=== PATIENT | female | born 1955 | race Caucasian/White ===

== ENCOUNTER 2019-12-25 10:21 | Outpatient (REF) | payer MEDICARE, OTHER, MEDICAID, SELFPAY | END 2019-12-25 10:22 | disposition home or self-care (01) | LOC: HO.LAB 10:21 | PROVIDERS: PCP Physician Assistant; Visit Provider Physician Assistant | DX: E78.5 Hyperlipidemia, unspecified (principal); J44.9 Chronic obstructive pulmonary disease, unspecified; C34.90 Malignant neoplasm of unspecified part of unspecified bronchus or lung ==

== ENCOUNTER → 2020-02-12 08:58 | Outpatient (REF) | payer MEDICARE, MEDICAID, SELFPAY ==
--- NOTE | 2020-02-12 09:02 | CA_ITS ---
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 The visually estimated ejection fraction is between 55-60%. - Evidence suggests grade I (mild) diastolic dysfunction. - No obvious valvular pathology seen on this study. - There is no evidence of pericardial effusion. Findings Left Ventricle Normal left ventricular cavity size. There is normal left ventricular wall thickness. The left ventricular systolic function is normal. The visually estimated ejection fraction is between 55-60%. The calculated ejection fraction is 59% by biplane method. There is no evidence of regional wall motion abnormalities. E/E prime ratio is between 8 and 15 consistent with indeterminate filling pressures. Evidence suggests grade I (mild) diastolic dysfunction. Right Ventricle Normal right ventricular cavity size and systolic function. Atria The left atrium is normal in size. The right atrium is normal in size. Aortic Valve There is a normal trileaflet aortic valve. There is no aortic valve stenosis. There is no aortic valve regurgitation. Mitral Valve The mitral valve appears normal. There is trace mitral valve regurgitation. There is no mitral valve stenosis. Pulmonic Valve The pulmonic valve was not well visualized. Tricuspid Valve There is trace tricuspid valve regurgitation. The pulmonary artery systolic pressure is normal. Great Vessels The aorta was not well visualized. The aortic annulus and sinuses of valsalva are normal in size. Small plaque is seen in the sino tubular ridge. Venous The inferior vena cava is normal in size and collapses greater than 50% with inspiration. Pericardium/Pleural There is no evidence of pericardial effusion. Prior Study Comparison No prior study available for comparison. Recommendations, Care & Conclusions No obvious valvular pathology seen on this study. Measurements 2D Linear Measurements RVIDd: 2.89 RVIDd Index: 1.42 IVSd: 0.75 0.6-0.9/0.6-1.0 cm LVIDd: 4.91 3.9-5.3/4.2-5.9 cm LVIDd Index: 2.42 2.4-3.2/2.2-3.1 cm/m2 LVIDs: 3.65 2.0-3.6 cm LVPWd: 1.07 0.7-1.1 cm Ao Root: 3.20 2.1-3.5 cm LA Diam: 3.30 2.7-3.8/3.0-4.0 cm LAIDs Index: 1.63 1.5-2.3 cm/m2 LV Mass: 193.48 67-162/88-224 g LV Mass Index: 95.31 43-95/49-115 g/m2 LVOT Diam: 2.00 3.0+(-)1.3 cm 2D Systolic Function EF 4C: 62.90 >55% EF 2C: 54.40 >55% EF BiP: 58.80 >55% Mitral Valve MV Pk E: 0.76 MV PK A: 0.66 MV Decel Time: 152.00 E/A: 1.10 E'Lateral: 9.14 E'Medial: 5.98 E/E' Med: 12.70 E/E' Lat: 8.30 Aortic Valve AoV Pk Aaron: 1.45 AoV Mn Aaron: 1.01 AoV VTI: 0.27 AoV Pk Grad: 8.00 Aov Mn Grad: 5.00 SILVA Cont.VTI: 2.55 LVOT LVOT Pk Aaron: 1.28 LVOT Mn Aaron: 0.81 LVOT VTI: 0.22 LVOT Pk Grad: 7.00 LVOT Mn Grad: 3.00 LVOT Diam: 2.00 LVOT Area: 3.14 Diastolic Function MV Pk E: 0.76 MV Pk A: 0.66 E/A: 1.10 E'Medial: 5.98 E/E' Med: 12.70 E' Laterial: 9.14 E/E' Lat: 8.30 Tricuspid Valve RA Press: 3.00 Great Vessels Aorta Ao Root-2D: 3.20 2.0-3.7 cm Ao Arch: 2.40 Updated in Other Vendor System with Status of Final Jason Frey MD electronically signed on 02/14/2020 9:39:45 AM with status of Final
== END ==
LOC: HO.CARD 08:58
PROVIDERS: PCP Physician Assistant; Visit Provider Internal Medicine Pulmonary Disease
DX: R06.00 Dyspnea, unspecified (principal)
CPT/HCPCS: 93306; 93356

== ENCOUNTER 2020-02-16 11:52 | Outpatient (REF) | payer MEDICARE, MEDICAID, SELFPAY ==
--- NOTE | 2020-02-16 11:55 | CT_ITS ---
EXAMINATION: CT CHEST WITH CONTRAST CLINICAL INFORMATION: Squamous cell carcinoma lung, restaging COMPARISON: CT chest with contrast 07/31/2019, 01/03/2019; PET CT 11/24/2019. TECHNIQUE: Multidetector volumetric CT imaging of the chest was obtained after the administration of 85 mL of Omnipaque 350 intravenous contrast without immediate adverse reactions. Axial MIP volume rendering provided. Sagittal and coronal reformatted images were obtained. CT abdomen and pelvis also performed and described in separate report. This CT examination was performed using dose optimization techniques as appropriate, variously including the following: *Automated exposure control *Adjustment of mA and/or kV according to patient size (this includes techniques or standardized protocols for targeted exams where dose is matched to indication/reason for exam; i.e. extremities or head) *Use of iterative reconstruction technique DLP: 165 mGy-cm FINDINGS: LUNGS: There is mild increased volume loss on the right. Patchy airspace opacities are present, straight lateral margin in the upper zones, suggesting radiation therapy change. There is more confluent patchy opacities right lower zone. Findings increased since prior exam 07/31/2019. The right infrahilar mass measures 1.2 cm, coronal image 51 compared with 1.[address] coronal image. The left lung has 6-7 mm nodule lateral superior segment lower lobe, series /209, sagittal 22. No significant change from prior CT, remeasured in same orientation. There is a punctate calcification likely granuloma left posterior base under 4 mm. No new pulmonary nodule or airspace consolidation. MEDIASTINUM: 1.2 cm right paratracheal node at sternal notch, similar to prior CT. Soft tissue fullness subcarinal region stable. No interval hilar or mediastinal adenopathy. Thoracic aorta normal in caliber. Central pulmonary arteries patent. Tunneled port. PLEURA: Moderate right effusion without significant change. No interval pleural thickening or pleural mass. No left effusion. AXILLA: No lymphadenopathy. UPPER ABDOMEN: CT abdomen and pelvis described in separate report. OSSEOUS STRUCTURES: T6 compression fracture slightly increased. No accentuated superior endplate concavity T5. No paraspinal soft tissue swelling. CT/CT chest w con IMPRESSION: 1. Mild increased volume loss right hemithorax with probable radiation therapy changes. Moderate effusion stable. Right infrahilar mass borderline decreased in size. No interval new adenopathy. 2. Solitary nodule superior segment left lower lobe under 1 cm without significant change. 3. Slight increased T6 vertebral compression. New superior endplate concavity T5. No paraspinal soft tissue swelling. 4. CT abdomen pelvis described in separate report.
--- NOTE | 2020-02-16 11:55 | CT_ITS ---
EXAMINATION: CT ABDOMEN AND PELVIS WITH CONTRAST CLINICAL INFORMATION: Restaging. Lung cancer. COMPARISON: CT/PET exam 11/24/2019. TECHNIQUE: Multidetector volumetric images were obtained from the superior aspect of the liver through the pubic symphysis following administration 85 mL of Omnipaque 350 intravenous contrast. Sagittal and coronal reformatted images were obtained on the technologist's workstation. Oral contrast: No This CT examination was performed using dose optimization techniques as appropriate, variously including the following: *Automated exposure control *Adjustment of mA and/or kV according to patient size (this includes techniques or standardized protocols for targeted exams where dose is matched to indication/reason for exam; i.e. extremities or head) *Use of iterative reconstruction technique DLP: 805 mGy-cm FINDINGS: LUNG BASES: There is a small to moderate right pleural effusion with right lower lobe and right middle lobe band-like atelectasis or chronic scarring. LIVER, GALLBLADDER, AND BILIARY TREE: There is a 3 cm lesion left hepatic lobe segment 2/3. Previously FDG avid this lesion measured 5.7 x 4.7 cm and has improved significantly in size. No additional liver lesions visualized. There is no intrahepatic ductal dilatation. The liver is homogeneous in density and normal size. The gallbladder is unremarkable with no evidence of radiopaque gallstones, gallbladder wall thickening, or obvious pericholecystic inflammatory changes. PANCREAS: Unremarkable. SPLEEN: Unremarkable. ADRENAL GLANDS: Unremarkable. KIDNEYS AND URETERS: The kidneys are normal in size, shape, and attenuation. No hydronephrosis, hydroureter, or calculi seen. No perinephric stranding. BLADDER: Unremarkable. GASTROINTESTINAL TRACT: There is scattered oral contrast and stool seen throughout the colon without any significant distention. A few scattered diverticula are seen in descending and sigmoid colon without diverticulitis. There is nonspecific mild mural thickening involving a small segment of small bowel in the left upper pelvis on axial images 42 through 55/3, it is nonspecific. Rest of the small bowel loops are normal. No inflammatory process seen in the mesentery. ABDOMINAL WALL: No significant hernia is appreciated. LYMPH NODES: Normal. VASCULAR: Unremarkable. PELVIC VISCERA: There is no free fluid or free air. The uterus is anteverted and appears unremarkable. OSSEOUS STRUCTURES: No lytic or sclerotic process seen. CT/CT abdomen pelvis w con IMPRESSION: Significant improvement in the left lobe liver lesions with measurements shown above. No additional liver lesion seen. Nonspecific mild mural thickening involving a small bowel segment in left abdomen, nonspecific. Small to moderate right pleural effusion with underlying right lower lobe and right middle lobe band-like atelectasis or scarring.
[2020-02-16] MEDS: iohexoL 350 MG/ML 100 ML INFUS..BTL 85 ML IV (15:29)
== END 2020-02-16 11:53 | disposition home or self-care (01) ==
LOC: HO.CT 11:52
PROVIDERS: PCP Physician Assistant; Visit Provider Internal Medicine
DX: C34.90 Malignant neoplasm of unspecified part of unspecified bronchus or lung (principal)
CPT/HCPCS: 71260; 74177; Q9967

== ENCOUNTER → 2020-03-01 10:03 | Outpatient (BNVA) | payer MEDICARE, OTHER, MEDICAID, SELFPAY | PROVIDERS: PCP Physician Assistant; Visit Provider Internal Medicine Pulmonary Disease | DX: J41.0 Simple chronic bronchitis (principal); R06.00 Dyspnea, unspecified | CPT/HCPCS: 99212 ==

== ENCOUNTER 2020-04-04 14:26 | Inpatient (IN) | payer MEDICARE, MEDICAID, SELFPAY ==
[2020-04-04] VITALS (7 sets, daily range): BP systolic 93–132; BP diastolic 40–68; PULSE 108–156; RESP 14–20; TEMP 35.9–37.1; O2SAT 92–99; BMI 37.8
--- NOTE | 2020-04-04 | ECG_ITS ---
Test Reason : REPEAT Blood Pressure : / mmHG Vent. Rate : 109 BPM Atrial Rate : 109 BPM P-R Int : 138 ms QRS Dur : 076 ms QT Int : 362 ms P-R-T Axes : 052 033 022 degrees QTc Int : 487 ms Sinus tachycardia T wave abnormality, consider anterior ischemia Abnormal ECG When compared with ECG of 04-APR-2020 15:19, No significant change was found Referred By: Diamond Farmer Electronically Signed By:ALEC ALVAREZ MD
--- NOTE | 2020-04-04 14:45 | CT_ITS ---
EXAMINATION: CT ANGIOGRAM OF THE CHEST WITH AND WITHOUT CONTRAST (CT PULMONARY ANGIOGRAM FOR PE) CLINICAL INFORMATION: Reason for Exam hypoxia, SOB, +lung cancer COMPARISON: Previous chest CT scans most recent 02/16/2020 TECHNIQUE: Prior to contrast administration, noncontrast localization images were obtained. Subsequently, multidetector volumetric imaging was performed from the thoracic inlet to below the diaphragms following the administration of 65 mL Omnipaque 350 intravenous contrast. No contrast reaction reported Sagittal, coronal, and MIP oblique sagittal reformatted images were obtained on the CT workstation, uploaded to PACS, and reviewed. This CT examination was performed using dose optimization techniques as appropriate, variously including the following: *Automated exposure control *Adjustment of mA and/or kV according to patient size (this includes techniques or standardized protocols for targeted exams where dose is matched to indication/reason for exam; i.e. extremities or head) *Use of iterative reconstruction technique Total exam dose-length product 430 mGy-cm FINDINGS: QUALITY OF STUDY/CONTRAST BOLUS: Satisfactory. PULMONARY ARTERIES: No central or segmental pulmonary emboli. THORACIC AORTA: No aneurysm or dissection. LUNG: There is a groundglass attenuation, some denser consolidation and increased interstitial markings seen in the right upper lobe. This appears increased from previous exam. There is denser subsegmental atelectasis or consolidation seen in the central right middle and right lower lobes. This is increased from previous exam as well. The previously identified 1.2 cm right infrahilar nodule on previous exam is is not well delineated. There are new increased interstitial markings and groundglass attenuation seen in the left upper lobe. There are new scattered nodular opacities seen in the left lower lobe. There is a groundglass attenuation nodular opacity in the left lower lobe that measures 6 mm axial image 27 series 5 that is stable. There is a new adjacent 1 cm groundglass attenuation nodule axial image 27 series 5 in the left lower lobe and several more inferior groundglass attenuation nodules in the left lower lobe largest measuring 1.8 x 2.3 cm axial image 33 series 5. PLEURA: There is a large right pleural effusion. This appears increased from previous exam. There is a new moderate small to moderate left pleural effusion that is new from previous exam. MEDIASTINUM: Normal heart size. No pericardial effusion. No evidence of septal bowing or right heart strain. There is stable mediastinal lymphadenopathy. Largest lymph node is a right tracheoesophageal groove lymph node that measures 1.4 x 1.8 cm axial image 10 series 5. There are smaller mediastinal lymph nodes that are stable. Evaluation for right-sided hilar adenopathy is difficult due to dense central right lung consolidation. No left-sided hilar adenopathy is seen. There is a new left jugular port with tip projecting over the SVC. CHEST WALL/AXILLA: No axillary or internal mammary lymphadenopathy. OSSEOUS STRUCTURES: There are degenerative changes of the spine. There are midthoracic vertebral body compression fractures that appear unchanged. UPPER ABDOMEN: There is fullness of the right adrenal gland seen on coronal recent drop images. This is not appreciated on the source axial images be artifactual motion. No reflux of contrast into the hepatic veins to suggest elevated right heart pressures. CT/CT angio chest PE protocol IMPRESSION: No evidence of pulmonary embolism. Increasing groundglass attenuation, increased interstitial markings and denser consolidation in the right upper lobe. Increasing denser atelectasis or consolidation in the central right middle and right lower lobes. New groundglass attenuation and increased interstitial markings in the left upper lobe. New groundglass attenuation nodular opacities in the left lower lobe. How much of the right-sided lung findings represent possible post treatment/radiation change versus residual neoplasm or infection is uncertain. New left-sided findings raise concern for infectious or inflammatory process. Increasing large right pleural effusion and small to moderate left pleural effusion. Stable compression fractures. VTE: negative
--- NOTE | 2020-04-04 14:45 | ED_ITS ---
HPI - SOB/Dyspnea General Chief Complaint: Dyspnea Stated Complaint: weakness Time Seen by Provider: 04/04/20 14:36 Source: patient Mode of arrival: ambulatory Limitations: no limitations History of Present Illness HPI Narrative: 64 y/o female with history of metastatic squamous cell lung cancer on active chemotherapy, COPD, HFpEF, former smoker who presents from Onology office with generalized fatigue, body aches, and SOB. She was found to have oxygen saturation of 83% on room air. She states it started 3 days after her last chemotherapy 03/17/2020. She states it is common for her after chemotherpay however this time it never improved. She stayed in bed all last week due to fatigue and LUKE. She has been checking her temperature and has had no fevers. She is coughing clear mucus. No abdominal pain, N/V but reports chronic diarrhea. She has increased LE edema for the last 1 month that makes it more difficult to walk around. She has been using her albuterol inhaler without improvement in her SOB. She denies chest pain. MD elicited complaint: shortness of breath Pertinent past history: COPD and other (lung cancer) Onset (ago): week(s) (1-2) Context: other (recent chemotherapy ) Timing: constant and progressively worsening Severity: moderate Exacerbating factors: lying flat, exertion, movement and coughing Relieving factors: rest, bronchodilators and upright position Known history of: COPD and other (lung cancer) Associated symptoms: denies other symptoms, wheezing, sputum production and lower extremity pain Treatment prior to arrival: oxygen Related Data Home Medications Medication Instructions Recorded Confirmed albuterol sulfate See Rx Instructions .ROUTE .COMPLEX 12/25/19 12/31/19 [id number] 1 tab PO DAILY 12/25/19 12/31/19 [Citracal-D3 Maximum Plus] [id number] carb-vit K 1 tab PO DAILY 12/25/19 12/31/19 [One-A-Day Womens Formula] ondansetron 8 mg PO Q8H PRN 12/25/19 12/31/19 simvastatin 40 mg PO BEDTIME 12/25/19 12/31/19 loratadine 10 mg capsule 10 mg PO NEEDED PRN 12/31/19 02/05/20 meclizine 25 mg tablet 25 mg PO .PRN PRN tab 12/31/19 02/05/20 omeprazole 20 mg capsule,delayed 20 mg PO DAILY 12/31/19 02/05/20 release umeclidinium-vilanterol [Anoro 1 inh INHALATION DAILY 02/05/20 02/05/20 Ellipta] Previous Rx's Medication Instructions Recorded albuterol sulfate 90 mcg/actuation 2 puff INHALATION Q6H PRN 30 Days 12/31/19 aerosol inhaler #8.5 g umeclidinium 62.5 mcg-vilanterol 1 inh INHALATION DAILY 30 Days #1 01/29/20 25 mcg/actuation powdr for ea inhalation dexamethasone 1 mg PO DIRECTED #60 tab 02/12/20 escitalopram oxalate 5 mg PO DAILY #60 tab 03/01/20 Allergies Allergy/AdvReac Type Severity Reaction Status Date / Time amoxicillin [AMOXICILLIN] Allergy Intermediate HIVES Verified 03/01/20 10:15 Iodinated Contrast Media AdvReac Intermediate NAUSEA ?T? Verified 03/01/20 10:15 [IVP DYE] VOMITING azithromycin AdvReac Unknown diarrhea Verified 03/01/20 10:15 Review of Systems Review of Systems: Constitutional: No Fever, + Chills ENT/Mouth: No sore throat, No Rhinorrhea, No Swallowing Difficulty Eyes: No Eye Pain, No Swelling, No Redness Cardiovascular: No Chest Pain, + SOB, + Orthopnea, + Edema Respiratory: + Cough, + Sputum, + Wheezing, + dyspnea Gastrointestinal: No Nausea, No Vomiting, + Diarrhea, No abdominal Pain Genitourinary: No Dysuria, No Urinary Frequency, No Hematuria Musculoskeletal: No joint pain, + Myalgias Skin: No Skin Lesions, No rash Neuro: + Weakness, No Numbness, No Dizziness, + Headache Psych: No Anxiety/Panic, No Depression Heme/Lymph: No Bruising, No Lymphadenopathy Endocrine: No Polyuria, No Polydipsia PMFSH Past Medical History Attestation statement: The following information was validated with the patient. Medical History COPD (chronic obstructive pulmonary disease) HLD (hyperlipidemia) Squamous cell carcinoma of lung, stage IV TIA (transient ischemic attack) Surgical History H/O breast biopsy No pertinent past surgical history Family History Family History Father Hypertension Mother No problems noted. Sister Hypertension Diverticulosis Brother Hypertension Social History Social History Smoking Status: Former smoker Years Smoked: 30 yrs Advance Directives: Yes Advance Directives on File: Yes Advance Directives Date on File: 03/01/19 Physical Exam Vital Signs: Vital Signs: Last Vital Signs Temp 98.0 F 04/04/20 14:30 Pulse 109 H 04/04/20 16:14 Resp 20 04/04/20 16:14 BP 118/60 04/04/20 16:40 Pulse Ox 99 04/04/20 16:14 Body Mass Index 37.8 Appearance: Alert. Oriented X3. Pallor, mild respiratory distress, i ntermittent pursed lip breathing Eyes: Pupils equal, round and reactive to light. ENT: Pharynx normal. Neck: Normal inspection. Neck supple. CVS: tachycardic, regular rhythm, Pulses normal. Respiratory: Mild respiratory distress, shallow breathing pattern with RR low 20's, expiratory wheezes at bilateral bases Abdomen: Obese, Soft and nontender. +BS x4 Skin: Skin warm and dry. Normal skin color. Normal skin turgor. No rashes. Extremities: 2+ LE pitting edema, no calf tenderness. Neuro: Oriented X 3. Generalized weakness. Non-focal. Course Course Course Narrative: 64 y/o female with history of metastatic lung cancer on chemo, COPD, HFpEF who presents with SOB, malaise and fatigue x1-2 weeks after chemo, found to be hypoxic and tachycardic. Concern for PE given active cancer. CTA ordered. She is wheezy on exam so IV steroids ordered as well as Resp panel, labs, cultures, and troponin. Will require admission to the hospital. Discussed goals of care - patient wishes to be a full code at this time. Reevaluation(s) Reevaluation #1: COVID POSITIVE. Results discussed with the patient. All questions answered. CTA resulted with NO PE, increased GGO with increasing right pleural effusion, ?malignant. Spoke with the Hospitalist who will admit for acute hypoxic respiratory failure in the setting of COVID-19 infection. MDM - SOB/Dyspnea MDM Narrative Medical decision making narrative: Ddx includes but not limited to: progressive lung cancer, malignant effusion, COVID, Influenza, pneumonitis Differential Diagnosis Differential diagnosis: Likely acute exacerbation of chronic obstructive airways disease, congestive heart failure, pneumonia, pulmonary embolism, pleural effusion and anemia Medical Records Attestation: I reviewed the patient's medical records. Lab Data Attestation: I reviewed the patient's lab results. Result diagrams: 04/04/20 14:24 04/04/20 15:06 Labs: Lab Results 04/04/20 04/04/20 04/04/20 Range/Units 14:24 15:05 15:05 WBC 7.4 (4.8-10.8) X10*3/uL RBC 3.90 L (4.20-5.50) X10*6/uL Hgb 11.1 L (12.0-16.0) g/dl Hct 34.1 L (37-47) % MCV 87.4 (80-98) fL MCH 28.5 (27.0-33.0) pg MCHC 32.6 (31.0-35.0) g/dl RDW 16.4 H (11.0-16.0) % Plt Count 326 (160-400) X10*3/uL MPV 8.9 L (9.4-12.3) fL Immature Gran % (Auto) 0.5 H (0.0-0.4) % Neut % (Auto) 76.2 H (45-73) % Lymph % (Auto) 7.4 L (20-40) % Hutchinson % (Auto) 15.6 H (2-11) % Eos % (Auto) 0.0 (0-4) % Baso % (Auto) 0.3 (0-2) % Lymph # (Auto) 0.6 L (1.2-4.9) X10*3/uL Hutchinson # (Auto) 1.2 (0.1-1.2) X10*3/uL Eos # (Auto) 0.0 (0.0-0.4) X10*3/uL Baso # (Auto) 0.0 (0.0-0.2) X10*3/uL Abs Immat Gran (auto) 0.04 H (0.00-0.03) X10*3/uL Absolute Neuts (auto) 5.6 (2.0-8.3) X10*3/uL Absolute Nucleated RBC 0.000 (0.0-0.012) X10*3/uL Nucleated RBC % (auto) 0.0 (0.0-0.2) /100WBC Smear Tech's Comments VERIFIED PT 14.7 H (10.8-13.0) SEC INR 1.2 H (0.9-1.1) APTT 26.7 (24.1-38.0) SEC D-Dimer 411 NG/ML Sodium (135-145) mmol/L Potassium (3.3-5.1) mmol/l Chloride (96-108) mmol/L Carbon Dioxide (22-29) mmol/L Anion Gap (12-20) BUN (9-16) mg/dL Creatinine (0.5-1.4) mg/dL Estim Creat Clear Calc Estimated GFR Random Glucose (60-115) mg/dL Lactic Acid (0.5-2.0) mmol/L Calcium (8.4-10.2) mg/dL Magnesium (1.6-2.6) mg/dL Total Bilirubin (0.0-1.0) mg/dL Direct Bilirubin (0.0-0.5) mg/dL AST (5-31) U/L ALT (0-31) U/L Alkaline Phosphatase (39-117) U/L Troponin I High Sens 29.7 H (<3.5-17.0) ng/L C-Reactive Protein (< or = 0.50) mg/dL B-Natriuretic Peptide 299 H (<100) pg/mL Total Protein (6.5-8.0) g/dL Albumin (3.5-5.0) g/dL Procalcitonin ng/mL Urine Color Urine Appearance Urine pH (5.0-8.0) Ur Specific Dubberly (1.005-1.025) Urine Protein (NEG-TRACE) MG/DL Urine Glucose (UA) (NEG) MG/DL Urine Ketones (NEG) MG/DL Urine Blood (NEG) Urine Nitrite (NEG) Ur Leukocyte Esterase (NEG) Urine Osmolality (373-1093) mosm/kg Ur Random Sodium mmol/L Urine Creatinine mg/dL Coronavirus (PCR) (Negative) Influenza Type A (PCR) (Negative) Influenza Type B (PCR) (Negative) RSV RNA Qual (PCR) (Negative) 04/04/20 04/04/20 04/04/20 Range/Units 15:05 15:06 15:06 WBC (4.8-10.8) X10*3/uL RBC (4.20-5.50) X10*6/uL Hgb (12.0-16.0) g/dl Hct (37-47) % MCV (80-98) fL MCH (27.0-33.0) pg MCHC (31.0-35.0) g/dl RDW (11.0-16.0) % Plt Count (160-400) X10*3/uL MPV (9.4-12.3) fL Immature Gran % (Auto) (0.0-0.4) % Neut % (Auto) (45-73) % Lymph % (Auto) (20-40) % Hutchinson % (Auto) (2-11) % Eos % (Auto) (0-4) % Baso % (Auto) (0-2) % Lymph # (Auto) (1.2-4.9) X10*3/uL Hutchinson # (Auto) (0.1-1.2) X10*3/uL Eos # (Auto) (0.0-0.4) X10*3/uL Baso # (Auto) (0.0-0.2) X10*3/uL Abs Immat Gran (auto) (0.00-0.03) X10*3/uL Absolute Neuts (auto) (2.0-8.3) X10*3/uL Absolute Nucleated RBC (0.0-0.012) X10*3/uL Nucleated RBC % (auto) (0.0-0.2) /100WBC Smear Tech's Comments PT (10.8-13.0) SEC INR (0.9-1.1) APTT (24.1-38.0) SEC D-Dimer NG/ML Sodium 126 L (135-145) mmol/L Potassium 4.9 D (3.3-5.1) mmol/l Chloride 87 L (96-108) mmol/L Carbon Dioxide 30 H (22-29) mmol/L Anion Gap 14 (12-20) BUN 8 L (9-16) mg/dL Creatinine 0.54 (0.5-1.4) mg/dL Estim Creat Clear Calc 119.3 Estimated GFR > 60 Random Glucose 80 (60-115) mg/dL Lactic Acid 0.9 (0.5-2.0) mmol/L Calcium 7.9 L (8.4-10.2) mg/dL Magnesium 1.7 (1.6-2.6) mg/dL Total Bilirubin 0.5 (0.0-1.0) mg/dL Direct Bilirubin 0.3 (0.0-0.5) mg/dL AST 31 D (5-31) U/L ALT 18 (0-31) U/L Alkaline Phosphatase 107 D (39-117) U/L Troponin I High Sens (<3.5-17.0) ng/L C-Reactive Protein 6.84 H (< or = 0.50) mg/dL B-Natriuretic Peptide (<100) pg/mL Total Protein 4.9 L (6.5-8.0) g/dL Albumin 3.0 L (3.5-5.0) g/dL Procalcitonin 0.07 ng/mL Urine Color Urine Appearance Urine pH (5.0-8.0) Ur Specific Dubberly (1.005-1.025) Urine Protein (NEG-TRACE) MG/DL Urine Glucose (UA) (NEG) MG/DL Urine Ketones (NEG) MG/DL Urine Blood (NEG) Urine Nitrite (NEG) Ur Leukocyte Esterase (NEG) Urine Osmolality (373-1093) mosm/kg Ur Random Sodium mmol/L Urine Creatinine mg/dL Coronavirus (PCR) (Negative) Influenza Type A (PCR) (Negative) Influenza Type B (PCR) (Negative) RSV RNA Qual (PCR) (Negative) 04/04/20 04/04/20 04/04/20 Range/Units 15:09 15:38 15:51 WBC (4.8-10.8) X10*3/uL RBC (4.20-5.50) X10*6/uL Hgb (12.0-16.0) g/dl Hct (37-47) % MCV (80-98) fL MCH (27.0-33.0) pg MCHC (31.0-35.0) g/dl RDW (11.0-16.0) % Plt Count (160-400) X10*3/uL MPV (9.4-12.3) fL Immature Gran % (Auto) (0.0-0.4) % Neut % (Auto) (45-73) % Lymph % (Auto) (20-40) % Hutchinson % (Auto) (2-11) % Eos % (Auto) (0-4) % Baso % (Auto) (0-2) % Lymph # (Auto) (1.2-4.9) X10*3/uL Hutchinson # (Auto) (0.1-1.2) X10*3/uL Eos # (Auto) (0.0-0.4) X10*3/uL Baso # (Auto) (0.0-0.2) X10*3/uL Abs Immat Gran (auto) (0.00-0.03) X10*3/uL Absolute Neuts (auto) (2.0-8.3) X10*3/uL Absolute Nucleated RBC (0.0-0.012) X10*3/uL Nucleated RBC % (auto) (0.0-0.2) /100WBC Smear Tech's Comments PT (10.8-13.0) SEC INR (0.9-1.1) APTT (24.1-38.0) SEC D-Dimer NG/ML Sodium (135-145) mmol/L Potassium (3.3-5.1) mmol/l Chloride (96-108) mmol/L Carbon Dioxide (22-29) mmol/L Anion Gap (12-20) BUN (9-16) mg/dL Creatinine (0.5-1.4) mg/dL Estim Creat Clear Calc Estimated GFR Random Glucose (60-115) mg/dL Lactic Acid (0.5-2.0) mmol/L Calcium (8.4-10.2) mg/dL Magnesium (1.6-2.6) mg/dL Total Bilirubin (0.0-1.0) mg/dL Direct Bilirubin (0.0-0.5) mg/dL AST (5-31) U/L ALT (0-31) U/L Alkaline Phosphatase (39-117) U/L Troponin I High Sens (<3.5-17.0) ng/L C-Reactive Protein (< or = 0.50) mg/dL B-Natriuretic Peptide (<100) pg/mL Total Protein (6.5-8.0) g/dL Albumin (3.5-5.0) g/dL Procalcitonin ng/mL Urine Color YELLOW Urine Appearance CLEAR Urine pH 6.0 (5.0-8.0) Ur Specific Dubberly <= 1.005 (1.005-1.025) Urine Protein NEG (NEG-TRACE) MG/DL Urine Glucose (UA) NEG (NEG) MG/DL Urine Ketones 15 (NEG) MG/DL Urine Blood NEG (NEG) Urine Nitrite NEG (NEG) Ur Leukocyte Esterase NEG (NEG) Urine Osmolality 134 L (373-1093) mosm/kg Ur Random Sodium mmol/L Urine Creatinine mg/dL Coronavirus (PCR) POSITIVE A (Negative) Influenza Type A (PCR) NEGATIVE (Negative) Influenza Type B (PCR) NEGATIVE (Negative) RSV RNA Qual (PCR) NEGATIVE (Negative) 04/04/20 Range/Units 15:51 WBC (4.8-10.8) X10*3/uL RBC (4.20-5.50) X10*6/uL Hgb (12.0-16.0) g/dl Hct (37-47) % MCV (80-98) fL MCH (27.0-33.0) pg MCHC (31.0-35.0) g/dl RDW (11.0-16.0) % Plt Count (160-400) X10*3/uL MPV (9.4-12.3) fL Immature Gran % (Auto) (0.0-0.4) % Neut % (Auto) (45-73) % Lymph % (Auto) (20-40) % Hutchinson % (Auto) (2-11) % Eos % (Auto) (0-4) % Baso % (Auto) (0-2) % Lymph # (Auto) (1.2-4.9) X10*3/uL Hutchinson # (Auto) (0.1-1.2) X10*3/uL Eos # (Auto) (0.0-0.4) X10*3/uL Baso # (Auto) (0.0-0.2) X10*3/uL Abs Immat Gran (auto) (0.00-0.03) X10*3/uL Absolute Neuts (auto) (2.0-8.3) X10*3/uL Absolute Nucleated RBC (0.0-0.012) X10*3/uL Nucleated RBC % (auto) (0.0-0.2) /100WBC Smear Tech's Comments PT (10.8-13.0) SEC INR (0.9-1.1) APTT (24.1-38.0) SEC D-Dimer NG/ML Sodium (135-145) mmol/L Potassium (3.3-5.1) mmol/l Chloride (96-108) mmol/L Carbon Dioxide (22-29) mmol/L Anion Gap (12-20) BUN (9-16) mg/dL Creatinine (0.5-1.4) mg/dL Estim Creat Clear Calc Estimated GFR Random Glucose (60-115) mg/dL Lactic Acid (0.5-2.0) mmol/L Calcium (8.4-10.2) mg/dL Magnesium (1.6-2.6) mg/dL Total Bilirubin (0.0-1.0) mg/dL Direct Bilirubin (0.0-0.5) mg/dL AST (5-31) U/L ALT (0-31) U/L Alkaline Phosphatase (39-117) U/L Troponin I High Sens (<3.5-17.0) ng/L C-Reactive Protein (< or = 0.50) mg/dL B-Natriuretic Peptide (<100) pg/mL Total Protein (6.5-8.0) g/dL Albumin (3.5-5.0) g/dL Procalcitonin ng/mL Urine Color Urine Appearance Urine pH (5.0-8.0) Ur Specific Dubberly (1.005-1.025) Urine Protein (NEG-TRACE) MG/DL Urine Glucose (UA) (NEG) MG/DL Urine Ketones (NEG) MG/DL Urine Blood (NEG) Urine Nitrite (NEG) Ur Leukocyte Esterase (NEG) Urine Osmolality (373-1093) mosm/kg Ur Random Sodium < 20.0 mmol/L Urine Creatinine 33.55 mg/dL Coronavirus (PCR) (Negative) Influenza Type A (PCR) (Negative) Influenza Type B (PCR) (Negative) RSV RNA Qual (PCR) (Negative) ECG Data Attestation: I personally reviewed and interpreted this ECG as follows: ECG interpretation date: 04/04/20 ECG interpretation time: 15:44 Prior ECG tracings: not available for review Interpretation: sinus tachycardia, HR 111, t-wave inversions in V1-V3, no appreciable ST segment elevation but non-specific changes in V3 noted. normal MA interval. Critical Care Time Critical Care Time Critical Care Time: Yes Total Critical Care Time: 35 Attestation: I attest to critical care time taking case of this critically ill patient with acute hypoxic resp failure and viral sepsis / COVID-19. Frequent bedside reassessments performed. Discharge Plan Discharge Clinical Impression: Acute respiratory failure with hypoxia, COVID-19 Patient Disposition: Admitted As Inpatient Prescriptions: No Action albuterol sulfate 2.5 mg /3 mL (0.083 %) Solution For Nebulization See Rx Instructions .ROUTE .COMPLEX RF: 0 simvastatin 40 mg Tablet 40 mg PO BEDTIME RF: 0 ondansetron 8 mg Tablet,Disintegrating 8 mg PO Q8H PRN (Reason: Nausea) RF: 0 One-A-Day Womens Formula 18 mg iron-400 mcg-500 mg Tablet 1 tab PO DAILY RF: 0 Citracal-D3 Maximum Plus 325 mg-12.5 mcg -2.75 mg Tablet 1 tab PO DAILY RF: 0 Anoro Ellipta 62.5-25 mcg/actuation Blister With Device 1 inh INHALATION DAILY RF: 0 dexamethasone 1 mg Tablet 1 mg PO DIRECTED Qty: 60 RF: 2 escitalopram oxalate 5 mg Tablet 5 mg PO DAILY Qty: 60 RF: 3 omeprazole 20 mg capsule,delayed release(DR/EC) 20 mg PO DAILY RF: 0 meclizine 25 mg tablet 25 mg PO .PRN PRN (Reason: Dizziness) RF: 0 loratadine 10 mg capsule 10 mg PO NEEDED PRN (Reason: Allergy Symptoms) RF: 0 albuterol sulfate 90 mcg/actuation HFA aerosol inhaler 2 puff inhalation Q6H PRN (Reason: shortness of breath or wheezing) 30 Days Qty: 8.5 RF: 3 Anoro Ellipta 62.5-25 mcg/actuation blister with device 1 inh inhalation DAILY 30 Days Qty: 1 RF: 6
--- NOTE | 2020-04-04 14:47 | ECG_ITS ---
Test Reason : SOB Blood Pressure : / mmHG Vent. Rate : 111 BPM Atrial Rate : 111 BPM P-R Int : 114 ms QRS Dur : 074 ms QT Int : 338 ms P-R-T Axes : 073 072 020 degrees QTc Int : 459 ms Sinus tachycardia Low voltage QRS Anterior ST-T wave changes s/o of ischemia Abnormal ECG No previous ECGs available Referred By: Amy Hilton Electronically Signed By:ALEC ALVAREZ MD
[2020-04-04 15:18] LABS: Basophils Percent Auto 0.3 % (0-2); Hematocrit 34.1 % (37-47); Hemoglobin 11.1 g/dl (12.0-16.0); Imm Gran Abs Auto 0.04 X10*3/uL (0.00-0.03); Imm Gran Pct Auto 0.5 % (0.0-0.4); Lymphocytes Absolute Auto 0.6 X10*3/uL (1.2-4.9); Lymphocytes Percent Auto 7.4 % (20-40); MANUAL DIFF FLAG SCAN; Mean Corpuscular HGB Conc 32.6 g/dl (31.0-35.0); Mean Corpuscular Hemoglobin 28.5 pg (27.0-33.0); Mean Corpuscular Volume 87.4 fL (80-98); Mean Platelet Volume 8.9 fL (9.4-12.3); Monocytes Absolute Auto 1.2 X10*3/uL (0.1-1.2); Monocytes Percent Auto 15.6 % (2-11); Neutrophils Absolute Auto 5.6 X10*3/uL (2.0-8.3); Neutrophils Percent Auto 76.2 % (45-73); Platelet Count 326 X10*3/uL (160-400); Red Cell Distribution Width 16.4 % (11.0-16.0); SCAN SMEAR FLAG 1; White Blood Count 7.4 X10*3/uL (4.8-10.8)
[2020-04-04 15:24] LABS: INTERNATIONAL NORM RATIO 1.2 (0.9-1.1); Prothrombin Time 14.7 SEC (10.8-13.0)
[2020-04-04 15:26] LABS: D Dimer 411 NG/ML; Partial Thromboplastin Time 26.7 SEC (24.1-38.0)
[2020-04-04 15:35] LABS: Lactic Acid 0.9 mmol/L (0.5-2.0)
[2020-04-04 15:41] LABS: Alanine Aminotransferase 18 U/L (0-31); Alkaline Phosphatase 107 U/L (39-117); Anion Gap 14 (12-20); Aspartate Amino Transferase 31 U/L (5-31); Bilirubin Direct 0.3 mg/dL (0.0-0.5); Bilirubin Total 0.5 mg/dL (0.0-1.0); Blood Urea Nitrogen 8 mg/dL (9-16); C Reactive Protein 6.84 mg/dL (< or = 0.50); Calcium 7.9 mg/dL (8.4-10.2); Carbon Dioxide 30 mmol/L (22-29); Chloride 87 mmol/L (96-108); Creatinine Clr Calc Pharmacy 119.3; Estimated Glomerular Filt Rate > 60; Glucose Random 80 mg/dL (60-115); Magnesium 1.7 mg/dL (1.6-2.6); Potassium 4.9 mmol/l (3.3-5.1); Sodium 126 mmol/L (135-145); Total Protein 4.9 g/dL (6.5-8.0)
[2020-04-04 15:49] LABS: B Type Natriuretic Peptide 299 pg/mL (<100); Troponin-I High Sensitivity 29.7 ng/L (<3.5-17.0)
[2020-04-04 15:50] LABS: Glucose Urine UA NEG (NEG); Leukocyte Esterase Urine NEG (NEG); Nitrite Urine NEG (NEG); Specific Gravity - Urine <= 1.005 (1.005-1.025); Urine Blood NEG (NEG); Urine Ketones 15 MG/DL (NEG); Urine Protein NEG (NEG-TRACE)
[2020-04-04 15:51] LABS: Appearance Urine CLEAR; Color Urine YELLOW
[2020-04-04 16:01] LABS: Procalcitonin 0.07 ng/mL
[2020-04-04 16:10] LABS: SLIDE REVIEW VERIFIED
[2020-04-04] MEDS: ondansetron HCL 4 MG/2 ML VIAL IVPUSH (16:11)
[2020-04-04] MEDS: methylPREDNISolone Sod Succ/PF 125 MG/2 ML VIAL IVPUSH (16:11)
[2020-04-04] MEDS: iohexoL 350 MG/ML 100 ML INFUS..BTL IV (16:16)
[2020-04-04 16:27] LABS: Creatinine Urine 33.55 mg/dL; Sodium Urine Random < 20.0 mmol/L
[2020-04-04 16:33] LABS: Influenza A PCR NEGATIVE (Negative); Influenza B PCR NEGATIVE (Negative); Resp Syncy Virus RNA Qual PCR NEGATIVE (Negative); SARS COV2 PCR INHOUSE POSITIVE (Negative)
[2020-04-04 16:47] LABS: Osmolality Urine 134 mosm/kg (373-1093)
--- NOTE | 2020-04-04 18:33 | PM.IMHP ---
History of Present Illness Date of Service: 04/04/20 Chief Complaint: Shortness of breath This is a 64-year-old female with a history of metastatic lung cancer who was sent to the emergency department for hypoxia. Patient went to the oncology clinic due to shortness of breath, malaise and generally not feeling well for the past 5 days. She was noted to be hypoxic with an oxygen saturation of 83% on room air. She was transported to the emergency department for workup. CTA showed ground-glass opacities as well as changes related lung cancer in possible changes secondary to radiation. She was able to maintain oxygen saturation in the low 90s on 2 L of supplemental oxygen. Sodium level was low at 26. COVID test returned positive. She was treated with IV Solu-Medrol and the decision was made to admit her for further management. Review of Systems Review of Systems: Yes all other systems are reviewed and are negative Constitutional: Constitutional: Denies chills, Reports fatigue, Denies fever(s), Reports lethargy, Reports malaise, Reports poor appetite and Reports weakness Cardiovascular: Cardiovascular: Denies chest pain and Reports dyspnea Respiratory: Respiratory: Reports dyspnea Gastrointestinal: Gastrointestinal: Denies abdominal pain Neurologic: Reports weakness Endocrine: Endocrine: Reports fatigue PMFSH Medical History COPD (chronic obstructive pulmonary disease) HLD (hyperlipidemia) Squamous cell carcinoma of lung, stage IV TIA (transient ischemic attack) Functional capacity: independent ambulation Family History Father Hypertension Mother No problems noted. Sister Hypertension Diverticulosis Brother Hypertension Family history: reviewed and not pertinent Surgical History H/O breast biopsy No pertinent past surgical history Social History (Updated 04/04/20 @ 18:37 by SOUMYA Lynn) Household Members: Spouse Smoking Status: Former smoker Years Smoked: 30 yrs Use of substances other than those prescribed or required for medical reasons: No Advance Directives: Yes Advance Directives on File: Yes Advance Directives Date on File: 03/01/19 Meds Allergies Allergy/AdvReac Type Severity Reaction Status Date / Time amoxicillin [AMOXICILLIN] Allergy Intermediate HIVES Verified 03/01/20 10:15 Iodinated Contrast Media AdvReac Intermediate NAUSEA ?T? Verified 03/01/20 10:15 [IVP DYE] VOMITING azithromycin AdvReac Unknown diarrhea Verified 03/01/20 10:15 Home Medications Medication Instructions Recorded Confirmed Type albuterol sulfate See Rx Instructions .ROUTE .COMPLEX 12/25/19 12/31/19 History oaqvzha-Z5-[id number]-copper-jennifer 1 tab PO DAILY 12/25/19 12/31/19 History [Citracal-D3 Maximum Plus] gv-rx-mczs-FA-Ca carb-vit K 1 tab PO DAILY 12/25/19 12/31/19 History [One-A-Day Womens Formula] simvastatin 40 mg PO BEDTIME 12/25/19 04/04/20 History loratadine 10 mg capsule 10 mg PO NEEDED PRN 12/31/19 02/05/20 History omeprazole 20 mg capsule,delayed 20 mg PO DAILY 12/31/19 04/04/20 History release umeclidinium-vilanterol [Anoro 1 inh INHALATION DAILY 02/05/20 04/04/20 History Ellipta] Physical Exam Vital Signs and Narrative: Vital Signs: Last Vital Signs Temp 98.7 F 04/04/20 18:00 Pulse 108 H 04/04/20 18:00 Resp 14 04/04/20 18:00 BP 129/67 04/04/20 18:00 Pulse Ox 92 04/04/20 18:00 Body Mass Index 37.8 Const: General: alert and awake Nutritional Appearance: well nourished Orientation/consciousness: patient oriented x3 HENMT: Head: Yes normocephalic and Yes atraumatic Eyes: Sclerae: sclerae normal Chest: Chest palpation & inspection: normal inspection of the chest Resp: Effort & Inspection: normal respiratory effort and no respiratory distress Cardio: Rate: regular rate Rhythm: regular rhythm GI: Palpation (GI): Soft to palpation and nontender Skin: General skin exam: no rashes or lesions noted Neuro: General: patient oriented x3 Cranial nerves: Yes CN's II-XII intact bilaterally and Yes Bilaterally intact EOM present Extrem: General: Yes normal to inspection Results Labs CBC and Chem 7: 04/04/20 14:24 04/04/20 15:06 Labs: Laboratory Results - last 24 hr 04/04/20 04/04/20 04/04/20 14:24 15:05 15:05 MCV 87.4 MCH 28.5 MCHC 32.6 RDW 16.4 H Plt Count 326 MPV 8.9 L Immature Gran % (Auto) 0.5 H Neut % (Auto) 76.2 H Lymph % (Auto) 7.4 L [place] % (Auto) 15.6 H Eos % (Auto) 0.0 Baso % (Auto) 0.3 Lymph # (Auto) 0.6 L [place] # (Auto) 1.2 Eos # (Auto) 0.0 Baso # (Auto) 0.0 Abs Immat Gran (auto) 0.04 H Absolute Neuts (auto) 5.6 Absolute Nucleated RBC 0.000 Nucleated RBC % (auto) 0.0 Smear Tech's Comments VERIFIED PT 14.7 H INR 1.2 H APTT 26.7 D-Dimer 411 Anion Gap Estim Creat Clear Calc Estimated GFR Random Glucose Lactic Acid Calcium Magnesium Total Bilirubin Direct Bilirubin AST ALT Alkaline Phosphatase Troponin I High Sens 29.7 H C-Reactive Protein B-Natriuretic Peptide 299 H Total Protein Albumin Procalcitonin Urine Color Urine Appearance Urine pH Ur Specific [place] Urine Protein Urine Glucose (UA) Urine Ketones Urine Blood Urine Nitrite Ur Leukocyte Esterase Urine Osmolality Ur Random Sodium Urine Creatinine Coronavirus (PCR) Influenza Type A (PCR) Influenza Type B (PCR) RSV RNA Qual (PCR) 04/04/20 04/04/20 04/04/20 15:05 15:06 15:06 MCV MCH MCHC RDW Plt Count MPV Immature Gran % (Auto) Neut % (Auto) Lymph % (Auto) [place] % (Auto) Eos % (Auto) Baso % (Auto) Lymph # (Auto) [place] # (Auto) Eos # (Auto) Baso # (Auto) Abs Immat Gran (auto) Absolute Neuts (auto) Absolute Nucleated RBC Nucleated RBC % (auto) Smear Tech's Comments PT INR APTT D-Dimer Anion Gap 14 Estim Creat Clear Calc 119.3 Estimated GFR > 60 Random Glucose 80 Lactic Acid 0.9 Calcium 7.9 L Magnesium 1.7 Total Bilirubin 0.5 Direct Bilirubin 0.3 AST 31 D ALT 18 Alkaline Phosphatase 107 D Troponin I High Sens C-Reactive Protein 6.84 H B-Natriuretic Peptide Total Protein 4.9 L Albumin 3.0 L Procalcitonin 0.07 Urine Color Urine Appearance Urine pH Ur Specific [place] Urine Protein Urine Glucose (UA) Urine Ketones Urine Blood Urine Nitrite Ur Leukocyte Esterase Urine Osmolality Ur Random Sodium Urine Creatinine Coronavirus (PCR) Influenza Type A (PCR) Influenza Type B (PCR) RSV RNA Qual (PCR) 04/04/20 04/04/20 04/04/20 15:09 15:38 15:51 MCV MCH MCHC RDW Plt Count MPV Immature Gran % (Auto) Neut % (Auto) Lymph % (Auto) [place] % (Auto) Eos % (Auto) Baso % (Auto) Lymph # (Auto) [place] # (Auto) Eos # (Auto) Baso # (Auto) Abs Immat Gran (auto) Absolute Neuts (auto) Absolute Nucleated RBC Nucleated RBC % (auto) Smear Tech's Comments PT INR APTT D-Dimer Anion Gap Estim Creat Clear Calc Estimated GFR Random Glucose Lactic Acid Calcium Magnesium Total Bilirubin Direct Bilirubin AST ALT Alkaline Phosphatase Troponin I High Sens C-Reactive Protein B-Natriuretic Peptide Total Protein Albumin Procalcitonin Urine Color YELLOW Urine Appearance CLEAR Urine pH 6.0 Ur Specific [place] <= 1.005 Urine Protein NEG Urine Glucose (UA) NEG Urine Ketones 15 Urine Blood NEG Urine Nitrite NEG Ur Leukocyte Esterase NEG Urine Osmolality 134 L Ur Random Sodium Urine Creatinine Coronavirus (PCR) POSITIVE A Influenza Type A (PCR) NEGATIVE Influenza Type B (PCR) NEGATIVE RSV RNA Qual (PCR) NEGATIVE 04/04/20 15:51 MCV MCH MCHC RDW Plt Count MPV Immature Gran % (Auto) Neut % (Auto) Lymph % (Auto) [place] % (Auto) Eos % (Auto) Baso % (Auto) Lymph # (Auto) [place] # (Auto) Eos # (Auto) Baso # (Auto) Abs Immat Gran (auto) Absolute Neuts (auto) Absolute Nucleated RBC Nucleated RBC % (auto) Smear Tech's Comments PT INR APTT D-Dimer Anion Gap Estim Creat Clear Calc Estimated GFR Random Glucose Lactic Acid Calcium Magnesium Total Bilirubin Direct Bilirubin AST ALT Alkaline Phosphatase Troponin I High Sens C-Reactive Protein B-Natriuretic Peptide Total Protein Albumin Procalcitonin Urine Color Urine Appearance Urine pH Ur Specific [place] Urine Protein Urine Glucose (UA) Urine Ketones Urine Blood Urine Nitrite Ur Leukocyte Esterase Urine Osmolality Ur Random Sodium < 20.0 Urine Creatinine 33.55 Coronavirus (PCR) Influenza Type A (PCR) Influenza Type B (PCR) RSV RNA Qual (PCR) Imaging Radiologist's Impressions: Impressions Chest CTA 04/04/20 14:45 IMPRESSION: No evidence of pulmonary embolism. Increasing groundglass attenuation, increased interstitial markings and denser consolidation in the right upper lobe. Increasing denser atelectasis or consolidation in the central right middle and right lower lobes. New groundglass attenuation and increased interstitial markings in the left upper lobe. New groundglass attenuation nodular opacities in the left lower lobe. How much of the right-sided lung findings represent possible post treatment/radiation change versus residual neoplasm or infection is uncertain. New left-sided findings raise concern for infectious or inflammatory process. Increasing large right pleural effusion and small to moderate left pleural effusion. Stable compression fractures. VTE: negative Assessment and Plan (1) Acute respiratory failure with hypoxia: Status: Acute (2) COVID-19: Status: Acute (3) Squamous cell carcinoma of lung, stage IV: Qualifiers: Laterality: left Qualified Code(s): C34.92 - Malignant neoplasm of unspecified part of left bronchus or lung Status: Chronic This is a 64-year-old female with metastatic cancer who presents from Oncology with hypoxia found to have COVID-19 Acute respiratory failure with hypoxia COVID-19 pneumonia -IV dexamethasone -infectious disease determine eligibility for remdesivir -continue supplemental oxygen as needed Hyponatremia Likely related to hypovolemia Encourage p.o. intake Slight elevation in troponin No chest pain Will trend On home medications for chronic medical conditions will be continued once med reconciliation has been completed dvt ppx - lovenox code status - full code this case was discussed with Dr. Castano
[2020-04-04 19:21] LABS: Lactate Dehydrogenase 201 U/L (122-220)
--- NOTE | 2020-04-04 19:50 | PC.NURSE ---
pt refused enoxparin d/t receiving chemo. Pt up to commode with steady even gait. Pt requesting water to drink. Pt alert, respirations easy, n/l. skin w/d. Will continue to monitor pt.
[2020-04-04 20:12] LABS: Troponin-I High Sensitivity 25.8 ng/L (<3.5-17.0)
--- NOTE | 2020-04-04 21:00 | PC.NURSE ---
report given to floor. Pt to floor in NAD at this time.
--- NOTE | 2020-04-04 23:28 | ECG_ITS ---
Test Reason : tachycardia Blood Pressure : / mmHG Vent. Rate : 142 BPM Atrial Rate : 174 BPM P-R Int : 000 ms QRS Dur : 082 ms QT Int : 320 ms P-R-T Axes : 000 023 011 degrees QTc Int : 492 ms Rhythm shows atrial flutter with variable block with rapid ventricular response T wave abnormality, consider anterior ischemia Abnormal ECG When compared to the previous EKG of Atrial flutter has replaced sinus tachycardia Referred By: Diamond Farmer Electronically Signed By:ALEC ALVAREZ MD
[2020-04-04] MEDS: 0.9 % Sodium Chloride Flush 3 ML SYRINGE IVFLUSH (23:31)
[2020-04-04] MEDS: Metoprolol Tartrate 5 MG/5 ML VIAL IVPUSH (23:32)
[2020-04-05] VITALS (10 sets, daily range): BP systolic 94–118; BP diastolic 54–80; PULSE 74–126; RESP 13–22; TEMP 35.7–36.8; O2SAT 93–100; BMI 37.8
[2020-04-05] MEDS: dilTIAZem HCL 125 MG in 0.9 % Sodium Chloride 100 ML IVCONT (00:32)
--- NOTE | 2020-04-05 05:29 | PC.NURSE ---
CARE ASSUMED 23:15...NAPPING...MONITOR RAPID ATRIAL FIB...HR 140'S-150'S...ASYMPTOMATIC...SBP 90'S-100'S...DR COLBY PREVIOUSLY NOTIFIED PER SHIFT REPORT..12-LEAD.EKG DONE AND REVIEWED....LOPRESSOR 5 MG IVP GIVEN..HR REMAINED 130'S...MD UPDATED...STARTED CARDIZEM DRIP 5 MG/HR...CONVERTED TO NSR HR 76-90 30 AFTER DRIP INITIATED...SBP REMAINS 90'S-100'S...ASYMPTOMATIC...OOB TO BEDSIDE COMMODE WITH STEADY GAIT..DENIES DIZZYNESS...RESPIRATIONS EASY...SAO2 94-96% O2 5 L/M...RESTFUL...DENIES/OFFERS NO COMPLAINTS
[2020-04-05 06:49] LABS: Hematocrit 35.4 % (37-47); Imm Gran Abs Auto 0.02 X10*3/uL (0.00-0.03); Imm Gran Pct Auto 0.6 % (0.0-0.4); Lymphocytes Absolute Auto 0.3 X10*3/uL (1.2-4.9); Lymphocytes Percent Auto 9.1 % (20-40); MANUAL DIFF FLAG SCAN; Mean Corpuscular HGB Conc 31.1 g/dl (31.0-35.0); Mean Corpuscular Hemoglobin 28.1 pg (27.0-33.0); Mean Corpuscular Volume 90.5 fL (80-98); Mean Platelet Volume 9.2 fL (9.4-12.3); Monocytes Absolute Auto 0.3 X10*3/uL (0.1-1.2); Monocytes Percent Auto 7.9 % (2-11); Neutrophils Absolute Auto 2.7 X10*3/uL (2.0-8.3); Neutrophils Percent Auto 82.4 % (45-73); Platelet Count 369 X10*3/uL (160-400); Red Blood Count 3.91 X10*6/uL (4.20-5.50); Red Cell Distribution Width 16.5 % (11.0-16.0); SCAN SMEAR FLAG 1; White Blood Count 3.3 X10*3/uL (4.8-10.8)
[2020-04-05 07:24] LABS: Anion Gap 13 (12-20); Blood Urea Nitrogen 8 mg/dL (9-16); Calcium 7.8 mg/dL (8.4-10.2); Carbon Dioxide 33 mmol/L (22-29); Chloride 91 mmol/L (96-108); Creatinine Clr Calc Pharmacy 123.9; Estimated Glomerular Filt Rate > 60; Glucose Random 116 mg/dL (60-115); Potassium 5.5 mmol/l (3.3-5.1); Sodium 131 mmol/L (135-145)
[2020-04-05 07:41] LABS: SLIDE REVIEW VERIFIED
[2020-04-05] MEDS: 0.9 % Sodium Chloride Flush 3 ML SYRINGE IVFLUSH ×4 (08:44→21:36)
--- NOTE | 2020-04-05 08:56 | MHC.CM.PN ---
pt lives alone in two family home. he has a son and c whom he is c that help him c his needs. his [place] provide transportation [place]. pt gets around via WC, he is able to transfer to and from bed, toilet, etc on his own. pt's only svc in the home is [facility] through [facility]. per pt's with whom this conversation was conducted, pt prefers being independent... he would not want to go to [facility] or even have vna svcs at [place]. at this time dc plan is home no svcs. cm to cont. to follow.
--- NOTE | 2020-04-05 10:56 | MHC.CM.PN ---
pt lives c her in their home. the is also admitted c covid. the patient is independent in her care and is undergoing chemotherapy treatments for lung ca. pt denies the need for vna at [place]. at this time dc plan is home no svcs. cm to cont. to follow.
[2020-04-05] MEDS: dilTIAZem HCL 30 MG TABLET PO ×2 (15:29→21:12)
--- NOTE | 2020-04-05 15:48 | P.CNID_ITS ---
History of Present Illness Data of Consult Service Date: 04/05/20 Requesting physician: Mahin Castano Primary Care Provider: YUN Trujillo Reason for consult: COVID She presents to hospital with cough and shortness of breath for last three days She has no fever or chills She has had rhinorrhea for last three weeks Review of Systems Review of Systems: Yes all other systems are reviewed and are negative Constitutional: Constitutional: Reports weakness Neurologic: Reports weakness PMFSH Past Medical History Medical History COPD (chronic obstructive pulmonary disease) HLD (hyperlipidemia) Squamous cell carcinoma of lung, stage IV TIA (transient ischemic attack) Functional capacity: independent ambulation Family History Family History Father Hypertension Mother No problems noted. Sister Hypertension Diverticulosis Brother Hypertension Family history: reviewed and not pertinent Surgical History Surgical History H/O breast biopsy No pertinent past surgical history Social History Social History Household Members: Spouse Alcohol intake: never Smoking Status: Former smoker Years Smoked: 30 yrs Use of substances other than those prescribed or required for medical reasons: No Currently Displaying Signs/Symptoms of Drug Intoxication Withdrawal: No Advance Directives: Yes Advance Directives on File: Yes Advance Directives Date on File: 03/01/19 Do you have thoughts of harming others: None Do you have a plan to hurt others: No Plan service: No Current occupational status: retired Meds Allergies Allergy/AdvReac Type Severity Reaction Status Date / Time amoxicillin [AMOXICILLIN] Allergy Intermediate HIVES Verified 03/01/20 10:15 Iodinated Contrast Media AdvReac Intermediate NAUSEA ?T? Verified 03/01/20 10:15 [IVP DYE] VOMITING azithromycin AdvReac Unknown diarrhea Verified 03/01/20 10:15 Home Medications Medication Instructions Recorded Confirmed Type wfhuvzb-G4-ljmu-copper-jennifer 1 tab PO DAILY 12/25/19 04/04/20 History [Citracal-D3 Maximum Plus] gy-mt-gsaw-FA-Ca carb-vit K 1 tab PO DAILY 12/25/19 04/04/20 History [One-A-Day Womens Formula] simvastatin 40 mg PO BEDTIME 12/25/19 04/04/20 History omeprazole 20 mg capsule,delayed 20 mg PO DAILY 12/31/19 04/04/20 History release umeclidinium-vilanterol [Anoro 1 inh INHALATION DAILY 02/05/20 04/04/20 History Ellipta] albuterol sulfate 2.5 mg INHALATION Q8H PRN 04/04/20 04/04/20 History loratadine 10 mg PO DAILY PRN 04/04/20 04/04/20 History Physical Exam Vital Signs: Vital Signs: Last Vital Signs Temp 97.5 F 04/05/20 15:17 Pulse 97 04/05/20 15:29 Resp 18 04/05/20 15:17 BP 106/54 L 04/05/20 15:29 Pulse Ox 100 04/05/20 15:17 Body Mass Index 37.8 Const: General: cooperative Orientation/consciousness: patient oriented x3 HENMT: Head: Yes normal to inspection Mouth: Normal oral and palatal mucosa present Eyes: General: appearance normal, both eyes and all related structures Resp: Effort & Inspection: normal respiratory effort Cardio: Rate: regular rate Rhythm: regular rhythm GI: Inspection: Yes normal to inspection Palpation (GI): nontender : General: Yes no CVA tenderness Back/Spine/Pelvis: Back: no CVA tenderness Skin: General skin exam: no rashes or lesions noted Neuro: General: patient oriented x3 Cranial nerves: Yes CN's II-XII intact bilaterally Assessment and Plan (1) COVID-19: Problem details: She has COVID of unknown duration but symptoms last three day of significance with recent exposure so have to assume after March 25 LFTs are unremarkable Status: Acute Would give Dexamethasone Would give Remdesivir (2) Acute respiratory failure with hypoxia: Status: Acute Results Labs CBC & Chem 7: 04/05/20 06:12 04/05/20 06:12 Labs: Short CBC 04/05/20 Range/Units 06:12 WBC 3.3 L (4.8-10.8) X10*3/uL Hgb 11.0 L (12.0-16.0) g/dl Hct 35.4 L (37-47) % Plt Count 369 (160-400) X10*3/uL BMP 04/05/20 06:12 Sodium 131 L Potassium 5.5 H Chloride 91 L Carbon Dioxide 33 H BUN 8 L Creatinine 0.52 Calcium 7.8 L Urine 04/04/20 Range/Units 15:38 Urine Color YELLOW Urine Appearance CLEAR Urine pH 6.0 (5.0-8.0) Ur Specific [place] <= 1.005 (1.005-1.025) Urine Protein NEG (NEG-TRACE) MG/DL Urine Glucose (UA) NEG (NEG) MG/DL
--- NOTE | 2020-04-05 15:56 | P.PNIM_ITS ---
Subjective Subjective Date of Service: 04/05/20 Interval History: seen and examined feeling slightly better today can breath a bit easier overnight events reviewed ROS General - no fevers or chills Cardiovascular - no chest pain Respiratory - +SOB, improved Abdominal- no abdominal pain, nausea, vomiting, diarrhea Physical Exam Vital Signs: Vital Signs: Last Vital Signs Temp 97.5 F 04/05/20 15:17 Pulse 97 04/05/20 15:29 Resp 18 04/05/20 15:17 BP 106/54 L 04/05/20 15:29 Pulse Ox 100 04/05/20 15:17 Body Mass Index 37.8 Const: General: alert and awake Nutritional Appearance: well nourished Orientation/consciousness: patient oriented x3 HENMT: Head: Yes normocephalic and Yes atraumatic Eyes: Sclerae: sclerae normal Chest: Chest palpation & inspection: normal inspection of the chest Resp: Effort & Inspection: normal respiratory effort and no respiratory distress Cardio: Rate: regular rate Rhythm: regular rhythm GI: Palpation (GI): Soft to palpation and nontender Skin: General skin exam: no rashes or lesions noted Neuro: General: patient oriented x3 Cranial nerves: Yes CN's II-XII intact bilaterally and Yes Bilaterally intact EOM present Extrem: General: Yes normal to inspection Objective Data Current Medications Generic Name Dose Route Start Last Admin Trade Name Neilq PRN Reason Stop Dose Admin Acetaminophen 650 mg 04/04/20 18:31 Acetaminophen 325 Mg Tablet PO Q6H PRN Pain, Mild (Pain Scale 1-3) Albuterol Sulfate 2 puff 04/04/20 18:31 Albuterol Sulfate 90 Mcg 8 Gm Inhaler INHALE Q4H PRN shortness of breath Dexamethasone Sodium Phosphate 6 mg 04/06/20 09:00 Dexamethasone Sod Phosphate/Pf 10 Mg/Ml Vial IVPUSH DAILY [facility] Diltiazem HCl 30 mg 04/05/20 13:00 04/05/20 15:29 Diltiazem Hcl 30 Mg Tablet PO 30 mg QID [facility] Administration Protocol Docusate Sodium 100 mg 04/04/20 18:31 Docusate Sodium 100 Mg Capsule PO DAILY PRN Constipation Enoxaparin Sodium 40 mg 04/04/20 18:31 04/04/20 19:46 Enoxaparin Sodium 40 Mg/0.4 Ml Syringe SUBCUT Not Given Q24H [facility] Ondansetron HCl 4 mg 04/04/20 18:31 Ondansetron Hcl 4 Mg/2 Ml Vial IVPUSH Q8H PRN Nausea and Vomiting Pharmacy Consult 1 each 04/04/20 17:34 Consult Rx Perform Med Rec MISCELLANE ONCE PRN Consult order Sodium Chloride 3 ml 04/05/20 00:00 04/05/20 15:29 0.9 % Sodium Chloride Flush 3 Ml Syringe IVFLUSH 3 ml QSHIFT [facility] Administration Labs CBC & Chem 7: 04/05/20 06:12 04/05/20 06:12 Assessment and Plan (1) Acute respiratory failure with hypoxia: Status: Acute (2) COVID-19: Status: Acute (3) Squamous cell carcinoma of lung, stage IV: Status: Chronic Assessment and Plan: This is a 64-year-old female with metastatic cancer who presents from Oncology with hypoxia found to have COVID-19 1. Acute respiratory failure with hypoxia due to COVID-19 pneumonia IV decadron ID input to see if any benefit for remdesivir 2. A. Fib RVR tele reviewed -- short lived, about 2 hours likely due to respiratory status start low dose cardizem if recurrent -- plan for further work up 3. Hyponatremia improved with PO intake monitor 4. HS trop-I flat x 2 no cp continue other home medsl
--- NOTE | 2020-04-05 15:58 | MHC.CM.PN ---
Pt has been transfered from the ISO unit to room# 469-1. Her is in the same room. He is in 469-2.
[2020-04-05] MEDS: Remdesivir 200 MG in 0.9 % Sodium Chloride 210 ML 105 MG IV (18:57)
[2020-04-05] MEDS: Atorvastatin Calcium 20 MG TABLET PO (21:12)
[2020-04-06] VITALS (12 sets, daily range): BP systolic 104–148; BP diastolic 57–69; PULSE 96–141; RESP 18–20; TEMP 36.7–36.9; O2SAT 87–96
--- NOTE | 2020-04-06 | ECG_ITS ---
Test Reason : CP Blood Pressure : / mmHG Vent. Rate : 122 BPM Atrial Rate : 208 BPM P-R Int : 000 ms QRS Dur : 072 ms QT Int : 292 ms P-R-T Axes : 000 014 015 degrees QTc Int : 416 ms Atrial fibrillation with rapid ventricular response Abnormal ECG When compared with ECG of 04-APR-2020 23:28, Atrial fibrillation with rapid ventricular response has replaced atrial flutter T wave inversion no longer evident in Anterior leads Referred By: [facility] Electronically Signed By:ALEC ALVAREZ MD
[2020-04-06] MEDS: Omeprazole 20 MG CAPSULE.DR PO (05:21)
[2020-04-06] MEDS: Escitalopram Oxalate 5 MG TABLET PO (07:53)
[2020-04-06] MEDS: dilTIAZem HCL 30 MG TABLET PO ×3 (07:53→20:18)
[2020-04-06] MEDS: Acetaminophen 325 MG TABLET 650 MG PO (08:05)
[2020-04-06] MEDS: Loratadine 10 MG TABLET PO (08:05)
--- NOTE | 2020-04-06 08:43 | MHC.CM.PN ---
DP home no services may need assist/transport. She has moved into room 469, with her Spouse. The Pt has home Oxygen. . She is + LUNG CA.
[2020-04-06] MEDS: dilTIAZem HCL 50 MG/10 ML VIAL 10 MG IVPUSH (13:33)
--- NOTE | 2020-04-06 14:49 | HO.PM.IMPN ---
Subjective Subjective Date of Service: 04/06/20 Interval History: seen and examined feels the same went into a. fib with rvr this afternoon -- asymptomatic ROS General - no fevers or chills Cardiovascular - no chest pain Respiratory - +SOB, improved Abdominal- no abdominal pain, nausea, vomiting, diarrhea Physical Exam Vital Signs: Vital Signs: Last Vital Signs Temp 98.0 F 04/06/20 11:05 Pulse 110 H 04/06/20 14:38 Resp 18 04/06/20 11:05 BP 125/57 L 04/06/20 14:38 Pulse Ox 93 04/06/20 11:05 Body Mass Index 37.8 Const: General: alert and awake Nutritional Appearance: well nourished Orientation/consciousness: patient oriented x3 HENMT: Head: Yes normocephalic and Yes atraumatic Eyes: Sclerae: sclerae normal Chest: Chest palpation & inspection: normal inspection of the chest Resp: Effort & Inspection: normal respiratory effort and no respiratory distress Cardio: Rate: regular rate Rhythm: regular rhythm GI: Palpation (GI): Soft to palpation and nontender Skin: General skin exam: no rashes or lesions noted Neuro: General: patient oriented x3 Cranial nerves: Yes CN's II-XII intact bilaterally and Yes Bilaterally intact EOM present Extrem: General: Yes normal to inspection Objective Data Current Medications Generic Name Dose Route Start Last Admin Trade Name Freq PRN Reason Stop Dose Admin Acetaminophen 650 mg 04/04/20 18:31 04/06/20 08:05 Acetaminophen 325 Mg Tablet PO 650 mg Q6H PRN Administration Pain, Mild (Pain Scale 1-3) Albuterol Sulfate 2 puff 04/04/20 18:31 Albuterol Sulfate 90 Mcg 8 Gm Inhaler INHALE Q4H PRN shortness of breath Albuterol Sulfate 2 puff 04/05/20 16:01 Albuterol Sulfate 90 Mcg 8 Gm Inhaler INHALE Q6H PRN shortness of breath or wheezing Atorvastatin Calcium 20 mg 04/05/20 21:00 04/05/20 21:12 Atorvastatin Calcium 20 Mg Tablet PO 20 mg BEDTIME [facility]EEP[facility]I Administration Dexamethasone Sodium Phosphate 6 mg 04/06/20 09:00 04/06/20 07:52 Dexamethasone Sod Phosphate/Pf 10 Mg/Ml Vial IVPUSH 6 mg DAILY [facility] Administration Diltiazem HCl 30 mg 04/06/20 15:00 Diltiazem Hcl 30 Mg Tablet PO Q6H [facility] Protocol Docusate Sodium 100 mg 04/04/20 18:31 Docusate Sodium 100 Mg Capsule PO DAILY PRN Constipation Enoxaparin Sodium 40 mg 04/04/20 18:31 04/05/20 19:04 Enoxaparin Sodium 40 Mg/0.4 Ml Syringe SUBCUT Not Given Q24H [facility] Escitalopram Oxalate 5 mg 04/06/20 09:00 04/06/20 07:53 Escitalopram Oxalate 5 Mg Tablet PO 5 mg DAILY [facility] Administration Remdesivir 100 mg/ Sodium 230 mls @ 115 mls/hr 04/06/20 16:00 Chloride IV Q24H [facility] Loratadine 10 mg 04/05/20 16:01 04/06/20 08:05 Loratadine 10 Mg Tablet PO 10 mg DAILY PRN Administration Allergy Symptoms Omeprazole 20 mg 04/06/20 06:30 04/06/20 05:21 Omeprazole 20 Mg Capsule.Dr PO 20 mg DAILY@0630 [facility] Administration Ondansetron HCl 4 mg 04/04/20 18:31 Ondansetron Hcl 4 Mg/2 Ml Vial IVPUSH Q8H PRN Nausea and Vomiting Pharmacy Consult 1 each 04/04/20 17:34 Consult Rx Perform Med Rec MISCELLANE ONCE PRN Consult order Sodium Chloride 3 ml 04/05/20 00:00 04/05/20 21:36 0.9 % Sodium Chloride Flush 3 Ml Syringe IVFLUSH 3 ml QSHIFT [facility] Administration Labs CBC & Chem 7: 04/05/20 06:12 04/05/20 06:12 Microbiology Microbiology Results: Microbiology 04/04/20 15:29 Blood - Venous Blood Culture - Preliminary No growth after 24 hours. 04/04/20 15:11 Blood - Venous Blood Culture - Preliminary No growth after 24 hours. Assessment and Plan (1) Acute respiratory failure with hypoxia: Status: Acute (2) COVID-19: Status: Acute (3) Squamous cell carcinoma of lung, stage IV: Status: Chronic Assessment and Plan: This is a 64-year-old female with metastatic cancer who presents from Oncology with hypoxia found to have COVID-19 1. Acute respiratory failure with hypoxia due to COVID-19 pneumonia IV decadron - day 06/01 iv remedesivir - day 2/5 ID input appreciated 2. A. Fib RVR had conerted to NSR for >24 hours, but again with short lives A. Fib RVR (pt hesitant to start anticogulation despite educating why). [facility] 3. Hyponatremia improved with PO intake monitor 4. HS trop-I flat x 2 no cp continue other home medsl
[2020-04-06] MEDS: 0.9 % Sodium Chloride Flush 3 ML SYRINGE IVFLUSH (15:17)
[2020-04-06] MEDS: Remdesivir 100 MG in 0.9 % Sodium Chloride 230 ML 115 MG IV (17:36)
[2020-04-06] MEDS: Enoxaparin Sodium 40 MG/0.4 ML SYRINGE SUBCUT (17:38)
--- NOTE | 2020-04-06 18:40 | PC.NURSE ---
Pt went into afib with RVR this afternoon around 1420. Pt was asymptomatic. This RN let Dr. Castano know and 10mg of IV Cardizem push was ordered. This RN administered the medication and at 1445 pt converted back into sinus tachycardia. Pt VSS, asymptomatic and comfortable. Pt is on 30mg PO Cardizem Q6hr. This RN educated the pt on this medication and the pt verbally understands. Will continue to monitor.
[2020-04-06] MEDS: Atorvastatin Calcium 20 MG TABLET PO (20:17)
[2020-04-07] VITALS (10 sets, daily range): BP systolic 109–165; BP diastolic 64–96; PULSE 80–126; RESP 18–22; TEMP 36.4–36.7; O2SAT 91–96
--- NOTE | 2020-04-07 | ECG_ITS ---
Test Reason : rhythm check, converted bck to NSR Blood Pressure : / mmHG Vent. Rate : 106 BPM Atrial Rate : 241 BPM P-R Int : 000 ms QRS Dur : 080 ms QT Int : 334 ms P-R-T Axes : 000 013 017 degrees QTc Int : 443 ms Atrial fibrillation with rapid ventricular response Nonspecific ST and T wave abnormality Abnormal ECG When compared to the previous EKG of No significant changes seen Referred By: Mahin Castano Electronically Signed By:ALEC ALVAREZ MD
[2020-04-07] MEDS: dilTIAZem HCL 30 MG TABLET PO (03:37)
[2020-04-07] MEDS: Omeprazole 20 MG CAPSULE.DR PO (06:06)
--- NOTE | 2020-04-07 07:28 | PC.NURSE ---
pts sats at 5 am are only 89 % on 2 l oxygen up to 3 l she is now 91-92 % we will monitor
[2020-04-07] MEDS: Escitalopram Oxalate 5 MG TABLET PO (08:02)
[2020-04-07] MEDS: dilTIAZem HCL 30 MG TABLET 60 MG PO (08:03)
[2020-04-07] MEDS: 0.9 % Sodium Chloride Flush 3 ML SYRINGE IVFLUSH ×3 (08:03→23:58)
[2020-04-07 09:07] LABS: Alanine Aminotransferase 17 U/L (0-31); Albumin Level 3.1 g/dL (3.5-5.0); Alkaline Phosphatase 94 U/L (39-117); Aspartate Amino Transferase 28 U/L (5-31); Bilirubin Direct 0.2 mg/dL (0.0-0.5); Bilirubin Total 0.5 mg/dL (0.0-1.0); Total Protein 5.2 g/dL (6.5-8.0)
[2020-04-07] MEDS: Apixaban 5 MG TABLET PO ×2 (12:46→21:16)
[2020-04-07] MEDS: Furosemide 20 MG/2 ML VIAL IVPUSH (15:26)
[2020-04-07] MEDS: Remdesivir 100 MG in 0.9 % Sodium Chloride 230 ML 115 MG IV (15:26)
[2020-04-07] MEDS: dilTIAZem HCL 60 MG TABLET PO ×2 (15:26→21:16)
[2020-04-07 15:50] LABS: B Type Natriuretic Peptide 345 pg/mL (<100)
--- NOTE | 2020-04-07 17:05 | P.PNIM_ITS ---
Subjective Subjective Date of Service: 04/07/20 Interval History: seen and examined no new symptoms feels about the same going in / out of A. Fib ROS General - no fevers or chills Cardiovascular - no chest pain Respiratory - +SOB, improved Abdominal- no abdominal pain, nausea, vomiting, diarrhea Physical Exam Vital Signs: Vital Signs: Last Vital Signs Temp 97.6 F 04/07/20 15:24 Pulse 108 H 04/07/20 15:24 Resp 18 04/07/20 15:40 BP 124/67 04/07/20 15:24 Pulse Ox 95 04/07/20 15:24 Body Mass Index 37.8 Const: General: alert and awake Nutritional Appearance: well nourished Orientation/consciousness: patient oriented x3 HENMT: Head: Yes normocephalic and Yes atraumatic Eyes: Sclerae: sclerae normal Chest: Chest palpation & inspection: normal inspection of the chest Resp: Effort & Inspection: normal respiratory effort and no respiratory distress Cardio: Rate: regular rate (in / out of a. fib) Rhythm: regular rhythm GI: Palpation (GI): Soft to palpation and nontender Skin: General skin exam: no rashes or lesions noted Neuro: General: patient oriented x3 Cranial nerves: Yes CN's II-XII intact bilaterally and Yes Bilaterally intact EOM present Extrem: General: Yes normal to inspection Objective Data Current Medications Generic Name Dose Route Start Last Admin Trade Name Freq PRN Reason Stop Dose Admin Acetaminophen 650 mg 04/04/20 18:31 04/06/20 08:05 Acetaminophen 325 Mg Tablet PO 650 mg Q6H PRN Administration Pain, Mild (Pain Scale 1-3) Albuterol Sulfate 2 puff 04/04/20 18:31 Albuterol Sulfate 90 Mcg 8 Gm Inhaler INHALE Q4H PRN shortness of breath Albuterol Sulfate 2 puff 04/05/20 16:01 Albuterol Sulfate 90 Mcg 8 Gm Inhaler INHALE Q6H PRN shortness of breath or wheezing Apixaban 5 mg 04/07/20 12:30 04/07/20 12:46 Apixaban 5 Mg Tablet PO 5 mg BID [facility] Administration Atorvastatin Calcium 20 mg 04/05/20 21:00 04/06/20 20:17 Atorvastatin Calcium 20 Mg Tablet PO 20 mg BEDTIME [facility] Administration Dexamethasone Sodium Phosphate 6 mg 04/06/20 09:00 04/07/20 08:02 Dexamethasone Sod Phosphate/Pf 10 Mg/Ml Vial IVPUSH 04/13/20 09:01 6 mg DAILY [facility] Administration Diltiazem HCl 60 mg 04/07/20 15:00 04/07/20 15:26 Diltiazem Hcl 60 Mg Tablet PO 60 mg Q6H [facility] Administration Protocol Docusate Sodium 100 mg 04/04/20 18:31 Docusate Sodium 100 Mg Capsule PO DAILY PRN Constipation Escitalopram Oxalate 5 mg 04/06/20 09:00 04/07/20 08:02 Escitalopram Oxalate 5 Mg Tablet PO 5 mg DAILY [facility] Administration Remdesivir 100 mg/ Sodium 230 mls @ 115 mls/hr 04/06/20 16:00 04/07/20 15:26 Chloride IV 115 mls/hr Q24H [facility] Administration Loratadine 10 mg 04/05/20 16:01 04/06/20 08:05 Loratadine 10 Mg Tablet PO 10 mg DAILY PRN Administration Allergy Symptoms Omeprazole 20 mg 04/06/20 06:30 04/07/20 06:06 Omeprazole 20 Mg Capsule. PO 20 mg DAILY@0630 [facility] Administration Ondansetron HCl 4 mg 04/04/20 18:31 Ondansetron Hcl 4 Mg/2 Ml Vial IVPUSH Q8H PRN Nausea and Vomiting Pharmacy Consult 1 each 04/04/20 17:34 Consult Rx Perform Med Rec MISCELLANE ONCE PRN Consult order Sodium Chloride 3 ml 04/05/20 00:00 04/07/20 15:26 0.9 % Sodium Chloride Flush 3 Ml Syringe IVFLUSH 3 ml QSHIFT [facility] Administration Labs CBC & Chem 7: 04/05/20 06:12 04/05/20 06:12 Microbiology Microbiology Results: Microbiology 04/04/20 15:29 Blood - Venous Blood Culture - Preliminary No growth after 48 hours. 04/04/20 15:11 Blood - Venous Blood Culture - Preliminary No growth after 48 hours. Assessment and Plan (1) Acute respiratory failure with hypoxia: Status: Acute (2) COVID-19: Status: Acute (3) Squamous cell carcinoma of lung, stage IV: Status: Chronic Assessment and Plan: This is a 64-year-old female with metastatic cancer who presents from Oncology with hypoxia found to have COVID-19 1. Acute respiratory failure with hypoxia due to COVID-19 pneumonia IV decadron - day 07/02 iv remedesivir - day 05/27 ID input appreciated 2. PAF / RVR in and out of a. fib continue cardizem, increase to 60mg q6 hours BNP elevated -- clinically doesnt appear to be in CHF give empiric IV lasix get Echo will consult cardiology if A. Fib remains difficult to control started on Eliquis 3. Hyponatremia improved with PO recheck now 4. HS trop-I flat x 2 no cp 5. Lung Ca outpatient f/u continue other home med Full Code DVT pptx, eliquis
[2020-04-07 19:08] LABS: Anion Gap 15 (12-20); Blood Urea Nitrogen 12 mg/dL (9-16); Carbon Dioxide 33 mmol/L (22-29); Chloride 90 mmol/L (96-108); Creatinine Clr Calc Pharmacy 109.2; Estimated Glomerular Filt Rate > 60; Glucose Random 163 mg/dL (60-115); Potassium 4.9 mmol/l (3.3-5.1); Sodium 133 mmol/L (135-145)
[2020-04-07] MEDS: Atorvastatin Calcium 20 MG TABLET PO (21:17)
[2020-04-08] VITALS (9 sets, daily range): BP systolic 107–140; BP diastolic 59–83; PULSE 53–97; RESP 18–20; TEMP 36.3–36.8; O2SAT 94–97
[2020-04-08] MEDS: dilTIAZem HCL 60 MG TABLET PO ×2 (03:09→11:10)
[2020-04-08] MEDS: Omeprazole 20 MG CAPSULE.DR PO (05:47)
[2020-04-08 07:26] LABS: Hematocrit 39.9 % (37-47); Hemoglobin 12.3 g/dl (12.0-16.0); Mean Corpuscular HGB Conc 30.8 g/dl (31.0-35.0); Mean Corpuscular Hemoglobin 28.1 pg (27.0-33.0); Mean Corpuscular Volume 91.3 fL (80-98); Platelet Count 407 X10*3/uL (160-400); Red Blood Count 4.37 X10*6/uL (4.20-5.50); White Blood Count 7.1 X10*3/uL (4.8-10.8)
[2020-04-08 07:44] LABS: Alanine Aminotransferase 17 U/L (0-31); Albumin Level 3.2 g/dL (3.5-5.0); Alkaline Phosphatase 95 U/L (39-117); Anion Gap 13 (12-20); Aspartate Amino Transferase 21 U/L (5-31); Bilirubin Direct 0.3 mg/dL (0.0-0.5); Bilirubin Total 0.4 mg/dL (0.0-1.0); Blood Urea Nitrogen 14 mg/dL (9-16); Calcium 8.2 mg/dL (8.4-10.2); Carbon Dioxide 39 mmol/L (22-29); Chloride 89 mmol/L (96-108); Creatinine Clr Calc Pharmacy 119.3; Estimated Glomerular Filt Rate > 60; Glucose Random 111 mg/dL (60-115); Sodium 136 mmol/L (135-145); Total Protein 5.4 g/dL (6.5-8.0)
[2020-04-08 07:46] LABS: B Type Natriuretic Peptide 188 pg/mL (<100)
--- NOTE | 2020-04-08 11:00 | CA_ITS ---
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 fib rvr Study Quality: Fair ECG Rhythm: Atrial Fibrillation Conclusions: - 1. Normal LV systolic function 2. Normal cardiac valvular doppler 3. Normal RVSp 4. No pericardial effusion Findings Left Ventricle Normal left ventricular size, thickness, and systolic function. The visually estimated ejection fraction is between 60-65%. Diastolic function is indeterminate on the basis of available data. Right Ventricle Normal right ventricular cavity size and systolic function. Atria The left atrium is likely dilated. Interatrial shunt cannot be excluded. The right atrium is normal in size. Aortic Valve The aortic valve was not well visualized. There is no aortic valve stenosis. There is no aortic valve regurgitation. Mitral Valve Normal mitral valve structure and function. There is trace mitral valve regurgitation. There is no mitral valve stenosis. Pulmonic Valve The pulmonic valve was not well visualized. Tricuspid Valve The tricuspid valve was not well visualized. There is trace tricuspid valve regurgitation. The right ventricular systolic pressure is normal. The right ventricular systolic pressure is 18 mmHg. There is no evidence of pulmonary hypertension. Great Vessels All visible segments of the aorta are normal in size. The pulmonary artery was not well visualized. Venous The inferior vena cava is normal in size and collapses greater than 50% with inspiration. Pericardium/Pleural There is no evidence of pericardial effusion. Prior Study Comparison No significant change compared to prior study dated: 02/12/2020. Measurements 2D Linear Measurements IVSd: 1.08 0.6-0.9/0.6-1.0 cm LVIDd: 4.03 3.9-5.3/4.2-5.9 cm LVIDd Index: 1.98 2.4-3.2/2.2-3.1 cm/m2 LVIDs: 2.68 2.0-3.6 cm LVPWd: 1.14 0.7-1.1 cm Ao Root: 3.30 2.1-3.5 cm LA Diam: 3.40 2.7-3.8/3.0-4.0 cm LAIDs Index: 1.67 1.5-2.3 cm/m2 LV Mass: 185.84 67-162/88-224 g LV Mass Index: 91.10 43-95/49-115 g/m2 LVOT Diam: 2.00 3.0+(-)1.3 cm Mitral Valve MV Pk E: 0.86 MV Decel Time: 169.00 E'Lateral: 15.70 E'Medial: 9.77 E/E' Med: 8.80 E/E' Lat: 5.50 PHT: 49.00 MVA PHT: 4.49 Decel Solano: 5.08 Aortic Valve AoV Pk Aaron: 1.23 AoV Mn Aaron: 0.90 AoV VTI: 0.24 AoV Pk Grad: 6.00 Aov Mn Grad: 4.00 SILVA Cont.VTI: 2.15 LVOT LVOT Pk Aaron: 0.89 LVOT Mn Aaron: 0.56 LVOT VTI: 0.16 LVOT Pk Grad: 3.00 LVOT Mn Grad: 2.00 LVOT Diam: 2.00 LVOT Area: 3.14 Diastolic Function MV Pk E: 0.86 E'Medial: 9.77 E/E' Med: 8.80 E' Laterial: 15.70 E/E' Lat: 5.50 Tricuspid Valve TR Pk Aaron: 2.00 TR Pk Grad: 15.00 RA Press: 3.00 RVSP: 18.00 Great Vessels Aorta Ao Root-2D: 3.30 2.0-3.7 cm Pulmonary Valve PV Pk Aaron: 0.87 Peak PV Grad: 3.00 Updated in Other Vendor System with Status of Final Jose Raul Valdez MD electronically signed on 04/08/2020 12:32:41 PM with status of Final
[2020-04-08] MEDS: Apixaban 5 MG TABLET PO ×2 (11:10→22:38)
[2020-04-08] MEDS: Escitalopram Oxalate 5 MG TABLET PO (11:11)
[2020-04-08] MEDS: 0.9 % Sodium Chloride Flush 3 ML SYRINGE IVFLUSH ×3 (11:11→22:38)
--- NOTE | 2020-04-08 15:21 | P.PNIM_ITS ---
Subjective Subjective Date of Service: 04/08/20 Interval History: seen and examined better less weak / sob ROS General - no fevers or chills Cardiovascular - no chest pain Respiratory - +SOB, improved Abdominal- no abdominal pain, nausea, vomiting, diarrhea Physical Exam Vital Signs: Vital Signs: Last Vital Signs Temp 98.2 F 04/08/20 10:54 Pulse 86 04/08/20 11:10 Resp 20 04/08/20 10:54 BP 121/70 04/08/20 11:10 Pulse Ox 97 04/08/20 10:54 Body Mass Index 37.8 Const: General: alert and awake Nutritional Appearance: well nourished Orientation/consciousness: patient oriented x3 HENMT: Head: Yes normocephalic and Yes atraumatic Eyes: Sclerae: sclerae normal Chest: Chest palpation & inspection: normal inspection of the chest Resp: Effort & Inspection: normal respiratory effort and no respiratory distress Cardio: Rate: regular rate (in / out of a. fib) Rhythm: regular rhythm GI: Palpation (GI): Soft to palpation and nontender Skin: General skin exam: no rashes or lesions noted Neuro: General: patient oriented x3 Cranial nerves: Yes CN's II-XII intact bilaterally and Yes Bilaterally intact EOM present Extrem: General: Yes normal to inspection Objective Data Current Medications Generic Name Dose Route Start Last Admin Trade Name Freq PRN Reason Stop Dose Admin Acetaminophen 650 mg 04/04/20 18:31 04/06/20 08:05 Acetaminophen 325 Mg Tablet PO 650 mg Q6H PRN Administration Pain, Mild (Pain Scale 1-3) Albuterol Sulfate 2 puff 04/04/20 18:31 Albuterol Sulfate 90 Mcg 8 Gm Inhaler INHALE Q4H PRN shortness of breath Albuterol Sulfate 2 puff 04/05/20 16:01 Albuterol Sulfate 90 Mcg 8 Gm Inhaler INHALE Q6H PRN shortness of breath or wheezing Apixaban 5 mg 04/07/20 12:30 04/08/20 11:10 Apixaban 5 Mg Tablet PO 5 mg BID DEEPTHI Administration Atorvastatin Calcium 20 mg 04/05/20 21:00 04/07/20 21:17 Atorvastatin Calcium 20 Mg Tablet PO 20 mg BEDTIME [facility]EEPTHI Administration Dexamethasone Sodium Phosphate 6 mg 04/06/20 09:00 04/08/20 11:11 Dexamethasone Sod Phosphate/Pf 10 Mg/Ml Vial IVPUSH 04/13/20 09:01 6 mg DAILY [facility] Administration Diltiazem HCl 240 mg 04/08/20 15:18 Diltiazem Hcl Cd 240 Mg Cap.Er.Deg PO 04/08/20 15:19 ONCE ONE Protocol Diltiazem HCl 240 mg 04/09/20 09:00 Diltiazem Hcl Cd 240 Mg Cap.Er.Deg PO DAILY [facility] Protocol Docusate Sodium 100 mg 04/04/20 18:31 Docusate Sodium 100 Mg Capsule PO DAILY PRN Constipation Escitalopram Oxalate 5 mg 04/06/20 09:00 04/08/20 11:11 Escitalopram Oxalate 5 Mg Tablet PO 5 mg DAILY [facility] Administration Remdesivir 100 mg/ Sodium 230 mls @ 115 mls/hr 04/06/20 16:00 04/07/20 17:39 Chloride IV Infused Q24H [facility] Infusion Loratadine 10 mg 04/05/20 16:01 04/06/20 08:05 Loratadine 10 Mg Tablet PO 10 mg DAILY PRN Administration Allergy Symptoms Omeprazole 20 mg 04/06/20 06:30 04/08/20 05:47 Omeprazole 20 Mg Capsule. PO 20 mg DAILY@0630 [facility] Administration Ondansetron HCl 4 mg 04/04/20 18:31 Ondansetron Hcl 4 Mg/2 Ml Vial IVPUSH Q8H PRN Nausea and Vomiting Pharmacy Consult 1 each 04/04/20 17:34 Consult Rx Perform Med Rec MISCELLANE ONCE PRN Consult order Sodium Chloride 3 ml 04/05/20 00:00 04/08/20 11:11 0.9 % Sodium Chloride Flush 3 Ml Syringe IVFLUSH 3 ml QSHIFT [facility] Administration Labs CBC & Chem 7: 04/08/20 06:25 04/08/20 06:25 Microbiology Microbiology Results: Microbiology 04/04/20 15:29 Blood - Venous Blood Culture - Preliminary No growth after 48 hours. 04/04/20 15:11 Blood - Venous Blood Culture - Preliminary No growth after 48 hours. Assessment and Plan (1) Acute respiratory failure with hypoxia: Status: Acute (2) COVID-19: Status: Acute (3) Squamous cell carcinoma of lung, stage IV: Status: Chronic Assessment and Plan: This is a 64-year-old female with metastatic cancer who presents from Oncology with hypoxia found to have COVID-19 1. Acute respiratory failure with hypoxia due to COVID-19 pneumonia IV decadron - day 09/01 iv remedesivir - day 06/27 ID input appreciated 2. PAF / RVR in and out of a. fib cardizem cd 240mg daily echo showing normal LV function Eliquis 5mg bid 3. Hyponatremia resolved 4. HS trop-I flat x 2 no cp 5. Lung Ca outpatient f/u continue other home med Full Code DVT pptx, eliqukarmen
[2020-04-08] MEDS: Remdesivir 100 MG in 0.9 % Sodium Chloride 230 ML 115 MG IV (17:10)
[2020-04-08] MEDS: dilTIAZem HCL CD 240 MG CAP.ER.DEG PO (17:10)
[2020-04-08] MEDS: Atorvastatin Calcium 20 MG TABLET PO (22:38)
[2020-04-08] MEDS: Albuterol Sulfate 90 MCG 8 GM INHALER 2 PUFF INHALE (22:58)
[2020-04-09] VITALS (7 sets, daily range): BP systolic 110–138; BP diastolic 59–78; PULSE 60–81; RESP 18–20; TEMP 36.4–36.7; O2SAT 90–97
[2020-04-09] MEDS: Omeprazole 20 MG CAPSULE.DR PO (06:05)
[2020-04-09 07:07] LABS: Hematocrit 37.2 % (37-47); Hemoglobin 11.4 g/dl (12.0-16.0); Mean Corpuscular HGB Conc 30.6 g/dl (31.0-35.0); Mean Corpuscular Hemoglobin 27.8 pg (27.0-33.0); Mean Corpuscular Volume 90.7 fL (80-98); Mean Platelet Volume 9.2 fL (9.4-12.3); Platelet Count 387 X10*3/uL (160-400); Red Cell Distribution Width 16.7 % (11.0-16.0); White Blood Count 6.9 X10*3/uL (4.8-10.8)
[2020-04-09 07:30] LABS: Anion Gap 14 (12-20); Blood Urea Nitrogen 16 mg/dL (9-16); Calcium 8.1 mg/dL (8.4-10.2); Carbon Dioxide 35 mmol/L (22-29); Chloride 90 mmol/L (96-108); Creatinine Clr Calc Pharmacy 123.9; Estimated Glomerular Filt Rate > 60; Glucose Random 132 mg/dL (60-115); Potassium 4.8 mmol/l (3.3-5.1); Sodium 134 mmol/L (135-145)
[2020-04-09] MEDS: 0.9 % Sodium Chloride Flush 3 ML SYRINGE IVFLUSH ×3 (10:08→23:13)
[2020-04-09] MEDS: Apixaban 5 MG TABLET PO ×2 (10:08→20:45)
[2020-04-09] MEDS: Escitalopram Oxalate 5 MG TABLET PO (10:08)
[2020-04-09] MEDS: dilTIAZem HCL CD 240 MG CAP.ER.DEG PO (10:13)
--- NOTE | 2020-04-09 10:56 | P.PNIM_ITS ---
Subjective Subjective Date of Service: 04/09/20 Interval History: seen and examined slowly improving breathing better, but still still LUKE ROS General - no fevers or chills Cardiovascular - no chest pain Respiratory - +SOB, improved Abdominal- no abdominal pain, nausea, vomiting, diarrhea Physical Exam Vital Signs: Vital Signs: Last Vital Signs Temp 97.5 F 04/09/20 07:34 Pulse 60 04/09/20 10:13 Resp 20 04/09/20 07:34 BP 138/78 04/09/20 10:13 Pulse Ox 95 04/09/20 07:34 Body Mass Index 37.8 Const: General: alert and awake Nutritional Appearance: well nourished Orientation/consciousness: patient oriented x3 HENMT: Head: Yes normocephalic and Yes atraumatic Eyes: Sclerae: sclerae normal Chest: Chest palpation & inspection: normal inspection of the chest Resp: Effort & Inspection: normal respiratory effort and no respiratory distress Cardio: Rate: regular rate Rhythm: regular rhythm GI: Palpation (GI): Soft to palpation and nontender Skin: General skin exam: no rashes or lesions noted Neuro: General: patient oriented x3 Cranial nerves: Yes CN's II-XII intact bilaterally and Yes Bilaterally intact EOM present Extrem: General: Yes normal to inspection Objective Data Current Medications Generic Name Dose Route Start Last Admin Trade Name Neilq PRN Reason Stop Dose Admin Acetaminophen 650 mg 04/04/20 18:31 04/06/20 08:05 Acetaminophen 325 Mg Tablet PO 650 mg Q6H PRN Administration Pain, Mild (Pain Scale 1-3) Albuterol Sulfate 2 puff 04/04/20 18:31 Albuterol Sulfate 90 Mcg 8 Gm Inhaler INHALE Q4H PRN shortness of breath Albuterol Sulfate 2 puff 04/05/20 16:01 04/08/20 22:58 Albuterol Sulfate 90 Mcg 8 Gm Inhaler INHALE 2 puff Q6H PRN Administration shortness of breath or wheezing Apixaban 5 mg 04/07/20 12:30 04/09/20 10:08 Apixaban 5 Mg Tablet PO 5 mg BID [facility]EEP[facility]I Administration Atorvastatin Calcium 20 mg 04/05/20 21:00 04/08/20 22:38 Atorvastatin Calcium 20 Mg Tablet PO 20 mg BEDTIME [facility] Administration Dexamethasone Sodium Phosphate 6 mg 04/06/20 09:00 04/09/20 10:08 Dexamethasone Sod Phosphate/Pf 10 Mg/Ml Vial IVPUSH 04/13/20 09:01 6 mg DAILY [facility] Administration Diltiazem HCl 240 mg 04/09/20 09:00 04/09/20 10:13 Diltiazem Hcl Cd 240 Mg Cap.Er.Deg PO 240 mg DAILY [facility] Administration Protocol Docusate Sodium 100 mg 04/04/20 18:31 Docusate Sodium 100 Mg Capsule PO DAILY PRN Constipation Escitalopram Oxalate 5 mg 04/06/20 09:00 04/09/20 10:08 Escitalopram Oxalate 5 Mg Tablet PO 5 mg DAILY [facility] Administration Remdesivir 100 mg/ Sodium 230 mls @ 115 mls/hr 04/06/20 16:00 04/08/20 19:27 Chloride IV 04/09/20 17:59 Infused Q24H [facility] Infusion Loratadine 10 mg 04/05/20 16:01 04/06/20 08:05 Loratadine 10 Mg Tablet PO 10 mg DAILY PRN Administration Allergy Symptoms Omeprazole 20 mg 04/06/20 06:30 04/09/20 06:05 Omeprazole 20 Mg Capsule.Dr PO 20 mg DAILY@0630 [facility] Administration Ondansetron HCl 4 mg 04/04/20 18:31 Ondansetron Hcl 4 Mg/2 Ml Vial IVPUSH Q8H PRN Nausea and Vomiting Pharmacy Consult 1 each 04/04/20 17:34 Consult Rx Perform Med Rec MISCELLANE ONCE PRN Consult order Sodium Chloride 3 ml 04/05/20 00:00 04/09/20 10:08 0.9 % Sodium Chloride Flush 3 Ml Syringe IVFLUSH 3 ml QSHIFT [facility] Administration Labs CBC & Chem 7: 04/09/20 06:29 04/09/20 06:29 Microbiology Microbiology Results: Microbiology 04/04/20 15:29 Blood - Venous Blood Culture - Preliminary No growth after 48 hours. 04/04/20 15:11 Blood - Venous Blood Culture - Preliminary No growth after 48 hours. Assessment and Plan (1) Acute respiratory failure with hypoxia: Status: Acute (2) COVID-19: Status: Acute (3) Squamous cell carcinoma of lung, stage IV: Status: Chronic Assessment and Plan: This is a 64-year-old female with metastatic cancer who presents from Oncology with hypoxia found to have COVID-19 1. Acute respiratory failure with hypoxia due to COVID-19 pneumonia IV decadron - day 10/01 iv remedesivir - day 07/27 ID input appreciated toleratin 2-3L by NC this AM -- wean as tolerated 2. PAF / RVR in NSR about last 24 hours cardizem cd 240mg daily echo showing normal LV function Eliquis 5mg bid 3. Hyponatremia resolved 4. HS trop-I flat x 2 no cp 5. Lung Ca outpatient f/u continue other home med Full Code DVT pptx, eliquis
[2020-04-09] MEDS: Remdesivir 100 MG in 0.9 % Sodium Chloride 230 ML 115 MG IV (15:37)
[2020-04-09] MEDS: Atorvastatin Calcium 20 MG TABLET PO (20:45)
[2020-04-10] VITALS (8 sets, daily range): BP systolic 106–134; BP diastolic 56–79; PULSE 70–90; RESP 18–22; TEMP 35.8–36.8; O2SAT 92–98
[2020-04-10 06:23] LABS: Hematocrit 38.2 % (37-47); Hemoglobin 11.8 g/dl (12.0-16.0); Mean Corpuscular HGB Conc 30.9 g/dl (31.0-35.0); Mean Corpuscular Hemoglobin 27.8 pg (27.0-33.0); Mean Corpuscular Volume 89.9 fL (80-98); Platelet Count 402 X10*3/uL (160-400); Red Blood Count 4.25 X10*6/uL (4.20-5.50); White Blood Count 9.6 X10*3/uL (4.8-10.8)
[2020-04-10 06:45] LABS: Anion Gap 13 (12-20); Blood Urea Nitrogen 16 mg/dL (9-16); Calcium 8.1 mg/dL (8.4-10.2); Carbon Dioxide 35 mmol/L (22-29); Chloride 93 mmol/L (96-108); Creatinine Clr Calc Pharmacy 128.9; Estimated Glomerular Filt Rate > 60; Glucose Random 110 mg/dL (60-115); Sodium 136 mmol/L (135-145)
[2020-04-10] MEDS: Omeprazole 20 MG CAPSULE.DR PO (10:25)
[2020-04-10] MEDS: Escitalopram Oxalate 5 MG TABLET PO (10:25)
[2020-04-10] MEDS: Apixaban 5 MG TABLET PO ×2 (10:26→20:41)
[2020-04-10] MEDS: dilTIAZem HCL CD 240 MG CAP.ER.DEG PO (10:26)
[2020-04-10] MEDS: 0.9 % Sodium Chloride Flush 3 ML SYRINGE IVFLUSH ×3 (10:28→20:41)
--- NOTE | 2020-04-10 11:55 | HO.PM.IMPN ---
Subjective Subjective Date of Service: 04/10/20 Interval History: seen and examined slowly improving breathing better, but still still LUKE ROS General - no fevers or chills Cardiovascular - no chest pain Respiratory - +SOB, improved Abdominal- no abdominal pain, nausea, vomiting, diarrhea Physical Exam Vital Signs: Vital Signs: Last Vital Signs Temp 97.7 F 04/10/20 07:17 Pulse 80 04/10/20 10:26 Resp 20 04/10/20 07:17 BP 117/57 L 04/10/20 10:26 Pulse Ox 94 04/10/20 07:17 Body Mass Index 37.8 Const: General: alert and awake Nutritional Appearance: well nourished Orientation/consciousness: patient oriented x3 HENMT: Head: Yes normocephalic and Yes atraumatic Eyes: Sclerae: sclerae normal Chest: Chest palpation & inspection: normal inspection of the chest Resp: Effort & Inspection: normal respiratory effort and no respiratory distress Cardio: Rate: regular rate Rhythm: regular rhythm GI: Palpation (GI): Soft to palpation and nontender Skin: General skin exam: no rashes or lesions noted Neuro: General: patient oriented x3 Cranial nerves: Yes CN's II-XII intact bilaterally and Yes Bilaterally intact EOM present Extrem: General: Yes normal to inspection Objective Data Current Medications Generic Name Dose Route Start Last Admin Trade Name Neilq PRN Reason Stop Dose Admin Acetaminophen 650 mg 04/04/20 18:31 04/06/20 08:05 Acetaminophen 325 Mg Tablet PO 650 mg Q6H PRN Administration Pain, Mild (Pain Scale 1-3) Albuterol Sulfate 2 puff 04/04/20 18:31 Albuterol Sulfate 90 Mcg 8 Gm Inhaler INHALE Q4H PRN shortness of breath Albuterol Sulfate 2 puff 04/05/20 16:01 04/08/20 22:58 Albuterol Sulfate 90 Mcg 8 Gm Inhaler INHALE 2 puff Q6H PRN Administration shortness of breath or wheezing Apixaban 5 mg 04/07/20 12:30 04/10/20 10:26 Apixaban 5 Mg Tablet PO 5 mg BID DEEPTHI Administration Atorvastatin Calcium 20 mg 04/05/20 21:00 04/09/20 20:45 Atorvastatin Calcium 20 Mg Tablet PO 20 mg BEDTIME DEEPTHI Administration Dexamethasone Sodium Phosphate 6 mg 04/06/20 09:00 04/10/20 10:25 Dexamethasone Sod Phosphate/Pf 10 Mg/Ml Vial IVPUSH 04/13/20 09:01 6 mg DAILY DEEPTHI Administration Diltiazem HCl 240 mg 04/09/20 09:00 04/10/20 10:26 Diltiazem Hcl Cd 240 Mg Cap.Er.Deg PO 240 mg DAILY DEEPTHI Administration Protocol Docusate Sodium 100 mg 04/04/20 18:31 Docusate Sodium 100 Mg Capsule PO DAILY PRN Constipation Escitalopram Oxalate 5 mg 04/06/20 09:00 04/10/20 10:25 Escitalopram Oxalate 5 Mg Tablet PO 5 mg DAILY DEEPTHI Administration Loratadine 10 mg 04/05/20 16:01 04/06/20 08:05 Loratadine 10 Mg Tablet PO 10 mg DAILY PRN Administration Allergy Symptoms Omeprazole 20 mg 04/06/20 06:30 04/10/20 10:25 Omeprazole 20 Mg Capsule. PO 20 mg DAILY@0630 [facility] Administration Ondansetron HCl 4 mg 04/04/20 18:31 Ondansetron Hcl 4 Mg/2 Ml Vial IVPUSH Q8H PRN Nausea and Vomiting Pharmacy Consult 1 each 04/04/20 17:34 Consult Rx Perform Med Rec MISCELLANE ONCE PRN Consult order Sodium Chloride 3 ml 04/05/20 00:00 04/10/20 10:28 0.9 % Sodium Chloride Flush 3 Ml Syringe IVFLUSH 3 ml QSHIFT DEEPTHI Administration Labs CBC & Chem 7: 04/10/20 05:28 04/10/20 05:28 Microbiology Microbiology Results: Microbiology 04/04/20 15:29 Blood - Venous Blood Culture - Final No growth after 5 days. 04/04/20 15:11 Blood - Venous Blood Culture - Final No growth after 5 days. Assessment and Plan (1) Acute respiratory failure with hypoxia: Status: Acute (2) COVID-19: Status: Acute (3) Squamous cell carcinoma of lung, stage IV: Status: Chronic Assessment and Plan: This is a 64-year-old female with metastatic cancer who presents from Oncology with hypoxia found to have COVID-19 1. Acute respiratory failure with hypoxia due to COVID-19 pneumonia IV decadron - day 10/01 Remedesivir completed ID input appreciated Stable on 2L NC, wean as tolerated -- may need to d/c on Home O2 if remains on the same 2. 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 Hyponatremia resolved 4. HS trop-I flat x 2 no cp 5. Lung Ca outpatient f/u continue other home meds Full Code DVT pptx, eliquis
[2020-04-10] MEDS: Atorvastatin Calcium 20 MG TABLET PO (20:41)
[2020-04-11 03:39] VITALS: BP 151/84; PULSE 74; RESP 18; TEMP 36.2; O2SAT 99
[2020-04-11] MEDS: Omeprazole 20 MG CAPSULE.DR PO (05:15)
[2020-04-11 06:42] LABS: Hematocrit 38.4 % (37-47); Hemoglobin 12.1 g/dl (12.0-16.0); Mean Corpuscular HGB Conc 31.5 g/dl (31.0-35.0); Mean Corpuscular Hemoglobin 28.3 pg (27.0-33.0); Mean Corpuscular Volume 89.7 fL (80-98); Mean Platelet Volume 9.2 fL (9.4-12.3); Platelet Count 407 X10*3/uL (160-400); Red Blood Count 4.28 X10*6/uL (4.20-5.50); Red Cell Distribution Width 16.9 % (11.0-16.0); White Blood Count 7.9 X10*3/uL (4.8-10.8)
[2020-04-11 07:08] LABS: Anion Gap 11 (12-20); Blood Urea Nitrogen 19 mg/dL (9-16); Calcium 8.4 mg/dL (8.4-10.2); Carbon Dioxide 35 mmol/L (22-29); Chloride 94 mmol/L (96-108); Creatinine Clr Calc Pharmacy 123.9; Estimated Glomerular Filt Rate > 60; Glucose Random 123 mg/dL (60-115); Potassium 5.1 mmol/l (3.3-5.1); Sodium 135 mmol/L (135-145)
[2020-04-11] MEDS: Apixaban 5 MG TABLET PO ×2 (07:52→21:31)
[2020-04-11] MEDS: HYDROcodone Bit/Acetam 5/325 TABLET 1 TAB PO (07:52)
[2020-04-11] MEDS: dilTIAZem HCL CD 240 MG CAP.ER.DEG PO (07:52)
[2020-04-11] MEDS: Escitalopram Oxalate 5 MG TABLET PO (07:52)
[2020-04-11 08:00] VITALS: BP 124/71; PULSE 72; RESP 20; TEMP 36.4; O2SAT 95
[2020-04-11] MEDS: 0.9 % Sodium Chloride Flush 3 ML SYRINGE IVFLUSH ×3 (08:44→23:09)
[2020-04-11] MEDS: HYDROcodone/Homat 5/1.5/5 ML 5 ML SYRUP PO ×2 (08:47→13:10)
[2020-04-11 12:00] VITALS: BP 106/62; PULSE 78; RESP 20; TEMP 36.5; O2SAT 90
[2020-04-11 12:33] VITALS: BP 124/71; PULSE 72; O2SAT 88
--- NOTE | 2020-04-11 14:45 | HO.PM.IMPN ---
Subjective Subjective Date of Service: 04/11/20 Interval History: weak, sob Cardiovascular Cardiovascular: Reports no additional cardiovascular complaints Gastrointestinal Gastrointestinal: Reports no additional gastrointestinal complaints Physical Exam Vital Signs: Vital Signs: Last Vital Signs Temp 97.7 F 04/11/20 12:00 Pulse 72 04/11/20 12:33 Resp 20 04/11/20 12:00 BP 124/71 04/11/20 12:33 Pulse Ox 88 L 04/11/20 12:33 Body Mass Index 37.8 General: AO X 3, no acute distress Resp: CTA bilateral CVS: S1,S2,RRR GI: soft, non tender, non distended Neuro: motor grossly intact Psych: appropriate affect Objective Data Current Medications Generic Name Dose Route Start Last Admin Trade Name Freq PRN Reason Stop Dose Admin Acetaminophen 650 mg 04/04/20 18:31 04/06/20 08:05 Acetaminophen 325 Mg Tablet PO 650 mg Q6H PRN Administration Pain, Mild (Pain Scale 1-3) Albuterol Sulfate 2 puff 04/04/20 18:31 Albuterol Sulfate 90 Mcg 8 Gm Inhaler INHALE Q4H PRN shortness of breath Albuterol Sulfate 2 puff 04/05/20 16:01 04/08/20 22:58 Albuterol Sulfate 90 Mcg 8 Gm Inhaler INHALE 2 puff Q6H PRN Administration shortness of breath or wheezing Apixaban 5 mg 04/07/20 12:30 04/11/20 07:52 Apixaban 5 Mg Tablet PO 5 mg BID DEEPTHI Administration Atorvastatin Calcium 20 mg 04/05/20 21:00 04/10/20 20:41 Atorvastatin Calcium 20 Mg Tablet PO 20 mg BEDTIME DEEPTHI Administration Dexamethasone Sodium Phosphate 6 mg 04/06/20 09:00 04/11/20 07:51 Dexamethasone Sod Phosphate/Pf 10 Mg/Ml Vial IVPUSH 04/13/20 09:01 6 mg DAILY DEEPTHI Administration Diltiazem HCl 240 mg 04/09/20 09:00 04/11/20 07:52 Diltiazem Hcl Cd 240 Mg Cap.Er.Deg PO 240 mg DAILY DEEPTHI Administration Protocol Docusate Sodium 100 mg 04/04/20 18:31 Docusate Sodium 100 Mg Capsule PO DAILY PRN Constipation Escitalopram Oxalate 5 mg 04/06/20 09:00 04/11/20 07:52 Escitalopram Oxalate 5 Mg Tablet PO 5 mg DAILY DEEPTHI Administration Hydrocodone Bit/Homatropine Methylb 5 ml 04/11/20 07:56 04/11/20 13:10 Hydrocodone/Homat 5/1.5/5 Ml 5 Ml Syrup PO 5 ml Q4H PRN Administration Cough Loratadine 10 mg 04/05/20 16:01 04/06/20 08:05 Loratadine 10 Mg Tablet PO 10 mg DAILY PRN Administration Allergy Symptoms Omeprazole 20 mg 04/06/20 06:30 04/11/20 05:15 Omeprazole 20 Mg Capsule. PO 20 mg DAILY@0630 DEEPTHI Administration Ondansetron HCl 4 mg 04/04/20 18:31 Ondansetron Hcl 4 Mg/2 Ml Vial IVPUSH Q8H PRN Nausea and Vomiting Pharmacy Consult 1 each 04/04/20 17:34 Consult Rx Perform Med Rec MISCELLANE ONCE PRN Consult order Sodium Chloride 3 ml 04/05/20 00:00 04/11/20 08:44 0.9 % Sodium Chloride Flush 3 Ml Syringe IVFLUSH 3 ml QSHIFT DEEPTHI Administration Labs CBC & Chem 7: 04/11/20 05:19 04/11/20 05:19 Microbiology Microbiology Results: Microbiology 04/04/20 15:29 Blood - Venous Blood Culture - Final No growth after 5 days. 04/04/20 15:11 Blood - Venous Blood Culture - Final No growth after 5 days. 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
[2020-04-11 15:59] VITALS: BP 112/64; BP 117/67; PULSE 76; PULSE 84; RESP 18; RESP 20; TEMP 36.6; O2SAT 92; O2SAT 93
--- NOTE | 2020-04-11 16:06 | MHC.CM.PN ---
PT RECOMMENDING STR. REFERRALS MADE TO FACILITIES ACCEPTING COVID + PATIENTS. BOTH [facility] AND [facility] OFFERING PENDING PATIENTS PARTICIPATION IN PT ASSESSMENT TOMORROW. PATIENT REFUSED TO DO ANY OOB ACTIVITIES TODAY.
[2020-04-11] MEDS: Atorvastatin Calcium 20 MG TABLET PO (21:31)
[2020-04-11 23:58] VITALS: BP 111/72; PULSE 73; RESP 18; TEMP 36.5; O2SAT 93
[2020-04-12 03:32] VITALS: BP 133/79; PULSE 68; RESP 18; TEMP 36.6; O2SAT 98
[2020-04-12] MEDS: Omeprazole 20 MG CAPSULE.DR PO (06:03)
[2020-04-12 06:20] LABS: Hematocrit 38.6 % (37-47); Hemoglobin 12.2 g/dl (12.0-16.0); Mean Corpuscular HGB Conc 31.6 g/dl (31.0-35.0); Mean Corpuscular Hemoglobin 28.3 pg (27.0-33.0); Mean Corpuscular Volume 89.6 fL (80-98); Mean Platelet Volume 9.4 fL (9.4-12.3); Platelet Count 396 X10*3/uL (160-400); Red Blood Count 4.31 X10*6/uL (4.20-5.50); Red Cell Distribution Width 16.9 % (11.0-16.0); White Blood Count 9.7 X10*3/uL (4.8-10.8)
[2020-04-12 06:51] LABS: Anion Gap 11 (12-20); Blood Urea Nitrogen 20 mg/dL (9-16); Calcium 7.9 mg/dL (8.4-10.2); Carbon Dioxide 32 mmol/L (22-29); Chloride 95 mmol/L (96-108); Creatinine Clr Calc Pharmacy 123.9; Estimated Glomerular Filt Rate > 60; Glucose Random 115 mg/dL (60-115); Potassium 4.9 mmol/l (3.3-5.1); Sodium 133 mmol/L (135-145)
[2020-04-12 07:56] VITALS: BP 114/71; PULSE 88; RESP 20; TEMP 36.6; O2SAT 94
[2020-04-12] MEDS: 0.9 % Sodium Chloride Flush 3 ML SYRINGE IVFLUSH (08:19)
[2020-04-12] MEDS: Escitalopram Oxalate 5 MG TABLET PO (08:52)
[2020-04-12 08:53] VITALS: BP 114/71; PULSE 88
[2020-04-12] MEDS: Apixaban 5 MG TABLET PO (08:53)
[2020-04-12] MEDS: dilTIAZem HCL CD 240 MG CAP.ER.DEG PO (08:53)
[2020-04-12 09:38] VITALS: BP 114/71; PULSE 88; O2SAT 93
--- NOTE | 2020-04-12 10:45 | PC.NURSE ---
Pt on room air with good oxygen saturation. She was ambulated and is back to bed. She has been encouraged to get OOB into recliner and refuses, states she was walked and that is enough. Attempted to explain benefit of OOB to pt, she remains in bed in no ditress and denies pain. will copntinue to monitor
[2020-04-12 12:00] VITALS: BP 106/63; PULSE 84; RESP 20; TEMP 36.4; O2SAT 93
--- NOTE | 2020-04-12 12:02 | HO.PM.IMPN ---
Subjective Subjective Date of Service: 04/12/20 Interval History: improved Cardiovascular Cardiovascular: Reports no additional cardiovascular complaints Gastrointestinal Gastrointestinal: Reports no additional gastrointestinal complaints Physical Exam Vital Signs: Vital Signs: Last Vital Signs Temp 97.9 F 04/12/20 07:56 Pulse 88 04/12/20 09:38 Resp 20 04/12/20 07:56 BP 114/71 04/12/20 09:38 Pulse Ox 93 04/12/20 09:38 Body Mass Index 37.8 General: AO X 3, no acute distress Resp: CTA bilateral CVS: S1,S2,RRR GI: soft, non tender, non distended Neuro: motor grossly intact Psych: appropriate affect Objective Data Current Medications Generic Name Dose Route Start Last Admin Trade Name Freq PRN Reason Stop Dose Admin Acetaminophen 650 mg 04/04/20 18:31 04/06/20 08:05 Acetaminophen 325 Mg Tablet PO 650 mg Q6H PRN Administration Pain, Mild (Pain Scale 1-3) Albuterol Sulfate 2 puff 04/04/20 18:31 Albuterol Sulfate 90 Mcg 8 Gm Inhaler INHALE Q4H PRN shortness of breath Albuterol Sulfate 2 puff 04/05/20 16:01 04/08/20 22:58 Albuterol Sulfate 90 Mcg 8 Gm Inhaler INHALE 2 puff Q6H PRN Administration shortness of breath or wheezing Apixaban 5 mg 04/07/20 12:30 04/12/20 08:53 Apixaban 5 Mg Tablet PO 5 mg BID DEEPTHI Administration Atorvastatin Calcium 20 mg 04/05/20 21:00 04/11/20 21:31 Atorvastatin Calcium 20 Mg Tablet PO 20 mg BEDTIME DEEPTHI Administration Dexamethasone Sodium Phosphate 6 mg 04/06/20 09:00 04/12/20 08:52 Dexamethasone Sod Phosphate/Pf 10 Mg/Ml Vial IVPUSH 04/13/20 09:01 6 mg DAILY DEEPTHI Administration Diltiazem HCl 240 mg 04/09/20 09:00 04/12/20 08:53 Diltiazem Hcl Cd 240 Mg Cap.Er.Deg PO 240 mg DAILY DEEPTHI Administration Protocol Docusate Sodium 100 mg 04/04/20 18:31 Docusate Sodium 100 Mg Capsule PO DAILY PRN Constipation Escitalopram Oxalate 5 mg 04/06/20 09:00 04/12/20 08:52 Escitalopram Oxalate 5 Mg Tablet PO 5 mg DAILY DEEPTHI Administration Hydrocodone Bit/Homatropine Methylb 5 ml 04/11/20 07:56 04/11/20 13:10 Hydrocodone/Homat 5/1.5/5 Ml 5 Ml Syrup PO 5 ml Q4H PRN Administration Cough Loratadine 10 mg 04/05/20 16:01 04/06/20 08:05 Loratadine 10 Mg Tablet PO 10 mg DAILY PRN Administration Allergy Symptoms Omeprazole 20 mg 04/06/20 06:30 04/12/20 06:03 Omeprazole 20 Mg Capsule. PO 20 mg DAILY@0630 DEEPTHI Administration Ondansetron HCl 4 mg 04/04/20 18:31 Ondansetron Hcl 4 Mg/2 Ml Vial IVPUSH Q8H PRN Nausea and Vomiting Pharmacy Consult 1 each 04/04/20 17:34 Consult Rx Perform Med Rec MISCELLANE ONCE PRN Consult order Sodium Chloride 3 ml 04/05/20 00:00 04/12/20 08:19 0.9 % Sodium Chloride Flush 3 Ml Syringe IVFLUSH 3 ml QSHIFT DEEPTHI Administration Labs CBC & Chem 7: 04/12/20 05:49 04/12/20 05:49 Microbiology Microbiology Results: Microbiology 04/04/20 15:29 Blood - Venous Blood Culture - Final No growth after 5 days. 04/04/20 15:11 Blood - Venous Blood Culture - Final No growth after 5 days. 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
--- NOTE | 2020-04-12 12:21 | MHC.CLN ---
F/U GOOD PO 75-100% DIET RX; REGULAR-APPROPRIATE FOLLOWING
--- NOTE | 2020-04-12 15:00 | P.DS_ITS ---
DS: Providers Provider Date of Service: 04/12/20 Date of admission: 04/04/20 18:31 Primary care physician: Kristian England PA-C Consults: 04/04/20 18:31 Consult to Infectious Diseases Routine Consulting Provider: Francisca Zhang Reason for consultation: covid ?qualify for remdecivir Has provider been notified: No DS: Diagnosis Discharge Diagnosis (1) Acute respiratory failure with hypoxia: Status: Acute (2) COVID-19: Status: Acute (3) Squamous cell carcinoma of lung, stage IV: Status: Chronic (4) Atrial fibrillation: Status: Acute DS: Medications Discharge Medications Home Medications: Home Medications Medication Instructions Recorded Confirmed Citracal-D3 Maximum Plus 1 tab PO DAILY 12/25/19 04/04/20 One-A-Day Womens Formula 1 tab PO DAILY 12/25/19 04/04/20 simvastatin 40 mg PO BEDTIME 12/25/19 04/04/20 omeprazole 20 mg capsule,delayed 20 mg PO DAILY 12/31/19 04/04/20 release Anoro Ellipta 1 inh INHALATION DAILY 02/05/20 04/04/20 albuterol sulfate 2.5 mg INHALATION Q8H PRN 04/04/20 04/04/20 loratadine 10 mg PO DAILY PRN 04/04/20 04/04/20 Previous Rx's Medication Instructions Recorded albuterol sulfate 90 mcg/actuation 2 puff INHALATION Q6H PRN 30 Days 12/31/19 aerosol inhaler #8.5 g dexamethasone 1 mg PO DIRECTED #60 tab 02/12/20 escitalopram oxalate 5 mg PO DAILY #60 tab 03/01/20 apixaban [Eliquis] 5 mg PO BID #60 tab 04/12/20 diltiazem HCl 240 mg PO DAILY #30 cap 04/12/20 DS: Summary Hospital Course Hospital Course: Patient was admitted for acute hypoxic respiratory failure secondary to COVID pneumonia. She was given IV Decadron and hypoxia eventually resolved. Course was complicated by new onset atrial fibrillation with rapid ventricular respons e. She was started on diltiazem and Eliquis. Patient is in sinus rhythm at time of discharge. Echo showed some left atrial enlargement but otherwise unremarkable. Patient has some debility due to COVID and will be discharged to residential facility for short-term rehab. Time Spent with Patient Time attestation: Total time spent providing and/or coordinating discharge services: Discharge coordination time: Greater than 30 minutes Physical Exam Vital Signs: Vital Signs: Last Vital Signs Temp 97.6 F 04/12/20 12:00 Pulse 84 04/12/20 12:00 Resp 20 04/12/20 12:00 BP 106/63 04/12/20 12:00 Pulse Ox 93 04/12/20 12:00 Body Mass Index 37.8 General: AO X 3, no acute distress Resp: CTA bilateral CVS: S1,S2,RRR GI: soft, non tender, non distended Neuro: motor grossly intact Psych: appropriate affect DS: Data Data Completed and Pending Labs on day of discharge: Laboratory Tests 04/04/20 04/04/20 04/04/20 14:24 15:05 15:05 WBC 7.4 RBC 3.90 L Hgb 11.1 L Hct 34.1 L MCV 87.4 MCH 28.5 MCHC 32.6 RDW 16.4 H Plt Count 326 MPV 8.9 L Immature Gran % (Auto) 0.5 H Neut % (Auto) 76.2 H Lymph % (Auto) 7.4 L [place] % (Auto) 15.6 H Eos % (Auto) 0.0 Baso % (Auto) 0.3 Lymph # (Auto) 0.6 L [place] # (Auto) 1.2 Eos # (Auto) 0.0 Baso # (Auto) 0.0 Abs Immat Gran (auto) 0.04 H Absolute Neuts (auto) 5.6 Absolute Nucleated RBC 0.000 Nucleated RBC % (auto) 0.0 Smear Tech's Comments VERIFIED PT 14.7 H INR 1.2 H APTT 26.7 D-Dimer 411 Sodium Potassium Chloride Carbon Dioxide Anion Gap BUN Creatinine Estim Creat Clear Calc Estimated GFR Random Glucose Lactic Acid Calcium Magnesium Total Bilirubin Direct Bilirubin AST ALT Alkaline Phosphatase Lactate Dehydrogenase Troponin I High Sens 29.7 H C-Reactive Protein B-Natriuretic Peptide 299 H Total Protein Albumin Procalcitonin Urine Color Urine Appearance Urine pH Ur Specific [place] Urine Protein Urine Glucose (UA) Urine Ketones Urine Blood Urine Nitrite Ur Leukocyte Esterase Urine Osmolality Ur Random Sodium Urine Creatinine Coronavirus (PCR) Influenza Type A (PCR) Influenza Type B (PCR) RSV RNA Qual (PCR) 04/04/20 04/04/20 04/04/20 15:05 15:06 15:06 WBC RBC Hgb Hct MCV MCH MCHC RDW Plt Count MPV Immature Gran % (Auto) Neut % (Auto) Lymph % (Auto) [place] % (Auto) Eos % (Auto) Baso % (Auto) Lymph # (Auto) [place] # (Auto) Eos # (Auto) Baso # (Auto) Abs Immat Gran (auto) Absolute Neuts (auto) Absolute Nucleated RBC Nucleated RBC % (auto) Smear Tech's Comments PT INR APTT D-Dimer Sodium 126 L Potassium 4.9 D Chloride 87 L Carbon Dioxide 30 H Anion Gap 14 BUN 8 L Creatinine 0.54 Estim Creat Clear Calc 119.3 Estimated GFR > 60 Random Glucose 80 Lactic Acid 0.9 Calcium 7.9 L Magnesium 1.7 Total Bilirubin 0.5 Direct Bilirubin 0.3 AST 31 D ALT 18 Alkaline Phosphatase 107 D Lactate Dehydrogenase 201 Troponin I High Sens C-Reactive Protein 6.84 H B-Natriuretic Peptide Total Protein 4.9 L Albumin 3.0 L Procalcitonin 0.07 Urine Color Urine Appearance Urine pH Ur Specific [place] Urine Protein Urine Glucose (UA) Urine Ketones Urine Blood Urine Nitrite Ur Leukocyte Esterase Urine Osmolality Ur Random Sodium Urine Creatinine Coronavirus (PCR) Influenza Type A (PCR) Influenza Type B (PCR) RSV RNA Qual (PCR) 04/04/20 04/04/20 04/04/20 15:09 15:38 15:51 WBC RBC Hgb Hct MCV MCH MCHC RDW Plt Count MPV Immature Gran % (Auto) Neut % (Auto) Lymph % (Auto) [place] % (Auto) Eos % (Auto) Baso % (Auto) Lymph # (Auto) [place] # (Auto) Eos # (Auto) Baso # (Auto) Abs Immat Gran (auto) Absolute Neuts (auto) Absolute Nucleated RBC Nucleated RBC % (auto) Smear Tech's Comments PT INR APTT D-Dimer Sodium Potassium Chloride Carbon Dioxide Anion Gap BUN Creatinine Estim Creat Clear Calc Estimated GFR Random Glucose Lactic Acid Calcium Magnesium Total Bilirubin Direct Bilirubin AST ALT Alkaline Phosphatase Lactate Dehydrogenase Troponin I High Sens C-Reactive Protein B-Natriuretic Peptide Total Protein Albumin Procalcitonin Urine Color YELLOW Urine Appearance CLEAR Urine pH 6.0 Ur Specific [place] <= 1.005 Urine Protein NEG Urine Glucose (UA) NEG Urine Ketones 15 Urine Blood NEG Urine Nitrite NEG Ur Leukocyte Esterase NEG Urine Osmolality 134 L Ur Random Sodium Urine Creatinine Coronavirus (PCR) POSITIVE A Influenza Type A (PCR) NEGATIVE Influenza Type B (PCR) NEGATIVE RSV RNA Qual (PCR) NEGATIVE 04/04/20 04/04/20 04/04/20 15:51 19:13 19:13 WBC RBC Hgb Hct MCV MCH MCHC RDW Plt Count MPV Immature Gran % (Auto) Neut % (Auto) Lymph % (Auto) [place] % (Auto) Eos % (Auto) Baso % (Auto) Lymph # (Auto) [place] # (Auto) Eos # (Auto) Baso # (Auto) Abs Immat Gran (auto) Absolute Neuts (auto) Absolute Nucleated RBC Nucleated RBC % (auto) Smear Tech's Comments PT INR APTT D-Dimer Sodium Potassium Chloride Carbon Dioxide Anion Gap BUN Creatinine Estim Creat Clear Calc Estimated GFR Random Glucose Lactic Acid Calcium Magnesium Total Bilirubin Direct Bilirubin AST ALT Alkaline Phosphatase Lactate Dehydrogenase Troponin I High Sens Cancelled 25.8 H C-Reactive Protein B-Natriuretic Peptide Total Protein Albumin Procalcitonin Urine Color Urine Appearance Urine pH Ur Specific [place] Urine Protein Urine Glucose (UA) Urine Ketones Urine Blood Urine Nitrite Ur Leukocyte Esterase Urine Osmolality Ur Random Sodium < 20.0 Urine Creatinine 33.55 Coronavirus (PCR) Influenza Type A (PCR) Influenza Type B (PCR) RSV RNA Qual (PCR) 04/05/20 04/05/20 04/07/20 06:12 06:12 08:20 WBC 3.3 L RBC 3.91 L Hgb 11.0 L Hct 35.4 L MCV 90.5 MCH 28.1 MCHC 31.1 RDW 16.5 H Plt Count 369 MPV 9.2 L Immature Gran % (Auto) 0.6 H Neut % (Auto) 82.4 H Lymph % (Auto) 9.1 L [place] % (Auto) 7.9 Eos % (Auto) 0.0 Baso % (Auto) 0.0 Lymph # (Auto) 0.3 L [place] # (Auto) 0.3 Eos # (Auto) 0.0 Baso # (Auto) 0.0 Abs Immat Gran (auto) 0.02 Absolute Neuts (auto) 2.7 Absolute Nucleated RBC 0.000 Nucleated RBC % (auto) 0.0 Smear Tech's Comments VERIFIED PT INR APTT D-Dimer Sodium 131 L Potassium 5.5 H Chloride 91 L Carbon Dioxide 33 H Anion Gap 13 BUN 8 L Creatinine 0.52 Estim Creat Clear Calc 123.9 Estimated GFR > 60 Random Glucose 116 H D Lactic Acid Calcium 7.8 L Magnesium Total Bilirubin 0.5 Direct Bilirubin 0.2 AST 28 ALT 17 Alkaline Phosphatase 94 Lactate Dehydrogenase Troponin I High Sens C-Reactive Protein B-Natriuretic Peptide Total Protein 5.2 L Albumin 3.1 L Procalcitonin Urine Color Urine Appearance Urine pH Ur Specific [place] Urine Protein Urine Glucose (UA) Urine Ketones Urine Blood Urine Nitrite Ur Leukocyte Esterase Urine Osmolality Ur Random Sodium Urine Creatinine Coronavirus (PCR) Influenza Type A (PCR) Influenza Type B (PCR) RSV RNA Qual (PCR) 04/07/20 04/07/20 04/08/20 15:14 18:14 06:25 WBC RBC Hgb Hct MCV MCH MCHC RDW Plt Count MPV Immature Gran % (Auto) Neut % (Auto) Lymph % (Auto) [place] % (Auto) Eos % (Auto) Baso % (Auto) Lymph # (Auto) [place] # (Auto) Eos # (Auto) Baso # (Auto) Abs Immat Gran (auto) Absolute Neuts (auto) Absolute Nucleated RBC Nucleated RBC % (auto) Smear Tech's Comments PT INR APTT D-Dimer Sodium 133 L Potassium 4.9 Chloride 90 L Carbon Dioxide 33 H Anion Gap 15 BUN 12 Creatinine 0.59 Estim Creat Clear Calc 109.2 Estimated GFR > 60 Random Glucose 163 H D Lactic Acid Calcium 8.0 L Magnesium Total Bilirubin Direct Bilirubin AST ALT Alkaline Phosphatase Lactate Dehydrogenase Troponin I High Sens C-Reactive Protein B-Natriuretic Peptide 345 H 188 H Total Protein Albumin Procalcitonin Urine Color Urine Appearance Urine pH Ur Specific [place] Urine Protein Urine Glucose (UA) Urine Ketones Urine Blood Urine Nitrite Ur Leukocyte Esterase Urine Osmolality Ur Random Sodium Urine Creatinine Coronavirus (PCR) Influenza Type A (PCR) Influenza Type B (PCR) RSV RNA Qual (PCR) 04/08/20 04/08/20 04/09/20 06:25 06:25 06:29 WBC 7.1 RBC 4.37 Hgb 12.3 Hct 39.9 MCV 91.3 MCH 28.1 MCHC 30.8 L RDW 17.0 H Plt Count 407 H MPV 9.0 L Immature Gran % (Auto) Neut % (Auto) Lymph % (Auto) [place] % (Auto) Eos % (Auto) Baso % (Auto) Lymph # (Auto) [place] # (Auto) Eos # (Auto) Baso # (Auto) Abs Immat Gran (auto) Absolute Neuts (auto) Absolute Nucleated RBC 0.000 Nucleated RBC % (auto) 0.0 Smear Tech's Comments PT INR APTT D-Dimer Sodium 136 134 L Potassium 5.0 4.8 Chloride 89 L 90 L Carbon Dioxide 39 H 35 H Anion Gap 13 14 BUN 14 16 Creatinine 0.54 0.52 Estim Creat Clear Calc 119.3 123.9 Estimated GFR > 60 > 60 Random Glucose 111 132 H Lactic Acid Calcium 8.2 L 8.1 L Magnesium Total Bilirubin 0.4 Direct Bilirubin 0.3 AST 21 ALT 17 Alkaline Phosphatase 95 Lactate Dehydrogenase Troponin I High Sens C-Reactive Protein B-Natriuretic Peptide Total Protein 5.4 L Albumin 3.2 L Procalcitonin Urine Color Urine Appearance Urine pH Ur Specific [place] Urine Protein Urine Glucose (UA) Urine Ketones Urine Blood Urine Nitrite Ur Leukocyte Esterase Urine Osmolality Ur Random Sodium Urine Creatinine Coronavirus (PCR) Influenza Type A (PCR) Influenza Type B (PCR) RSV RNA Qual (PCR) 04/09/20 04/10/20 04/10/20 06:29 05:28 05:28 WBC 6.9 9.6 RBC 4.10 L 4.25 Hgb 11.4 L 11.8 L Hct 37.2 38.2 MCV 90.7 89.9 MCH 27.8 27.8 MCHC 30.6 L 30.9 L RDW 16.7 H 17.0 H Plt Count 387 402 H MPV 9.2 L 9.0 L Immature Gran % (Auto) Neut % (Auto) Lymph % (Auto) [place] % (Auto) Eos % (Auto) Baso % (Auto) Lymph # (Auto) [place] # (Auto) Eos # (Auto) Baso # (Auto) Abs Immat Gran (auto) Absolute Neuts (auto) Absolute Nucleated RBC 0.000 0.000 Nucleated RBC % (auto) 0.0 0.0 Smear Tech's Comments PT INR APTT D-Dimer Sodium 136 Potassium 5.0 Chloride 93 L Carbon Dioxide 35 H Anion Gap 13 BUN 16 Creatinine 0.50 Estim Creat Clear Calc 128.9 Estimated GFR > 60 Random Glucose 110 Lactic Acid Calcium 8.1 L Magnesium Total Bilirubin Direct Bilirubin AST ALT Alkaline Phosphatase Lactate Dehydrogenase Troponin I High Sens C-Reactive Protein B-Natriuretic Peptide Total Protein Albumin Procalcitonin Urine Color Urine Appearance Urine pH Ur Specific [place] Urine Protein Urine Glucose (UA) Urine Ketones Urine Blood Urine Nitrite Ur Leukocyte Esterase Urine Osmolality Ur Random Sodium Urine Creatinine Coronavirus (PCR) Influenza Type A (PCR) Influenza Type B (PCR) RSV RNA Qual (PCR) 04/11/20 04/11/20 04/12/20 05:19 05:19 05:49 WBC 7.9 9.7 RBC 4.28 4.31 Hgb 12.1 12.2 Hct 38.4 38.6 MCV 89.7 89.6 MCH 28.3 28.3 MCHC 31.5 31.6 RDW 16.9 H 16.9 H Plt Count 407 H 396 MPV 9.2 L 9.4 Immature Gran % (Auto) Neut % (Auto) Lymph % (Auto) [place] % (Auto) Eos % (Auto) Baso % (Auto) Lymph # (Auto) [place] # (Auto) Eos # (Auto) Baso # (Auto) Abs Immat Gran (auto) Absolute Neuts (auto) Absolute Nucleated RBC 0.000 0.000 Nucleated RBC % (auto) 0.0 0.0 Smear Tech's Comments PT INR APTT D-Dimer Sodium 135 Potassium 5.1 Chloride 94 L Carbon Dioxide 35 H Anion Gap 11 L BUN 19 H Creatinine 0.52 Estim Creat Clear Calc 123.9 Estimated GFR > 60 Random Glucose 123 H Lactic Acid Calcium 8.4 Magnesium Total Bilirubin Direct Bilirubin AST ALT Alkaline Phosphatase Lactate Dehydrogenase Troponin I High Sens C-Reactive Protein B-Natriuretic Peptide Total Protein Albumin Procalcitonin Urine Color Urine Appearance Urine pH Ur Specific [place] Urine Protein Urine Glucose (UA) Urine Ketones Urine Blood Urine Nitrite Ur Leukocyte Esterase Urine Osmolality Ur Random Sodium Urine Creatinine Coronavirus (PCR) Influenza Type A (PCR) Influenza Type B (PCR) RSV RNA Qual (PCR) 04/12/20 05:49 WBC RBC Hgb Hct MCV MCH MCHC RDW Plt Count MPV Immature Gran % (Auto) Neut % (Auto) Lymph % (Auto) [place] % (Auto) Eos % (Auto) Baso % (Auto) Lymph # (Auto) [place] # (Auto) Eos # (Auto) Baso # (Auto) Abs Immat Gran (auto) Absolute Neuts (auto) Absolute Nucleated RBC Nucleated RBC % (auto) Smear Tech's Comments PT INR APTT D-Dimer Sodium 133 L Potassium 4.9 Chloride 95 L Carbon Dioxide 32 H Anion Gap 11 L BUN 20 H Creatinine 0.52 Estim Creat Clear Calc 123.9 Estimated GFR > 60 Random Glucose 115 Lactic Acid Calcium 7.9 L Magnesium Total Bilirubin Direct Bilirubin AST ALT Alkaline Phosphatase Lactate Dehydrogenase Troponin I High Sens C-Reactive Protein B-Natriuretic Peptide Total Protein Albumin Procalcitonin Urine Color Urine Appearance Urine pH Ur Specific [place] Urine Protein Urine Glucose (UA) Urine Ketones Urine Blood Urine Nitrite Ur Leukocyte Esterase Urine Osmolality Ur Random Sodium Urine Creatinine Coronavirus (PCR) Influenza Type A (PCR) Influenza Type B (PCR) RSV RNA Qual (PCR) Discharge Plan Discharge Patient Disposition: er SNF Referrals: Kristian England PA-C [Primary Care Provider] - Chase Valencia MD [Physician] - 2 Weeks (afib) Discharge Medications: New diltiazem HCl 240 mg Capsule,Extended Release 24hr 240 mg PO DAILY Qty: 30 RF: 0 Eliquis 5 mg Tablet 5 mg PO BID Qty: 60 RF: 0 Continued simvastatin 40 mg Tablet 40 mg PO BEDTIME RF: 0 One-A-Day Womens Formula 18 mg iron-400 mcg-500 mg Tablet 1 tab PO DAILY RF: 0 Citracal-D3 Maximum Plus 325 mg-12.5 mcg -2.75 mg Tablet 1 tab PO DAILY RF: 0 Anoro Ellipta 62.5-25 mcg/actuation Blister With Device 1 inh INHALATION DAILY RF: 0 dexamethasone 1 mg Tablet 1 mg PO DIRECTED Qty: 60 RF: 2 escitalopram oxalate 5 mg Tablet 5 mg PO DAILY Qty: 60 RF: 3 loratadine 10 mg Tablet 10 mg PO DAILY PRN (Reason: Allergy Symptoms) RF: 0 albuterol sulfate 2.5 mg /3 mL (0.083 %) Solution For Nebulization 2.5 mg INHALATION Q8H PRN (Reason: Shortness Of Breath Or Wheezing) RF: 0 omeprazole 20 mg capsule,delayed release(DR/EC) 20 mg PO DAILY RF: 0 albuterol sulfate 90 mcg/actuation HFA aerosol inhaler 2 puff inhalation Q6H PRN (Reason: shortness of breath or wheezing) 30 Days Qty: 8.5 RF: 3 Discharge Orders: Discharge Order (Routine); Ordered 04/12/20 Ordered By: Kam Mai Activity on Discharge: As tolerated Visit Report Forms: Patient Portal Discharge page Care Plan Goals: recovery Health Concerns: covid, afib Plan of Treatment: started on cardizem and eliquis, outpatient cardio follow up
[2020-04-12 15:24] VITALS: BP 129/65; PULSE 77; RESP 19; TEMP 36.7; O2SAT 93
--- NOTE | 2020-04-12 18:12 | PC.NURSE ---
report called to AALIYAH, nurse at [facility]. Pt awaits ambulance transport and has tolerated a meal.
== END 2020-04-12 19:08 | disposition skilled nursing facility (03) | DRG 177 ==
LOC: HO.ED 17:31 → HO.ISO 20:07 → HO.IMC 04-05 11:00
PROVIDERS: Physician Assistant; Physician Assistant Medical; Admitting Provider Family Medicine; Emergency Provider Emergency Medicine; PCP Physician Assistant; Visit Provider Internal Medicine
DX: U07.1 COVID-19 (principal); J96.01 Acute respiratory failure with hypoxia; J12.82 Pneumonia due to coronavirus disease 2019; E87.1 Hypo-osmolality and hyponatremia; C34.92 Malignant neoplasm of unspecified part of left bronchus or lung; I48.91 Unspecified atrial fibrillation; Z87.891 Personal history of nicotine dependence; Z88.0 Allergy status to penicillin; Z79.01 Long term (current) use of anticoagulants; Z79.899 Other long term (current) drug therapy
CPT/HCPCS: 0241U; 36415; 71275; 80048; 80076; 81003; 83605; 83615; 83735; 83880; 83935; 84145; 84300; 84484; 85025; 85027; 85379; 85610; 85730; 86140; 87040; 93005; 93306; 94640; 96374; 96375; 97116; 97162; 97530; 99285; 99291; J1100; J1650; J1940; J2405; J2930; J3490; Q9967

== ENCOUNTER 2020-05-13 14:27 | Outpatient (REF) | payer MEDICARE, MEDICAID, SELFPAY ==
--- NOTE | ~2020-05-13 | XR_ITS ---
EXAMINATION: XR CHEST CLINICAL INFORMATION: Post COVID chest x-ray COMPARISON: Chest CT 04/04/2020 TECHNIQUE: Frontal view of the chest was obtained. FINDINGS: CT compatible left-sided chest port seen with catheter tip in the midsuperior vena cava. Mild interstitial opacity throughout the left lung. Again seen is moderate right pleural effusion and associated right base consolidation with more patchy airspace opacity in the right midlung and upper lobe. The findings are similar to the recycling assistant radiograph from the prior CT scan 04/04/2020. Normal heart size. XR/XR chest 1V IMPRESSION: Moderate right pleural effusion, right base atelectasis, and diffuse patchy interstitial opacities in the right lung, similar to prior chest CT.
== END 2020-05-13 14:28 | disposition home or self-care (01) ==
LOC: HO.XRAY 14:27
PROVIDERS: PCP Physician Assistant; Visit Provider Internal Medicine
DX: C34.90 Malignant neoplasm of unspecified part of unspecified bronchus or lung (principal); Z86.16 Personal history of COVID-19
CPT/HCPCS: 71045

== ENCOUNTER → 2020-05-25 10:24 | Outpatient (BNVA) | payer MEDICARE, MEDICAID, SELFPAY | PROVIDERS: PCP Physician Assistant; Visit Provider Internal Medicine Pulmonary Disease | DX: J41.0 Simple chronic bronchitis (principal); R06.00 Dyspnea, unspecified | CPT/HCPCS: 99212 ==

== ENCOUNTER 2020-06-14 12:30 | Outpatient (RCR) | payer MEDICARE, MEDICAID, SELFPAY ==
[2019-12-25 09:54] VITALS: BMI 36.4
[2019-12-25 09:55] VITALS: BP 134/67; PULSE 87; RESP 18; TEMP 36.2; O2SAT 94
[2019-12-25 10:31] LABS: MANUAL DIFF FLAG NO
[2019-12-25 10:41] LABS: Basophils Absolute Auto 0.1 X10*3/uL (0.0-0.2); Basophils Percent Auto 0.6 % (0-2); Eosinophils Absolute Auto 0.1 X10*3/uL (0.0-0.4); Eosinophils Percent Auto 0.8 % (0-4); Hematocrit 37.5 % (37-47); Hemoglobin 11.8 g/dl (12.0-16.0); Imm Gran Abs Auto 0.05 X10*3/uL (0.00-0.03); Imm Gran Pct Auto 0.6 % (0.0-0.4); Lymphocytes Absolute Auto 1.3 X10*3/uL (1.2-4.9); Lymphocytes Percent Auto 15.7 % (20-40); Mean Corpuscular HGB Conc 31.5 g/dl (31.0-35.0); Mean Corpuscular Hemoglobin 28.2 pg (27.0-33.0); Mean Corpuscular Volume 89.7 fL (80-98); Mean Platelet Volume 8.9 fL (9.4-12.3); Monocytes Absolute Auto 0.9 X10*3/uL (0.1-1.2); Monocytes Percent Auto 11.3 % (2-11); Neutrophils Absolute Auto 5.9 X10*3/uL (2.0-8.3); Platelet Count 408 X10*3/uL (160-400); Red Blood Count 4.18 X10*6/uL (4.20-5.50); Red Cell Distribution Width 15.1 % (11.0-16.0); White Blood Count 8.4 X10*3/uL (4.8-10.8)
[2019-12-25] MEDS: dexAMETHasone 4 MG TABLET 8 MG PO (11:13)
[2019-12-25] MEDS: diphenhydrAMINE HCL 25 MG TABLET PO (11:13)
[2019-12-25] MEDS: Famotidine/PF 20 MG/2 ML VIAL IVPUSH (11:14)
[2019-12-25] MEDS: ondansetron HCL/NS 16 MG/50 ML PIGGYBACK 200 MG IV (11:18)
[2019-12-25 11:33] LABS: Alanine Aminotransferase 21 U/L (0-31); Albumin Level 3.5 g/dL (3.5-5.0); Alkaline Phosphatase 100 U/L (39-117); Aspartate Amino Transferase 15 U/L (5-31); Bilirubin Total 0.6 mg/dL (0.0-1.0); Blood Urea Nitrogen 12 mg/dL (9-16); Calcium 8.2 mg/dL (8.4-10.2); Estimated Glomerular Filt Rate > 60; Glucose Random 76 mg/dL (60-115); Total Protein 5.9 g/dL (6.5-8.0)
[2019-12-25 11:43] LABS: Anion Gap 12 (12-20); Carbon Dioxide 29 mmol/L (22-29); Chloride 100 mmol/L (96-108); Potassium 4.2 mmol/l (3.3-5.1); Sodium 137 mmol/L (135-145)
[2019-12-25 12:02] LABS: Alanine Aminotransferase 21 U/L (0-31); Albumin Level 3.7 g/dL (3.5-5.0); Alkaline Phosphatase 106 U/L (39-117); Aspartate Amino Transferase 15 U/L (5-31); Bilirubin Total 0.6 mg/dL (0.0-1.0); Blood Urea Nitrogen 13 mg/dL (9-16); Calcium 8.7 mg/dL (8.4-10.2); Cholesterol 148 mg/dL; Creatinine Clr Calc Pharmacy 108.9; Estimated Glomerular Filt Rate > 60; Glucose Fasting 78 mg/dL (60-99); HDL Cholesterol 45 mg/dL; LDL Cholesterol Calculated 87 mg/dl; Total Protein 6.1 g/dL (6.5-8.0); Triglycerides 83 mg/dL
[2019-12-25 12:12] LABS: Anion Gap 12 (12-20); Carbon Dioxide 31 mmol/L (22-29); Chloride 100 mmol/L (96-108); Potassium 4.5 mmol/l (3.3-5.1); Sodium 138 mmol/L (135-145)
[2019-12-25] MEDS: Fosaprepitant Dimeglumine 150 MG in 0.9 % Sodium Chloride 145 ML 300 MG IV (12:34)
[2019-12-25] MEDS: Heparin Sodium,Porcine Flush 500 UNIT/5 ML SYRINGE IVFLUSH (14:26)
[2019-12-25] MEDS: Pegfilgrastim Onpro 6 MG/0.6 ML SYR.W..INJ SUBCUT (14:26)
--- NOTE | 2019-12-25 15:01 | MHC.HEMONCSW ---
PATIENT PRESENT FOR TREATMENT, REMAINS ALERT, REPORTS COPING WELL. HAIR LOSS, MILD DISTRESS. CHOSE #2. WIGE FROM [facility] [place]. WE BOTH SPOKE WITH [facility] IN [place]OTE...SHE WILL DROP OFF WIGE AND HAIR ACCESSORIES TO ONCOLOGY [facility]. PATIENT IS QUITE PLEASED. SUPPORTIVE COUNSELING PROVIDED.
--- NOTE | 2020-01-01 09:55 | MHC.HEMONC ---
pt here for labs which will be reviewed. Will call pt as needed with report.
[2020-01-01] MEDS: Alteplase Cath Clear 2 MG VIAL INTRACATH (11:17)
[2020-01-01 12:39] LABS: Hematocrit 35.1 % (37-47); Hemoglobin 11.2 g/dl (12.0-16.0); Mean Corpuscular HGB Conc 31.9 g/dl (31.0-35.0); Mean Corpuscular Hemoglobin 28.4 pg (27.0-33.0); Mean Corpuscular Volume 88.9 fL (80-98); Mean Platelet Volume 9.7 fL (9.4-12.3); NRBC Pct Auto 0.3 /100WBC (0.0-0.2); Platelet Count 190 X10*3/uL (160-400); Red Blood Count 3.95 X10*6/uL (4.20-5.50); Red Cell Distribution Width 15.1 % (11.0-16.0)
--- NOTE | 2020-01-01 12:50 | MHC.HEMONCSW ---
YESTERDAY, PT RECEIVED A WIGE FROM [facility] [place]. MICHAEL ASSISTED TEACHING HER HOW TO PUT IT ON. PT GRATEFUL AND FEELS HAPPY WITH IT. PAIN ISSUES FROM TIME TO TIME BUT DENIES MAJOR STRESS. EDUCATION AND SUPPORT PROVIDED.
--- NOTE | 2020-01-01 12:53 | MHC.HEMONC ---
pt here for labs which will be reviewed. She wanted labs drawn from port which did not give blood return. CathFlo ordered and given and pt had blood return.
[2020-01-01 13:09] LABS: Alanine Aminotransferase 18 U/L (0-31); Albumin Level 3.4 g/dL (3.5-5.0); Alkaline Phosphatase 112 U/L (39-117); Anion Gap 12 (12-20); Aspartate Amino Transferase 17 U/L (5-31); Bilirubin Total 0.5 mg/dL (0.0-1.0); Blood Urea Nitrogen 9 mg/dL (9-16); Calcium 8.7 mg/dL (8.4-10.2); Carbon Dioxide 29 mmol/L (22-29); Chloride 101 mmol/L (96-108); Creatinine Clr Calc Pharmacy 103.5; Estimated Glomerular Filt Rate > 60; Glucose Random 65 mg/dL (60-115); Potassium 4.2 mmol/l (3.3-5.1); Sodium 138 mmol/L (135-145); Total Protein 5.9 g/dL (6.5-8.0)
[2020-01-01 14:19] LABS: Band Neutrophils Percent 11 % (3-5); Basophils Abs Manual 0.2 X10*3/uL (0.0-0.3); Basophils Percent Manual 1 % (0-1); Lymphocytes Absolute Manual 1.2 X10*3/uL (0.6-4.8); Lymphocytes Percent Manual 8 % (20-40); Metamyelocytes Absolute 0.2 X10*3/uL; Metamyelocytes Percent 1 %; Monocytes Absolute Manual 0.6 X10*3/uL (0.0-1.2); Monocytes Percent Manual 4 % (2-11); Neutrophils Absolute Manual 12.9 X10*3/uL (2.2-7.9); Neutrophils Percent Manual 75 % (45-73)
[2020-01-01 14:21] LABS: Platelet Estimate NORMAL (NORMAL); Platelet Morphology Comment NORMAL; RBC Morphology NORMAL
[2020-01-08 10:48] LABS: MANUAL DIFF FLAG NO
[2020-01-08 11:02] LABS: Basophils Percent Auto 0.2 % (0-2); Eosinophils Percent Auto 0.4 % (0-4); Hematocrit 35.7 % (37-47); Hemoglobin 11.2 g/dl (12.0-16.0); Imm Gran Abs Auto 0.06 X10*3/uL (0.00-0.03); Imm Gran Pct Auto 0.6 % (0.0-0.4); Lymphocytes Absolute Auto 1.1 X10*3/uL (1.2-4.9); Lymphocytes Percent Auto 11.1 % (20-40); Mean Corpuscular HGB Conc 31.4 g/dl (31.0-35.0); Mean Corpuscular Hemoglobin 28.6 pg (27.0-33.0); Mean Corpuscular Volume 91.1 fL (80-98); Mean Platelet Volume 9.4 fL (9.4-12.3); Monocytes Absolute Auto 0.7 X10*3/uL (0.1-1.2); Monocytes Percent Auto 7.9 % (2-11); Neutrophils Absolute Auto 7.5 X10*3/uL (2.0-8.3); Neutrophils Percent Auto 79.8 % (45-73); Platelet Count 278 X10*3/uL (160-400); Red Blood Count 3.92 X10*6/uL (4.20-5.50); Red Cell Distribution Width 16.1 % (11.0-16.0); White Blood Count 9.4 X10*3/uL (4.8-10.8)
--- NOTE | 2020-01-08 11:11 | MHC.HEMONC ---
pt here for lab draw via port. She is c/o fatigue and malaise but still wants to receive Taxotere as ordered. Due next week for treatment.
[2020-01-08 11:35] LABS: Alanine Aminotransferase 15 U/L (0-31); Albumin Level 3.5 g/dL (3.5-5.0); Alkaline Phosphatase 121 U/L (39-117); Anion Gap 8 (12-20); Aspartate Amino Transferase 16 U/L (5-31); Bilirubin Total 0.4 mg/dL (0.0-1.0); Blood Urea Nitrogen 7 mg/dL (9-16); Calcium 8.3 mg/dL (8.4-10.2); Carbon Dioxide 32 mmol/L (22-29); Chloride 103 mmol/L (96-108); Creatinine Clr Calc Pharmacy 108.9; Estimated Glomerular Filt Rate > 60; Glucose Random 90 mg/dL (60-115); Potassium 4.3 mmol/l (3.3-5.1); Sodium 139 mmol/L (135-145); Total Protein 5.7 g/dL (6.5-8.0)
--- NOTE | 2020-01-08 15:19 | MHC.HEMONCSW ---
PT HERE FOR FOLLOW UP. NOT FEELING WELL. DENIES S/S DEPRESSION BUT WE DISCUSSED HER FEELINGS, HOPES AND FEARS. DOES NOT WANT COUNSELING REFERRAL. DENIES SPECIFIC STRESS. EDUCATION AND SUPPORT PROVIDED.
[2020-01-15 09:44] VITALS: BMI 36.4
[2020-01-15 10:09] VITALS: BMI 37.3
[2020-01-15 10:13] VITALS: BP 126/67; PULSE 108; TEMP 36.6; O2SAT 95
[2020-01-15 11:04] LABS: MANUAL DIFF FLAG NO
[2020-01-15 11:07] LABS: Basophils Percent Auto 0.3 % (0-2); Eosinophils Percent Auto 0.4 % (0-4); Hematocrit 35.6 % (37-47); Imm Gran Abs Auto 0.05 X10*3/uL (0.00-0.03); Imm Gran Pct Auto 0.5 % (0.0-0.4); Lymphocytes Absolute Auto 1.2 X10*3/uL (1.2-4.9); Lymphocytes Percent Auto 11.7 % (20-40); Mean Corpuscular HGB Conc 30.9 g/dl (31.0-35.0); Mean Corpuscular Hemoglobin 28.2 pg (27.0-33.0); Mean Corpuscular Volume 91.3 fL (80-98); Mean Platelet Volume 9.5 fL (9.4-12.3); Monocytes Absolute Auto 1.2 X10*3/uL (0.1-1.2); Monocytes Percent Auto 11.2 % (2-11); Neutrophils Absolute Auto 7.9 X10*3/uL (2.0-8.3); Neutrophils Percent Auto 75.9 % (45-73); Platelet Count 329 X10*3/uL (160-400); Red Cell Distribution Width 16.3 % (11.0-16.0); White Blood Count 10.4 X10*3/uL (4.8-10.8)
[2020-01-15] MEDS: diphenhydrAMINE HCL 25 MG TABLET PO (11:18)
[2020-01-15] MEDS: ondansetron HCL/NS 16 MG/50 ML PIGGYBACK 200 MG IV (11:19)
[2020-01-15 11:34] LABS: Alanine Aminotransferase 14 U/L (0-31); Albumin Level 3.7 g/dL (3.5-5.0); Alkaline Phosphatase 111 U/L (39-117); Anion Gap 12 (12-20); Aspartate Amino Transferase 17 U/L (5-31); Bilirubin Total 0.4 mg/dL (0.0-1.0); Blood Urea Nitrogen 11 mg/dL (9-16); Calcium 8.3 mg/dL (8.4-10.2); Carbon Dioxide 28 mmol/L (22-29); Chloride 102 mmol/L (96-108); Creatinine Clr Calc Pharmacy 112.2; Estimated Glomerular Filt Rate > 60; Glucose Random 91 mg/dL (60-115); Potassium 4.1 mmol/l (3.3-5.1); Sodium 138 mmol/L (135-145); Total Protein 5.9 g/dL (6.5-8.0)
[2020-01-15] MEDS: Famotidine/PF 20 MG/2 ML VIAL IVPUSH (11:49)
[2020-01-15] MEDS: dexAMETHasone sod phosphate/NS 12 MG/50 ML PIGGYBACK 200 MG IV (11:49)
--- NOTE | 2020-01-15 12:47 | P.PNHO_ITS ---
Medical Summary - Medical Summary Chief complaint: Follow-up and scheduled chemotherapy Medical Summary: Diagnosis: Right lung squamous cell carcinoma, clinical stage IIIA, January 2019 Metastatic cancer diagnosed in August 2019 Presented with cough, hemoptysis and shortness of breath for a few weeks. CT chest in December 2018 showed lobular mass in the right lower lobe measuring 4.6 x 3.6 cm extending from right hilum to the inferior pleural space. 5 mm nodule in the left lower lobe. Narrowing of the right lower lobe bronchus due to compression from adjacent hilar adenopathy. Bulky right hilar and subcarinal lymphadenopathy. Whole-body PET scan performed 01/29/2019 showed intense abnormal uptake in the right lower lung mass as well as right hilum and subcarinal regions consistent with malignancy. SUV11. Mild uptake in the right adrenal limb SUV 4.8. Small metastatic deposit cannot be excluded. Brain MRI with contrast negative for metastasis. On 02/05/2019 patient underwent bronchoscopy and mediastinoscopy with biopsies. Pathology from bronchoscopy, bronchus intermedius : right-squamous cell carcinoma moderately differentiated. R4 lymph nodes 2 were negative for carcinoma. Subcarinal lymph node showed metastatic squamous cell carcinoma. Patient completed concurrent chemoradiotherapy from 03/06/2019 to 04/21/2019. She received definitive radiation therapy of 60 cGy. Preoperative imaging, CT chest as well as PET-CT([facility]), in July which unfortunately showed new focal intense FDG uptake in the left lobe of liver, SUV 16.3. On corresponding CT chest this measures 2.3 cm. Marked improvement in right lower lobe and subcarinal FDG uptake, residual increased FDG uptake in right hilum suggesting residual metastatic disease versus reactive adenopathy. Who is [employer] for next generation sequencing showed MS stable, tumor mutational burden 24 Muts/Mb. Based on genomic findings therapies with clinical benefit are atezolizumab, durvalumab, pembrolizumab and nivolumab. No reportable alterations in alk, BRAF, EGFR, ERBB2, KRAS, MET, RET and ROS1 Patient received concurrent chemoradiotherapy from 03/06/2019 to 04/21/2019, weekly carboplatin and Taxol. She started immunotherapy with nivolumab (CheckMate 017 trial) from 09/08/2019 until November 2019. PET-CT showed progressive disease, she was switched to chemotherapy with single agent Taxotere 75 mg/meter squared Q 21 days. Interval History Interval history: Patient is here for her scheduled treatment and follow-up. Overall she is doing fairly well. She does report fatigue and occasional nausea after chemotherapy. Her stools are somewhat loose for 1-2 days after treatment. She denies any recent history of fever, chills or change in her chronic cough. She does report congestion and cough which she is attributing to seasonal allergies and postnasal drip. She is using her inhalers but they do not seem to be as effective when she gets her spells of wheezing from her asthma and COPD. 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 She denies any headache or dizziness. No focal weakness, numbness or tingling. Review of Systems - Constitutional Reports no additional constitutional complaints - Cardiovascular Reports no additional cardiovascular complaints - Respiratory Reports no additional respiratory complaints [facility] Medical History: Medical History (Last Updated 01/15/20 @ 12:49 by Pretty Richmond MD) COPD (chronic obstructive pulmonary disease) HLD (hyperlipidemia) Squamous cell carcinoma of lung, stage IV TIA (transient ischemic attack) Family History: Family History (Last Updated 12/30/19 @ 08:25 by Faby Tavarez [facility]) Father Hypertension Mother No problems noted. Sister Hypertension Diverticulosis Brother Hypertension Surgical History: Surgical History (Last Updated 01/15/20 @ 12:49 by Pretty Richmond MD) H/O breast biopsy No pertinent past surgical history Oncology Screenings - ECOG Performance Status ECOG Performance Status: 1 Home Medications and Allergies Current Medications: Current Medications Generic Name Dose Route Start Last Admin Trade Name Freq PRN Reason Stop Dose Admin Diphenhydramine HCl 25 mg 01/15/20 00:00 01/15/20 11:18 Diphenhydramine Hcl 25 Mg Tablet PO 01/15/20 23:59 25 mg ONCE DEEPTHI Administration Famotidine 20 mg 01/15/20 00:00 01/15/20 11:49 Famotidine/Pf 20 Mg/2 Ml Vial IVPUSH 01/15/20 23:59 20 mg ONCE DEEPTHI Administration Heparin Sodium (Porcine) 500 unit 01/15/20 00:00 Heparin Sodium,Porcine Flush 500 Unit/5 Ml Syringe IVFLUSH 01/15/20 23:59 ONCE DEEPTHI Docetaxel 160 mg/ Sodium 258 mls @ 266 mls/hr 12/25/19 12:30 12/25/19 13:26 Chloride IV 266 mls/hr ONCE DEEPTHI Administration Ondansetron HCl 16 mg in 50 mls @ 200 mls/hr 01/15/20 00:00 01/15/20 11:35 Zofran IV 01/15/20 23:59 Infused ONCE DEEPTHI Infusion Docetaxel 155 mg/ Sodium 265.5 mls @ 265.5 mls/hr 01/15/20 00:00 Chloride IV 01/15/20 23:59 ONCE DEEPTHI Docetaxel 155 mg/ Sodium 257.75 mls @ 257.75 mls/hr 01/15/20 12:45 Chloride IV ONCE DEEPTHI Pegfilgrastim 6 mg 01/15/20 00:00 Pegfilgrastim Onpro 6 Mg/0.6 Ml Syr.W..Inj SUBCUT 01/15/20 23:59 ONCE DEEPTHI Home Medications Medication Instructions Recorded Confirmed Type albuterol sulfate See Rx Instructions .ROUTE .COMPLEX 12/25/19 12/31/19 History qkknxlb-I3-pldq-copper-jennifer 1 tab PO DAILY 12/25/19 12/31/19 History [Citracal-D3 Maximum Plus] dexamethasone 1 mg PO DIRECTED 12/25/19 12/31/19 History escitalopram oxalate 5 mg PO DAILY 12/25/19 12/31/19 History wy-ep-phib-FA-Ca carb-vit K 1 tab PO DAILY 12/25/19 12/31/19 History [One-A-Day Womens Formula] ondansetron 8 mg PO Q8H 12/25/19 12/31/19 History simvastatin 40 mg PO BEDTIME 12/25/19 12/31/19 History loratadine 10 mg capsule 10 mg PO DAILY 12/31/19 12/31/19 History meclizine 25 mg tablet 25 mg PO .PRN tab 12/31/19 12/31/19 History omeprazole 20 mg capsule,delayed 20 mg PO DAILY 12/31/19 12/31/19 History release Allergies Allergy/AdvReac Type Severity Reaction Status Date / Time amoxicillin [AMOXICILLIN] Allergy Intermediate HIVES Verified 12/31/19 11:24 Iodinated Contrast Media AdvReac Intermediate NAUSEA ?T? Verified 12/31/19 11:24 [IVP DYE] VOMITING azithromycin AdvReac Unknown diarrhea Verified 12/31/19 11:24 Doxycycline Hyclate AdvReac Unknown nausea Uncoded 09/29/20 16:36 Exam Vital signs: Vital Signs Temp 97.8 F 01/15/20 10:13 Pulse 108 H 01/15/20 10:13 Resp 18 12/25/19 09:55 BP 126/67 01/15/20 10:13 Pulse Ox 95 01/15/20 10:13 Intake & Output 01/14/20 01/15/20 01/15/20 18:59 06:59 18:59 Intake Total 100 / 100 Balance 100 / 100 Intake: Intake, IV Amount 100 / 100 dexAMETHasone sod phosphate/NS 50 / 50 12 mg In 50 ml @ 100 mls/hr IV ONCE DEEPTHI Rx#:[id number] ondansetron HCL/NS 16 mg In 50 50 / 50 ml @ 200 mls/hr IV ONCE DEEPTHI Rx# :[id number] Other: Weight 98.6 kg Weight 98.6 kg Body Mass Index 37.3 - Constitutional Present: no acute distress - Routine HEENT Exam Head: Present: normal inspection Eye: Present: EOMI - Routine Respiratory Exam Present: decreased breath sounds, wheezes - Routine Cardiovascular Exam Cardiovascular: Present: RRR, S1, S2 - Routine Abdominal Exam Present: soft Data - Labs CBC & Chem 7: 01/15/20 10:30 01/15/20 10:30 Labs: Laboratory Results - last 24 hr 01/15/20 01/15/20 10:30 10:30 WBC 10.4 RBC 3.90 L Hgb 11.0 L Hct 35.6 L MCV 91.3 MCH 28.2 MCHC 30.9 L RDW 16.3 H Plt Count 329 MPV 9.5 Immature Gran % (Auto) 0.5 H Neut % (Auto) 75.9 H Lymph % (Auto) 11.7 L Webb % (Auto) 11.2 H Eos % (Auto) 0.4 Baso % (Auto) 0.3 Lymph # (Auto) 1.2 Webb # (Auto) 1.2 Eos # (Auto) 0.0 Baso # (Auto) 0.0 Abs Immat Gran (auto) 0.05 H Absolute Neuts (auto) 7.9 Absolute Nucleated RBC 0.000 Nucleated RBC % (auto) 0.0 Sodium 138 Potassium 4.1 Chloride 102 Carbon Dioxide 28 Anion Gap 12 BUN 11 D Creatinine 0.57 Estim Creat Clear Calc 112.2 Estimated GFR > 60 Random Glucose 91 Calcium 8.3 L Total Bilirubin 0.4 AST 17 ALT 14 Alkaline Phosphatase 111 Total Protein 5.9 L Albumin 3.7 Progress Note: A/P (1) Squamous cell carcinoma of lung, stage IV Status: Acute Assessment and plan: 1. This is a 64-year-old woman with lung cancer, squamous cell carcinoma originating in right lower lobe. Clinical stage T2 N2, IIIA., January 2019. Developed Metastatic cancer in August 2019. PD L1 TPS 0%. Patient completed concurrent chemoradiotherapy from 03/06/2019 to 04/21/2019, weekly carboplatin and Taxol. She started immunotherapy with nivolumab (CheckMate 017 trial) from 09/08/2019 until November 2019. PET-CT showed progressive disease, she was switched to chemotherapy with single agent Taxotere 75 mg/meter squared Q 21 days. Proceed with cycle 3 today. Clinically she is doing fairly well and her tumor marker CEA is now 92, previously around 250. 2. COPD/asthma. She has moderate symptoms from her COPD. She does not seem to be responding well to the current inhalers. 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 I will repeat scan after cycle 4. - Time Spent With Patient Total time spent is greater than 50% in coordination of care (as documented) at patient's floor/unit and/or counseling patient: 15 - 24 minutes
[2020-01-15] MEDS: Fosaprepitant Dimeglumine 150 MG in 0.9 % Sodium Chloride 145 ML 300 MG IV (12:49)
[2020-01-15] MEDS: Pegfilgrastim Onpro 6 MG/0.6 ML SYR.W..INJ SUBCUT (15:00)
[2020-01-15] MEDS: Heparin Sodium,Porcine Flush 500 UNIT/5 ML SYRINGE IVFLUSH (15:00)
--- NOTE | 2020-01-15 15:34 | MHC.HEMONC ---
Pt had visit with Dr Richmond. Labs reviewed and WNL. Chemo given, pt tolerated well. Neulasta activated and placed on pt right arm. Referral given for Dr Hoffman regarding pt's coughing and congestion.
--- NOTE | 2020-01-27 15:42 | MHC.HEMONCSW ---
per pt request, dr. arteaga completed, faxed, emergency housing letter to [facility].
[2020-01-29 10:01] VITALS: BP 132/63; PULSE 100; RESP 18; TEMP 36.9; O2SAT 95; BMI 37.6
[2020-01-29 10:46] LABS: MANUAL DIFF FLAG NO
[2020-01-29 11:18] LABS: Basophils Percent Auto 0.3 % (0-2); Eosinophils Percent Auto 0.4 % (0-4); Hematocrit 36.9 % (37-47); Hemoglobin 11.6 g/dl (12.0-16.0); Imm Gran Abs Auto 0.04 X10*3/uL (0.00-0.03); Imm Gran Pct Auto 0.5 % (0.0-0.4); Lymphocytes Percent Auto 12.8 % (20-40); Mean Corpuscular HGB Conc 31.4 g/dl (31.0-35.0); Mean Corpuscular Hemoglobin 28.5 pg (27.0-33.0); Mean Corpuscular Volume 90.7 fL (80-98); Mean Platelet Volume 9.6 fL (9.4-12.3); Monocytes Absolute Auto 0.6 X10*3/uL (0.1-1.2); Monocytes Percent Auto 8.3 % (2-11); Neutrophils Absolute Auto 5.8 X10*3/uL (2.0-8.3); Neutrophils Percent Auto 77.7 % (45-73); Platelet Count 319 X10*3/uL (160-400); Red Blood Count 4.07 X10*6/uL (4.20-5.50); Red Cell Distribution Width 16.6 % (11.0-16.0); White Blood Count 7.5 X10*3/uL (4.8-10.8)
[2020-01-29 11:53] LABS: Alanine Aminotransferase 15 U/L (0-31); Albumin Level 3.5 g/dL (3.5-5.0); Alkaline Phosphatase 106 U/L (39-117); Anion Gap 15 (12-20); Aspartate Amino Transferase 21 U/L (5-31); Bilirubin Total 0.4 mg/dL (0.0-1.0); Blood Urea Nitrogen 11 mg/dL (9-16); Calcium 7.9 mg/dL (8.4-10.2); Carbon Dioxide 26 mmol/L (22-29); Chloride 103 mmol/L (96-108); Creatinine Clr Calc Pharmacy 123.5; Estimated Glomerular Filt Rate > 60; Glucose Random 81 mg/dL (60-115); Sodium 139 mmol/L (135-145); Total Protein 5.8 g/dL (6.5-8.0)
--- NOTE | 2020-02-01 09:31 | MHC.HEMONC ---
Patient called to report a new inhaler she started Jonathan henley. Pt scheduled for chemo Saturday. Dr Richmond states ok to take prior to treatment.
[2020-02-05 09:36] VITALS: BP 133/71; PULSE 103; RESP 18; TEMP 36.4; O2SAT 95; BMI 37.8
[2020-02-05 10:04] LABS: MANUAL DIFF FLAG NO
[2020-02-05 10:11] LABS: Basophils Percent Auto 0.5 % (0-2); Eosinophils Percent Auto 0.4 % (0-4); Hematocrit 35.4 % (37-47); Hemoglobin 11.2 g/dl (12.0-16.0); Imm Gran Abs Auto 0.04 X10*3/uL (0.00-0.03); Imm Gran Pct Auto 0.5 % (0.0-0.4); Lymphocytes Absolute Auto 1.1 X10*3/uL (1.2-4.9); Lymphocytes Percent Auto 12.9 % (20-40); Mean Corpuscular HGB Conc 31.6 g/dl (31.0-35.0); Mean Corpuscular Volume 91.7 fL (80-98); Monocytes Percent Auto 12.7 % (2-11); Neutrophils Absolute Auto 5.9 X10*3/uL (2.0-8.3); Platelet Count 328 X10*3/uL (160-400); Red Blood Count 3.86 X10*6/uL (4.20-5.50); Red Cell Distribution Width 16.8 % (11.0-16.0); White Blood Count 8.1 X10*3/uL (4.8-10.8)
[2020-02-05 10:58] LABS: Alanine Aminotransferase 15 U/L (0-31); Albumin Level 3.7 g/dL (3.5-5.0); Alkaline Phosphatase 98 U/L (39-117); Anion Gap 10 (12-20); Aspartate Amino Transferase 19 U/L (5-31); Bilirubin Total 0.5 mg/dL (0.0-1.0); Blood Urea Nitrogen 11 mg/dL (9-16); Carbon Dioxide 30 mmol/L (22-29); Chloride 103 mmol/L (96-108); Estimated Glomerular Filt Rate > 60; Glucose Random 89 mg/dL (60-115); Potassium 4.1 mmol/l (3.3-5.1); Sodium 139 mmol/L (135-145); Total Protein 5.7 g/dL (6.5-8.0)
[2020-02-05 11:15] LABS: Calcium 8.3 mg/dL (8.4-10.2)
[2020-02-05] MEDS: diphenhydrAMINE HCL 25 MG TABLET PO (11:27)
[2020-02-05] MEDS: Famotidine/PF 20 MG/2 ML VIAL IVPUSH (11:27)
[2020-02-05] MEDS: dexAMETHasone sod phosphate/NS 12 MG/50 ML PIGGYBACK 200 MG IV (11:30)
[2020-02-05] MEDS: ondansetron HCL/NS 16 MG/50 ML PIGGYBACK 200 MG IV (12:02)
[2020-02-05] MEDS: Fosaprepitant Dimeglumine 150 MG in 0.9 % Sodium Chloride 145 ML 300 MG IV (12:32)
--- NOTE | 2020-02-05 14:15 | MHC.HEMONC ---
ORDER FOR CT SCAN PLACED IN MARCEL'S MAILBOX. PT TOLERATED DOCETAXEL TODAY, NO COMPLAINTS AT THIS TIME. PT TO HAVE SCAN BEFORE NEXT SCHEDULED TREATMENT.
[2020-02-05] MEDS: Pegfilgrastim Onpro 6 MG/0.6 ML SYR.W..INJ SUBCUT (14:47)
[2020-02-05] MEDS: Heparin Sodium,Porcine Flush 500 UNIT/5 ML SYRINGE IVFLUSH (14:47)
--- NOTE | 2020-02-24 16:29 | MHC.HEMONC ---
Pt returned call from [facility]. I informed pt that her follow-up appt with Dr. Richmond is cancelled.
[2020-02-26 08:52] VITALS: BMI 38.7
[2020-02-26 08:53] VITALS: BP 138/61; PULSE 113; RESP 18; TEMP 36.5; O2SAT 94
[2020-02-26 09:42] LABS: MANUAL DIFF FLAG NO
[2020-02-26 09:50] LABS: Basophils Percent Auto 0.3 % (0-2); Eosinophils Percent Auto 0.5 % (0-4); Hematocrit 32.8 % (37-47); Hemoglobin 10.3 g/dl (12.0-16.0); Imm Gran Abs Auto 0.03 X10*3/uL (0.00-0.03); Imm Gran Pct Auto 0.5 % (0.0-0.4); Lymphocytes Absolute Auto 0.9 X10*3/uL (1.2-4.9); Lymphocytes Percent Auto 13.4 % (20-40); Mean Corpuscular HGB Conc 31.4 g/dl (31.0-35.0); Mean Corpuscular Hemoglobin 28.9 pg (27.0-33.0); Mean Corpuscular Volume 92.1 fL (80-98); Mean Platelet Volume 9.4 fL (9.4-12.3); Monocytes Percent Auto 15.1 % (2-11); Neutrophils Absolute Auto 4.7 X10*3/uL (2.0-8.3); Neutrophils Percent Auto 70.2 % (45-73); Platelet Count 309 X10*3/uL (160-400); Red Blood Count 3.56 X10*6/uL (4.20-5.50); Red Cell Distribution Width 17.2 % (11.0-16.0); White Blood Count 6.6 X10*3/uL (4.8-10.8)
[2020-02-26 10:09] LABS: Alanine Aminotransferase 10 U/L (0-31); Albumin Level 3.4 g/dL (3.5-5.0); Alkaline Phosphatase 91 U/L (39-117); Anion Gap 10 (12-20); Aspartate Amino Transferase 15 U/L (5-31); Bilirubin Total 0.5 mg/dL (0.0-1.0); Blood Urea Nitrogen 10 mg/dL (9-16); Calcium 8.2 mg/dL (8.4-10.2); Carbon Dioxide 30 mmol/L (22-29); Chloride 104 mmol/L (96-108); Creatinine Clr Calc Pharmacy 114.7; Estimated Glomerular Filt Rate > 60; Glucose Random 93 mg/dL (60-115); Potassium 4.2 mmol/l (3.3-5.1); Sodium 140 mmol/L (135-145); Total Protein 5.2 g/dL (6.5-8.0)
[2020-02-26] MEDS: Famotidine/PF 20 MG/2 ML VIAL IVPUSH (10:48)
[2020-02-26] MEDS: dexAMETHasone sod phosphate/NS 12 MG/50 ML PIGGYBACK 200 MG IV (10:48)
[2020-02-26] MEDS: diphenhydrAMINE HCL 25 MG TABLET PO (11:11)
[2020-02-26] MEDS: ondansetron HCL/NS 16 MG/50 ML PIGGYBACK 200 MG IV (11:14)
[2020-02-26] MEDS: Fosaprepitant Dimeglumine 150 MG in 0.9 % Sodium Chloride 145 ML 300 MG IV (11:49)
[2020-02-26] MEDS: Heparin Sodium,Porcine Flush 500 UNIT/5 ML SYRINGE IVFLUSH (13:35)
[2020-02-26] MEDS: Pegfilgrastim Onpro 6 MG/0.6 ML SYR.W..INJ SUBCUT (13:36)
--- NOTE | 2020-02-26 15:20 | MHC.HEMONCSW ---
pt here for treatment. met with pt and . discussed illness around the holidays. both report coping well, staying optimistic. denies stres, no complaints at this time. both are aware of my availability.
[2020-03-17 08:11] VITALS: BP 122/60; PULSE 112; RESP 20; TEMP 36.9; O2SAT 92; BMI 38.2
[2020-03-17 08:40] LABS: MANUAL DIFF FLAG NO
[2020-03-17 08:41] LABS: Basophils Percent Auto 0.6 % (0-2); Eosinophils Percent Auto 0.4 % (0-4); Hematocrit 32.5 % (37-47); Hemoglobin 10.1 g/dl (12.0-16.0); Imm Gran Abs Auto 0.03 X10*3/uL (0.00-0.03); Imm Gran Pct Auto 0.4 % (0.0-0.4); Lymphocytes Percent Auto 13.2 % (20-40); Mean Corpuscular HGB Conc 31.1 g/dl (31.0-35.0); Mean Corpuscular Hemoglobin 28.6 pg (27.0-33.0); Mean Corpuscular Volume 92.1 fL (80-98); Monocytes Absolute Auto 1.1 X10*3/uL (0.1-1.2); Monocytes Percent Auto 15.4 % (2-11); Platelet Count 389 X10*3/uL (160-400); Red Blood Count 3.53 X10*6/uL (4.20-5.50); Red Cell Distribution Width 16.5 % (11.0-16.0); White Blood Count 7.2 X10*3/uL (4.8-10.8)
[2020-03-17] MEDS: Famotidine/PF 20 MG/2 ML VIAL IVPUSH (09:20)
[2020-03-17 09:23] LABS: Alanine Aminotransferase 10 U/L (0-31); Albumin Level 3.3 g/dL (3.5-5.0); Alkaline Phosphatase 88 U/L (39-117); Anion Gap 11 (12-20); Aspartate Amino Transferase 17 U/L (5-31); Bilirubin Total 0.5 mg/dL (0.0-1.0); Blood Urea Nitrogen 9 mg/dL (9-16); Carbon Dioxide 29 mmol/L (22-29); Chloride 99 mmol/L (96-108); Creatinine Clr Calc Pharmacy 115.7; Estimated Glomerular Filt Rate > 60; Glucose Random 98 mg/dL (60-115); Sodium 135 mmol/L (135-145); Total Protein 5.2 g/dL (6.5-8.0)
[2020-03-17] MEDS: ondansetron HCL/NS 16 MG/50 ML PIGGYBACK 200 MG IV (09:27)
[2020-03-17] MEDS: diphenhydrAMINE HCL 25 MG TABLET PO (09:44)
[2020-03-17] MEDS: dexAMETHasone sod phosphate/NS 12 MG/50 ML PIGGYBACK 200 MG IV (09:54)
[2020-03-17] MEDS: Fosaprepitant Dimeglumine 150 MG in 0.9 % Sodium Chloride 145 ML 300 MG IV (10:36)
--- NOTE | 2020-03-17 12:36 | P.PNHO_ITS ---
Medical Summary - Medical Summary Date of Service: 03/17/20 Chief complaint: Follow-up and scheduled treatment Medical Summary: Diagnosis: Right lung squamous cell carcinoma, clinical stage IIIA, January 2019 Metastatic cancer diagnosed in August 2019 Presented with cough, hemoptysis and shortness of breath for a few weeks. CT chest in December 2018 showed lobular mass in the right lower lobe measuring 4.6 x 3.6 cm extending from right hilum to the inferior pleural space. 5 mm nodule in the left lower lobe. Narrowing of the right lower lobe bronchus due to compression from adjacent hilar adenopathy. Bulky right hilar and subcarinal lymphadenopathy. Whole-body PET scan performed 01/29/2019 showed intense abnormal uptake in the right lower lung mass as well as right hilum and subcarinal regions consistent with malignancy. SUV11. Mild uptake in the right adrenal limb SUV 4.8. Small metastatic deposit cannot be excluded. Brain MRI with contrast negative for metastasis. On 02/05/2019 patient underwent bronchoscopy and mediastinoscopy with biopsies. Pathology from bronchoscopy, bronchus intermedius : right-squamous cell carcinoma moderately differentiated. R4 lymph nodes 2 were negative for carcinoma. Subcarinal lymph node showed metastatic squamous cell carcinoma. Patient completed concurrent chemoradiotherapy from 03/06/2019 to 04/21/2019. She received definitive radiation therapy of 60 cGy. Preoperative imaging, CT chest as well as PET-CT([facility]), in July which unfortunately showed new focal intense FDG uptake in the left lobe of liver, SUV 16.3. On corresponding CT chest this measures 2.3 cm. Marked improvement in right lower lobe and subcarinal FDG uptake, residual increased FDG uptake in right hilum suggesting residual metastatic disease versus reactive adenopathy. [facility] showed MS stable, tumor mutational burden 24 Muts/Mb. Based on genomic findings therapies with clinical benefit are atezolizumab, durvalumab, pembrolizumab and nivolumab. No reportable al terations in alk, BRAF, EGFR, ERBB2, KRAS, MET, RET and ROS1 Patient received concurrent chemoradiotherapy from 03/06/2019 to 04/21/2019, weekly carboplatin and Taxol. She started immunotherapy with nivolumab (CheckMate 017 trial) from 09/08/2019 until November 2019. PET-CT showed progressive disease, she was switched to chemotherapy with single agent Taxotere 75 mg/meter squared Q 21 days. Interval History Interval history: Patient here in follow-up. She is doing quite well overall. She reports recurrent allergy symptoms with nasal congestion, postnasal drip which is causing some cough. She is on inhalers and it is helping her respiratory sym ptoms overall. She denies any nausea, abdominal discomfort, diarrhea, chest pain or shortness of breath. She notices some swelling in her legs after treatment, this gets better when she keeps her legs elevated. Review of Systems - Constitutional Reports no additional constitutional complaints - Cardiovascular Reports no additional cardiovascular complaints - Respiratory Reports no additional respiratory complaints - Gastrointestinal Reports no additional gastrointestinal complaints COUNTS INCLUDE 234 BEDS AT THE [facility] Medical History: Medical History (Last Reviewed 01/29/20 @ 14:27 by Ramesh Richmond MD) COPD (chronic obstructive pulmonary disease) HLD (hyperlipidemia) Squamous cell carcinoma of lung, stage IV TIA (transient ischemic attack) Family History: Family History (Last Reviewed 01/29/20 @ 14:27 by Ramesh Richmond MD) Father Hypertension Mother No problems noted. Sister Hypertension Diverticulosis Brother Hypertension Surgical History: Surgical History (Last Reviewed 01/29/20 @ 14:27 by Ramesh Richmond MD) H/O breast biopsy No pertinent past surgical history Oncology Screenings - ECOG Performance Status ECOG Performance Status: 1 Home Medications and Allergies Current Medications: Current Medications Generic Name Dose Route Start Last Admin Trade Name Freq PRN Reason Stop Dose Admin Diphenhydramine HCl 25 mg 03/17/20 00:00 03/17/20 09:44 Diphenhydramine Hcl 25 Mg Tablet PO 03/17/20 23:59 25 mg ONCE DEEPTHI Administration Famotidine 20 mg 03/17/20 00:00 03/17/20 09:20 Famotidine/Pf 20 Mg/2 Ml Vial IVPUSH 03/17/20 23:59 20 mg ONCE DEEPTHI Administration Heparin Sodium (Porcine) 500 unit 03/17/20 00:00 Heparin Sodium,Porcine Flush 500 Unit/5 Ml Syringe IVFLUSH 03/17/20 23:59 ONCE DEEPTHI Docetaxel 160 mg/ Sodium 258 mls @ 266 mls/hr 12/25/19 12:30 12/25/19 13:26 Chloride IV 266 mls/hr ONCE DEEPTHI Administration Docetaxel 155 mg/ Sodium 257.75 mls @ 257.75 mls/hr 01/15/20 12:45 01/15/20 14:59 Chloride IV Infused ONCE DEEPTHI Infusion Ondansetron HCl 16 mg in 50 mls @ 200 mls/hr 03/17/20 00:00 03/17/20 09:45 Zofran IV 03/17/20 23:59 Infused ONCE DEEPTHI Infusion Dexamethasone Sodium Phosphate 12 mg in 50 mls @ 100 mls/hr 03/17/20 00:00 03/17/20 10:15 Decadron IV 03/17/20 23:59 Infused ONCE DEEPTHI Infusion Fosaprepitant 150 mg/ Sodium 150 mls @ 300 mls/hr 03/17/20 00:00 03/17/20 11:10 Chloride IV 03/17/20 23:59 Infused ONCE DEEPTHI Infusion Docetaxel 160 mg/ Sodium 266 mls @ 266 mls/hr 03/17/20 00:00 03/17/20 11:34 Chloride IV 03/17/20 23:59 266 mls/hr ONCE DEEPTHI Administration Pegfilgrastim 6 mg 03/17/20 00:00 Pegfilgrastim Onpro 6 Mg/0.6 Ml Syr.W..Inj SUBCUT 03/17/20 23:59 ONCE DEEPTHI Home Medications Medication Instructions Recorded Confirmed Type albuterol sulfate See Rx Instructions .ROUTE .COMPLEX 12/25/19 12/31/19 History cthfsas-V3-jmxg-copper-jennifer 1 tab PO DAILY 12/25/19 12/31/19 History [Citracal-D3 Maximum Plus] ur-fl-mafy-FA-Ca carb-vit K 1 tab PO DAILY 12/25/19 12/31/19 History [One-A-Day Womens Formula] ondansetron 8 mg PO Q8H PRN 12/25/19 12/31/19 History simvastatin 40 mg PO BEDTIME 12/25/19 12/31/19 History loratadine 10 mg capsule 10 mg PO NEEDED PRN 12/31/19 02/05/20 History meclizine 25 mg tablet 25 mg PO .PRN PRN tab 12/31/19 02/05/20 History omeprazole 20 mg capsule,delayed 20 mg PO DAILY 12/31/19 02/05/20 History release umeclidinium-vilanterol [Anoro 1 inh INHALATION DAILY 02/05/20 02/05/20 History Ellipta] Allergies Allergy/AdvReac Type Severity Reaction Status Date / Time amoxicillin [AMOXICILLIN] Allergy Intermediate HIVES Verified 03/01/20 10:15 Iodinated Contrast Media AdvReac Intermediate NAUSEA ?T? Verified 03/01/20 10:15 [IVP DYE] VOMITING azithromycin AdvReac Unknown diarrhea Verified 03/01/20 10:15 Exam Vital signs: Vital Signs Temp 98.5 F 03/17/20 08:11 Pulse 112 H 03/17/20 08:11 Resp 20 03/17/20 08:11 BP 122/60 03/17/20 08:11 Pulse Ox 92 03/17/20 08:11 Intake & Output 03/16/20 03/17/20 03/17/20 18:59 06:59 18:59 Intake Total 250 / 250 Balance 250 / 250 Intake: Intake, IV Amount 250 / 250 Fosaprepitant Dimeglumine 150 150 / 150 mg In 0.9 % Sodium Chloride 145 ml @ 300 mls/hr IV ONCE DEEPTHI Rx #:[id number] dexAMETHasone sod phosphate/NS 50 / 50 12 mg In 50 ml @ 100 mls/hr IV ONCE DEEPTHI Rx#:[id number] ondansetron HCL/NS 16 mg In 50 50 / 50 ml @ 200 mls/hr IV ONCE DEEPTHI Rx# :[id number] Other: Weight 100.9 kg Weight 100.9 kg Body Mass Index 38.2 - Constitutional Present: no acute distress - Routine HEENT Exam Head: Present: normal inspection - Routine Respiratory Exam Present: decreased breath sounds, wheezes - Routine Cardiovascular Exam Cardiovascular: Present: RRR, S1, S2 - Routine Abdominal Exam Present: soft Data - Labs CBC & Chem 7: 03/17/20 08:30 03/17/20 08:30 Labs: 12/25/19 00:00 DOCEtaxeL [Taxotere] 160 mg 0.9 % Sodium Chloride [Ns] 250 ml IV ONCE Famotidine/PF [Pepcid/PF] 20 mg IVPUSH ONCE Fosaprepitant Dimeglumine [Emend] 150 mg 0.9 % Sodium Chloride [Ns] 145 ml IV ONCE Heparin Sodium,Porcine Flush 500 unit IVFLUSH ONCE Pegfilgrastim Onpro [Neulasta Onpro] 6 mg SUBCUT ONCE dexAMETHasone [Decadron] 8 mg PO ONCE diphenhydrAMINE HCL [Benadryl] 25 mg PO ONCE ondansetron HCL/NS [Zofran] 16 mg in 50 ml IV ONCE 12/25/19 10:15 Complete Blood Count Auto Diff Routine Comprehensive Met. Panel Routine 12/25/19 11:00 dexAMETHasone [Decadron] 8 mg PO ONCE 12/25/19 11:05 Comprehensive [place]. Panel Fast Routine Lipid Panel Routine 01/01/20 10:32 Heparin Sodium,Porcine Flush 500 unit 0.9 % Sodium Chloride Flush [NS Flush] 5 ml IVFLUSH ONCE 01/01/20 10:45 Heparin Sodium,Porcine Flush 500 unit 0.9 % Sodium Chloride Flush [NS Flush] 5 ml IVFLUSH ONCE 01/01/20 10:50 Alteplase Cath Clear [Cathflo Activase] 2 mg INTRACATH ONCE ONE 01/01/20 12:20 Heparin Sodium,Porcine Flush 500 unit IVFLUSH .STK-MED ONE 01/01/20 12:31 Complete Blood Count Man Dif Routine Comprehensive Met. Panel Routine 01/08/20 10:25 Complete Blood Count Auto Diff Routine Comprehensive Met. Panel Routine 01/08/20 10:30 Heparin Sodium,Porcine Flush 500 unit 0.9 % Sodium Chloride Flush [NS Flush] 5 ml IVFLUSH ONCE 01/08/20 10:41 Heparin Sodium,Porcine Flush 500 unit IVFLUSH .STK-MED ONE 01/15/20 00:00 DOCEtaxeL [Taxotere] 155 mg 0.9 % Sodium Chloride [Ns] 250 ml IV ONCE Famotidine/PF [Pepcid/PF] 20 mg IVPUSH ONCE Fosaprepitant Dimeglumine [Emend] 150 mg 0.9 % Sodium Chloride [Ns] 145 ml IV ONCE Heparin Sodium,Porcine Flush 500 unit IVFLUSH ONCE Pegfilgrastim Onpro [Neulasta Onpro] 6 mg SUBCUT ONCE dexAMETHasone sod phosphate/NS [Decadron] 12 mg in 50 ml IV ONCE dexAMETHasone sod phosphate/NS [Decadron] 12 mg in 50 ml IV ONCE diphenhydrAMINE HCL [Benadryl] 25 mg PO ONCE ondansetron HCL/NS [Zofran] 16 mg in 50 ml IV ONCE ondansetron HCL/NS [Zofran] 16 mg in 50 ml IV ONCE 01/15/20 10:30 Carcinoembryonic Antigen Routine Complete Blood Count Auto Diff Routine Comprehensive Met. Panel Routine 01/15/20 12:00 Fosaprepitant Dimeglumine [Emend] 150 mg 0.9 % Sodium Chloride [Ns] 145 ml IV ONCE 01/29/20 08:16 Heparin Sodium,Porcine Flush 500 unit 0.9 % Sodium Chloride Flush [NS Flush] 5 ml IVFLUSH ONCE 01/29/20 09:54 Heparin Sodium,Porcine Flush 500 unit IVFLUSH .[facility] 01/29/20 10:43 CMP [Comprehensive Met. Panel] Routine Complete Blood Count Auto Diff Routine 02/05/20 00:00 DOCEtaxeL [Taxotere] 160 mg 0.9 % Sodium Chloride [Ns] 250 ml IV ONCE Famotidine/PF [Pepcid/PF] 20 mg IVPUSH ONCE Fosaprepitant Dimeglumine [Emend] 150 mg 0.9 % Sodium Chloride [Ns] 145 ml IV ONCE Heparin Sodium,Porcine Flush 500 unit IVFLUSH ONCE Pegfilgrastim Onpro [Neulasta Onpro] 6 mg SUBCUT ONCE dexAMETHasone sod phosphate/NS [Decadron] 12 mg in 50 ml IV ONCE diphenhydrAMINE HCL [Benadryl] 25 mg PO ONCE ondansetron HCL/NS [Zofran] 16 mg in 50 ml IV ONCE 02/05/20 09:50 Complete Blood Count Auto Diff Routine Comprehensive Met. Panel Routine 02/26/20 00:00 DOCEtaxeL [Taxotere] 160 mg 0.9 % Sodium Chloride [Ns] 250 ml IV ONCE Famotidine/PF [Pepcid/PF] 20 mg IVPUSH ONCE Fosaprepitant Dimeglumine [Emend] 150 mg 0.9 % Sodium Chloride [Ns] 145 ml IV ONCE Heparin Sodium,Porcine Flush 500 unit IVFLUSH ONCE Pegfilgrastim Onpro [Neulasta Onpro] 6 mg SUBCUT ONCE dexAMETHasone sod phosphate/NS [Decadron] 12 mg in 50 ml IV ONCE diphenhydrAMINE HCL [Benadryl] 25 mg PO ONCE ondansetron HCL/NS [Zofran] 16 mg in 50 ml IV ONCE 02/26/20 09:32 Complete Blood Count Auto Diff Routine Comprehensive Met. Panel Routine 02/26/20 11:15 diphenhydrAMINE HCL [Benadryl] 25 mg PO ONCE 03/17/20 08:30 Complete Blood Count Auto Diff Routine Comprehensive Met. Panel Routine Magnesium Routine Laboratory Last Values WBC 7.2 X10*3/uL (4.8-10.8) 03/17/20 08:30 RBC 3.53 X10*6/uL (4.20-5.50) L 03/17/20 08:30 Hgb 10.1 g/dl (12.0-16.0) L 03/17/20 08:30 Hct 32.5 % (37-47) L 03/17/20 08:30 MCV 92.1 fL (80-98) 03/17/20 08:30 MCH 28.6 pg (27.0-33.0) 03/17/20 08:30 MCHC 31.1 g/dl (31.0-35.0) 03/17/20 08:30 RDW 16.5 % (11.0-16.0) H 03/17/20 08:30 Plt Count 389 X10*3/uL (160-400) D 03/17/20 08:30 MPV 9.0 fL (9.4-12.3) L 03/17/20 08:30 Immature Gran % (Auto) 0.4 % (0.0-0.4) 03/17/20 08:30 Neut % (Auto) 70.0 % (45-73) 03/17/20 08:30 Lymph % (Auto) 13.2 % (20-40) L 03/17/20 08:30 Cottle % (Auto) 15.4 % (2-11) H 03/17/20 08:30 Eos % (Auto) 0.4 % (0-4) 03/17/20 08:30 Baso % (Auto) 0.6 % (0-2) 03/17/20 08:30 Neut # (Auto) 5.9 X10*3/uL (2.0-8.3) 12/25/19 10:15 Lymph # (Auto) 1.0 X10*3/uL (1.2-4.9) L 03/17/20 08:30 Cottle # (Auto) 1.1 X10*3/uL (0.1-1.2) 03/17/20 08:30 Eos # (Auto) 0.0 X10*3/uL (0.0-0.4) 03/17/20 08:30 Baso # (Auto) 0.0 X10*3/uL (0.0-0.2) 03/17/20 08:30 Abs Immat Gran (auto) 0.03 X10*3/uL (0.00-0.03) 03/17/20 08:30 Absolute Neuts (auto) 5.0 X10*3/uL (2.0-8.3) 03/17/20 08:30 Absolute Nucleated RBC 0.000 X10*3/uL (0.0-0.012) 03/17/20 08:30 Nucleated RBC % (auto) 0.0 /100WBC (0.0-0.2) 03/17/20 08:30 Neutrophils % (Manual) 75 % (45-73) H 01/01/20 12:31 Band Neutrophils % 11 % (3-5) H 01/01/20 12:31 Lymphocytes % (Manual) 8 % (20-40) L 01/01/20 12:31 Monocytes % (Manual) 4 % (2-11) 01/01/20 12:31 Basophils % (Manual) 1 % (0-1) 01/01/20 12: Metamyelocytes % 1 % 01/01/20 12:31 Abs Neuts (Manual) 12.9 X10*3/uL (2.2-7.9) H 01/01/20 12:31 Lymphocytes # (Manual) 1.2 X10*3/uL (0.6-4.8) 01/01/20 12:31 Monocytes # (Manual) 0.6 X10*3/uL (0.0-1.2) 01/01/20 12:31 Basophils # (Manual) 0.2 X10*3/uL (0.0-0.3) 01/01/20 12:31 Metamyelocytes # 0.2 X10*3/uL 01/01/20 12:31 Platelet Estimate NORMAL (NORMAL) 01/01/20 12:31 Plt Morphology Comment NORMAL 01/01/20 12:31 RBC Morphology NORMAL 01/01/20 12:31 Sodium 135 mmol/L (135-145) 03/17/20 08:30 Potassium 4.0 mmol/l (3.3-5.1) 03/17/20 08:30 Chloride 99 mmol/L (96-108) 03/17/20 08:30 Carbon Dioxide 29 mmol/L (22-29) 03/17/20 08:30 Anion Gap 11 (12-20) L 03/17/20 08:30 BUN 9 mg/dL (9-16) 03/17/20 08:30 Creatinine 0.56 mg/dL (0.5-1.4) 03/17/20 08:30 Estim Creat Clear Calc 115.7 03/17/20 08:30 Estimated GFR > 60 03/17/20 08:30 Random Glucose 98 mg/dL (60-115) 03/17/20 08:30 Fasting Glucose 78 mg/dL (60-99) 12/25/19 11:05 Calcium 8.0 mg/dL (8.4-10.2) L 03/17/20 08:30 Magnesium 2.0 mg/dL (1.6-2.6) 03/17/20 08:30 Total Bilirubin 0.5 mg/dL (0.0-1.0) 03/17/20 08:30 AST 17 U/L (5-31) 03/17/20 08:30 ALT 10 U/L (0-31) 03/17/20 08:30 Alkaline Phosphatase 88 U/L (39-117) 03/17/20 08:30 Total Protein 5.2 g/dL (6.5-8.0) L 03/17/20 08:30 Albumin 3.3 g/dL (3.5-5.0) L 03/17/20 08:30 Triglycerides 83 mg/dL 12/25/19 11:05 Cholesterol 148 mg/dL 12/25/19 11:05 LDL Cholesterol, Calc 87 mg/dl 12/25/19 11:05 HDL Cholesterol 45 mg/dL 12/25/19 11:05 Carcinoembryonic Ag 92.20 mg/mL 01/15/20 10:30 Progress Note: A/P (1) Squamous cell carcinoma of lung, stage IV Status: Chronic Assessment and plan: 1. This is a 64-year-old woman with lung cancer, squamous cell carcinoma originating in right lower lobe. Clinical stage T2 N2, IIIA., January 2019. Developed Metastatic cancer in August 2019. PD L1 TPS 0%. Patient completed concurrent chemoradiotherapy from 03/06/2019 to 04/21/2019, weekly carboplatin and Taxol. She started immunotherapy with nivolumab (CheckMate 017 trial) from 09/08/2019 until November 2019. PET-CT showed progressive disease, she was switched to chemotherapy with single agent Taxotere 75 mg/meter squared Q 21 days. Proceed with cycle 3 today. Clinically she is doing fairly well and her tumor marker CEA is now 20, previously around 92. CT chest/abdomen/pelvis in January 2020 after cycle 4 shows decrease in size of liver lesion, no obvious lung pathology. She is responding well to treatment and tolerating it quite well. 2. COPD/asthma. She has moderate symptoms from her COPD. She was seen by utility assembler and she is doing much better with the new inhalers. Follow-up in 6 weeks. - Time Spent With Patient Total time spent is greater than 50% in coordination of care (as documented) at patient's floor/unit and/or counseling patient: 15 - 24 minutes
[2020-03-17] MEDS: Heparin Sodium,Porcine Flush 500 UNIT/5 ML SYRINGE IVFLUSH (12:46)
[2020-03-17] MEDS: Pegfilgrastim Onpro 6 MG/0.6 ML SYR.W..INJ SUBCUT (12:54)
--- NOTE | 2020-03-17 13:45 | MHC.HEMONC ---
Pt here for chemo infusion. States feeling well after last treatment. Port accessed and labs drawn and reviewed. Dr Richmond in to see pt for follow up. Will return in 2 weeks for flu vaccine, and 3 weeks for chemo infusion.
[2020-03-17 15:05] LABS: Cholesterol 129 mg/dL; HDL Cholesterol 37 mg/dL; LDL Cholesterol Calculated 80 mg/dl; Triglycerides 64 mg/dL
--- NOTE | 2020-03-30 09:55 | MHC.HEMONC ---
Patient called to report increased weakness and nausea since her last treatment. No vomiting, afebrile. Dr. Richmond aware. Patient scheduled for flu vaccine- appointment cancelled until patient feels better. Dr. Richmond recommends to use warm salt water gargles. Patient will call back in 1 to 2 days if not feeling better.
--- NOTE | 2020-04-04 15:25 | MHC.HEMONCSW ---
only met briefly. taken to er to r/o covid.
--- NOTE | 2020-04-04 15:58 | MHC.HEMONC ---
Patient arrived to clinic complaining of shortness of breath, congestion, weakness. Patient states symptoms have worsened over the last few days. Appetite poor.Color pale, breathing labored 02 sats 83%. 02 applied at [address] [place] notified. Patient to be transported to the ED. Patient transported via stretcher, report given to Anabella DICK,
--- NOTE | 2020-04-29 12:15 | MHC.HEMONCSW ---
PATIENT JUST DISCHARGED HOME FROM [facility], HER IS STILL THRE. DIAGNOSIS WAS COVID.
--- NOTE | 2020-05-13 13:26 | PM.HEMONCPN ---
Medical Summary - Medical Summary Date of Service: 05/13/20 Chief complaint: Follow-up Medical Summary: Diagnosis: Right lung squamous cell carcinoma, clinical stage IIIA, January 2019 Metastatic cancer diagnosed in August 2019 Presented with cough, hemoptysis and shortness of breath for a few weeks. CT chest in December 2018 showed lobular mass in the right lower lobe measuring 4.6 x 3.6 cm extending from right hilum to the inferior pleural space. 5 mm nodule in the left lower lobe. Narrowing of the right lower lobe bronchus due to compression from adjacent hilar adenopathy. Bulky right hilar and subcarinal lymphadenopathy. Whole-body PET scan performed 01/29/2019 showed intense abnormal uptake in the right lower lung mass as well as right hilum and subcarinal regions consistent with malignancy. SUV11. Mild uptake in the right adrenal limb SUV 4.8. Small metastatic deposit cannot be excluded. Brain MRI with contrast negative for metastasis. On 02/05/2019 patient underwent bronchoscopy and mediastinoscopy with biopsies. Pathology from bronchoscopy, bronchus intermedius : right-squamous cell carcinoma moderately differentiated. R4 lymph nodes 2 were negative for carcinoma. Subcarinal lymph node showed metastatic squamous cell carcinoma. Patient completed concurrent chemoradiotherapy from 03/06/2019 to 04/21/2019. She received definitive radiation therapy of 60 cGy. Preoperative imaging, CT chest as well as PET-CT([facility]), in July which unfortunately showed new focal intense FDG uptake in the left lobe of liver, SUV 16.3. On corresponding CT chest this measures 2.3 cm. Marked improvement in right lower lobe and subcarinal FDG uptake, residual increased FDG uptake in right hilum suggesting residual metastatic disease versus reactive adenopathy. [employer] for next generation sequencing showed MS stable, tumor mutational burden 24 Muts/Mb. Based on genomic findings therapies with clinical benefit are atezolizumab, durvalumab, pembrolizumab and nivolumab. No reportable alterations in alk, BRAF, EGFR, ERBB2, KRAS, MET, RET and ROS1 Patient received concurrent chemoradiotherapy from 03/06/2019 to 04/21/2019, weekly carboplatin and Taxol. She started immunotherapy with nivolumab (CheckMate 017 trial) from 09/08/2019 until November 2019. PET-CT showed progressive disease, she was switched to chemotherapy with single agent Taxotere 75 mg/meter squared Q 21 days. Interval History Interval history: Patient is here in follow-up. She is accompanied by her today. Both of them are home now, they were in a residential for a few days after discharge from the hospital after treatment for COVID-19 pneumonia. She denies any significant cough, her shortness of breath with exertion is not any worse. She is using her inhalers. She denies any fever or chills. Her appetite is good. She has no pain in her body. Review of Systems - Constitutional Reports no additional constitutional complaints - Cardiovascular Reports no additional cardiovascular complaints - Respiratory Reports no additional respiratory complaints - Gastrointestinal Reports no additional gastrointestinal complaints [facility] Medical History: Medical History (Last Reviewed 05/07/20 @ 14:29 by Adrianna Luna NP) Atrial fibrillation COPD (chronic obstructive pulmonary disease) HLD (hyperlipidemia) Hospital discharge follow-up [id number] condition Squamous cell carcinoma of lung, stage IV TIA (transient ischemic attack) Family History: Family History (Last Reviewed 05/07/20 @ 14:29 by Adrianna Luna NP) Father Hypertension Mother No problems noted. Sister Hypertension Diverticulosis Brother Hypertension Surgical History: Surgical History (Last Reviewed 05/07/20 @ 14:29 by Adrianna Luna NP) H/O breast biopsy No pertinent past surgical history Social History: Social History (Last Updated 05/13/20 @ 13:38 by Celina Hill RN) Living Situation History: Household Members: Spouse Alcohol History: Alcohol intake: never Advance Directives: Advance Directives Date on File: 03/01/19 Occupation Assessmet: service: No Current occupational status: retired Oncology Screenings - ECOG Performance Status ECOG Performance Status: 1 Home Medications and Allergies Home Medications Medication Instructions Recorded Confirmed Type Citracal-D3 Maximum Plus 1 tab PO DAILY 12/25/19 05/09/20 History One-A-Day Womens Formula 1 tab PO DAILY 12/25/19 05/09/20 History simvastatin 40 mg PO BEDTIME 12/25/19 05/09/20 History omeprazole 20 mg capsule,delayed 20 mg PO DAILY 12/31/19 05/09/20 History release Anoro Ellipta 1 inh INHALATION DAILY 02/05/20 05/09/20 History albuterol sulfate 2.5 mg INHALATION Q8H PRN 04/04/20 05/09/20 History loratadine 10 mg PO DAILY PRN 04/04/20 05/09/20 History Zofran 05/13/20 05/13/20 History Allergies Allergy/AdvReac Type Severity Reaction Status Date / Time amoxicillin [AMOXICILLIN] Allergy Intermediate HIVES Verified 05/13/20 13:39 Iodinated Contrast Media AdvReac Intermediate NAUSEA ?T? Verified 05/13/20 13:39 [IVP DYE] VOMITING azithromycin AdvReac Unknown diarrhea Verified 05/13/20 13:39 Exam Vital signs: Vital Signs Temp 98.5 F 03/17/20 08:11 Pulse 112 H 03/17/20 08:11 Resp 20 03/17/20 08:11 BP 122/60 03/17/20 08:11 Pulse Ox 92 03/17/20 08:11 Weight 100.9 kg Body Mass Index 38.2 - Constitutional Present: no acute distress - Routine HEENT Exam Head: Present: normal inspection - Routine Neck Exam Present: normal inspection - Routine Respiratory Exam Present: decreased breath sounds, wheezes - Routine Cardiovascular Exam Cardiovascular: Present: RRR, S1, S2 - Routine Abdominal Exam Present: soft Data - Labs CBC & Chem 7: 05/13/20 14:04 05/13/20 14:04 Labs: 12/25/19 00:00 DOCEtaxeL [Taxotere] 160 mg 0.9 % Sodium Chloride [Ns] 250 ml IV ONCE Famotidine/PF [Pepcid/PF] 20 mg IVPUSH ONCE Fosaprepitant Dimeglumine [Emend] 150 mg 0.9 % Sodium Chloride [Ns] 145 ml IV ONCE Heparin Sodium,Porcine Flush 500 unit IVFLUSH ONCE Pegfilgrastim Onpro [Neulasta Onpro] 6 mg SUBCUT ONCE dexAMETHasone [Decadron] 8 mg PO ONCE diphenhydrAMINE HCL [Benadryl] 25 mg PO ONCE ondansetron HCL/NS [Zofran] 16 mg in 50 ml IV ONCE 12/25/19 10:15 Complete Blood Count Auto Diff Routine Comprehensive Met. Panel Routine 12/25/19 11:00 dexAMETHasone [Decadron] 8 mg PO ONCE 12/25/19 11:05 Comprehensive [place]. Panel Fast Routine Lipid Panel Routine 12/25/19 12:30 DOCEtaxeL [Taxotere] 160 mg 0.9 % Sodium Chloride [Ns] 250 ml IV ONCE 01/01/20 10:32 Heparin Sodium,Porcine Flush 500 unit 0.9 % Sodium Chloride Flush [NS Flush] 5 ml IVFLUSH ONCE 01/01/20 10:45 Heparin Sodium,Porcine Flush 500 unit 0.9 % Sodium Chloride Flush [NS Flush] 5 ml IVFLUSH ONCE 01/01/20 10:50 Alteplase Cath Clear [Cathflo Activase] 2 mg INTRACATH ONCE ONE 01/01/20 12:20 Heparin Sodium,Porcine Flush 500 unit IVFLUSH .[facility] ONE 01/01/20 12:31 Complete Blood Count Man Dif Routine Comprehensive Met. Panel Routine 01/08/20 10:25 Complete Blood Count Auto Diff Routine Comprehensive Met. Panel Routine 01/08/20 10:30 Heparin Sodium,Porcine Flush 500 unit 0.9 % Sodium Chloride Flush [NS Flush] 5 ml IVFLUSH ONCE 01/08/20 10:41 Heparin Sodium,Porcine Flush 500 unit IVFLUSH .[facility] ONE 01/15/20 00:00 DOCEtaxeL [Taxotere] 155 mg 0.9 % Sodium Chloride [Ns] 250 ml IV ONCE Famotidine/PF [Pepcid/PF] 20 mg IVPUSH ONCE Fosaprepitant Dimeglumine [Emend] 150 mg 0.9 % Sodium Chloride [Ns] 145 ml IV ONCE Heparin Sodium,Porcine Flush 500 unit IVFLUSH ONCE Pegfilgrastim Onpro [Neulasta Onpro] 6 mg SUBCUT ONCE dexAMETHasone sod phosphate/NS [Decadron] 12 mg in 50 ml IV ONCE dexAMETHasone sod phosphate/NS [Decadron] 12 mg in 50 ml IV ONCE diphenhydrAMINE HCL [Benadryl] 25 mg PO ONCE ondansetron HCL/NS [Zofran] 16 mg in 50 ml IV ONCE ondansetron HCL/NS [Zofran] 16 mg in 50 ml IV ONCE 01/15/20 10:30 Carcinoembryonic Antigen Routine Complete Blood Count Auto Diff Routine Comprehensive Met. Panel Routine 01/15/20 12:00 Fosaprepitant Dimeglumine [Emend] 150 mg 0.9 % Sodium Chloride [Ns] 145 ml IV ONCE 01/15/20 12:45 DOCEtaxeL [Taxotere] 155 mg 0.9 % Sodium Chloride [Ns] 250 ml IV ONCE 01/29/20 08:16 Heparin Sodium,Porcine Flush 500 unit 0.9 % Sodium Chloride Flush [NS Flush] 5 ml IVFLUSH ONCE 01/29/20 09:54 Heparin Sodium,Porcine Flush 500 unit IVFLUSH .[facility] 01/29/20 10:43 CMP [Comprehensive Met. Panel] Routine Complete Blood Count Auto Diff Routine 02/05/20 00:00 DOCEtaxeL [Taxotere] 160 mg 0.9 % Sodium Chloride [Ns] 250 ml IV ONCE Famotidine/PF [Pepcid/PF] 20 mg IVPUSH ONCE Fosaprepitant Dimeglumine [Emend] 150 mg 0.9 % Sodium Chloride [Ns] 145 ml IV ONCE Heparin Sodium,Porcine Flush 500 unit IVFLUSH ONCE Pegfilgrastim Onpro [Neulasta Onpro] 6 mg SUBCUT ONCE dexAMETHasone sod phosphate/NS [Decadron] 12 mg in 50 ml IV ONCE diphenhydrAMINE HCL [Benadryl] 25 mg PO ONCE ondansetron HCL/NS [Zofran] 16 mg in 50 ml IV ONCE 02/05/20 09:50 Complete Blood Count Auto Diff Routine Comprehensive Met. Panel Routine 02/26/20 00:00 DOCEtaxeL [Taxotere] 160 mg 0.9 % Sodium Chloride [Ns] 250 ml IV ONCE Famotidine/PF [Pepcid/PF] 20 mg IVPUSH ONCE Fosaprepitant Dimeglumine [Emend] 150 mg 0.9 % Sodium Chloride [Ns] 145 ml IV ONCE Heparin Sodium,Porcine Flush 500 unit IVFLUSH ONCE Pegfilgrastim Onpro [Neulasta Onpro] 6 mg SUBCUT ONCE dexAMETHasone sod phosphate/NS [Decadron] 12 mg in 50 ml IV ONCE diphenhydrAMINE HCL [Benadryl] 25 mg PO ONCE ondansetron HCL/NS [Zofran] 16 mg in 50 ml IV ONCE 02/26/20 09:32 Complete Blood Count Auto Diff Routine Comprehensive Met. Panel Routine 02/26/20 11:15 diphenhydrAMINE HCL [Benadryl] 25 mg PO ONCE 03/17/20 00:00 DOCEtaxeL [Taxotere] 160 mg 0.9 % Sodium Chloride [Ns] 250 ml IV ONCE Famotidine/PF [Pepcid/PF] 20 mg IVPUSH ONCE Fosaprepitant Dimeglumine [Emend] 150 mg 0.9 % Sodium Chloride [Ns] 145 ml IV ONCE Heparin Sodium,Porcine Flush 500 unit IVFLUSH ONCE Pegfilgrastim Onpro [Neulasta Onpro] 6 mg SUBCUT ONCE dexAMETHasone sod phosphate/NS [Decadron] 12 mg in 50 ml IV ONCE diphenhydrAMINE HCL [Benadryl] 25 mg PO ONCE ondansetron HCL/NS [Zofran] 16 mg in 50 ml IV ONCE 03/17/20 08:30 Carcinoembryonic Antigen Routine Complete Blood Count Auto Diff Routine Comprehensive Met. Panel Routine Magnesium Routine 03/17/20 12:39 Lipid Panel Routine Laboratory Last Values WBC 7.2 X10*3/uL (4.8-10.8) 03/17/20 08:30 RBC 3.53 X10*6/uL (4.20-5.50) L 03/17/20 08:30 Hgb 10.1 g/dl (12.0-16.0) L 03/17/20 08:30 Hct 32.5 % (37-47) L 03/17/20 08:30 MCV 92.1 fL (80-98) 03/17/20 08:30 MCH 28.6 pg (27.0-33.0) 03/17/20 08:30 MCHC 31.1 g/dl (31.0-35.0) 03/17/20 08:30 RDW 16.5 % (11.0-16.0) H 03/17/20 08:30 Plt Count 389 X10*3/uL (160-400) D 03/17/20 08:30 MPV 9.0 fL (9.4-12.3) L 03/17/20 08:30 Immature Gran % (Auto) 0.4 % (0.0-0.4) 03/17/20 08:30 Neut % (Auto) 70.0 % (45-73) 03/17/20 08:30 Lymph % (Auto) 13.2 % (20-40) L 03/17/20 08:30 [place] % (Auto) 15.4 % (2-11) H 03/17/20 08:30 Eos % (Auto) 0.4 % (0-4) 03/17/20 08:30 Baso % (Auto) 0.6 % (0-2) 03/17/20 08:30 Neut # (Auto) 5.9 X10*3/uL (2.0-8.3) 12/25/19 10:15 Lymph # (Auto) 1.0 X10*3/uL (1.2-4.9) L 03/17/20 08:30 [place] # (Auto) 1.1 X10*3/uL (0.1-1.2) 03/17/20 08:30 Eos # (Auto) 0.0 X10*3/uL (0.0-0.4) 03/17/20 08:30 Baso # (Auto) 0.0 X10*3/uL (0.0-0.2) 03/17/20 08:30 Abs Immat Gran (auto) 0.03 X10*3/uL (0.00-0.03) 03/17/20 08:30 Absolute Neuts (auto) 5.0 X10*3/uL (2.0-8.3) 03/17/20 08:30 Absolute Nucleated RBC 0.000 X10*3/uL (0.0-0.012) 03/17/20 08:30 Nucleated RBC % (auto) 0.0 /100WBC (0.0-0.2) 03/17/20 08:30 Neutrophils % (Manual) 75 % (45-73) H 01/01/20 12:31 Band Neutrophils % 11 % (3-5) H 01/01/20 12:31 Lymphocytes % (Manual) 8 % (20-40) L 01/01/20 12:31 Monocytes % (Manual) 4 % (2-11) 01/01/20 12:31 Basophils % (Manual) 1 % (0-1) 01/01/20 12:31 Metamyelocytes % 1 % 01/01/20 12:31 Abs Neuts (Manual) 12.9 X10*3/uL (2.2-7.9) H 01/01/20 12:31 Lymphocytes # (Manual) 1.2 X10*3/uL (0.6-4.8) 01/01/20 12:31 Monocytes # (Manual) 0.6 X10*3/uL (0.0-1.2) 01/01/20 12:31 Basophils # (Manual) 0.2 X10*3/uL (0.0-0.3) 01/01/20 12:31 Metamyelocytes # 0.2 X10*3/uL 01/01/20 12:31 Platelet Estimate NORMAL (NORMAL) 01/01/20 12:31 Plt Morphology Comment NORMAL 01/01/20 12:31 RBC Morphology NORMAL 01/01/20 12:31 Sodium 135 mmol/L (135-145) 03/17/20 08:30 Potassium 4.0 mmol/l (3.3-5.1) 03/17/20 08:30 Chloride 99 mmol/L (96-108) 03/17/20 08:30 Carbon Dioxide 29 mmol/L (22-29) 03/17/20 08:30 Anion Gap 11 (12-20) L 03/17/20 08:30 BUN 9 mg/dL (9-16) 03/17/20 08:30 Creatinine 0.56 mg/dL (0.5-1.4) 03/17/20 08:30 Estim Creat Clear Calc 115.7 03/17/20 08:30 Estimated GFR > 60 03/17/20 08:30 Random Glucose 98 mg/dL (60-115) 03/17/20 08:30 Fasting Glucose 78 mg/dL (60-99) 12/25/19 11:05 Calcium 8.0 mg/dL (8.4-10.2) L 03/17/20 08:30 Magnesium 2.0 mg/dL (1.6-2.6) 03/17/20 08:30 Total Bilirubin 0.5 mg/dL (0.0-1.0) 03/17/20 08:30 AST 17 U/L (5-31) 03/17/20 08:30 ALT 10 U/L (0-31) 03/17/20 08:30 Alkaline Phosphatase 88 U/L (39-117) 03/17/20 08:30 Total Protein 5.2 g/dL (6.5-8.0) L 03/17/20 08:30 Albumin 3.3 g/dL (3.5-5.0) L 03/17/20 08:30 Triglycerides 64 mg/dL 03/17/20 12:39 Cholesterol 129 mg/dL 03/17/20 12:39 LDL Cholesterol, Calc 80 mg/dl 03/17/20 12:39 HDL Cholesterol 37 mg/dL 03/17/20 12:39 Carcinoembryonic Ag 20.80 mg/mL D 03/17/20 08:30 Progress Note: A/P (1) Squamous cell carcinoma of lung, stage IV Status: Chronic Assessment and plan: 1. This is a 64-year-old woman with lung cancer, squamous cell carcinoma originating in right lower lobe. Clinical stage T2 N2, IIIA., January 2019. Developed Metastatic cancer in August 2019. PD L1 TPS 0%. Patient completed concurrent chemoradiotherapy from 03/06/2019 to 04/21/2019, weekly carboplatin and Taxol. She started immunotherapy with nivolumab (CheckMate 017 trial) from 09/08/2019 until November 2019. She received Taxotere 75 mg/meter squared Q 21 days from December until February 2020. She was responding well but she got admitted in March with COVID-19 pneumonia. She seems to be doing quite well, recuperate it from her infection. She will be resumed on treatment with single agent Taxotere from next week. 2. COPD/asthma. She has moderate symptoms from her COPD. She was seen by adjunct lecturer and she is doing much better with the new inhalers. Follow-up in 3 weeks. - Time Spent With Patient Total time spent is greater than 50% in coordination of care (as documented) at patient's floor/unit and/or counseling patient: 15 - 24 minutes
[2020-05-13 13:27] VITALS: BP 124/62; PULSE 101; RESP 18; TEMP 37.1; O2SAT 93; BMI 35.1
--- NOTE | 2020-05-13 14:19 | MHC.HEMONC ---
Patient here for follow-up. labs drawn via port. Clinical summary updated with nurse. Provider seen patient.
[2020-05-13 14:20] LABS: Basophils Percent Auto 0.1 % (0-2); Eosinophils Percent Auto 0.2 % (0-4); Hematocrit 36.7 % (37-47); Hemoglobin 11.9 g/dl (12.0-16.0); Imm Gran Abs Auto 0.05 X10*3/uL (0.00-0.03); Imm Gran Pct Auto 0.6 % (0.0-0.4); Lymphocytes Absolute Auto 0.6 X10*3/uL (1.2-4.9); MANUAL DIFF FLAG SCAN; Mean Corpuscular HGB Conc 32.4 g/dl (31.0-35.0); Mean Corpuscular Hemoglobin 28.8 pg (27.0-33.0); Mean Corpuscular Volume 88.9 fL (80-98); Mean Platelet Volume 8.7 fL (9.4-12.3); Monocytes Absolute Auto 0.7 X10*3/uL (0.1-1.2); Monocytes Percent Auto 7.4 % (2-11); Neutrophils Absolute Auto 7.6 X10*3/uL (2.0-8.3); Neutrophils Percent Auto 84.7 % (45-73); Platelet Count 260 X10*3/uL (160-400); Red Blood Count 4.13 X10*6/uL (4.20-5.50); Red Cell Distribution Width 17.2 % (11.0-16.0); SCAN SMEAR FLAG 1
[2020-05-13 14:44] LABS: SLIDE REVIEW VERIFIED
[2020-05-13 14:51] LABS: Alanine Aminotransferase 19 U/L (0-31); Albumin Level 3.3 g/dL (3.5-5.0); Alkaline Phosphatase 94 U/L (39-117); Anion Gap 12 (12-20); Aspartate Amino Transferase 13 U/L (5-31); Bilirubin Total 0.7 mg/dL (0.0-1.0); Blood Urea Nitrogen 17 mg/dL (9-16); Calcium 8.1 mg/dL (8.4-10.2); Carbon Dioxide 30 mmol/L (22-29); Chloride 100 mmol/L (96-108); Creatinine Clr Calc Pharmacy 101.5; Estimated Glomerular Filt Rate > 60; Glucose Random 93 mg/dL (60-115); Potassium 3.7 mmol/L (3.3-5.1); Sodium 138 mmol/L (135-145); Total Protein 5.3 g/dL (6.5-8.0)
[2020-05-20 10:17] LABS: Basophils Percent Auto 0.1 % (0-2); Eosinophils Percent Auto 0.1 % (0-4); Hematocrit 37.4 % (37-47); Hemoglobin 12.2 g/dl (12.0-16.0); Imm Gran Abs Auto 0.09 X10*3/uL (0.00-0.03); Imm Gran Pct Auto 1.1 % (0.0-0.4); Lymphocytes Absolute Auto 0.6 X10*3/uL (1.2-4.9); Lymphocytes Percent Auto 7.8 % (20-40); MANUAL DIFF FLAG SCAN; Mean Corpuscular HGB Conc 32.6 g/dl (31.0-35.0); Mean Corpuscular Hemoglobin 29.2 pg (27.0-33.0); Mean Corpuscular Volume 89.5 fL (80-98); Mean Platelet Volume 8.8 fL (9.4-12.3); Monocytes Absolute Auto 0.5 X10*3/uL (0.1-1.2); Monocytes Percent Auto 6.1 % (2-11); Neutrophils Absolute Auto 6.9 X10*3/uL (2.0-8.3); Neutrophils Percent Auto 84.8 % (45-73); Platelet Count 268 X10*3/uL (160-400); Red Blood Count 4.18 X10*6/uL (4.20-5.50); Red Cell Distribution Width 17.6 % (11.0-16.0); SCAN SMEAR FLAG 1; White Blood Count 8.2 X10*3/uL (4.8-10.8)
[2020-05-20 10:44] LABS: SLIDE REVIEW VERIFIED
[2020-05-20 11:02] LABS: Alanine Aminotransferase 21 U/L (0-31); Albumin Level 3.4 g/dL (3.5-5.0); Alkaline Phosphatase 101 U/L (39-117); Anion Gap 9 (12-20); Aspartate Amino Transferase 14 U/L (5-31); Bilirubin Total 0.8 mg/dL (0.0-1.0); Blood Urea Nitrogen 17 mg/dL (9-16); Calcium 8.4 mg/dL (8.4-10.2); Carbon Dioxide 31 mmol/L (22-29); Chloride 103 mmol/L (96-108); Cholesterol 161 mg/dL; Creatinine Clr Calc Pharmacy 114.7; Estimated Glomerular Filt Rate > 60; Glucose Random 73 mg/dL (60-115); HDL Cholesterol 57 mg/dL; LDL Cholesterol Calculated 94 mg/dl; Potassium 4.2 mmol/L (3.3-5.1); Sodium 139 mmol/L (135-145); Total Protein 5.5 g/dL (6.5-8.0); Triglycerides 50 mg/dL
[2020-05-20] MEDS: diphenhydrAMINE HCL 25 MG TABLET PO (11:06)
[2020-05-20] MEDS: dexAMETHasone sod phosphate/NS 12 MG/50 ML PIGGYBACK 200 MG IV (11:06)
[2020-05-20] MEDS: Famotidine/PF 20 MG/2 ML VIAL IVPUSH (11:06)
[2020-05-20] MEDS: ondansetron HCL/NS 16 MG/50 ML PIGGYBACK 200 MG IV (11:31)
[2020-05-20] MEDS: Fosaprepitant Dimeglumine 150 MG in 0.9 % Sodium Chloride 145 ML 300 MG IV (12:00)
--- NOTE | 2020-05-20 13:22 | MHC.HEMONCSW ---
receiving treatment. denies emotional distress. not interested in free home cleanings at this time.
[2020-05-20] MEDS: Pegfilgrastim Onpro 6 MG/0.6 ML SYR.W..INJ SUBCUT (14:00)
[2020-05-20] MEDS: Heparin Sodium,Porcine Flush 500 UNIT/5 ML SYRINGE IVFLUSH (14:00)
--- NOTE | 2020-05-20 14:54 | MHC.HEMONC ---
Pt retuned today for continuation of chemo with Taxotere after hospitalization and rehab due to COVID illness. She was seen and examined by Dr Richmond last week. Labs drawn today and WNL. She has some baseline wheezing and SOB on exertion. She tolerated Taxotere without difficulty and Neulasta On Pro applied after treatment. She is aware of time to remove on Saturday evening.
[2020-06-10 09:42] VITALS: BP 128/69; PULSE 91; RESP 18; TEMP 36.2; O2SAT 93; BMI 35.6
[2020-06-10 10:24] LABS: MANUAL DIFF FLAG NO
[2020-06-10 10:26] LABS: Basophils Percent Auto 0.3 % (0-2); Hematocrit 36.5 % (37-47); Hemoglobin 11.6 g/dl (12.0-16.0); Imm Gran Abs Auto 0.16 X10*3/uL (0.00-0.03); Imm Gran Pct Auto 1.4 % (0.0-0.4); Lymphocytes Absolute Auto 0.8 X10*3/uL (1.2-4.9); Lymphocytes Percent Auto 6.9 % (20-40); Mean Corpuscular HGB Conc 31.8 g/dl (31.0-35.0); Mean Corpuscular Hemoglobin 28.9 pg (27.0-33.0); Mean Corpuscular Volume 90.8 fL (80-98); Mean Platelet Volume 9.2 fL (9.4-12.3); Monocytes Absolute Auto 0.8 X10*3/uL (0.1-1.2); Neutrophils Absolute Auto 9.4 X10*3/uL (2.0-8.3); Neutrophils Percent Auto 84.4 % (45-73); Platelet Count 368 X10*3/uL (160-400); Red Blood Count 4.02 X10*6/uL (4.20-5.50); Red Cell Distribution Width 19.2 % (11.0-16.0); White Blood Count 11.2 X10*3/uL (4.8-10.8)
[2020-06-10 10:47] LABS: Alanine Aminotransferase 13 U/L (0-31); Albumin Level 3.4 g/dL (3.5-5.0); Alkaline Phosphatase 110 U/L (39-117); Anion Gap 12 (12-20); Aspartate Amino Transferase 13 U/L (5-31); Bilirubin Total 0.6 mg/dL (0.0-1.0); Blood Urea Nitrogen 16 mg/dL (9-16); Calcium 8.4 mg/dL (8.4-10.2); Carbon Dioxide 28 mmol/L (22-29); Chloride 103 mmol/L (96-108); Creatinine Clr Calc Pharmacy 115.5; Estimated Glomerular Filt Rate > 60; Glucose Random 75 mg/dL (60-115); Potassium 3.6 mmol/L (3.3-5.1); Sodium 139 mmol/L (135-145)
[2020-06-10] MEDS: diphenhydrAMINE HCL 25 MG TABLET PO (11:13)
[2020-06-10] MEDS: Famotidine/PF 20 MG/2 ML VIAL IVPUSH (11:13)
[2020-06-10] MEDS: dexAMETHasone sod phosphate/NS 12 MG/50 ML PIGGYBACK 100 MG IV (11:15)
[2020-06-10] MEDS: ondansetron HCL/NS 16 MG/50 ML PIGGYBACK 200 MG IV (11:38)
--- NOTE | 2020-06-10 11:49 | P.PNHO_ITS ---
Medical Summary - Medical Summary Date of Service: 06/10/20 Chief complaint: Scheduled follow-up and treatment Medical Summary: Diagnosis: Right lung squamous cell carcinoma, clinical stage IIIA, January 2019 Metastatic cancer diagnosed in August 2019 Presented with cough, hemoptysis and shortness of breath for a few weeks. CT chest in December 2018 showed lobular mass in the right lower lobe measuring 4.6 x 3.6 cm extending from right hilum to the inferior pleural space. 5 mm nodule in the left lower lobe. Narrowing of the right lower lobe bronchus due to compression from adjacent hilar adenopathy. Bulky right hilar and subcarinal lymphadenopathy. Whole-body PET scan performed 01/29/2019 showed intense abnormal uptake in the right lower lung mass as well as right hilum and subcarinal regions consistent with malignancy. SUV11. Mild uptake in the right adrenal limb SUV 4.8. Small metastatic deposit cannot be excluded. Brain MRI with contrast negative for metastasis. On 02/05/2019 patient underwent bronchoscopy and mediastinoscopy with biopsies. Pathology from bronchoscopy, bronchus intermedius : right-squamous cell carcinoma moderately differentiated. R4 lymph nodes 2 were negative for carcinoma. Subcarinal lymph node showed metastatic squamous cell carcinoma. Patient completed concurrent chemoradiotherapy from 03/06/2019 to 04/21/2019. She received definitive radiation therapy of 60 cGy. Preoperative imaging, CT chest as well as PET-CT([facility]), in July which unfortunately showed new focal intense FDG uptake in the left lobe of liver, SUV 16.3. On corresponding CT chest this measures 2.3 cm. Marked improvement in right lower lobe and subcarinal FDG uptake, residual increased FDG uptake in right hilum suggesting residual metastatic disease versus reactive adenopathy. [employer] for next generation sequencing showed MS stable, tumor mutational burden 24 Muts/Mb. Based on genomic findings therapies with clinical benefit are atezolizumab, durvalumab, pembrolizumab and nivolumab. No reportable al terations in alk, BRAF, EGFR, ERBB2, KRAS, MET, RET and ROS1 Patient received concurrent chemoradiotherapy from 03/06/2019 to 04/21/2019, weekly carboplatin and Taxol. She started immunotherapy with nivolumab (CheckMate 017 trial) from 09/08/2019 until November 2019. PET-CT showed progressive disease, she was switched to chemotherapy with single agent Taxotere 75 mg/meter squared Q 21 days. Interval History Interval history: Patient is here for scheduled chemotherapy. She has been doing well, reports no significant nausea, diarrhea or constipation. No abdominal pain. No chest pain or shortness of breath. She has been taking 1 mg prednisone daily since her discharge from the hospital. She denies any headache or dizziness. She has gained weight. Review of Systems - Constitutional Reports as per HPI, Reports no additional constitutional complaints [facility] Medical History: Medical History (Last Reviewed 06/09/20 @ 17:08 by Kristian England PA-C) Atrial fibrillation COPD (chronic obstructive pulmonary disease) HLD (hyperlipidemia) Hospital discharge follow-up [id number] condition Squamous cell carcinoma of lung, stage IV TIA (transient ischemic attack) Family History: Family History (Last Reviewed 06/09/20 @ 17:08 by Kristian England PA-C) Father Hypertension Mother No problems noted. Sister Hypertension Diverticulosis Brother Hypertension Surgical History: Surgical History (Last Reviewed 06/09/20 @ 17:08 by Kristian England PA-C) H/O breast biopsy No pertinent past surgical history Social History: Social History (Last Reviewed 06/09/20 @ 17:08 by Kristian England PA-C) Living Situation History: Household Members: Spouse Alcohol History: Alcohol intake: never Tobacco History: Smoking Status: Former smoker Advance Directives: Advance Directives: Yes Advance Directives on File: Yes Advance Directives Date on File: 03/01/19 Occupation Assessmet: service: No Current occupational status: retired Smoking status: Former smoker Home Medications and Allergies Current Medications: Current Medications Generic Name Dose Route Start Last Admin Trade Name Artemio PRN Reason Stop Dose Admin Diphenhydramine HCl 25 mg 06/10/20 00:00 06/10/20 11:13 Diphenhydramine Hcl 25 Mg Tablet PO 06/10/20 23:59 25 mg ONCE DEEPTHI Administration Famotidine 20 mg 06/10/20 00:00 06/10/20 11:13 Famotidine/Pf 20 Mg/2 Ml Vial IVPUSH 06/10/20 23:59 20 mg ONCE DEEPTHI Administration Heparin Sodium (Porcine) 500 unit 06/10/20 00:00 Heparin Sodium,Porcine Flush 500 Unit/5 Ml Syringe IVFLUSH 06/10/20 23:59 ONCE DEEPTHI Fosaprepitant 150 mg/ Sodium 150 mls @ 300 mls/hr 06/10/20 00:00 Chloride IV 06/10/20 23:59 ONCE [facility] Docetaxel 155 mg/ Sodium 257.75 mls @ 257.75 mls/hr 06/10/20 00:00 Chloride IV 06/10/20 23:59 ONCE [facility] Pegfilgrastim 6 mg 06/10/20 12:00 Pegfilgrastim Onpro 6 Mg/0.6 Ml Syr.W..Inj SUBCUT 06/10/20 12:01 ONCE [facility] Home Medications Medication Instructions Recorded Confirmed Type One-A-Day Womens Formula 1 tab PO DAILY 12/25/19 06/09/20 History simvastatin 40 mg PO BEDTIME 12/25/19 06/09/20 History omeprazole 20 mg capsule,delayed 20 mg PO DAILY 12/31/19 06/09/20 History release Anoro Ellipta 1 inh INHALATION DAILY 02/05/20 06/09/20 History loratadine 10 mg PO DAILY PRN 04/04/20 06/09/20 History Zofran 05/13/20 06/09/20 History Allergies Allergy/AdvReac Type Severity Reaction Status Date / Time amoxicillin [AMOXICILLIN] Allergy Intermediate HIVES Verified 06/09/20 17:07 Iodinated Contrast Media AdvReac Intermediate NAUSEA ?T? Verified 06/09/20 17:07 [IVP DYE] VOMITING azithromycin AdvReac Unknown diarrhea Verified 06/09/20 17:07 Exam Vital signs: Vital Signs Temp 97.1 F 06/10/20 09:42 Pulse 91 06/10/20 09:42 Resp 18 06/10/20 09:42 BP 128/69 06/10/20 09:42 Pulse Ox 93 06/10/20 09:42 Intake & Output 06/09/20 06/10/20 06/10/20 18:59 06:59 18:59 Intake Total 50 / 50 Balance 50 / 50 Intake: Intake, IV Amount 50 / 50 dexAMETHasone sod phosphate/NS 50 / 50 12 mg In 50 ml @ 100 mls/hr IV ONCE [facility] Rx#:[id number] Other: Weight 94.1 kg [place] Weight in Grams 31348 Weight 94.1 kg Body Mass Index 35.6 - Constitutional Present: no acute distress - Routine HEENT Exam Head: Present: normal inspection - Routine Neck Exam Present: normal inspection - Routine Respiratory Exam Present: decreased breath sounds, wheezes - Routine Cardiovascular Exam Cardiovascular: Present: RRR, S1, S2 - Routine Abdominal Exam Present: soft Data - Labs CBC & Chem 7: 06/10/20 10:05 06/10/20 10:05 Labs: 12/25/19 00:00 DOCEtaxeL [Taxotere] 160 mg 0.9 % Sodium Chloride [Ns] 250 ml IV ONCE Famotidine/PF [Pepcid/PF] 20 mg IVPUSH ONCE Fosaprepitant Dimeglumine [Emend] 150 mg 0.9 % Sodium Chloride [Ns] 145 ml IV ONCE Heparin Sodium,Porcine Flush 500 unit IVFLUSH ONCE Pegfilgrastim Onpro [Neulasta Onpro] 6 mg SUBCUT ONCE dexAMETHasone [Decadron] 8 mg PO ONCE diphenhydrAMINE HCL [Benadryl] 25 mg PO ONCE ondansetron HCL/NS [Zofran] 16 mg in 50 ml IV ONCE 12/25/19 10:15 Complete Blood Count Auto Diff Routine Comprehensive Met. Panel Routine 12/25/19 11:00 dexAMETHasone [Decadron] 8 mg PO ONCE 12/25/19 11:05 Comprehensive [place]. Panel Fast Routine Lipid Panel Routine 12/25/19 12:30 DOCEtaxeL [Taxotere] 160 mg 0.9 % Sodium Chloride [Ns] 250 ml IV ONCE 01/01/20 10:32 Heparin Sodium,Porcine Flush 500 unit 0.9 % Sodium Chloride Flush [NS Flush] 5 ml IVFLUSH ONCE 01/01/20 10:45 Heparin Sodium,Porcine Flush 500 unit 0.9 % Sodium Chloride Flush [NS Flush] 5 ml IVFLUSH ONCE 01/01/20 10:50 Alteplase Cath Clear [Cathflo Activase] 2 mg INTRACATH ONCE ONE 01/01/20 12:20 Heparin Sodium,Porcine Flush 500 unit IVFLUSH .STK-MED ONE 01/01/20 12:31 Complete Blood Count Man Dif Routine Comprehensive Met. Panel Routine 01/08/20 10:25 Complete Blood Count Auto Diff Routine Comprehensive Met. Panel Routine 01/08/20 10:30 Heparin Sodium,Porcine Flush 500 unit 0.9 % Sodium Chloride Flush [NS Flush] 5 ml IVFLUSH ONCE 01/08/20 10:41 Heparin Sodium,Porcine Flush 500 unit IVFLUSH .[facility] ONE 01/15/20 00:00 DOCEtaxeL [Taxotere] 155 mg 0.9 % Sodium Chloride [Ns] 250 ml IV ONCE Famotidine/PF [Pepcid/PF] 20 mg IVPUSH ONCE Fosaprepitant Dimeglumine [Emend] 150 mg 0.9 % Sodium Chloride [Ns] 145 ml IV ONCE Heparin Sodium,Porcine Flush 500 unit IVFLUSH ONCE Pegfilgrastim Onpro [Neulasta Onpro] 6 mg SUBCUT ONCE dexAMETHasone sod phosphate/NS [Decadron] 12 mg in 50 ml IV ONCE dexAMETHasone sod phosphate/NS [Decadron] 12 mg in 50 ml IV ONCE diphenhydrAMINE HCL [Benadryl] 25 mg PO ONCE ondansetron HCL/NS [Zofran] 16 mg in 50 ml IV ONCE ondansetron HCL/NS [Zofran] 16 mg in 50 ml IV ONCE 01/15/20 10:30 Carcinoembryonic Antigen Routine Complete Blood Count Auto Diff Routine Comprehensive Met. Panel Routine 01/15/20 12:00 Fosaprepitant Dimeglumine [Emend] 150 mg 0.9 % Sodium Chloride [Ns] 145 ml IV ONCE 01/15/20 12:45 DOCEtaxeL [Taxotere] 155 mg 0.9 % Sodium Chloride [Ns] 250 ml IV ONCE 01/29/20 08:16 Heparin Sodium,Porcine Flush 500 unit 0.9 % Sodium Chloride Flush [NS Flush] 5 ml IVFLUSH ONCE 01/29/20 09:54 Heparin Sodium,Porcine Flush 500 unit IVFLUSH .[facility] ONE 01/29/20 10:43 CMP [Comprehensive Met. Panel] Routine Complete Blood Count Auto Diff Routine 02/05/20 00:00 DOCEtaxeL [Taxotere] 160 mg 0.9 % Sodium Chloride [Ns] 250 ml IV ONCE Famotidine/PF [Pepcid/PF] 20 mg IVPUSH ONCE Fosaprepitant Dimeglumine [Emend] 150 mg 0.9 % Sodium Chloride [Ns] 145 ml IV ONCE Heparin Sodium,Porcine Flush 500 unit IVFLUSH ONCE Pegfilgrastim Onpro [Neulasta Onpro] 6 mg SUBCUT ONCE dexAMETHasone sod phosphate/NS [Decadron] 12 mg in 50 ml IV ONCE diphenhydrAMINE HCL [Benadryl] 25 mg PO ONCE ondansetron HCL/NS [Zofran] 16 mg in 50 ml IV ONCE 02/05/20 09:50 Complete Blood Count Auto Diff Routine Comprehensive Met. Panel Routine 02/26/20 00:00 DOCEtaxeL [Taxotere] 160 mg 0.9 % Sodium Chloride [Ns] 250 ml IV ONCE Famotidine/PF [Pepcid/PF] 20 mg IVPUSH ONCE Fosaprepitant Dimeglumine [Emend] 150 mg 0.9 % Sodium Chloride [Ns] 145 ml IV ONCE Heparin Sodium,Porcine Flush 500 unit IVFLUSH ONCE Pegfilgrastim Onpro [Neulasta Onpro] 6 mg SUBCUT ONCE dexAMETHasone sod phosphate/NS [Decadron] 12 mg in 50 ml IV ONCE diphenhydrAMINE HCL [Benadryl] 25 mg PO ONCE ondansetron HCL/NS [Zofran] 16 mg in 50 ml IV ONCE 02/26/20 09:32 Complete Blood Count Auto Diff Routine Comprehensive Met. Panel Routine 02/26/20 11:15 diphenhydrAMINE HCL [Benadryl] 25 mg PO ONCE 03/17/20 00:00 DOCEtaxeL [Taxotere] 160 mg 0.9 % Sodium Chloride [Ns] 250 ml IV ONCE Famotidine/PF [Pepcid/PF] 20 mg IVPUSH ONCE Fosaprepitant Dimeglumine [Emend] 150 mg 0.9 % Sodium Chloride [Ns] 145 ml IV ONCE Heparin Sodium,Porcine Flush 500 unit IVFLUSH ONCE Pegfilgrastim Onpro [Neulasta Onpro] 6 mg SUBCUT ONCE dexAMETHasone sod phosphate/NS [Decadron] 12 mg in 50 ml IV ONCE diphenhydrAMINE HCL [Benadryl] 25 mg PO ONCE ondansetron HCL/NS [Zofran] 16 mg in 50 ml IV ONCE 03/17/20 08:30 Carcinoembryonic Antigen Routine Complete Blood Count Auto Diff Routine Comprehensive Met. Panel Routine Magnesium Routine 03/17/20 12:39 Lipid Panel Routine Laboratory Last Values WBC 7.2 X10*3/uL (4.8-10.8) 03/17/20 08:30 RBC 3.53 X10*6/uL (4.20-5.50) L 03/17/20 08:30 Hgb 10.1 g/dl (12.0-16.0) L 03/17/20 08:30 Hct 32.5 % (37-47) L 03/17/20 08:30 MCV 92.1 fL (80-98) 03/17/20 08:30 MCH 28.6 pg (27.0-33.0) 03/17/20 08:30 MCHC 31.1 g/dl (31.0-35.0) 03/17/20 08:30 RDW 16.5 % (11.0-16.0) H 03/17/20 08:30 Plt Count 389 X10*3/uL (160-400) D 03/17/20 08:30 MPV 9.0 fL (9.4-12.3) L 03/17/20 08:30 Immature Gran % (Auto) 0.4 % (0.0-0.4) 03/17/20 08:30 Neut % (Auto) 70.0 % (45-73) 03/17/20 08:30 Lymph % (Auto) 13.2 % (20-40) L 03/17/20 08:30 [place] % (Auto) 15.4 % (2-11) H 03/17/20 08:30 Eos % (Auto) 0.4 % (0-4) 03/17/20 08:30 Baso % (Auto) 0.6 % (0-2) 03/17/20 08:30 Neut # (Auto) 5.9 X10*3/uL (2.0-8.3) 12/25/19 10:15 Lymph # (Auto) 1.0 X10*3/uL (1.2-4.9) L 03/17/20 08:30 [place] # (Auto) 1.1 X10*3/uL (0.1-1.2) 03/17/20 08:30 Eos # (Auto) 0.0 X10*3/uL (0.0-0.4) 03/17/20 08:30 Baso # (Auto) 0.0 X10*3/uL (0.0-0.2) 03/17/20 08:30 Abs Immat Gran (auto) 0.03 X10*3/uL (0.00-0.03) 03/17/20 08:30 Absolute Neuts (auto) 5.0 X10*3/uL (2.0-8.3) 03/17/20 08:30 Absolute Nucleated RBC 0.000 X10*3/uL (0.0-0.012) 03/17/20 08:30 Nucleated RBC % (auto) 0.0 /100WBC (0.0-0.2) 03/17/20 08:30 Neutrophils % (Manual) 75 % (45-73) H 01/01/20 12:31 Band Neutrophils % 11 % (3-5) H 01/01/20 12:31 Lymphocytes % (Manual) 8 % (20-40) L 01/01/20 12:31 Monocytes % (Manual) 4 % (2-11) 01/01/20 12:31 Basophils % (Manual) 1 % (0-1) 01/01/20 12:31 Metamyelocytes % 1 % 01/01/20 12:31 Abs Neuts (Manual) 12.9 X10*3/uL (2.2-7.9) H 01/01/20 12:31 Lymphocytes # (Manual) 1.2 X10*3/uL (0.6-4.8) 01/01/20 12:31 Monocytes # (Manual) 0.6 X10*3/uL (0.0-1.2) 01/01/20 12:31 Basophils # (Manual) 0.2 X10*3/uL (0.0-0.3) 01/01/20 12:31 Metamyelocytes # 0.2 X10*3/uL 01/01/20 12:31 Platelet Estimate NORMAL (NORMAL) 01/01/20 12:31 Plt Morphology Comment NORMAL 01/01/20 12:31 RBC Morphology NORMAL 01/01/20 12:31 Sodium 135 mmol/L (135-145) 03/17/20 08:30 Potassium 4.0 mmol/l (3.3-5.1) 03/17/20 08:30 Chloride 99 mmol/L (96-108) 03/17/20 08:30 Carbon Dioxide 29 mmol/L (22-29) 03/17/20 08:30 Anion Gap 11 (12-20) L 03/17/20 08:30 BUN 9 mg/dL (9-16) 03/17/20 08:30 Creatinine 0.56 mg/dL (0.5-1.4) 03/17/20 08:30 Estim Creat Clear Calc 115.7 03/17/20 08:30 Estimated GFR > 60 03/17/20 08:30 Random Glucose 98 mg/dL (60-115) 03/17/20 08:30 Fasting Glucose 78 mg/dL (60-99) 12/25/19 11:05 Calcium 8.0 mg/dL (8.4-10.2) L 03/17/20 08:30 Magnesium 2.0 mg/dL (1.6-2.6) 03/17/20 08:30 Total Bilirubin 0.5 mg/dL (0.0-1.0) 03/17/20 08:30 AST 17 U/L (5-31) 03/17/20 08:30 ALT 10 U/L (0-31) 03/17/20 08:30 Alkaline Phosphatase 88 U/L (39-117) 03/17/20 08:30 Total Protein 5.2 g/dL (6.5-8.0) L 03/17/20 08:30 Albumin 3.3 g/dL (3.5-5.0) L 03/17/20 08:30 Triglycerides 64 mg/dL 03/17/20 12:39 Cholesterol 129 mg/dL 03/17/20 12:39 LDL Cholesterol, Calc 80 mg/dl 03/17/20 12:39 HDL Cholesterol 37 mg/dL 03/17/20 12:39 Carcinoembryonic Ag 20.80 mg/mL D 03/17/20 08:30 Progress Note: A/P (1) Squamous cell carcinoma of lung, stage IV Status: Chronic Assessment and plan: 1. This is a 64-year-old woman with lung cancer, squamous cell carcinoma originating in right lower lobe. Clinical stage T2 N2, IIIA., January 2019. Developed Metastatic cancer in August 2019. PD L1 TPS 0%. [employer] for next generation sequencing showed MS stable, tumor mutational burden 24 Muts/Mb. Based on genomic findings therapies with clinical benefit are atezolizumab, durvalumab, pembrolizumab and nivolumab. No reportable alterations in alk, BRAF, EGFR, ERBB2, KRAS, MET, RET and ROS1 Patient completed concurrent chemoradiotherapy from 03/06/2019 to 04/21/2019, weekly carboplatin and Taxol. She started immunotherapy with nivolumab (CheckMate 017 trial) from 09/08/2019 until November 2019. She developed progressive disease on immunotherapy. She received Taxotere 75 mg/meter squared Q 21 days from December until February 2020. She was responding well but she got admitted in March with COVID-19 pneumonia. She re-started Taxotere from April 2020. Unfortunately her tumor marker is continuing to increase. I have ordered a restaging CT chest/abdomen and pelvis. There are not too many options left. I can try single agent gemcitabine for palliation if she has progression on imaging. 2. COPD/asthma. She has moderate symptoms from her COPD. She was seen by cooker chip and she is doing much better with the new inhalers. Follow-up in 3 weeks. - Time Spent With Patient Total time spent is greater than 50% in coordination of care (as documented) at patient's floor/unit and/or counseling patient: 15 - 24 minutes
[2020-06-10] MEDS: Fosaprepitant Dimeglumine 150 MG in 0.9 % Sodium Chloride 145 ML 300 MG IV (12:03)
[2020-06-10] MEDS: Heparin Sodium,Porcine Flush 500 UNIT/5 ML SYRINGE IVFLUSH (14:10)
[2020-06-10] MEDS: Pegfilgrastim Onpro 6 MG/0.6 ML SYR.W..INJ SUBCUT (14:13)
--- NOTE | 2020-06-10 14:31 | MHC.HEMONC ---
Pt here for cycle 8 day 1 of Docetaxel IV and follow up with Dr Richmond. Port accessed and labs drawn-sent to lab. Dr Richmond into see pt. Plan for CT abdomen and chest ordered by Dr Richmond-given to Bev for scheduling. Lab results reviewed. Pre medicated with 25mg of benadryl, 20mg pepcid IV, 12mg decadron IV, 16mg zofran IV, 150mg emend IV. Docetaxel IV given as ordered. Pt states she has some diarrhea now-plans to take immodium at home if needed. Instructed to call office over weekend if diarrhea gets worse. Neulasta 6mg SC started as ordered. Pt instructed to remove as directed. Follow up appointment made. Port flushed with heparin and de-accessed
[2020-06-14 13:22] VITALS: BP 113/54; RESP 18; TEMP 36.9; O2SAT 92; BMI 35.1
[2020-06-14] MEDS: 0.9 % Sodium Chloride 1,000 ML 500 ML IVCONT (13:30)
[2020-06-14 13:44] LABS: Hemoglobin 11.5 g/dl (12.0-16.0); Mean Corpuscular HGB Conc 31.9 g/dl (31.0-35.0); Mean Corpuscular Hemoglobin 28.6 pg (27.0-33.0); Mean Corpuscular Volume 89.6 fL (80-98); Mean Platelet Volume 9.7 fL (9.4-12.3); Platelet Count 209 X10*3/uL (160-400); Red Blood Count 4.02 X10*6/uL (4.20-5.50)
[2020-06-14 15:10] LABS: Alanine Aminotransferase 11 U/L (0-31); Albumin Level 3.2 g/dL (3.5-5.0); Alkaline Phosphatase 114 U/L (39-117); Anion Gap 16 (12-20); Aspartate Amino Transferase 15 U/L (5-31); Bilirubin Total 1.1 mg/dL (0.0-1.0); Blood Urea Nitrogen 21 mg/dL (9-16); Calcium 7.8 mg/dL (8.4-10.2); Carbon Dioxide 25 mmol/L (22-29); Chloride 101 mmol/L (96-108); Creatinine Clr Calc Pharmacy 108.6; Estimated Glomerular Filt Rate > 60; Glucose Random 71 mg/dL (60-115); Potassium 3.8 mmol/L (3.3-5.1); Sodium 138 mmol/L (135-145); Total Protein 4.9 g/dL (6.5-8.0)
[2020-06-14 15:19] LABS: Band Neutrophils Percent 6 % (3-5); Lymphocytes Percent Manual 2 % (20-40); Metamyelocytes Percent 3 %; Myelocytes Percent 2 %; Neutrophils Percent Manual 87 % (45-73)
[2020-06-14 15:28] LABS: RBC Morphology NOTED
[2020-06-14 15:30] VITALS: BP 105/55; PULSE 103; TEMP 37.1; O2SAT 93
[2020-06-14 15:31] LABS: Hypochromasia 1+ (5-14) /OIF; Schistocytes 1+ (0-2) /OIF
[2020-06-14 15:32] LABS: Platelet Estimate NORMAL (NORMAL)
[2020-06-14 15:33] LABS: Platelet Morphology Comment NORMAL
--- NOTE | 2020-06-14 16:07 | MHC.HEMONC ---
Pt called this afternoon, stating she has had diarrhea that started when she was here on Saturday 06/10 for treatment, and has continued since then. States she goes 2-3 times/day, and that she feels weak. She states her HR is 120-125, and temp 99.3. Spoke to Dr Richmond, and pt to come in for labs and IV fluid. Labs done and reviewed. Pt received NS 1L. No diarrhea noted when in [place]. Instructed on using immodium at home. Pt had some crackers and gingerale, and discharged home.
[2020-06-14 18:42] LABS: Lymphocytes Absolute Manual 0.3 X10*3/uL (0.6-4.8); Metamyelocytes Absolute 0.4 X10*3/uL; Myelocytes Absolute 0.3 X10*/uL; Neutrophils Absolute Manual 13.9 X10*3/uL (2.2-7.9); White Blood Count 14.9 X10*3/uL (4.8-10.8)
[2020-06-15 09:04] LABS: Baso%MD 0.2 %; Eos%MD 0.1 %; IG%MD 20.8 %; Lymph%MD 4.1 %; Mono%MD 0.7 %; Neut%MD 74.1 %
--- NOTE | 2020-06-16 16:32 | MHC.HEMONC ---
Patient called to report a temp of 100.4 Patient states she feels a little weak with no other symptoms. Patient instructed to take Tylenol and reassess temp in one hour. If patient has worsening symptoms patient instructed to call animal damage control agent oncologist. Patient verbalizes understanding.
--- NOTE | 2020-06-17 09:29 | MHC.HEMONC ---
soke to CT staff. Pt has listed allergy iodinated contrast and is scheduled Saturday for CT w/ contrast. I spoke to pt. She has violent vomiting with MRI contrast and cannot have that. She only had diarrhea after CT contrast. Per Dr Yi HENDERSON for pt to have CT contrast. This information was given to CT.
--- NOTE | 2020-06-20 10:18 | MHC.HEMONC ---
Pt stopped in accompanied by her after unable to get CT due to ? allergy to dye. Pt is not feeling well at all. She has been weak with no appetite and low grade fevers. She has been checking sats at home and have been high 80s at best. Dr Richmond informed. VS were checked and per Dr Richmond - pt to go to ER for treatment. spoke to Dr Richmond and he will meet his in ER.
--- NOTE | 2020-07-01 09:37 | MHC.HEMONC ---
spoke with pt. She is currently at [facility] and moving to [facility]. She is still sounding like she is weak with some SOB. Schesuled f/u with Dr Richmond next Saturday per .
--- NOTE | 2020-07-07 09:55 | MHC.HEMONCMA ---
Jaclyn from Dr Velez's office requesting notes from november to present. Faxed to [phone].
== END 2020-10-31 | disposition home or self-care (01) ==
LOC: HO.ONC 12:30
PROVIDERS: Internal Medicine Medical Oncology; PCP Physician Assistant; Visit Provider Internal Medicine
DX: Z51.11 Encounter for antineoplastic chemotherapy (principal); C34.31 Malignant neoplasm of lower lobe, right bronchus or lung; C77.1 Secondary and unspecified malignant neoplasm of intrathoracic lymph nodes; J44.9 Chronic obstructive pulmonary disease, unspecified; Z76.89 Persons encountering health services in other specified circumstances; Z92.3 Personal history of irradiation; Z86.19 Personal history of other infectious and parasitic diseases
CPT/HCPCS: 36415; 36591; 36593; 80053; 80061; 82378; 83735; 85007; 85025; 85027; 96360; 96361; 96365; 96366; 96367; 96374; 96375; 96377; 96409; 96413; 96523; 99202; 99214; J1100; J1453; J1642; J2405; J2505; J8540; J9171; Q0163

== ENCOUNTER 2020-06-20 10:00 | Inpatient (IN) | payer MEDICARE, MEDICAID, SELFPAY ==
[2020-06-20] VITALS (18 sets, daily range): BP systolic 68–108; BP diastolic 31–82; PULSE 82–170; RESP 15–30; TEMP 36.6; O2SAT 80–97; BMI 36.3
--- NOTE | ~2020-06-20 | XR_ITS ---
EXAMINATION: XR CHEST CLINICAL INFORMATION: Shortness of breath COMPARISON: CT scan chest yesterday and chest radiograph 05/13/2020 TECHNIQUE: Frontal view of the chest was obtained. FINDINGS: There is nearly complete whiteout of the right hemithorax with a large effusion and only a tiny bit of aerated lung seen at the right apex. A left chest wall jugular port remains in place with its tip in the proximal SVC. Left lower lobe infiltrate is present in the posterior basal segment. Tiny left effusion is present. XR/XR chest 1V IMPRESSION: Whiteout right hemithorax with large effusion and little aerated lung. Left lung base with a small area of new infiltrate.
--- NOTE | ~2020-06-20 | XR_ITS ---
EXAMINATION: XR CHEST CLINICAL INFORMATION: Right pleural effusion with chest tube COMPARISON: 06/24/2020 TECHNIQUE: Frontal view of the chest was obtained. FINDINGS: The patient is slightly rotated into a left anterior oblique position. The left chest wall medication port with tip of catheter located in the region of the mid superior vena cava. There are ill-defined patchy opacities in the left lung. An infiltrate in the perihilar region of the right upper lobe is not appreciably changed. There appears to be a trace right pleural effusion, and pigtail drainage catheter is in stable position in the region of the right lateral costophrenic sulcus. It is difficult to exclude a trace right apical pneumothorax. A small right apical pneumothorax was detected on prior chest radiograph of 06/24/2020. Cardiac silhouette is mildly enlarged. Thoracic aorta is calcified. The visualized bones are intact. XR/XR chest 1V IMPRESSION: * No new cardiopulmonary findings compared to 06/24/2020. * There appears to be trace residual right pleural effusion with pigtail drainage catheter in place. * Possible trace right apical pneumothorax. * Bilateral pulmonary opacities are grossly unchanged.
--- NOTE | ~2020-06-20 | CT_ITS ---
EXAMINATION: CT CHEST WITH CONTRAST CLINICAL INFORMATION: Increasing shortness of breath. History of lung cancer. COMPARISON: Previous chest x-rays most recent April [address] most recent March 2020 TECHNIQUE: Multidetector volumetric CT imaging of the chest was obtained after the administration of 65 mL of Omnipaque 350 intravenous contrast without immediate adverse reactions. Axial MIP volume rendering provided. Sagittal and coronal reformatted images were obtained. This CT examination was performed using dose optimization techniques as appropriate, variously including the following: *Automated exposure control *Adjustment of mA and/or kV according to patient size (this includes techniques or standardized protocols for targeted exams where dose is matched to indication/reason for exam; i.e. extremities or head) *Use of iterative reconstruction technique DLP: 3-6 mGy-cm FINDINGS: LUNGS: There is compressive atelectasis/consolidation of the right middle lobe and right lower lobe. There is increasing consolidation with air bronchograms seen in the right upper lobe. There is evidence of mild emphysema seen in the left lung. There are increased peripheral interstitial markings in the left lung that appear unchanged. The previously identified groundglass attenuation and semisolid nodular opacities in the lingula left lower lobe appear decreased in size and density. Largest measures 4 x 14 mm axial image 29 series 3 compared to approximately 1.4 x 1.6 cm on previous exam. There are increasing small peripheral or subpleural or pleural-based nodules at the left lung base, largest measuring 5 x 10 mm axial image 39 series 4. MEDIASTINUM: There is an enlarged right tracheoesophageal groove lymph node that measures 2 cm. This is increased in size from previous exam when this measured approximately 1 x 1.7 cm. No other enlarged mediastinal lymph nodes are seen. There are no enlarged left hilar lymph nodes. Evaluation for right hilar adenopathy is limited due to dense central lung consolidation. The heart is normal in size. There is no pericardial effusion. There is mild coronary artery calcification. There is a left jugular port with tip projecting over the SVC. PLEURA: There is an increasing probably partially loculated large right pleural effusion. There is a small left pleural effusion that appears decreased in size. AXILLA: No lymphadenopathy. UPPER ABDOMEN: The left lobe of the liver is enlarged and expanded and extends to the left upper quadrant. There is a large 5 x 8 cm low-attenuation liver lesion in the lateral segment of the left lobe adjacent to the spleen axial image 45 series 3. There is a 1.3 cm low-attenuation lesion in the posterior segment of the right lobe axial image 52 series 3. There is a partially visualized 2 x 2.5 cm lesion low-attenuation lesion in the posterior segment of the right lobe axial image 61 series 3. There is a 1.3 cm low-attenuation lesion in the spleen axial image 45 series 3. These lesions appear new or increased in size from prior exam and are suggestive of metastatic disease. There is a small left renal cyst. OSSEOUS STRUCTURES: There are T8 and T6 and T5 vertebral body compression fractures that appear unchanged. CT/CT chest w con IMPRESSION: Increasing loculated right pleural effusion. Compressive atelectasis/consolidation of the right middle and right lower lobes. Increasing denser consolidation and volume loss of the right upper lobe. Emphysema and increased peripheral interstitial markings in the left lung. Interval decrease in size and density of groundglass attenuation and semisolid nodular opacities in the left lung seen on March 2020 exam. New solid-appearing peripheral or subpleural or pleural-based nodules adjacent to the left lower lobe. Increasing right mediastinal tracheoesophageal lymph node. New or increasing liver lesions and question splenic lesion. Stable thoracic spine compression fractures.
--- NOTE | ~2020-06-20 | CT_ITS ---
PROCEDURE: CT GUIDED INSERTION, PLEURAL TUNNEL CATHETER CLINICAL INFORMATION: Large right pleural effusion. COMPARISON: Chest x-ray 06/21/2020 TECHNIQUE: Following explaining procedure, benefits and risk a written consent was obtained from the patient. Patient was placed supine with the right side elevated compared to left. Preliminary CT imaging was obtained. Lead markers were placed along the lower lateral aspect of the chest and repeat chest imaging was obtained. An optimal marker was selected and marked on the skin. The area was then cleaned and draped in usual sterile manner. 1% lidocaine was injected at puncture site. Through a small skin incision a long 5 Tamazight Yueh needle was advanced into the right pleural space under CT fluoroscopy guidance. After observing fluid return, stylet was withdrawn and a 0.35 J-wire was advanced and the Yueh catheter was removed. A 10.5 Tamazight APD catheter was then threaded over the guidewire and advanced into the pleural space. The stiffener was slowly removed as the catheter was advanced. The guidewire was removed as well. A pigtail was formed. The catheter was then connected to a vacuum sealed drain. The tube was anchored to the skin with 3-0 nylon sutures. Sterile dressing was applied postprocedure. Conscious sedation with monitoring was performed during the exam. Patient tolerated procedure extremely well. This CT examination was performed using dose optimization techniques as appropriate, variously including the following: *Automated exposure control *Adjustment of mA and/or kV according to patient size (this includes techniques or standardized protocols for targeted exams where dose is matched to indication/reason for exam; i.e. extremities or head) *Use of iterative reconstruction technique DLP: 470 mGy-cm FINDINGS: On preliminary CT imaging there is a large right pleural effusion with underlying right upper and lower lobe infiltrates. There is a small left pleural effusion seen. Successful CT fluoroscopy-guided placement of right 10.5 Tamazight chest catheter in the right lung base. CT/CT drain lung RT IMPRESSION: Successful fluoroscopy-guided placement of 10.5 Tamazight right chest catheter as described above.
--- NOTE | ~2020-06-20 | US_ITS ---
EXAMINATION: US CHEST CLINICAL INFORMATION: Right pleural effusion. Stage IV lung cancer. Convert pigtail chest tube to Pleurx chest tube COMPARISON: Previous chest x-ray 06/26/[address] scans most recent 06/23/2020 TECHNIQUE: Ultrasound of the right chest FINDINGS: There is elevation of the right hemidiaphragm. There is a very small right pleural effusion visualized by ultrasound. Patient will be transferred to CT scan to see if there is adequate pleural fluid for chest tube conversion. US/US chest IMPRESSION: Very small right pleural effusion.
--- NOTE | ~2020-06-20 | XR_ITS ---
EXAMINATION: XR CHEST CLINICAL INFORMATION: Status post chest tube insertion. COMPARISON: 06/23/2020 and 06/21/2020 portable chest. TECHNIQUE: 2 views of the chest were obtained. FINDINGS: Support devices: Left-sided central venous port with tip terminating in the superior vena cava. Right-sided pigtail chest tube at the base without significant change. Is a persistent small right apical pneumothorax without significant change. Bilateral patchy opacities, most pronounced in the right mid and lower lung esquivel have not significantly changed. Small bilateral pleural effusions, right greater than left have not significantly changed. The heart and mediastinal structures are not significantly changed. XR/XR chest 2V IMPRESSION: No significant change in small right apical pneumothorax with right basilar chest tube in place. Bilateral patchy infiltrates, right greater than left have not significantly changed.
--- NOTE | ~2020-06-20 | XR_ITS ---
EXAMINATION: XR CHEST CLINICAL INFORMATION: Status post tube placement COMPARISON: Chest x-ray 06/21/2020 TECHNIQUE: Frontal view of the chest was obtained. FINDINGS: There is reexpansion of right lung following placement of a right chest tube catheter in the lung base. No visible pneumothorax. There are patchy opacities in right upper lobe and right lower lobe. The left lung is expanded with prominent interstitial changes. The heart size and the great vessels are normal caliber. There is a left central catheter with its tip in the proximal SVC. XR/XR chest 1V IMPRESSION: Following insertion of right chest tube there is reexpansion of the right lung. Right chest tube is at the lung base. Patchy opacities are seen in the right upper lobe likely infiltrate or atelectasis. The left lung is clear. There is a left central line with its tip in the proximal SVC.
--- NOTE | ~2020-06-20 | XR_ITS ---
EXAMINATION: XR CHEST CLINICAL INFORMATION: Follow-up right pleural effusion. History of metastatic lung carcinoma. COMPARISON: 06/25/2020 TECHNIQUE: Frontal view of the chest was obtained. XR/XR chest 1V FINDINGS AND IMPRESSION: No new findings compared to 06/25/2020. Again noted are ill-defined patchy opacities of the left lung, stable infiltrate in the perihilar region of the right upper lobe, and apparent trace residual right pleural effusion with pigtail change catheter in place. A trace right apical pneumothorax is suspected. Cardiomediastinal silhouette has stable size and contour. The visualized bones are intact.
--- NOTE | ~2020-06-20 | CT_ITS ---
PROCEDURE: CT GUIDED INSERTION, PLEURAL TUNNEL CATHETER CLINICAL INFORMATION: Staging for lung cancer. Conversion of radial catheter to tunneled Pleurx catheter COMPARISON: Chest ultrasound from earlier the same day, chest x-rays most recent 06/26/[address] scans most recent 06/24/2019 TECHNIQUE: The patient was positioned in the supine position and limited axial images through the chest were performed. Subsequent only, the patient was positioned in the left decubitus position. Approximately 250 mL of sterile saline was instilled into the existing right pigtail chest tube. The left posterior lateral chest was prepped and draped in the usual sterile fashion. The skin and soft tissues were anesthetized with 1% lidocaine plain. Using CT guidance and a 5 [place]raini rapid centesis catheter, access to the right pleural effusion was obtained. The skin and soft tissues of the more anterior chest were anesthetized with 1% lidocaine plain. A small incision was made. A subcutaneous tunnel from the more anterior to the more posterior incision was anesthetized with 1% lidocaine plain. Using a tunneler, a 15 [place]i Pleurx catheter was tunneled from the more anterior to the more posterior incision. An 035 guidewire was advanced through the 5 [place]i rapid centesis catheter into the right pleural space. Following serial dilatation and through a peel-away sheath, a catheter was advanced centrally into the chest. Catheter was attached to Vacutainer bottle. Approximately 500 mL of clear serous fluid was removed. Diagnostic specimen was sent for cytology and Gram stain and culture. The patient received Versed 1 mg and fentanyl 50 mcg intravenously during the procedure. Total sedation time was [address] examination was performed using dose optimization techniques as appropriate, variously including the following: *Automated exposure control *Adjustment of mA and/or kV according to patient size (this includes techniques or standardized protocols for targeted exams where dose is matched to indication/reason for exam; i.e. extremities or head) *Use of iterative reconstruction technique DLP: 270 mGy-cm FINDINGS: Initial chest CT demonstrates a right pigtail chest catheter at the posterior lateral costophrenic angle. There is a very small right pleural effusion.There is a small pneumothorax. Final images demonstrate Pleurx catheter placement and interval decrease in the right pleural effusion and pneumothorax. There is consolidation with air bronchograms in the right middle and right lower lobes. There is a central dense consolidation with air bronchograms in the right upper lobe and more peripheral interstitial disease. There are areas of groundglass attenuation seen in the left upper and left lower lobes. There is volume loss to the right hemithorax with shift of the central mediastinal structures to the right. There is a small right pleural effusion. There is a small right pneumothorax. There is a small left pleural effusion. The heart is enlarged. There is no pericardial effusion. There is coronary artery calcification. There is an enlarged right tracheoesophageal lymph node that measures 1.8 x 2 cm axial image 8 series 3. There may be right hilar and subcarinal lymphadenopathy. There is a left jugular port with tip projecting over the SVC. There are multiple liver lesions suggestive of metastatic disease. There are multiple thoracic vertebral body pressure fractures. CT/CT chest tube placement IMPRESSION: Placement of 15 [place]raini tunneled right Pleurx chest tube. Interval decrease in the right pleural effusion and right pneumothorax. The existing right pigtail chest tube was removed.
--- NOTE | 2020-06-20 10:09 | ED_ITS ---
HPI - SOB/Dyspnea General Chief Complaint: Dyspnea Stated Complaint: weak,low o2 sent from oncology Time Seen by Provider: 06/20/20 10:09 Source: patient Mode of arrival: wheelchair Limitations: no limitations History of Present Illness HPI Narrative: Discussed with Dr. Smith. Patient with progressive squamous camila l Ca now with increasing shortness of breath. Patient last iv chemo was 10 days ago MD elicited complaint: shortness of breath Pertinent past history: COPD and other (lung cancer) Onset (ago): week(s) (2) Timing: constant Severity: severe Exacerbating factors: nothing Relieving factors: nothing Known history of: COPD Treatment prior to arrival: oxygen Related Data Home Medications Medication Instructions Recorded Confirmed One-A-Day Womens Formula 1 tab PO DAILY 12/25/19 06/09/20 omeprazole 20 mg capsule,delayed 20 mg PO DAILY 12/31/19 06/09/20 release Anoro Ellipta 1 inh INHALATION DAILY 02/05/20 06/09/20 loratadine 10 mg PO DAILY PRN 04/04/20 06/09/20 Zofran 05/13/20 06/09/20 Previous Rx's Medication Instructions Recorded albuterol sulfate 90 mcg/actuation 2 puff INHALATION Q6H PRN 30 Days 12/31/19 aerosol inhaler #8.5 g dexamethasone 1 mg PO DIRECTED #60 tab 02/12/20 escitalopram oxalate 5 mg PO DAILY #60 tab 03/01/20 rivaroxaban 20 mg tablet 20 mg PO DAILY 30 Days #30 tab 05/03/20 diltiazem HCl 240 mg 240 mg PO DAILY 30 Days #30 cap 05/29/20 capsule,extended release 24 hr albuterol sulfate 2.5 mg INHALATION Q8H PRN 30 Days 06/09/20 #270 ml simvastatin 40 mg tablet 40 mg PO BEDTIME #90 tab 06/20/20 Allergies Allergy/AdvReac Type Severity Reaction Status Date / Time amoxicillin [AMOXICILLIN] Allergy Intermediate HIVES Verified 06/09/20 17:07 Iodinated Contrast Media AdvReac Intermediate NAUSEA ?T? Verified 06/09/20 17:07 [IVP DYE] VOMITING azithromycin AdvReac Unknown diarrhea Verified 06/09/20 17:07 Review of Systems Constitutional: Constitutional: Reports no additional constitutional complaints Eyes: Eyes: Reports no additional eye complaints ENT: Denies dizziness Cardiovascular: Cardiovascular: Reports no additional cardiovascular c omplaints Respiratory: Respiratory: Reports as per HPI Gastrointestinal: Gastrointestinal: Reports no additional gastrointestinal complaints Genitourinary: Genitourinary: Reports no additional female genitourinary complaints Musculoskeletal: Musculoskeletal: Reports no additional musculoskeletal complaints Integumentary/Breasts: Skin/Breast: Denies rash Neurologic: Denies dizziness and Denies Sensory deficit (Neuro) Psychiatric: Psychiatric: Denies anxiety [facility] Past Medical History Medical History Atrial fibrillation COPD (chronic obstructive pulmonary disease) HLD (hyperlipidemia) Hospital discharge follow-up [id number] condition Squamous cell carcinoma of lung, stage IV TIA (transient ischemic attack) Surgical History H/O breast biopsy No pertinent past surgical history Family History Family History Father Hypertension Mother No problems noted. Sister Hypertension Diverticulosis Brother Hypertension Social History Social History Household Members: Spouse Alcohol intake: never Smoking Status: Former smoker Years Smoked: 30 yrs Smoked in Last 30 Days: No Use of substances other than those prescribed or required for medical reasons: No Advance Directives: Yes Advance Directives on File: Yes Advance Directives Date on File: 03/01/19 service: No Current occupational status: retired Physical Exam Vital Signs: Vital Signs: Last Vital Signs Temp 97.9 F 06/20/20 10:13 Pulse 122 H 06/20/20 15:26 Resp 20 06/20/20 15:02 BP 68/38 L 06/20/20 15:05 Pulse Ox 96 06/20/20 15:05 Body Mass Index 36.3 Const: Other: chronically ill female, short of breath, alopecia Orientation/consciousness: oriented to person and patient oriented x3 Limitations: no limitations HENMT: Head: Yes normal to inspection Ears: external ears normal General nose exam: Normal external nose present Mouth: Normal oral and palatal mucosa present and oropharynx normal Throat: Yes posterior oropharynx normal Eyes: General: appearance normal, both eyes and all related structures Neck: Other: supple Neck: Yes normal visual inspection Chest: Chest palpation & inspection: normal inspection of the chest Resp: Other: Distant very little air movement with wheeze Cardio: Jugular venous distension: no JVD Rate: regular rate Rhythm: regular rhythm Heart sounds: S1 normal heart sound present and S2 normal heart sound present GI: Inspection: Yes normal to inspection Palpation (GI): Soft to palpation, nontender and No hepatosplenomegaly present Auscultation: normal bowel sounds : General: Yes no CVA tenderness Back/Spine/Pelvis: Back: no CVA tenderness Skin: General skin exam: no rashes or lesions noted Neuro: General: oriented to person and patient oriented x3 Cranial nerves: Yes CN's II-XII intact bilaterally Motor exam (neuro): 5/5 motor strength present throughout Sensory Exam: No Sensory deficit (Neuro) Extrem: Other: 3+ bilateral edema Psych: Appearance: grossly normal Course Course Course Narrative: Initially patient thought to have respiratory failure from worsening cancer, WBC secondary to decadron. However, CT shows obstructive pneumonia, will culture and fluid bolus and treat for pneumonia Reevaluation(s) Reevaluation #1: Patient feels better will admit Reevaluation #2: starting levophed, and albumin will admit to ICU Time: 16:31 Reevaluation #3: Discussed with Dr. Fields and Dr. Richmond Time: 16:35 MDM - SOB/Dyspnea MDM Narrative Medical decision making narrative: In the end patient has metastatic cancer, atrial fibrillation and postobstructive pneumonia Differential Diagnosis Differential diagnosis: Likely acute exacerbation of chronic obstructive airways disease, congestive heart failure, pneumonia and pleural effusion Lab Data Result diagrams: 06/20/20 10:42 06/20/20 10:42 Labs: Lab Results 06/20/20 06/20/20 06/20/20 Range/Units 10:42 10:42 10:42 WBC 17.7 H (4.8-10.8) X10*3/uL RBC 3.76 L (4.20-5.50) X10*6/uL Hgb 10.9 L (12.0-16.0) g/dl Hct 32.8 L (37-47) % MCV 87.2 (80-98) fL MCH 29.0 (27.0-33.0) pg MCHC 33.2 (31.0-35.0) g/dl RDW 18.9 H (11.0-16.0) % Plt Count 275 D (160-400) X10*3/uL MPV 9.4 (9.4-12.3) fL Immature Gran % (Auto) Cancelled Neut % (Auto) Cancelled Lymph % (Auto) Cancelled [place] % (Auto) Cancelled Eos % (Auto) Cancelled Baso % (Auto) Cancelled Lymph # (Auto) Cancelled [place] # (Auto) Cancelled Eos # (Auto) Cancelled Baso # (Auto) Cancelled Abs Immat Gran (auto) Cancelled Absolute Neuts (auto) Cancelled Absolute Nucleated RBC 0.020 H (0.0-0.012) X10*3/uL Nucleated RBC % (auto) 0.1 (0.0-0.2) /100WBC Neutrophils % (Manual) 85 H (45-73) % Band Neutrophils % 6 H (3-5) % Lymphocytes % (Manual) 1 L (20-40) % Monocytes % (Manual) 7 (2-11) % Metamyelocytes % 1 % Abs Neuts (Manual) 16.1 H (2.2-7.9) X10*3/uL Lymphocytes # (Manual) 0.2 L (0.6-4.8) X10*3/uL Monocytes # (Manual) 1.2 (0.0-1.2) X10*3/uL Metamyelocytes # 0.2 X10*3/uL Toxic Vacuolation PRESENT Dohle Bodies PRESENT Platelet Estimate NORMAL (NORMAL) Plt Morphology Comment NORMAL RBC Morphology NOTED Polychromasia 2+ (3-5) /OIF Macrocytosis 1+ (5-14) /OIF [place] Cells 2+ (3-5) /OIF PT (10.8-13.0) SEC INR (0.9-1.1) APTT (24.1-38.0) SEC Sodium 128 L (135-145) mmol/L Potassium 3.9 (3.3-5.1) mmol/L Chloride 89 L (96-108) mmol/L Carbon Dioxide 26 (22-29) mmol/L Anion Gap 17 (12-20) BUN 8 L D (9-16) mg/dL Creatinine 0.58 (0.5-1.4) mg/dL Estim Creat Clear Calc 108.7 Estimated GFR > 60 Random Glucose 85 (60-115) mg/dL Lactic Acid (0.5-2.0) mmol/L Calcium 7.5 L (8.4-10.2) mg/dL Total Bilirubin (0.0-1.0) mg/dL Troponin I High Sens 4.1 D (<3.5-17.0) ng/L Coronavirus (PCR) (Negative) Influenza Type A (PCR) (Negative) Influenza Type B (PCR) (Negative) RSV RNA Qual (PCR) (Negative) 06/20/20 06/20/20 06/20/20 Range/Units 10:43 14:58 14:58 WBC (4.8-10.8) X10*3/uL RBC (4.20-5.50) X10*6/uL Hgb (12.0-16.0) g/dl Hct (37-47) % MCV (80-98) fL MCH (27.0-33.0) pg MCHC (31.0-35.0) g/dl RDW (11.0-16.0) % Plt Count (160-400) X10*3/uL MPV (9.4-12.3) fL Immature Gran % (Auto) Neut % (Auto) Lymph % (Auto) [place] % (Auto) Eos % (Auto) Baso % (Auto) Lymph # (Auto) [place] # (Auto) Eos # (Auto) Baso # (Auto) Abs Immat Gran (auto) Absolute Neuts (auto) Absolute Nucleated RBC (0.0-0.012) X10*3/uL Nucleated RBC % (auto) (0.0-0.2) /100WBC Neutrophils % (Manual) (45-73) % Band Neutrophils % (3-5) % Lymphocytes % (Manual) (20-40) % Monocytes % (Manual) (2-11) % Metamyelocytes % % Abs Neuts (Manual) (2.2-7.9) X10*3/uL Lymphocytes # (Manual) (0.6-4.8) X10*3/uL Monocytes # (Manual) (0.0-1.2) X10*3/uL Metamyelocytes # X10*3/uL Toxic Vacuolation Dohle Bodies Platelet Estimate (NORMAL) Plt Morphology Comment RBC Morphology Polychromasia /OIF Macrocytosis /OIF [place] Cells /OIF PT 36.9 H D (10.8-13.0) SEC INR 3.1 H (0.9-1.1) APTT 34.2 (24.1-38.0) SEC Sodium (135-145) mmol/L Potassium (3.3-5.1) mmol/L Chloride (96-108) mmol/L Carbon Dioxide (22-29) mmol/L Anion Gap (12-20) BUN (9-16) mg/dL Creatinine (0.5-1.4) mg/dL Estim Creat Clear Calc Estimated GFR Random Glucose (60-115) mg/dL Lactic Acid 1.0 (0.5-2.0) mmol/L Calcium (8.4-10.2) mg/dL Total Bilirubin (0.0-1.0) mg/dL Troponin I High Sens (<3.5-17.0) ng/L Coronavirus (PCR) NEGATIVE (Negative) Influenza Type A (PCR) NEGATIVE (Negative) Influenza Type B (PCR) NEGATIVE (Negative) RSV RNA Qual (PCR) NEGATIVE (Negative) 06/20/20 Range/Units 14:58 WBC (4.8-10.8) X10*3/uL RBC (4.20-5.50) X10*6/uL Hgb (12.0-16.0) g/dl Hct (37-47) % MCV (80-98) fL MCH (27.0-33.0) pg MCHC (31.0-35.0) g/dl RDW (11.0-16.0) % Plt Count (160-400) X10*3/uL MPV (9.4-12.3) fL Immature Gran % (Auto) Neut % (Auto) Lymph % (Auto) [place] % (Auto) Eos % (Auto) Baso % (Auto) Lymph # (Auto) [place] # (Auto) Eos # (Auto) Baso # (Auto) Abs Immat Gran (auto) Absolute Neuts (auto) Absolute Nucleated RBC (0.0-0.012) X10*3/uL Nucleated RBC % (auto) (0.0-0.2) /100WBC Neutrophils % (Manual) (45-73) % Band Neutrophils % (3-5) % Lymphocytes % (Manual) (20-40) % Monocytes % (Manual) (2-11) % Metamyelocytes % % Abs Neuts (Manual) (2.2-7.9) X10*3/uL Lymphocytes # (Manual) (0.6-4.8) X10*3/uL Monocytes # (Manual) (0.0-1.2) X10*3/uL Metamyelocytes # X10*3/uL Toxic Vacuolation Dohle Bodies Platelet Estimate (NORMAL) Plt Morphology Comment RBC Morphology Polychromasia /OIF Macrocytosis /OIF [place] Cells /OIF PT (10.8-13.0) SEC INR (0.9-1.1) APTT (24.1-38.0) SEC Sodium (135-145) mmol/L Potassium (3.3-5.1) mmol/L Chloride (96-108) mmol/L Carbon Dioxide (22-29) mmol/L Anion Gap (12-20) BUN (9-16) mg/dL Creatinine (0.5-1.4) mg/dL Estim Creat Clear Calc Estimated GFR Random Glucose (60-115) mg/dL Lactic Acid (0.5-2.0) mmol/L Calcium (8.4-10.2) mg/dL Total Bilirubin 0.9 (0.0-1.0) mg/dL Troponin I High Sens (<3.5-17.0) ng/L Coronavirus (PCR) (Negative) Influenza Type A (PCR) (Negative) Influenza Type B (PCR) (Negative) RSV RNA Qual (PCR) (Negative) ECG Data Attestation: I personally reviewed and interpreted this ECG as follows: Interpretation: atrial fibrillation rate 150, no st or twave changes Critical Care Time Critical Care Time Attestation: I spent 40 minutes of critical care, with interventions, assessments, speaking to patient, consultants, and family. Discharge Plan Discharge Clinical Impression: Pneumonia Qualifiers: Pneumonia type: due to unspecified organism Laterality: right Lung location: unspecified part of lung Qualified Code(s): J18.9 - Pneumonia, unspecified organism Squamous cell carcinoma of lung, stage IV Qualifiers: Laterality: unspecified laterality Qualified Code(s): C34.90 - Malignant neoplasm of unspecified part of unspecified bronchus or lung COPD (chronic obstructive pulmonary disease) Qualifiers: COPD type: emphysema Emphysema type: panlobular Qualified Code(s): J43.1 - Panlobular emphysema Patient Disposition: Admitted As Inpatient
--- NOTE | 2020-06-20 10:13 | ECG_ITS ---
Test Reason : TACHY Blood Pressure : / mmHG Vent. Rate : 150 BPM Atrial Rate : 153 BPM P-R Int : 000 ms QRS Dur : 074 ms QT Int : 290 ms P-R-T Axes : 000 033 034 degrees QTc Int : 458 ms Atrial fibrillation with rapid ventricular response Nonspecific ST and T wave abnormality Abnormal ECG When compared with ECG of 07-APR-2020 14:50, Nonspecific T wave abnormality, worse in Inferior leads T wave inversion no longer evident in Anterior leads Referred By: Eliazar Ruiz Electronically Signed By:Chase Valencia
[2020-06-20] MEDS: dilTIAZem HCL 50 MG/10 ML VIAL 15 MG IVPUSH (10:29)
[2020-06-20 10:53] LABS: Hematocrit 32.8 % (37-47); Mean Platelet Volume 9.4 fL (9.4-12.3); NRBC Pct Auto 0.1 /100WBC (0.0-0.2)
[2020-06-20 11:01] LABS: Hemoglobin 10.9 g/dl (12.0-16.0); Mean Corpuscular HGB Conc 33.2 g/dl (31.0-35.0); Mean Corpuscular Volume 87.2 fL (80-98); Platelet Count 275 X10*3/uL (160-400); Red Blood Count 3.76 X10*6/uL (4.20-5.50); Red Cell Distribution Width 18.9 % (11.0-16.0); White Blood Count 17.7 X10*3/uL (4.8-10.8)
[2020-06-20] MEDS: 0.9 % Sodium Chloride 1,000 ML 200 ML IVCONT (11:15)
[2020-06-20 11:20] LABS: Troponin-I High Sensitivity 4.1 ng/L (<3.5-17.0)
[2020-06-20 11:25] LABS: Band Neutrophils Percent 6 % (3-5); Lymphocytes Absolute Manual 0.2 X10*3/uL (0.6-4.8); Lymphocytes Percent Manual 1 % (20-40); Metamyelocytes Absolute 0.2 X10*3/uL; Metamyelocytes Percent 1 %; Monocytes Absolute Manual 1.2 X10*3/uL (0.0-1.2); Monocytes Percent Manual 7 % (2-11); Neutrophils Absolute Manual 16.1 X10*3/uL (2.2-7.9); Neutrophils Percent Manual 85 % (45-73); RBC Morphology NOTED
[2020-06-20 11:26] LABS: Burr Cells 2+ (3-5) /OIF; Macrocytosis 1+ (5-14) /OIF; Platelet Estimate NORMAL (NORMAL); Platelet Morphology Comment NORMAL; Polychromasia 2+ (3-5) /OIF
[2020-06-20 11:27] LABS: Dohle Bodies PRESENT; Toxic Vacuolation PRESENT
[2020-06-20 11:35] LABS: Anion Gap 17 (12-20); Blood Urea Nitrogen 8 mg/dL (9-16); Calcium 7.5 mg/dL (8.4-10.2); Carbon Dioxide 26 mmol/L (22-29); Chloride 89 mmol/L (96-108); Creatinine Clr Calc Pharmacy 108.7; Estimated Glomerular Filt Rate > 60; Glucose Random 85 mg/dL (60-115); Potassium 3.9 mmol/L (3.3-5.1); Sodium 128 mmol/L (135-145)
[2020-06-20 12:04] LABS: Influenza A PCR NEGATIVE (Negative); Influenza B PCR NEGATIVE (Negative); Resp Syncy Virus RNA Qual PCR NEGATIVE (Negative); SARS COV2 PCR INHOUSE NEGATIVE (Negative)
[2020-06-20] MEDS: iohexoL 350 MG/ML 75 ML INFUS..BTL IV (13:11)
[2020-06-20] MEDS: cefTRIAXone sodium 2 GM in 0.9 % Sodium Chloride 50 ML IV (15:00)
[2020-06-20] MEDS: Albuterol Sulfate 90 MCG 8 GM INHALER 4 PUFF INHALE (15:15)
[2020-06-20 15:20] LABS: INTERNATIONAL NORM RATIO 3.1 (0.9-1.1); Prothrombin Time 36.9 SEC (10.8-13.0)
[2020-06-20 15:23] LABS: Partial Thromboplastin Time 34.2 SEC (24.1-38.0)
[2020-06-20] MEDS: Azithromycin 500 MG in 0.9 % Sodium Chloride 250 ML 125 MG IV (15:33)
--- NOTE | 2020-06-20 15:44 | PC.NURSE ---
md aware of low bps and a fib 140s. plan to admin rest of ivf and reassess. will continue to monitor.
[2020-06-20 15:45] LABS: Bilirubin Total 0.9 mg/dL (0.0-1.0)
[2020-06-20] MEDS: 0.9 % Sodium Chloride 1,000 ML 999 ML IVCONT ×2 (16:32→17:52)
[2020-06-20] MEDS: ondansetron HCL 4 MG/2 ML VIAL IVPUSH (16:32)
[2020-06-20] MEDS: Albumin Human 25 % 100 ML IV (16:38)
--- NOTE | 2020-06-20 17:02 | PC.NURSE ---
ok to dixie miller per . levo started at this time. pt aware of plan of care for admission to ic[facility]. denied having any questions.
--- NOTE | 2020-06-20 17:11 | PM.CCHP ---
History of Present Illness Date of Service: 06/20/20 Chief Complaint: Hypotension 64-year-old lady with underlying history of stage IV squamous cell carcinoma on 3rd line therapy under care of Dr. Richmond, COPD, AFib, COVID-19 infection and March of 1020, TIA admitted on 06/20/2020 with several day history of progressive dyspnea and nausea. On ER evaluation patient hypotensive with poor response to initial fluid resuscitation requiring initiation with pressor support. Also, with significant leukocytosis, started on empiric broad-spectrum antibiotics. CT chest demonstrated worsening of known right-sided loculated pleural effusion. She denies worsening cough or sputum production or increased FiO2 requirements. Review of Systems Constitutional: Constitutional: Denies daytime sleepiness, Denies excessive sweating, Denies fatigue, Denies fever(s), Denies lethargy, Reports malaise, Denies night sweats, Denies snoring and Denies weight loss Eyes: Eyes: Denies blurry vision and Denies itchy eyes ENT: Denies nasal congestion, Denies post nasal drip, Denies sinus pain, Denies sinus pressure and Denies other ( Thrush) Cardiovascular: Cardiovascular: Denies chest pain, Reports pedal edema, Reports dyspnea, Denies orthopnea and Denies paroxysmal nocturnal dyspnea Respiratory: Respiratory: Denies cough, Denies hemoptysis, Denies excessive phlegm production, Reports dyspnea, Denies snoring and Denies wheezing Gastrointestinal: Gastrointestinal: Denies abdominal pain and Denies heartburn Musculoskeletal: Musculoskeletal: Denies myalgias, Denies arthralgias and Denies joint swelling Integumentary/Breasts: Skin/Breast: Denies rash Neurologic: Denies memory loss and Denies seizure-like activity Psychiatric: Psychiatric: Denies abnormal sleep pattern, Denies anxiety and Denies memory loss Endocrine: Endocrine: Denies excessive sweating, Denies fatigue and Denies heat intolerance Hematologic/Lymphatic: Hematologic/Lymphatic: Denies easy bruising Allergic/Immunologic: Allergic/Immunologic: Denies itchy eyes, Denies seasonal rhinorrhea and Denies wheezing PMFSH Past Medical History Medical History (Updated 06/20/20 @ 17:25 by Ramesh Richmond MD) Atrial fibrillation COPD (chronic obstructive pulmonary disease) HLD (hyperlipidemia) Hospital discharge follow-up 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 Sister Hypertension Diverticulosis Brother Hypertension Surgical History Surgical History H/O breast biopsy No pertinent past surgical history Social History Social History Household Members: Spouse Alcohol intake: never Smoking Status: Former smoker Years Smoked: 30 yrs Smoked in Last 30 Days: No Use of substances other than those prescribed or required for medical reasons: No Advance Directives: Yes Advance Directives on File: Yes Advance Directives Date on File: 03/01/19 service: No Current occupational status: retired [employer] Allergies Allergy/AdvReac Type Severity Reaction Status Date / Time amoxicillin [AMOXICILLIN] Allergy Intermediate HIVES Verified 06/09/20 17:07 Iodinated Contrast Media AdvReac Intermediate NAUSEA ?T? Verified 06/09/20 17:07 [IVP DYE] VOMITING azithromycin AdvReac Unknown diarrhea Verified 06/09/20 17:07 Active Medications: Current Medications Generic Name Dose Route Start Last Admin Trade Name Freq PRN Reason Stop Dose Admin Norepinephrine Bitartrate 8 mg in 250 mls @ 9 mls/hr 06/20/20 16:30 06/20/20 16:56 Levophed IVCONT 0.05 mcg/kg/min .Q24H DEEPTHI 9 mls/hr Administration Protocol 0.05 MCG/KG/MIN Sodium Chloride 1,000 mls @ 999 mls/hr 06/20/20 16:30 06/20/20 16:32 Ns IVCONT 06/20/20 18:30 999 mls/hr .Q1H1M DEEPTHI Administration Albumin Human 100 mls @ 100 mls/hr 06/20/20 16:18 06/20/20 16:38 Kedbumin 25 % IV 06/20/20 17:17 100 mls/hr ONCE ONE Administration Vancomycin HCl 1,500 mg/ 280 mls @ 265 mls/hr 06/20/20 17:00 Sodium Chloride IV Q12H DEEPTHI Cefepime HCl 1 gm/ Sodium 50 mls @ 100 mls/hr 06/20/20 17:00 Chloride IV Q12H DEEPTHI Ondansetron HCl 4 mg 06/20/20 16:44 Ondansetron Hcl 4 Mg/2 Ml Vial IVPUSH Q8H PRN Nausea Pharmacy Consult 1 each 06/20/20 16:46 Consult Rx Vancomycin Dosing MISCELLANE DAILY PRN Consult order Home Medications Medication Instructions Recorded Confirmed Last Taken Type One-A-Day Womens Formula 1 tab PO DAILY 12/25/19 06/09/20 04/04/20 History omeprazole 20 mg capsule,delayed 20 mg PO DAILY 12/31/19 06/09/20 04/04/20 History release Anoro Ellipta 1 inh INHALATION DAILY 02/05/20 06/09/20 04/04/20 History loratadine 10 mg PO DAILY PRN 04/04/20 06/09/20 04/04/20 History Zofran 05/13/20 06/09/20 Unknown History Physical Exam Vital Signs: Vital Signs: Last Vital Signs Temp 97.9 F 06/20/20 10:13 Pulse 120 H 06/20/20 16:56 Resp 20 06/20/20 16:40 BP 91/60 06/20/20 16:56 Pulse Ox 96 06/20/20 16:40 Body Mass Index 36.3 Const: General: no acute distress, alert and awake Eyes: Sclerae: sclerae normal EOM: EOMs intact bilaterally Neck: Neck: Yes no lymphadenopathy, Yes trachea midline and Yes supple Resp: Effort & Inspection: normal respiratory effort and no respiratory distress Auscultation: crackles (Right-sided) Cardio: Rate: tachycardic Rhythm: regular rhythm Heart sounds: no gallops, no murmurs and no rubs GI: Palpation (GI): Soft to palpation and Other GI palpation findings present ( Nontender) Auscultation: normal bowel sounds Extrem: General: Yes capillary refill normal, No clubbing, No cyanosis and Yes pedal edema (2+ bilateral) Results Labs CBC and Chem 7: 06/20/20 10:42 06/20/20 10:42 Labs: Laboratory Results - last 24 hr 06/20/20 06/20/20 06/20/20 10:42 10:42 10:42 MCV 87.2 MCH 29.0 MCHC 33.2 RDW 18.9 H Plt Count 275 D MPV 9.4 Immature Gran % (Auto) Cancelled Neut % (Auto) Cancelled Lymph % (Auto) Cancelled Garrard % (Auto) Cancelled Eos % (Auto) Cancelled Baso % (Auto) Cancelled Lymph # (Auto) Cancelled Garrard # (Auto) Cancelled Eos # (Auto) Cancelled Baso # (Auto) Cancelled Abs Immat Gran (auto) Cancelled Absolute Neuts (auto) Cancelled Absolute Nucleated RBC 0.020 H Nucleated RBC % (auto) 0.1 Neutrophils % (Manual) 85 H Band Neutrophils % 6 H Lymphocytes % (Manual) 1 L Monocytes % (Manual) 7 Metamyelocytes % 1 Abs Neuts (Manual) 16.1 H Lymphocytes # (Manual) 0.2 L Monocytes # (Manual) 1.2 Metamyelocytes # 0.2 Toxic Vacuolation PRESENT Dohle Bodies PRESENT Platelet Estimate NORMAL Plt Morphology Comment NORMAL RBC Morphology NOTED Polychromasia 2+ (3-5) Macrocytosis 1+ (5-14) Gordo Cells 2+ (3-5) PT INR APTT Anion Gap 17 Estim Creat Clear Calc 108.7 Estimated GFR > 60 Random Glucose 85 Lactic Acid Calcium 7.5 L Total Bilirubin Troponin I High Sens 4.1 D Coronavirus (PCR) Influenza Type A (PCR) Influenza Type B (PCR) RSV RNA Qual (PCR) 06/20/20 06/20/20 06/20/20 10:43 14:58 14:58 MCV MCH MCHC RDW Plt Count MPV Immature Gran % (Auto) Neut % (Auto) Lymph % (Auto) Garrard % (Auto) Eos % (Auto) Baso % (Auto) Lymph # (Auto) Garrard # (Auto) Eos # (Auto) Baso # (Auto) Abs Immat Gran (auto) Absolute Neuts (auto) Absolute Nucleated RBC Nucleated RBC % (auto) Neutrophils % (Manual) Band Neutrophils % Lymphocytes % (Manual) Monocytes % (Manual) Metamyelocytes % Abs Neuts (Manual) Lymphocytes # (Manual) Monocytes # (Manual) Metamyelocytes # Toxic Vacuolation Dohle Bodies Platelet Estimate Plt Morphology Comment RBC Morphology Polychromasia Macrocytosis Gordo Cells PT 36.9 H D INR 3.1 H APTT 34.2 Anion Gap Estim Creat Clear Calc Estimated GFR Random Glucose Lactic Acid 1.0 Calcium Total Bilirubin Troponin I High Sens Coronavirus (PCR) NEGATIVE Influenza Type A (PCR) NEGATIVE Influenza Type B (PCR) NEGATIVE RSV RNA Qual (PCR) NEGATIVE 06/20/20 14:58 MCV MCH MCHC RDW Plt Count MPV Immature Gran % (Auto) Neut % (Auto) Lymph % (Auto) Garrard % (Auto) Eos % (Auto) Baso % (Auto) Lymph # (Auto) Garrard # (Auto) Eos # (Auto) Baso # (Auto) Abs Immat Gran (auto) Absolute Neuts (auto) Absolute Nucleated RBC Nucleated RBC % (auto) Neutrophils % (Manual) Band Neutrophils % Lymphocytes % (Manual) Monocytes % (Manual) Metamyelocytes % Abs Neuts (Manual) Lymphocytes # (Manual) Monocytes # (Manual) Metamyelocytes # Toxic Vacuolation Dohle Bodies Platelet Estimate Plt Morphology Comment RBC Morphology Polychromasia Macrocytosis Mckenney Cells PT INR APTT Anion Gap Estim Creat Clear Calc Estimated GFR Random Glucose Lactic Acid Calcium Total Bilirubin 0.9 Troponin I High Sens Coronavirus (PCR) Influenza Type A (PCR) Influenza Type B (PCR) RSV RNA Qual (PCR) Imaging Radiologist's Impressions: Impressions Chest CT 06/20/20 10:13 IMPRESSION: Increasing loculated right pleural effusion. Compressive atelectasis/consolidation of the right middle and right lower lobes. Increasing denser consolidation and volume loss of the right upper lobe. Emphysema and increased peripheral interstitial markings in the left lung. Interval decrease in size and density of groundglass attenuation and semisolid nodular opacities in the left lung seen on March 2020 exam. New solid-appearing peripheral or subpleural or pleural-based nodules adjacent to the left lower lobe. Increasing right mediastinal tracheoesophageal lymph node. New or increasing liver lesions and question splenic lesion. Stable thoracic spine compression fractures. Assessment and Plan (1) Shock: Status: Acute Assessment: 64-year-old lady with underlying stage IV squamous cell lung cancer on 3rd line therapy under on-call allergy care, COPD, AFib admitted with dyspnea, hypotension, and nausea initially believe to be secondary to septic shock, however most likely secondary to distributive shock with intravascular volume depletion Plan: Neuro: No acute issues. Cardiac: Hypotension likely secondary to distributive shock secondary to intravascular volume depletion and hypoalbuminemia. Low suspicion for sepsis at this time. Continue to titrate of pressor support as tolerated. Continue with colloidal and crystalloid support. Pulmonary: No acute issues. Underlying known right side loculated pleural effusion and advanced COPD. Continue with nebulized bronchodilators. Renal: No acute issues. Endo: No acute issues. GI: No acute issues. ID: No evidence of septic shock or severe sepsis at this time, empirically covered with broad-spectrum antibiotics. Cultures are pending. Heme/Onc: Coagulopathy likely secondary to poor nutritional status and underlying Xarelto use. Will hold off Xarelto at this time. Psych: No acute issues. Miscellaneous: No acute issues. Prophylaxis: Coagulopathic with increased INR Diet: Regular Critical care time spent: 60 minutes (2) Atrial fibrillation: Status: Acute (3) Squamous cell carcinoma of lung, stage IV: Qualifiers: Laterality: unspecified laterality Qualified Code(s): C34.90 - Malignant neoplasm of unspecified part of unspecified bronchus or lung Status: Chronic (4) COPD (chronic obstructive pulmonary disease): Qualifiers: COPD type: emphysema Emphysema type: panlobular Qualified Code(s): J43.1 - Panlobular emphysema Status: Acute (5) Coagulopathy: Status: Acute Critical Care Time Critical Care Time (minutes): 60
[2020-06-20] MEDS: vancomycin HCL 1,000 MG in 0.9 % Sodium Chloride 250 ML 265 MG IV (17:52)
--- NOTE | 2020-06-20 19:24 | PC.NURSE ---
patient stood up and ambulatory to the commode with a steady gait. Patient has no complaints, reports that her breathing has improved with the oxygen
--- NOTE | 2020-06-20 19:30 | PC.NURSE ---
patient voided at this time a large amount- unable to measure at this time
[2020-06-20] MEDS: cefEPime HCl 1 GM in 0.9 % Sodium Chloride 50 ML IV (20:35)
--- NOTE | 2020-06-20 20:41 | PC.NURSE ---
patient was informed on the order for an indwelling catheter, patient does not want the catheter at this time, This RN will speak with the attending on this.
--- NOTE | 2020-06-20 21:16 | PC.NURSE ---
This RN spoke with the ICU ASSEMBLY LINE LEADER about the patient declining the catheter, and aware. Room assigned to the patient on ICU is not ready there is actively a patient in the room, once the room is clean the floor will call.
[2020-06-21] VITALS (27 sets, daily range): BP systolic 88–136; BP diastolic 5–75; PULSE 93–145; RESP 14–29; TEMP 36.5–36.9; O2SAT 86–97; BMI 37.7; BMI 37.6
--- NOTE | 2020-06-21 00:03 | PC.NURSE ---
report was given to AYAAN Salgado on ICU
--- NOTE | 2020-06-21 02:43 | PC.NURSE ---
Addendum entered by Damian Davenport RN 06/21/20 08:37: Weaned Levo off @ 0500. Patient up to commode, 1 assist. SOB w/ exertion. Voided, denies pain. Original Note: Admitted to ICU for septic shock, room 255, @ approx 0030. Patient reports have SOB for past few days, coughing worse at nights, productive cough, yellow sputum. Patient continued to be running with levo @ 0.05 mcg/kg/min. HR running from 110-130's afib. Patient alert and oriented. Maxwell PHOTOGRAPHIC EDITOR aware of HR, no need for intervention at this time. Patient LUKE, orthopnea, O2sat mid 90's on 2 liters. Non prod cough at this time. Lower ext edema noted. small patches of eczema. Heels cracked / dry. Updated patient & (over phone) about plan of care - patient participated in admission assessment and was able to answer questions about medical history appropriately. See MAR for titrations and media center specialist. Patient continues to refuse mcmanus cath at this time. High fall risk per protocol - bed alarm on for safety. Call figueroa within reach.
[2020-06-21] MEDS: dilTIAZem HCL 50 MG/10 ML VIAL 10 MG IVPUSH (07:39)
[2020-06-21] MEDS: vancomycin HCL 1,000 MG in 0.9 % Sodium Chloride 250 ML 250 MG IV (07:43)
[2020-06-21] MEDS: cefEPime HCl 1 GM in 0.9 % Sodium Chloride 50 ML IV ×2 (07:46→21:06)
[2020-06-21 08:12] LABS: Hematocrit 31.3 % (37-47); Hemoglobin 9.8 g/dl (12.0-16.0); Mean Corpuscular HGB Conc 31.3 g/dl (31.0-35.0); Mean Corpuscular Hemoglobin 28.4 pg (27.0-33.0); Mean Corpuscular Volume 90.7 fL (80-98); Mean Platelet Volume 9.3 fL (9.4-12.3); NRBC Pct Auto 0.1 /100WBC (0.0-0.2); Platelet Count 284 X10*3/uL (160-400); Red Blood Count 3.45 X10*6/uL (4.20-5.50); Red Cell Distribution Width 19.6 % (11.0-16.0); White Blood Count 16.4 X10*3/uL (4.8-10.8)
[2020-06-21 08:15] LABS: Venous Blood Gas Refer to POC result
[2020-06-21 08:15] LABS: VBG Base Excess 0.3 mmol/L; VBG HCO3 26 mmol/L (22-26); VBG pCO2 50 mmHg; VBG pH 7.32 (7.32-7.43); VBG pO2 88 mmHg
--- NOTE | 2020-06-21 08:24 | PC.NURSE ---
PT CONTINES TO REFUSE F/C INSERTION. DR. WATERMAN AWARE ORDERS TO CANCEL INSERTION OBTAINED
--- NOTE | 2020-06-21 08:27 | P.CDIC_ITS ---
CDI Concurrent Query Service Date: 06/21/20 Documentation Clarification: Please clarify if you are treating a proba ble/suspected/likely or confirmed: Consistency and clarity: Pneumonia txt Pneumonia rule out Please specify if known Provider Response: Other Other Diagnosis: Pneumonia ruled out PLEASE DO NOT DELETE/MODIFY EXISTING CONTENT Additional information is needed in order to code to the highest accuracy and appropriate Severity of Illness (SOI). Please clarify the information noted below in your progress notes and discharge summary. Risk Factors/Clinical Indicators/Treatments ED: Clinical impression - likely acute exacerbation of COPD, CHF, Pneumonia and pleural effusion Antibiotics CT shows obstructive pneumonia. Increasing shortness of breath, history of lung cancer. NC 2 liters oxygen, RR 27 HR 122 CDS: Bia Abreu [facility], [facility] Contact Number: [phone] Please Review the information above and exercise your independent professional judgment in responding to the query. If you concur, pleas document in the PROGRESS NOTES and DISCHARGE SUMMARY. If you do not agree with the query, please document in the query above. THIS QUERY IS PART OF THE PERMANENT MEDICAL RECORD
[2020-06-21 08:38] LABS: Alanine Aminotransferase 9 U/L (0-31); Albumin Level 2.9 g/dL (3.5-5.0); Alkaline Phosphatase 123 U/L (39-117); Anion Gap 15 (12-20); Aspartate Amino Transferase 11 U/L (5-31); Bilirubin Total 0.6 mg/dL (0.0-1.0); Blood Urea Nitrogen 4 mg/dL (9-16); Calcium 7.4 mg/dL (8.4-10.2); Carbon Dioxide 26 mmol/L (22-29); Chloride 99 mmol/L (96-108); Creatinine Clr Calc Pharmacy 139.7; Estimated Glomerular Filt Rate > 60; Glucose Random 84 mg/dL (60-115); Magnesium 1.8 mg/dL (1.6-2.6); Phosphorus 3.1 mg/dL (2.7-4.5); Potassium 3.8 mmol/L (3.3-5.1); Sodium 136 mmol/L (135-145); Total Protein 4.6 g/dL (6.5-8.0)
[2020-06-21] MEDS: dilTIAZem HCL CD 240 MG CAP.ER.DEG PO (08:41)
[2020-06-21 08:49] LABS: Band Neutrophils Percent 1 % (3-5); Lymphocytes Absolute Manual 0.2 X10*3/uL (0.6-4.8); Lymphocytes Percent Manual 1 % (20-40); Monocytes Absolute Manual 0.7 X10*3/uL (0.0-1.2); Monocytes Percent Manual 4 % (2-11); Neutrophils Absolute Manual 15.6 X10*3/uL (2.2-7.9); Neutrophils Percent Manual 94 % (45-73)
[2020-06-21 08:53] LABS: Macrocytosis 1+ (5-14) /OIF; Ovalocytes 1+ (5-14) /OIF; Platelet Estimate NORMAL (NORMAL); Platelet Morphology Comment NORMAL; RBC Morphology NOTED
[2020-06-21 08:54] LABS: Basophilic Stippling 1+ (0-2) /OIF; Polychromasia 1+ (0-2) /OIF; Toxic Vacuolation PRESENT
[2020-06-21 08:55] LABS: Schistocytes 1+ (0-2) /OIF
[2020-06-21] MEDS: Digoxin 0.5 MG/2 ML AMPUL 0.25 MG IVPUSH ×2 (10:09→18:04)
[2020-06-21] MEDS: ondansetron HCL 4 MG/2 ML VIAL IVPUSH (11:51)
--- NOTE | 2020-06-21 12:22 | P.PNCC_ITS ---
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 Richmond, COPD, AFib, COVID- 19 infection and March of 1020, TIA admitted on 06/20/2020 with several day history of progressive dyspnea and nausea. On ER evaluation patient hypotensive with poor response to initial fluid resuscitation requiring initiation with pressor support. Also, with significant leukocytosis, started on empiric broad- spectrum antibiotics. CT chest demonstrated worsening of known right-sided loculated pleural effusion. She denies worsening cough or sputum production or increased FiO2 requirements. No events overnight. Titrated off pressors. Physical Exam Vital Signs: Vital Signs: Last Vital Signs Temp 97.7 F 06/21/20 08:00 Pulse 134 H 06/21/20 10:09 Resp 14 06/21/20 08:00 BP 106/71 06/21/20 09:39 Pulse Ox 94 06/21/20 08:00 Body Mass Index 37.6 Const: General: no acute distress, alert and awake Eyes: Sclerae: sclerae normal EOM: EOMs intact bilaterally Neck: Neck: Yes no lymphadenopathy, Yes trachea midline and Yes supple Resp: Effort & Inspection: normal respiratory effort and no respiratory d istress Auscultation: clear to auscultation bilaterally Cardio: Rate: tachycardic Rhythm: abnormal rhythm regularly irregular Heart sounds: no gallops, no murmurs and no rubs GI: Palpation (GI): Soft to palpation and Other GI palpation findings present ( Nontender) Auscultation: normal bowel sounds Extrem: General: No clubbing, No cyanosis and Yes pedal edema (1+ bilateral) Objective Data Labs CBC & Chem 7: 06/21/20 08:01 06/21/20 08:02 Labs: Laboratory Results - last 24 hr 06/20/20 06/20/20 06/20/20 14:58 14:58 14:58 WBC RBC Hgb Hct MCV MCH MCHC RDW Plt Count MPV Immature Gran % (Auto) Neut % (Auto) Lymph % (Auto) Pinal % (Auto) Eos % (Auto) Baso % (Auto) Lymph # (Auto) Pinal # (Auto) Eos # (Auto) Baso # (Auto) Abs Immat Gran (auto) Absolute Neuts (auto) Absolute Nucleated RBC Nucleated RBC % (auto) Neutrophils % (Manual) Band Neutrophils % Lymphocytes % (Manual) Monocytes % (Manual) Abs Neuts (Manual) Lymphocytes # (Manual) Monocytes # (Manual) Toxic Vacuolation Platelet Estimate Plt Morphology Comment RBC Morphology Polychromasia Basophilic Stippling Macrocytosis Ovalocytes Schistocytes PT 36.9 H D INR 3.1 H APTT 34.2 VBG pH VBG pCO2 VBG pO2 VBG HCO3 VBG O2 Saturation VBG Base Excess Sodium Potassium Chloride Carbon Dioxide Anion Gap BUN Creatinine Estim Creat Clear Calc Estimated GFR Random Glucose Lactic Acid 1.0 Calcium Phosphorus Magnesium Total Bilirubin 0.9 AST ALT Alkaline Phosphatase Total Protein Albumin 06/21/20 06/21/20 06/21/20 08:01 08:02 08:09 WBC 16.4 H RBC 3.45 L Hgb 9.8 L Hct 31.3 L MCV 90.7 MCH 28.4 MCHC 31.3 RDW 19.6 H Plt Count 284 MPV 9.3 L Immature Gran % (Auto) Cancelled Neut % (Auto) Cancelled Lymph % (Auto) Cancelled Pinal % (Auto) Cancelled Eos % (Auto) Cancelled Baso % (Auto) Cancelled Lymph # (Auto) Cancelled Pinal # (Auto) Cancelled Eos # (Auto) Cancelled Baso # (Auto) Cancelled Abs Immat Gran (auto) Cancelled Absolute Neuts (auto) Cancelled Absolute Nucleated RBC 0.020 H Nucleated RBC % (auto) 0.1 Neutrophils % (Manual) 94 H Band Neutrophils % 1 L Lymphocytes % (Manual) 1 L Monocytes % (Manual) 4 Abs Neuts (Manual) 15.6 H Lymphocytes # (Manual) 0.2 L Monocytes # (Manual) 0.7 Toxic Vacuolation PRESENT Platelet Estimate NORMAL Plt Morphology Comment NORMAL RBC Morphology NOTED Polychromasia 1+ (0-2) Basophilic Stippling 1+ (0-2) Macrocytosis 1+ (5-14) Ovalocytes 1+ (5-14) Schistocytes 1+ (0-2) PT INR APTT VBG pH 7.32 VBG pCO2 50 VBG pO2 88 VBG HCO3 26 VBG O2 Saturation 95.0 VBG Base Excess 0.3 Sodium 136 Potassium 3.8 Chloride 99 Carbon Dioxide 26 Anion Gap 15 BUN 4 L Creatinine 0.46 L Estim Creat Clear Calc 139.7 Estimated GFR > 60 Random Glucose 84 Lactic Acid Calcium 7.4 L Phosphorus 3.1 Magnesium 1.8 Total Bilirubin 0.6 AST 11 ALT 9 Alkaline Phosphatase 123 H Total Protein 4.6 L Albumin 2.9 L Progress Note: A&P Assessment and plan (1) Coagulopathy: Status: Acute Assessment and Plan: Assessment: 64-year-old lady with underlying stage IV squamous cell lung cancer on 3rd line therapy under on-call allergy care, COPD, AFib admitted with dyspnea, hypotension, and nausea initially believe to be secondary to septic shock, however most likely secondary to distributive shock with intravascular volume depletion Plan: Neuro: No acute issues. Cardiac: Hypotension likely secondary to distributive shock secondary to intravascular volume depletion and hypoalbuminemia. Low suspicion for sepsis at this time. Titrated off pressors. Continue with colloidal and crystalloid support. Underlying AFib, continue with rate control with Cardizem and digoxin. Pulmonary: No acute issues. Underlying known right side loculated pleural effusion and advanced COPD. Continue with nebulized bronchodilators. Renal: No acute issues. Endo: No acute issues. GI: No acute issues. ID: No evidence of septic shock or severe sepsis at this time, empirically covered with broad-spectrum antibiotics. Cultures are pending. Heme/Onc: Coagulopathy likely secondary to poor nutritional status and underlying Xarelto use. Will hold off Xarelto at this time. Psych: No acute issues. Miscellaneous: No acute issues. Prophylaxis: Coagulopathic with increased INR Diet: Regular Critical care time spent: 60 minutes (2) COPD (chronic obstructive pulmonary disease): Status: Acute (3) Atrial fibrillation: Status: Acute (4) Squamous cell carcinoma of lung, stage IV: Status: Chronic (5) Shock: Status: Acute Time Spent With Patient Total time spent with greater than 50% in coordination of care (as documented) at patient's floor/unit and/or counseling patient:: 0 Critical Care Time Critical Care Time (minutes): 60
--- NOTE | 2020-06-21 12:45 | PC.NURSE ---
CONFIRMED WITH DR. WATERMAN THE USE OF ACCESSED LEFT CHEST PORT A CATH. POSITIVE BLOOD RETURN AND FLUSHES WELL.
--- NOTE | 2020-06-21 13:10 | PC.NURSE ---
SHIFT NOTE LEVOPHED INFUSION WAS PLACED ON HOLD BY PREVIOUS RN, BP MONITORED AND REPORTED TO MD. HR RAPID AFIB0 IVP CARDIZEM ORDERED AND ADM WELL IVP DIG. ORAL HOME CARDIZEM RESTARTED AND ADM. PT OOB TO THE CHAIR AND TOLERATED WELL. PT CONTINUED TO REFUSE F/C INSERTION DR. WATERMAN AWARE AND NO LONGER WANTS F/C INSERTED.
--- NOTE | 2020-06-21 14:00 | MHC.CM.PN ---
met with pt and her who explin they had no servceis prior to admisison.at this time they do not expect to require servceis when dcd cm will continue to follow
[2020-06-21] MEDS: Acetaminophen 325 MG TABLET 650 MG PO (16:44)
--- NOTE | 2020-06-21 17:50 | P.EN_ITS ---
Event Note Date of Service: 06/21/20 Event Note: Call by nurse to evaluate patient for atrial fibrillation with naty tricular rate between 120-140 range Patient asymptomatic denies shortness of breath, denies chest pain just finished her dinner On examination awake alert in no distress No elevated JVD Heart irregular Overall appear volume over loaded Diagnosis Stage IV squamous cell carcinoma It sided loculated pleural effusion Advance COPD Hypotension Atrial fibrillation with RVR Hypoalbuminemia Will give digoxin 0.25 mg x1 dose , bp stable received 1 dose of digoxin this morning,patient asymptomatic will add ensure can give iv albumin x1 dose.
[2020-06-21] MEDS: Albumin Human 25 % 100 ML IV (18:05)
[2020-06-21] MEDS: vancomycin HCL 1,000 MG in 0.9 % Sodium Chloride 250 ML 265 MG IV (19:43)
[2020-06-22] VITALS (13 sets, daily range): BP systolic 111–134; BP diastolic 57–78; PULSE 84–114; RESP 16–25; TEMP 36.4–37.2; O2SAT 90–97; BMI 37.6
[2020-06-22 00:10] LABS: ABG HCO3 34 mmol/L (22-26); ABG pCO2 70 mmHg (32-45); ABG pCO2 TC 69 mmHg (32-45); ABG pO2 71 mmHg (83-108); ABG pO2 TC 70 (83-108)
--- NOTE | 2020-06-22 00:46 | PM.EVENT ---
Event Note Date of Service: 06/22/20 Event Note: Hypoxia: RN mentioned that patient was mildly hypoxic. Patient was placed on supplemental oxygen. Blood gas showed pCO2 of 70, pH of 7.3. Patient breathing comfortably. Chest x-ray showed right-sided whiteout lung. Discussed with Dr. Maldonado from ICU attending-> mentioned it has been worsening since March, no acute intervention. Will continue to monitor.
[2020-06-22] MEDS: Furosemide 20 MG/2 ML VIAL IVPUSH ×2 (01:24→17:24)
--- NOTE | 2020-06-22 01:32 | PM.EVENT ---
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 Richmond, COPD, AFib, COVID-19 infection and March of 2020, TIA admitted on 06/20/2020 with several day history of progressive dyspnea and nausea. Initially admitted into the ICU for hypotension and pressors. She was also started on empiric broad-spectrum antibiotics. She was transfer to the medical floor 06/21/20 earlier in the day. Admission CT chest demonstrated worsening of known right-sided loculated pleural effusion but only requiring 1-3 L via NC since admission. Overnight, nursing was concerned for patient's respiratory status and ABGs done: 7.30/70/71/34. On my assessment patient was sleeping, noted to some apneic episodes when sleeping. When awake patient is alert and oriented x3, in no significant respiratory distress. Satting 97% on 2 L via nasal cannula. Lungs coarse and wet crackles throughout. Patient does not require ICU level care at this time not requiring significant amount of FiO2. She will benefit from diuresing and nocturnal BiPAP
--- NOTE | 2020-06-22 02:16 | PC.NURSE ---
Around 2300, pt noted to have audible congestion with course crackles throughout lung esquivel. Pt alert and oriented. Pt c/o mild shortness of breath. SpO2 86% on 3 L nasal cannula, all other vitals stable. Dr Camejo notified. Cxr and ABGs ordered. Maxwell PRISON KEEPER to bedside. Bipap ordered and placed on pt. 20 mg IV lasix ordered and administered. Continuous O2 applied, spO2>93% Pt resting in bed, high fall risk measures in place.
[2020-06-22 02:30] LABS: ABG Refer to POC result
[2020-06-22 04:59] LABS: Basophils Absolute Auto 0.1 X10*3/uL (0.0-0.2); Basophils Percent Auto 0.5 % (0-2); Hematocrit 30.6 % (37-47); Hemoglobin 9.7 g/dl (12.0-16.0); Imm Gran Abs Auto 0.81 X10*3/uL (0.00-0.03); Imm Gran Pct Auto 4.9 % (0.0-0.4); Lymphocytes Absolute Auto 0.4 X10*3/uL (1.2-4.9); Lymphocytes Percent Auto 2.6 % (20-40); MANUAL DIFF FLAG SCAN; Mean Corpuscular HGB Conc 31.7 g/dl (31.0-35.0); Mean Corpuscular Hemoglobin 28.9 pg (27.0-33.0); Mean Corpuscular Volume 91.1 fL (80-98); Mean Platelet Volume 9.4 fL (9.4-12.3); Monocytes Absolute Auto 0.8 X10*3/uL (0.1-1.2); Monocytes Percent Auto 4.9 % (2-11); NRBC Pct Auto 0.2 /100WBC (0.0-0.2); Neutrophils Absolute Auto 14.5 X10*3/uL (2.0-8.3); Neutrophils Percent Auto 87.1 % (45-73); Platelet Count 257 X10*3/uL (160-400); Red Blood Count 3.36 X10*6/uL (4.20-5.50); Red Cell Distribution Width 19.2 % (11.0-16.0); SCAN SMEAR FLAG 1; White Blood Count 16.7 X10*3/uL (4.8-10.8)
[2020-06-22 05:22] LABS: SLIDE REVIEW VERIFIED
[2020-06-22 05:27] LABS: Albumin Level 3.2 g/dL (3.5-5.0); Anion Gap 15 (12-20); Blood Urea Nitrogen 5 mg/dL (9-16); Calcium 7.5 mg/dL (8.4-10.2); Carbon Dioxide 27 mmol/L (22-29); Chloride 98 mmol/L (96-108); Estimated Glomerular Filt Rate > 60; Glucose Random 139 mg/dL (60-115); Magnesium 1.7 mg/dL (1.6-2.6); Phosphorus 2.5 mg/dL (2.7-4.5); Potassium 4.2 mmol/L (3.3-5.1); Sodium 136 mmol/L (135-145)
[2020-06-22 05:30] LABS: Vancomycin Trough 8.3 mcg/mL (10.0-20.0)
[2020-06-22] MEDS: vancomycin HCL 1,000 MG in 0.9 % Sodium Chloride 250 ML 265 MG IV ×2 (06:07→17:28)
[2020-06-22] MEDS: Digoxin 0.5 MG/2 ML AMPUL 0.25 MG IVPUSH (09:14)
[2020-06-22] MEDS: cefEPime HCl 1 GM in 0.9 % Sodium Chloride 50 ML IV ×2 (09:15→20:55)
[2020-06-22] MEDS: dilTIAZem HCL CD 240 MG CAP.ER.DEG PO (09:18)
--- NOTE | 2020-06-22 11:51 | HO.PM.IMPN ---
Subjective Subjective Date of Service: 06/25/20 Interval History: Follow up ICU downgrade for acute respiratory failure. Physical Exam Vital Signs: Vital Signs: Last Vital Signs Temp 97.8 F 06/22/20 11:09 Pulse 111 H 06/22/20 11:09 Resp 18 06/22/20 11:09 BP 119/57 L 06/22/20 11:09 Pulse Ox 96 06/22/20 11:09 Body Mass Index 37.6 Appearing in no acute distress head is normocephalic atraumatic eyes pupils are PERRLA sclera is anicteric mouth throat mucous membranes are intact and moist neck is supple no lymphadenopathy, no JVD noted lung sounds wheezes heart regular rate rhythm, clear S1, S2 positive bowel sounds, abdomen is soft, nontender neuro patient is alert x3, no focal deficits Objective Data Current Medications Generic Name Dose Route Start Last Admin Trade Name Freq PRN Reason Stop Dose Admin Acetaminophen 650 mg 06/21/20 10:01 06/21/20 16:44 Acetaminophen 325 Mg Tablet PO 650 mg Q6H PRN Administration Headache Albuterol/Ipratropium 3 ml 06/22/20 12:00 Albuterol/Iprat 2.5/0.5mg 3 Ml Ampul.Neb INHALE RQ4H WHILE AWAKE DEEPTHI Digoxin 0.25 mg 06/21/20 10:00 06/22/20 09:14 Digoxin 0.5 Mg/2 Ml Ampul IVPUSH 0.25 mg DAILY DEEPTHI Administration Diltiazem HCl 240 mg 06/21/20 08:00 06/22/20 09:18 Diltiazem Hcl Cd 240 Mg Cap.Er.Deg PO 240 mg DAILY DEEPTHI Administration Protocol Cefepime HCl 1 gm/ Sodium 50 mls @ 100 mls/hr 06/20/20 20:00 06/22/20 11:17 Chloride IV Infused Q12H DEEPTHI Infusion Vancomycin HCl 1,000 mg/ 270 mls @ 265 mls/hr 06/20/20 18:00 06/22/20 08:57 Sodium Chloride IV Infused Q12H DEEPTHI Infusion Ondansetron HCl 4 mg 06/20/20 16:44 06/21/20 11:51 Ondansetron Hcl 4 Mg/2 Ml Vial IVPUSH 4 mg Q8H PRN Administration Nausea Pharmacy Consult 1 each 06/20/20 16:46 Consult Rx Vancomycin Dosing MISCELLANE DAILY PRN Consult order Labs CBC & Chem 7: 06/25/20 05:57 06/25/20 05:57 Microbiology Microbiology Results: Microbiology 06/20/20 14:59 Blood - Venous Blood Culture - Preliminary No growth after 24 hours. 06/20/20 14:58 Blood - Venous Blood Culture - Preliminary No growth after 24 hours. 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 Richmond, COPD, AFib, COVID-19 infection and March 2020, TIA admitted on 06/20/2020 with several day history of progressive dyspnea and nausea. ER evaluated patient. She was hypotensive with poor response to initial fluid resuscitation requiring initiation with pressor support. Also, with significant leukocytosis, started on empiric broad-spectrum antibiotics. CT chest demonstrated worsening of known right-sided loculated pleural effusion. She denies worsening cough or sputum production or increased FiO2 requirements. Loculated pleural effusion. Chronic but worse on CT scan with white out of right lung and infiltrates. Likely causing breathing difficulties. -Pigtail cath high output, on chest tube suction -CT surgery considering Pleurx catheter if volume continues to be high -On Vanco and Cefepime. Afib RVR. No further episodes. Echo in 03/2020 was with preserved EF -Continue diltiazem and digoxin -Telemetry monitoring -Xarelto restarted CHF. Now euvolemic. Likely secondary to afib rvr. -lasix stopped. -follow I&O closely -daily weights Acute hypoxic respiratory failure. Multiple episodes of hypoxia but her saturation has been better. -Titrate oxygen -bipap as needed Right lung squamous cell carcinoma, clinical stage IIIA, January 2019. Metastatic cancer diagnosed in August 2019 - Under the care of Dr. Richmond, receiving palliative chemotherapy Attending: Dr. Castano
[2020-06-22 11:56] LABS: INTERNATIONAL NORM RATIO 1.4 (0.9-1.1); Prothrombin Time 16.8 SEC (10.8-13.0)
[2020-06-22] MEDS: Albuterol/Iprat 2.5/0.5MG 3 ML AMPUL.NEB INHALE ×3 (12:40→19:37)
--- NOTE | 2020-06-22 13:56 | MHC.CM.PN ---
per multi dis rounds pt to have pt eval prior mto dc ?need for str
[2020-06-23] VITALS (15 sets, daily range): BP systolic 100–154; BP diastolic 55–71; PULSE 85–115; RESP 18–24; TEMP 36.2–36.8; O2SAT 88–99
[2020-06-23] MEDS: ondansetron HCL 4 MG/2 ML VIAL IVPUSH (02:55)
[2020-06-23] MEDS: vancomycin HCL 1,000 MG in 0.9 % Sodium Chloride 250 ML 265 MG IV ×2 (06:09→18:44)
[2020-06-23 06:50] LABS: Basophils Absolute Auto 0.1 X10*3/uL (0.0-0.2); Basophils Percent Auto 0.4 % (0-2); Hematocrit 32.1 % (37-47); Hemoglobin 9.9 g/dl (12.0-16.0); Imm Gran Abs Auto 0.53 X10*3/uL (0.00-0.03); Imm Gran Pct Auto 3.9 % (0.0-0.4); Lymphocytes Absolute Auto 0.5 X10*3/uL (1.2-4.9); MANUAL DIFF FLAG SCAN; Mean Corpuscular HGB Conc 30.8 g/dl (31.0-35.0); Mean Corpuscular Hemoglobin 28.6 pg (27.0-33.0); Mean Corpuscular Volume 92.8 fL (80-98); Mean Platelet Volume 9.6 fL (9.4-12.3); Monocytes Absolute Auto 0.8 X10*3/uL (0.1-1.2); Monocytes Percent Auto 5.7 % (2-11); NRBC Pct Auto 0.1 /100WBC (0.0-0.2); Neutrophils Absolute Auto 11.6 X10*3/uL (2.0-8.3); Platelet Count 326 X10*3/uL (160-400); Red Blood Count 3.46 X10*6/uL (4.20-5.50); SCAN SMEAR FLAG 1; White Blood Count 13.5 X10*3/uL (4.8-10.8)
[2020-06-23 07:11] LABS: Anion Gap 11 (12-20); Blood Urea Nitrogen 7 mg/dL (9-16); Calcium 7.9 mg/dL (8.4-10.2); Carbon Dioxide 38 mmol/L (22-29); Chloride 95 mmol/L (96-108); Creatinine Clr Calc Pharmacy 139.7; Estimated Glomerular Filt Rate > 60; Glucose Random 112 mg/dL (60-115); Potassium 3.7 mmol/L (3.3-5.1); Sodium 140 mmol/L (135-145)
[2020-06-23] MEDS: Albuterol/Iprat 2.5/0.5MG 3 ML AMPUL.NEB INHALE ×3 (07:21→19:32)
[2020-06-23 07:31] LABS: SLIDE REVIEW VERIFIED
--- NOTE | 2020-06-23 07:57 | PC.NURSE ---
0730: monitor showed o2 sats in 70's. upon arrival into room, found patient with Cpap disconnected and SOB. Resp called and at bedside. Cpap taken off and placed on NRB temporarily. The changed to NC and given treatment. wheezes beth OOB to chair as well. Patient improved with interventions.
[2020-06-23 08:01] LABS: Appearance Urine CLEAR; Color Urine STRAW; Glucose Urine UA NEG (NEG); Leukocyte Esterase Urine NEG (NEG); Nitrite Urine NEG (NEG); PH 5.5 (5.0-8.0); Urine Blood NEG (NEG); Urine Ketones NEG (NEG); Urine Protein NEG (NEG-TRACE)
[2020-06-23] MEDS: Digoxin 0.5 MG/2 ML AMPUL 0.25 MG IVPUSH (08:23)
[2020-06-23] MEDS: dilTIAZem HCL CD 240 MG CAP.ER.DEG PO (08:25)
[2020-06-23] MEDS: cefEPime HCl 1 GM in 0.9 % Sodium Chloride 50 ML IV ×2 (08:25→20:04)
[2020-06-23] MEDS: Furosemide 20 MG/2 ML VIAL IVPUSH (08:26)
--- NOTE | 2020-06-23 11:51 | P.PNIM_ITS ---
Subjective Subjective Date of Service: 06/23/20 <SOUMYA Lynn - Last Filed: 06/23/20 16:51> 06/23/20 <Mahin Castano MD - Last Filed: 06/23/20 16:52> Interval History: f/u respiratory failure some SOB, cough ongoing leg edema no other complaints <SOUMYA Lynn - Last Filed: 06/23/20 16:51> Physical Exam Vital Signs: Vital Signs: Last Vital Signs Temp 98.0 F 06/23/20 07:39 Pulse 115 H 06/23/20 08:25 Resp 19 06/23/20 07:39 BP 119/58 L 06/23/20 08:25 Pulse Ox 88 L 06/23/20 07:39 Body Mass Index 37.6 <SOUMYA Lynn - Last Filed: 06/23/20 16:51> Const: Other: chronically ill appearing. <SOUMYA Lynn - Last Filed: 06/23/20 16:51> General: alert and awake <SOUMYA Lynn - Last Filed: 06/23/20 16:51> Nutritional Appearance: overweight <SOUMYA Lynn - Last Filed: 06/23/20 16:51> Eyes: Pupils: Equal, round and reactive pupils present <SOUMYA Lynn - Last Filed: 06/23/20 16:51> EOM: EOMs intact bilaterally <SOUMYA Lynn - Last Filed: 06/23/20 16:51> Resp: Other: wheezing, diminished <SOUMYA Lynn - Last Filed: 06/23/20 16:51> Cardio: Other: irregular, tachy <SOUMYA Lynn - Last Filed: 06/23/20 16:51> GI: Other: abdomen soft, non-distended <SOUMYA Lynn - Last Filed: 06/23/20 16:51> Neuro: Cranial nerves: Yes Equal, round and reactive pupils present <SOUMYA Lynn - Last Filed: 06/23/20 16:51> Extrem: Other: b/l pitting edema <SOUMYA Lynn - Last Filed: 06/23/20 16:51> Objective Data Current Medications Generic Name Dose Route Start Last Admin Trade Name Artemio PRN Reason Stop Dose Admin Acetaminophen 650 mg 06/21/20 10:01 06/21/20 16:44 Acetaminophen 325 Mg Tablet PO 650 mg Q6H PRN Administration Headache Albuterol/Ipratropium 3 ml 06/22/20 12:00 06/23/20 07:21 Albuterol/Iprat 2.5/0.5mg 3 Ml Ampul.Neb INHALE 3 ml RQ4H WHILE AWAKE DEEPTHI Administration Digoxin 0.25 mg 06/21/20 10:00 06/23/20 08:23 Digoxin 0.5 Mg/2 Ml Ampul IVPUSH 0.25 mg DAILY DEEPTHI Administration Diltiazem HCl 240 mg 06/21/20 08:00 06/23/20 08:25 Diltiazem Hcl Cd 240 Mg Cap.Er.Deg PO 240 mg DAILY DEEPTHI Administration Protocol Furosemide 20 mg 06/22/20 16:10 06/23/20 08:26 Furosemide 20 Mg/2 Ml Vial IVPUSH 20 mg BID@0900,1800 DEEPTHI Administration Protocol Cefepime HCl 1 gm/ Sodium 50 mls @ 100 mls/hr 06/20/20 20:00 06/23/20 10:21 Chloride IV Infused Q12H DEEPTHI Infusion Vancomycin HCl 1,000 mg/ 270 mls @ 265 mls/hr 06/20/20 18:00 06/23/20 08:27 Sodium Chloride IV Infused Q12H DEEPTHI Infusion Ondansetron HCl 4 mg 06/20/20 16:44 06/23/20 02:55 Ondansetron Hcl 4 Mg/2 Ml Vial IVPUSH 4 mg Q8H PRN Administration Nausea Pharmacy Consult 1 each 06/20/20 16:46 Consult Rx Vancomycin Dosing MISCELLANE DAILY PRN Consult order <SOUMYA Lynn - Last Filed: 06/23/20 16:51> Labs CBC & Chem 7: : 06/23/20 05:47 06/23/20 05:47 <SOUMYA Lynn - Last Filed: 06/23/20 16:51> Microbiology Microbiology Results: Microbiology 06/20/20 14:59 Blood - Venous Blood Culture - Preliminary No growth after 48 hours. 06/20/20 14:58 Blood - Venous Blood Culture - Preliminary No growth after 48 hours. <SOUMYA Lynn - Last Filed: 06/23/20 16:51> Assessment and Plan (1) Acute respiratory failure with hypoxia: Status: Acute <SOUMYA Lynn - Last Filed: 06/23/20 16:51> (2) Pleural effusion, right: Status: Acute <SOUMYA Lynn - Last Filed: 06/23/20 16:51> Assessment and Plan: 64-year-old lady with underlying history of stage IV squamous cell carcinoma on 3rd line therapy under care of Dr. Richmond, COPD, AFib, COVID-19 infection and March 2020, TIA admitted on 06/20/2020 with several day history of progressive dyspnea and nausea. ER evaluated patient. She was hypotensive with poor response to initial fluid resuscitation requiring initiation with pressor support. Also, with significant leukocytosis, started on empiric broad- spectrum antibiotics. CT chest demonstrated worsening of known right-sided loculated pleural effusion. She denies worsening cough or sputum production or increased FiO2 requirements. Acute respiratory failure with hypoxia and hypercarbia. Multifactorial r/t advancement of underlying lung ca/pleural effusion/COPD/PNA Started on bipap at night in ICU. Still requiring supplemental o2 -bipap as needed -pigtail catheter for effusion -antibiotics for ?pna -breathing treatments, steroids Loculated pleural effusion. Possible post postobstructive pneumonia. Chronic but worse on CT scan with white out of right lung and infiltrates. Likely causing breathing difficulties. -Pig tail catheter scheduled for today -Thoracic surgery consult pending -continue empiric abx, Vanco and Cefepime started 06/20 D#4 COPD -continue breathing treatments -will add solumedrol Right lung squamous cell carcinoma, clinical stage IIIA, January 2019. Metastatic cancer diagnosed in August 2019 - Under the care of Dr. Richmond, receiving palliative chemotherapy Afib RVR. Echo in 03/2020 w/ preserved EF -Continue diltiazem and digoxin, will change digoxin to PO -Telemetry monitoring -xarelto on hold for procedure HFpEF. ECHO from March with preserved EF possibly component of chf. Leg edema likely multifactorial r/t poor nutritional status as well -will check BNP, cxr determine need for further diuresis -follow I&O closely -daily weights Coagulopathy. Secondary to anticoagulation/poor nutritional status. INR initially 3.1, down to 1.4 DVT ppx - will resume xarelto after pigtail catheter placement Attending: Dr. Castano <SOUMYA Lynn - Last Filed: 06/23/20 16:51> Patient seen and examined independently and I was present during oscar portion of E/M service. Agree with SOUMYA Jha's history, physical, assessment, and plan. Seen and examined this AM and afternoon post procedure. Placed on BIPAP post procedure and now improved. Awake and talking. Will wean BIPAP. Continue antibiotics. Start steroids. Check BNP. Hold lasix today. Thoracic on board for manage chest tube. <Mahin Castano MD - Last Filed: 06/23/20 16:52>
--- NOTE | 2020-06-23 12:08 | PC.NURSE ---
11:30. patient went down for thoracic draining procedure.
[2020-06-23] MEDS: Lidocaine HCl 1 % MPF 5 ML VIAL 10 ML SUBCUT (12:39)
--- NOTE | 2020-06-23 13:37 | PC.NURSE ---
patient returned from pigtail CT drain procedure. Versed and Fentanyl given for procedure. Patient extremely sleepy and O2 continues to drop into 70's. Patient uses Bipap at night. Resp placed her back on Bipap for a few hours to let her rest. Dr. Mcnair [employer] EXTERMINATOR notified.
--- NOTE | 2020-06-23 13:46 | PC.NURSE ---
LS dim with fine rales at bases. No SOB noted. Dressing to pigtail CDI. Ct to waterseal. No airleak noted. -20cm suction per radiologist that placed tube (confirmed by nurse Sadia in special procedures via phone as well. Md also aware of large initial volume of serous fluid. CT marked at 1400 at this time. See previous note about pt needing to be placed on bipap due to post procedure sleepiness.
[2020-06-23 14:17] LABS: Total Protein 4.6 g/dL (6.5-8.0)
--- NOTE | 2020-06-23 15:28 | P.CONGS_ITS ---
History of Present Illness Consult details Consult date: 06/23/20 Reason for consult: other (right pleural effusion) Requesting physician: Zeina Hoffman Narrative: Ms. Crane is an unfortunate 64 year old female who has been diagnosed with stage IV squamous cell carcinoma of the lung and is being followed by Dr. Richmond from oncology. Recent PET/CT unfortunately showed progression of disease and therefore was changed to 3rd line chemotherapy. She was diagnosed with COVID-19 pneumonia in March 2020 where she was found to have a large right pleural effusion (and has had at least a moderate right sided pleural effusion since CT done in 01/2020). Looking back it does not appear that she has ever had a thoracentesis and the /patient deny this ever taking place. Since then she has had a significant decline in her overall respiratory health, especially of late. She presented to the hospital after several days of worsening shortness of breath and was found to be hypotensive with leukocytosis and respiratory failure. She has been treated with broad spectrum antibotics and steroids but has required the use of BiPAP for respiratory support. CT chest done this admission showed an increased loculated right pleural effusion and Thoracic Surgery has been consulted for this reason. Today, patient had an IR guided pigtail placed with specimen sent for analysis and placed to [facility]. At time of my visit the patient is sleepy on BiPAP with at bedside. She has been tolerating nasal cannula, however was placed back to BiPAP following IR procedure due to hypoxia related to sleepiness. Patient denies any pain or discomfort around the pigtail insertion site. She feels overall comfortable at this time. Majority of history obtained from due to patient's sleepiness following the procedure. Review of Systems Review of Systems: Yes Other (limited due to patient's sleepiness and on BiPAP ) Constitutional: Constitutional: Denies chills, Reports fatigue and Reports weakness Cardiovascular: Cardiovascular: Denies chest pain and Reports dyspnea Respiratory: Respiratory: Reports cough, Denies hemoptysis, Denies pain on inspiration, Denies pain with cough, Reports dyspnea and Reports other (yellow sputum at home per ) Gastrointestinal: Gastrointestinal: Denies abdominal pain and Denies nausea Neurologic: Reports weakness Endocrine: Endocrine: Reports fatigue [facility] Past Medical History Medical History (Updated 06/23/20 @ 15:52 by SOUMYA Baird) Atrial fibrillation COPD (chronic obstructive pulmonary disease) HLD (hyperlipidemia) Hospital discharge follow-up Pleural effusion, right [id number] condition Squamous cell carcinoma of lung, stage IV TIA (transient ischemic attack) Family History Family History Father Hypertension Mother No problems noted. Sister Hypertension Diverticulosis Brother Hypertension Surgical History Surgical History H/O breast biopsy No pertinent past surgical history Social History Social History Household Members: Spouse Housing: Other Alcohol intake: never Smoking Status: Former smoker Years Smoked: 30 yrs Advance Directives Date on File: 03/01/19 service: No Current occupational status: retired [employer] Allergies Allergy/AdvReac Type Severity Reaction Status Date / Time amoxicillin [AMOXICILLIN] Allergy Intermediate HIVES Verified 06/09/20 17:07 Iodinated Contrast Media AdvReac Intermediate NAUSEA ?T? Verified 06/09/20 17:07 [IVP DYE] VOMITING azithromycin AdvReac Unknown diarrhea Verified 06/09/20 17:07 Active Medications: Current Medications Generic Name Dose Route Start Last Admin Trade Name Freq PRN Reason Stop Dose Admin Acetaminophen 650 mg 06/21/20 10:01 06/21/20 16:44 Acetaminophen 325 Mg Tablet PO 650 mg Q6H PRN Administration Headache Albuterol/Ipratropium 3 ml 06/22/20 12:00 06/23/20 11:52 Albuterol/Iprat 2.5/0.5mg 3 Ml Ampul.Neb INHALE Not Given RQ4H WHILE AWAKE DEEPTHI Digoxin 0.25 mg 06/24/20 09:00 Digoxin 0.25 Mg Tablet PO DAILY DEEPTHI Diltiazem HCl 240 mg 06/21/20 08:00 06/23/20 08:25 Diltiazem Hcl Cd 240 Mg Cap.Er.Deg PO 240 mg DAILY DEEPTHI Administration Protocol Cefepime HCl 1 gm/ Sodium 50 mls @ 100 mls/hr 06/20/20 20:00 06/23/20 10:21 Chloride IV Infused Q12H DEEPTHI Infusion Vancomycin HCl 1,000 mg/ 270 mls @ 265 mls/hr 06/20/20 18:00 06/23/20 08:27 Sodium Chloride IV Infused Q12H DEEPTHI Infusion Methylprednisolone Sodium Succinate 40 mg 06/23/20 21:00 Methylprednisolone Sod Succ 40 Mg/Ml Vial IVPUSH BID [facility] Omeprazole 20 mg 06/24/20 06:30 Omeprazole 20 Mg Capsule. PO DAILY@0630 [facility] Ondansetron HCl 4 mg 06/20/20 16:44 06/23/20 02:55 Ondansetron Hcl 4 Mg/2 Ml Vial IVPUSH 4 mg Q8H PRN Administration Nausea Pharmacy Consult 1 each 06/20/20 16:46 Consult Rx Vancomycin Dosing MISCELLANE DAILY PRN Consult order Home Medications Medication Instructions Recorded Confirmed Last Taken Type One-A-Day Womens Formula 1 tab PO DAILY 12/25/19 06/20/20 04/04/20 History omeprazole 20 mg capsule,delayed 20 mg PO DAILY 12/31/19 06/20/20 04/04/20 History release Anoro Ellipta 1 inh INHALATION DAILY 02/05/20 06/20/20 04/04/20 History loratadine 10 mg PO DAILY PRN 04/04/20 06/20/20 04/04/20 History Physical Exam Vital Signs: Vital Signs: Last Vital Signs Temp 98.0 F 06/23/20 14:00 Pulse 99 06/23/20 15:00 Resp 20 06/23/20 15:00 BP 106/63 06/23/20 15:00 Pulse Ox 96 06/23/20 15:00 Body Mass Index 37.6 General: No acute distress, resting comfortably in bed, sleeping but arousable then falls asleep easily again. on BiPAP. Head: Normocephalic, atraumatic, symmetric Eyes: Sclera anicteric, eyelids without edema or erythema ENT: Oral mucosa and tongue are moist without lesions or exudates Neck: Soft, supple, symmetric, trachea midline, no crepitus Cardiovascular: Regular rhythm, 100bpm, no murmur/rubs/gallops, BUE without edema, BLE with 1-2+ pitting edema, no calf tenderness bilaterally Respiratory: Scattered rhonchi bilaterally (R>L, anterior lung esquivel examined only), breathing appears comfortbale on BiPAP. No use of accessory muscles. Right pigtail chest tube x 1 to [facility] on -20 suction, serous drainage, no air leak. Port accessed. Gastrointestinal: Soft, non-tender, non-distended, +normoactive bowel sounds. Skin: Warm and dry throughout, no rashes Results Labs Result diagrams: 06/23/20 05:47 06/23/20 05:47 Labs: Abnormal lab results 06/23/20 06/23/20 06/23/20 Range/Units 05:47 05:47 13:45 WBC 13.5 H (4.8-10.8) X10*3/uL RBC 3.46 L (4.20-5.50) X10*6/uL Hgb 9.9 L (12.0-16.0) g/dl Hct 32.1 L (37-47) % MCHC 30.8 L (31.0-35.0) g/dl RDW 19.0 H (11.0-16.0) % Immature Gran % (Auto) 3.9 H (0.0-0.4) % Neut % (Auto) 86.0 H (45-73) % Lymph % (Auto) 4.0 L (20-40) % Lymph # (Auto) 0.5 L (1.2-4.9) X10*3/uL Abs Immat Gran (auto) 0.53 H (0.00-0.03) X10*3/uL Absolute Neuts (auto) 11.6 H (2.0-8.3) X10*3/uL Absolute Nucleated RBC 0.020 H (0.0-0.012) X10*3/uL Chloride 95 L (96-108) mmol/L Carbon Dioxide 38 H (22-29) mmol/L Anion Gap 11 L (12-20) BUN 7 L (9-16) mg/dL Creatinine 0.46 L (0.5-1.4) mg/dL Calcium 7.9 L (8.4-10.2) mg/dL Total Protein 4.6 L (6.5-8.0) g/dL Short CBC 06/23/20 Range/Units 05:47 WBC 13.5 H (4.8-10.8) X10*3/uL Hgb 9.9 L (12.0-16.0) g/dl Hct 32.1 L (37-47) % Plt Count 326 D (160-400) X10*3/uL BMP 06/23/20 05:47 Sodium 140 Potassium 3.7 Chloride 95 L Carbon Dioxide 38 H BUN 7 L Creatinine 0.46 L Calcium 7.9 L Urine 06/22/20 Range/Units Unknown Urine Color STRAW Urine Appearance CLEAR Urine pH 5.5 (5.0-8.0) Ur Specific [place] 1.020 (1.005-1.025) Urine Protein NEG (NEG-TRACE) MG/DL Urine Glucose (UA) NEG (NEG) MG/DL EXAMINATION: XR CHEST 06/23/20 CLINICAL INFORMATION: Status post tube placement COMPARISON: Chest x-ray 06/21/2020 TECHNIQUE: Frontal view of the chest was obtained. FINDINGS: There is reexpansion of right lung following placement of a right chest tube catheter in the lung base. No visible pneumothorax. There are patchy opacities in right upper lobe and right lower lobe. The left lung is expanded with prominent interstitial changes. The heart size and the great vessels are normal caliber. There is a left central catheter with its tip in the proximal SVC. XR/XR chest 1V IMPRESSION: Following insertion of right chest tube there is reexpansion of the right lung. Right chest tube is at the lung base. Patchy opacities are seen in the right upper lobe likely infiltrate or atelectasis. The left lung is clear. There is a left central line with its tip in the proximal SVC. EXAMINATION: CT CHEST WITH CONTRAST 06/20/20 CLINICAL INFORMATION: Increasing shortness of breath. History of lung cancer. COMPARISON: Previous chest x-rays most recent April [address] most recent March 2020 TECHNIQUE: Multidetector volumetric CT imaging of the chest was obtained after the administration of 65 mL of Omnipaque 350 intravenous contrast without immediate adverse reactions. Axial MIP volume rendering provided. Sagittal and coronal reformatted images were obtained. This CT examination was performed using dose optimization techniques as appropriate, variously including the following: *Automated exposure control *Adjustment of mA and/or kV according to patient size (this includes techniques or standardized protocols for targeted exams where dose is matched to indication/reason for exam; i.e. extremities or head) *Use of iterative reconstruction technique DLP: 3-6 mGy-cm FINDINGS: LUNGS: There is compressive atelectasis/consolidation of the right middle lobe and right lower lobe. There is increasing consolidation with air bronchograms seen in the right upper lobe. There is evidence of mild emphysema seen in the left lung. There are increased peripheral interstitial markings in the left lung that appear unchanged. The previously identified groundglass attenuation and semisolid nodular opacities in the lingula left lower lobe appear decreased in size and density. Largest measures 4 x 14 mm axial image 29 series 3 compared to approximately 1.4 x 1.6 cm on previous exam. There are increasing small peripheral or subpleural or pleural-based nodules at the left lung base, largest measuring 5 x 10 mm axial image 39 series 4. MEDIASTINUM: There is an enlarged right tracheoesophageal groove lymph node that measures 2 cm. This is increased in size from previous exam when this measured approximately 1 x 1.7 cm. No other enlarged mediastinal lymph nodes are seen. There are no enlarged left hilar lymph nodes. Evaluation for right hilar adenopathy is limited due to dense central lung consolidation. The heart is normal in size. There is no pericardial effusion. There is mild coronary artery calcification. There is a left jugular port with tip projecting over the SVC. PLEURA: There is an increasing probably partially loculated large right pleural effusion. There is a small left pleural effusion that appears decreased in size. AXILLA: No lymphadenopathy. UPPER ABDOMEN: The left lobe of the liver is enlarged and expanded and extends to the left upper quadrant. There is a large 5 x 8 cm low-attenuation liver lesion in the lateral segment of the left lobe adjacent to the spleen axial image 45 series 3. There is a 1.3 cm low-attenuation lesion in the posterior segment of the right lobe axial image 52 series 3. There is a partially visualized 2 x 2.5 cm lesion low-attenuation lesion in the posterior segment of the right lobe axial image 61 series 3. There is a 1.3 cm low-attenuation lesion in the spleen axial image 45 series 3. These lesions appear new or increased in size from prior exam and are suggestive of metastatic disease. There is a small left renal cyst. OSSEOUS STRUCTURES: There are T8 and T6 and T5 vertebral body compression fractures that appear unchanged. CT/CT chest w con IMPRESSION: Increasing loculated right pleural effusion. Compressive atelectasis/consolidation of the right middle and right lower lobes. Increasing denser consolidation and volume loss of the right upper lobe. Emphysema and increased peripheral interstitial markings in the left lung. Interval decrease in size and density of groundglass attenuation and semisolid nodular opacities in the left lung seen on March 2020 exam. New solid-appearing peripheral or subpleural or pleural-based nodules adjacent to the left lower lobe. Increasing right mediastinal tracheoesophageal lymph node. New or increasing liver lesions and question splenic lesion. Stable thoracic spine compression fractures. EXAMINATION: CT ANGIOGRAM OF THE CHEST WITH AND WITHOUT CONTRAST (CT PULMONARY ANGIOGRAM FOR PE) 04/04/20 CLINICAL INFORMATION: Reason for Exam hypoxia, SOB, +lung cancer COMPARISON: Previous chest CT scans most recent 02/16/2020 TECHNIQUE: Prior to contrast administration, noncontrast localization images were obtained. Subsequently, multidetector volumetric imaging was performed from the thoracic inlet to below the diaphragms following the administration of 65 mL Omnipaque 350 intravenous contrast. No contrast reaction reported Sagittal, coronal, and MIP oblique sagittal reformatted images were obtained on the CT workstation, uploaded to PACS, and reviewed. This CT examination was performed using dose optimization techniques as appropriate, variously including the following: *Automated exposure control *Adjustment of mA and/or kV according to patient size (this includes techniques or standardized protocols for targeted exams where dose is matched to indication/reason for exam; i.e. extremities or head) *Use of iterative reconstruction technique Total exam dose-length product 430 mGy-cm FINDINGS: QUALITY OF STUDY/CONTRAST BOLUS: Satisfactory. PULMONARY ARTERIES: No central or segmental pulmonary emboli. THORACIC AORTA: No aneurysm or dissection. LUNG: There is a groundglass attenuation, some denser consolidation and increased interstitial markings seen in the right upper lobe. This appears increased from previous exam. There is denser subsegmental atelectasis or consolidation seen in the central right middle and right lower lobes. This is increased from previous exam as well. The previously identified 1.2 cm right infrahilar nodule on previous exam is is not well delineated. There are new increased interstitial markings and groundglass attenuation seen in the left upper lobe. There are new scattered nodular opacities seen in the left lower lobe. There is a groundglass attenuation nodular opacity in the left lower lobe that measures 6 mm axial image 27 series 5 that is stable. There is a new adjacent 1 cm groundglass attenuation nodule axial image 27 series 5 in the left lower lobe and several more inferior groundglass attenuation nodules in the left lower lobe largest measuring 1.8 x 2.3 cm axial image 33 series 5. PLEURA: There is a large right pleural effusion. This appears increased from previous exam. There is a new moderate small to moderate left pleural effusion that is new from previous exam. MEDIASTINUM: Normal heart size. No pericardial effusion. No evidence of septal bowing or right heart strain. There is stable mediastinal lymphadenopathy. Largest lymph node is a right tracheoesophageal groove lymph node that measures 1.4 x 1.8 cm axial image 10 series 5. There are smaller mediastinal lymph nodes that are stable. Evaluation for right-sided hilar adenopathy is difficult due to dense central right lung consolidation. No left-sided hilar adenopathy is seen. There is a new left jugular port with tip projecting over the SVC. CHEST WALL/AXILLA: No axillary or internal mammary lymphadenopathy. OSSEOUS STRUCTURES: There are degenerative changes of the spine. There are midthoracic vertebral body compression fractures that appear unchanged. UPPER ABDOMEN: There is fullness of the right adrenal gland seen on coronal recent drop images. This is not appreciated on the source axial images be artifactual motion. No reflux of contrast into the hepatic veins to suggest elevated right heart pressures. CT/CT angio chest PE protocol IMPRESSION: No evidence of pulmonary embolism. Increasing groundglass attenuation, increased interstitial markings and denser consolidation in the right upper lobe. Increasing denser atelectasis or consolidation in the central right middle and right lower lobes. New groundglass attenuation and increased interstitial markings in the left upper lobe. New groundglass attenuation nodular opacities in the left lower lobe. How much of the right-sided lung findings represent possible post treatment/radiation change versus residual neoplasm or infection is uncertain. New left-sided findings raise concern for infectious or inflammatory process. Increasing large right pleural effusion and small to moderate left pleural effusion. Stable compression fractures. VTE: negative Assessment and Plan (1) Squamous cell carcinoma of lung, stage IV: Qualifiers: Laterality: unspecified laterality Qualified Code(s): C34.90 - Malignant neoplasm of unspecified part of unspecified bronchus or lung Status: Chronic (2) Pleural effusion, right: Status: Acute 64 year old female with stage IV squamous cell lung carcinoma with progressive disease now on 3rd line treatment. Progressive shortness of breath since COVID-19 pneumonia in March 2020, now with respiratory failure requiring intermittent BiPAP. Found to have a large right pleural effusion (which looking back has been present to some degree since at least January 2020). * IR guided pigtail placed today. Patient has drained about 1700cc of serous fluid so far. Post-procedure CXR shows increased right lung aeration following this procedure. * Routine pleural fluid studies ordered, including culure and cytology. * Etiology of pleural effusion unclear, however differential includes malignancy or parapneumonic process. * Will keep chest tube to -20 suction and monitor outputs. * Check morning CXR. * If patient continues to have high outputs, or if positive for malignancy, can consider changing out to a Pleurx catheter for ongoing outpatient palliative effusion management. Case discussed with Dr. Chew. We will follow along with you and manage the chest tube. Please call with any questions or concerns.
[2020-06-23 18:50] LABS: B Type Natriuretic Peptide 362 pg/mL (<100)
--- NOTE | 2020-06-23 18:52 | PC.NURSE ---
RECIEVED REPORT ON PATIENT AT 1545 FROM PREVIOUS RN. MAINTAINED PT ON BIPAP UNTIL 1700. PT SWITCHED BACK TO 3L VIA NC WITH GOOD EFFECT. MORE AWAKE AND ANSWERING APPROPRIATELY AT BEDSIDE UPDATED ON PT CONDITION..
[2020-06-23] MEDS: methylPREDNISolone Sod Succ 40 MG/ML VIAL IVPUSH (20:04)
[2020-06-24] VITALS (14 sets, daily range): BP systolic 74–155; BP diastolic 45–83; PULSE 82–118; RESP 14–20; TEMP 36.1–36.7; O2SAT 89–100
[2020-06-24] MEDS: Omeprazole 20 MG CAPSULE.DR PO (06:40)
[2020-06-24] MEDS: vancomycin HCL 1,250 MG in 0.9 % Sodium Chloride 250 ML 166.67 MG IV ×2 (06:40→19:35)
[2020-06-24] MEDS: Albuterol/Iprat 2.5/0.5MG 3 ML AMPUL.NEB INHALE ×4 (07:23→19:28)
[2020-06-24 08:07] LABS: Hematocrit 36.8 % (37-47); Mean Corpuscular HGB Conc 29.9 g/dl (31.0-35.0); Mean Corpuscular Hemoglobin 27.8 pg (27.0-33.0); Mean Corpuscular Volume 92.9 fL (80-98); Mean Platelet Volume 9.8 fL (9.4-12.3); Platelet Count 377 X10*3/uL (160-400); Red Blood Count 3.96 X10*6/uL (4.20-5.50); Red Cell Distribution Width 18.7 % (11.0-16.0); White Blood Count 14.9 X10*3/uL (4.8-10.8)
[2020-06-24] MEDS: cefEPime HCl 1 GM in 0.9 % Sodium Chloride 50 ML IV ×2 (08:41→21:22)
[2020-06-24 08:42] LABS: Anion Gap 18 (12-20); Blood Urea Nitrogen 11 mg/dL (9-16); Calcium 8.2 mg/dL (8.4-10.2); Carbon Dioxide 32 mmol/L (22-29); Chloride 93 mmol/L (96-108); Creatinine Clr Calc Pharmacy 121.2; Estimated Glomerular Filt Rate > 60; Glucose Random 127 mg/dL (60-115); Sodium 138 mmol/L (135-145)
[2020-06-24 08:46] LABS: B Type Natriuretic Peptide 204 pg/mL (<100)
[2020-06-24] MEDS: methylPREDNISolone Sod Succ 40 MG/ML VIAL IVPUSH ×2 (10:11→21:22)
[2020-06-24] MEDS: Digoxin 0.25 MG TABLET PO (10:12)
[2020-06-24] MEDS: dilTIAZem HCL CD 240 MG CAP.ER.DEG PO (10:14)
--- NOTE | 2020-06-24 11:24 | MHC.CLN ---
Addendum entered by Fina Zuluaga, LINDY 06/24/20 11:27: ADDENDUM TO NOTE DIET RX: 2GM NA-APPROPRIATE Original Note: RE: CONSULT PO INTAKE 75-100% (06/22-06/24) DIET RX: REGULAR-APPROPRIATE PT REPORTS APPETITE HAS IMPROVED SINCE ADMISSION NO C/O NAUSEA; DRINKING ENSURE CLEAR AT BEDSIDE FOLLOWING
--- NOTE | 2020-06-24 13:23 | MHC.CM.PN ---
per rounds pt wiill remain in hospital over the weekend and will likely require str which will be determined by eval when ordered
--- NOTE | 2020-06-24 14:14 | P.PNIM_ITS ---
Subjective Subjective Date of Service: 06/24/20 <SOUMYA Lynn - Last Filed: 06/24/20 14:41> 06/24/20 <Mahin Castano MD - Last Filed: 06/24/20 16:24> Interval History: Follow-up for Respiratory failure, pleural effusion s/p pigtail catheter placement with significant output Feels much better this morning, more awake <SOUMYA Lynn - Last Filed: 06/24/20 14:41> Review of Systems Review of Systems: Yes all other systems are reviewed and are negative <SOUMYA Lynn - Last Filed: 06/24/20 14:41> Constitutional Constitutional: Denies chills and Denies fever(s) <SOUMYA Lynn - Last Filed: 06/24/20 14:41> Cardiovascular Cardiovascular: Denies chest pain <SOUMYA Lynn - Last Filed: 06/24/20 14:41> Gastrointestinal Gastrointestinal: Denies abdominal pain <SOUMYA Lynn - Last Filed: 06/24/20 14:41> Physical Exam Vital Signs: Vital Signs: Last Vital Signs Temp 97.7 F 06/24/20 11:22 Pulse 91 06/24/20 11:22 Resp 18 06/24/20 11:22 BP 100/57 L 06/24/20 11:57 Pulse Ox 91 L 06/24/20 11:22 Body Mass Index 37.6 <SOUMYA Lynn - Last Filed: 06/24/20 14:41> Const: Other: chronically ill appearing. <SOUMYA Lynn - Last Filed: 06/24/20 14:41> General: alert and awake <SOUMYA Lynn - Last Filed: 06/24/20 14:41> Nutritional Appearance: overweight <SOUMYA Lynn - Last Filed: 0 06/24/20 14:41> Eyes: Pupils: Equal, round and reactive pupils present <SOUMYA Lynn Last Filed: 06/24/20 14:41> EOM: EOMs intact bilaterally <SOUMYA Lynn - Last Filed: 06/24/20 14:41> Chest: Other: Right-sided pigtail catheter in place with significant output <SOUMYA Lynn - Last Filed: 06/24/20 14:41> Resp: Other: diminished <SOUMYA Lynn - Last Filed: 06/24/20 14:41> Cardio: Other: irregular <SOUMYA Lynn - Last Filed: 06/24/20 14:41> GI: Other: abdomen soft, non-distended <SOUMYA Lynn - Last Filed: 06/24/20 14:41> Neuro: Cranial nerves: Yes Equal, round and reactive pupils present <SOUMYA Lynn - Last Filed: 06/24/20 14:41> Extrem: Other: b/l pitting edema, somewhat improved <SOUMYA Lynn - Last Filed: 06/24/20 14:41> Objective Data Current Medications Generic Name Dose Route Start Last Admin Trade Name Freq PRN Reason Stop Dose Admin Acetaminophen 650 mg 06/21/20 10:01 06/21/20 16:44 Acetaminophen 325 Mg Tablet PO 650 mg Q6H PRN Administration Headache Albuterol/Ipratropium 3 ml 06/22/20 12:00 06/24/20 11:04 Albuterol/Iprat 2.5/0.5mg 3 Ml Ampul.Neb INHALE 3 ml RQ4H WHILE AWAKE DEEPTHI Administration Digoxin 0.25 mg 06/24/20 09:00 06/24/20 10:12 Digoxin 0.25 Mg Tablet PO 0.25 mg DAILY DEEPTHI Administration Diltiazem HCl 240 mg 06/21/20 08:00 06/24/20 10:14 Diltiazem Hcl Cd 240 Mg Cap.Er.Deg PO 240 mg DAILY DEEPTHI Administration Protocol Cefepime HCl 1 gm/ Sodium 50 mls @ 100 mls/hr 06/20/20 20:00 06/24/20 09:11 Chloride IV Infused Q12H DEEPTHI Infusion Vancomycin HCl 1,250 mg/ 250 mls @ 166.667 mls/hr 06/24/20 07:00 06/24/20 08:42 Sodium Chloride IV Infused Q12H DEEPTHI Infusion Methylprednisolone Sodium Succinate 40 mg 06/23/20 21:00 06/24/20 10:11 Methylprednisolone Sod Succ 40 Mg/Ml Vial IVPUSH 40 mg BID DEEPTHI Administration Omeprazole 20 mg 06/24/20 06:30 06/24/20 06:40 Omeprazole 20 Mg Capsule. PO 20 mg DAILY@0630 DEEPTHI Administration Ondansetron HCl 4 mg 06/20/20 16:44 06/23/20 02:55 Ondansetron Hcl 4 Mg/2 Ml Vial IVPUSH 4 mg Q8H PRN Administration Nausea Pharmacy Consult 1 each 06/20/20 16:46 Consult Rx Vancomycin Dosing MISCELLANE DAILY PRN Consult order <SOUMYA Lynn - Last Filed: 06/24/20 14:41> Labs CBC & Chem 7: : 06/24/20 05:56 06/24/20 05:56 <SOUMYA Lynn - Last Filed: 06/24/20 14:41> Microbiology Microbiology Results: Microbiology 06/23/20 12:13 Lung Right Lower Lobe Gram Stain - Final 06/23/20 12:13 Lung Right Lower Lobe Routine Culture - Preliminary No growth to date. 06/23/20 12:13 Lung Right Lower Lobe Anaerobic Culture - Preliminary No growth to date. 06/20/20 14:59 Blood - Venous Blood Culture - Preliminary No growth after 48 hours. 06/20/20 14:58 Blood - Venous Blood Culture - Preliminary No growth after 48 hours. 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 Richmond, COPD, AFib, COVID-19 infection and March 2020, TIA admitted on 06/20/2020 with dyspnea, hypotension, and nausea initially believe to be secondary to septic shock, however most likely secondary to distributive shock with intravascular volume depletion, course complicated by atrial fibrillation with rapid ventricular re sponse. Now status post pigtail for loculated pleural effusion. Acute respiratory failure with hypoxia and hypercarbia. Multifactorial r/t advancement of underlying lung ca/pleural effusion/COPD/PNA Started on bipap at night in ICU. Still requiring supplemental o2 -bipap as needed -s/p pigtail catheter for effusion -antibiotics for ?pna -breathing treatments, steroids Loculated pleural effusion/Possible post postobstructive pneumonia likely r/t to undelying lung ca small apical pneumothorax on repeat CXR - CT surgery aware, no intervention required -s/p Pig tail catheter 06/23, if continues to have high output may need to change to PleurX catheter -Thoracic surgery following -continue empiric abx, Vanco and Cefepime started 06/20 D#5 -FU final fluid culture results, if negative can d/c abx Acute COPD exacerbation -continue breathing treatments -continue solumedrol Afib -Continue diltiazem and digoxin -Telemetry monitoring -resume AC with Xarelto Leg edema ECHO from March with preserved EF Leg edema likely multifactorial r/t poor nutritional status as well initially treated with lasix -BNP 204, cxr not showing edema -hold off further diuresis at this time Coagulopathy. improved. Right lung squamous cell carcinoma, clinical stage IIIA, January 2019. Metastatic cancer diagnosed in August 2019 - Under the care of Dr. Richmond, receiving palliative chemotherapy DVT ppx - xarelto code status - Attempted to discuss code status with both and . very resistant/unwilling to discuss change to DNR/DNI. Patient will remain full code at this time. Attending: Dr. Castano <SOUMYA Lynn - Last Filed: 06/24/20 14:41> Patient seen and examined independently and I was present during oscar portion of E/M service. Agree with SOUMYA Jha's history, physical, assessme nt, and plan. Seen and examined this AM. Feels significantly improved post chest tube. Hrates still not great, but asymptomatic and with soft bp so will continue with current regime. F/U cultures from fluid -- thus far negative. Can probably start de- escalating antibiotics by tomorrow or the next day. CT surgergy f/u - may ultimately need pig tail cath changed to pleurx if she continues to drain. On going discussion with her and about code status change and transition to hospice, which is most reluctant to. <Mahin Castano MD - Last Filed: 06/24/20 16:24>
[2020-06-24] MEDS: Rivaroxaban 20 MG TABLET PO (16:23)
--- NOTE | 2020-06-24 17:45 | P.PNTS_ITS ---
Subjective Subjective Date of Service: 06/24/20 Interval history: Patient was seen and examined this afternoon. Patient states that since insertion of her chest to her shortness of breath has improved. She continues to have a nonproductive cough and feels that she is congested. She denies any fever or chills and states that she does not have any pain surrounding her chest tube site. She denies any abdominal pain, constipation, diarrhea, chest pain, blurred vision, dizziness,, sore throat and states that overall she has no complaints at this time. Physical Exam Vital Signs: Vital Signs: Last Vital Signs Temp 98.0 F 06/24/20 15:17 Pulse 107 H 06/24/20 15:29 Resp 14 06/24/20 15:17 BP 82/54 L 06/24/20 15:17 Pulse Ox 91 L 06/24/20 15:17 Body Mass Index 37.6 Const: General: comfortable and no acute distress Orientation/consciousness: patient oriented x3 Eyes: General: appearance normal, both eyes and all related structures Sclerae: sclerae normal Pupils: Equal, round and reactive pupils present Neck: Neck: Yes trachea midline and Yes supple Chest: Other: Right-sided chest tube remains in place with dressing clean dry and intact. No subcutaneous crepitus appreciated. Chest tube was attached to [facility] reservoir -20 L WS with approximately 500 cc of serous fluid output present in reservoir. Her informs me this is the 2nd atrium device since yesterday as the 1st 1 filled. No detectable air leak. Resp: Other: Breath sounds are positive for coarse crackles heard bilaterally throughout all lung esquivel Cardio: Jugular venous distension: no JVD Rate: regular rate Rhythm: regular rhythm Heart sounds: S1 normal heart sound present and S2 normal heart sound present GI: Inspection: Yes obesity Palpation (GI): Soft to palpation and nontender Neuro: General: patient oriented x3 Cranial nerves: Yes Equal, round and re active pupils present Extrem: Other: Upper and lower extremities positive for +1 edema bilaterally Progress Note: A&P Assessment and plan (1) Pleural effusion, right: Status: Acute (2) Squamous cell carcinoma of lung, stage IV: Status: Chronic Assessment and Plan: 64 year old female with stage IV squamous cell lung carcinoma with progressive disease now on 3rd line treatment. Progressive shortness of breath since COVID- 19 pneumonia in March 2020, now with respiratory failure requiring intermittent BiPAP. Found to have a large right pleural effusion (which looking back has been present to some degree since at least January 2020). IR guided pigtail placed yesterday. Patient has drained about 1700cc of serous fluid so far. Chest x-ray this morning shows improvement of right-sided pleural effusion with small apical pneumothorax On 2 LNC no longer requiring rescue BiPAP . Routine pleural fluid studies ordered, including culure and cytology. Etiology of pleural effusion unclear, however differential includes malignancy or parapneumonic process. Will keep chest tube to -20 suction and monitor outputs. Check morning CXR. If patient continues to have high outputs, or if positive for malignancy, can consider changing out to a Pleurx catheter for ongoing outpatient palliative effusion management. Case discussed with Dr. Chew. We will follow along with you and manage the chest tube. Please call with any questions or concerns. Fall Risk Details Current Medications: Current Medications Generic Name Dose Route Start Last Admin Trade Name Freq PRN Reason Stop Dose Admin Acetaminophen 650 mg 06/21/20 10:01 06/21/20 16:44 Acetaminophen 325 Mg Tablet PO 650 mg Q6H PRN Administration Headache Albuterol/Ipratropium 3 ml 06/22/20 12:00 06/24/20 15:24 Albuterol/Iprat 2.5/0.5mg 3 Ml Ampul.Neb INHALE 3 ml RQ4H WHILE AWAKE DEEPTHI Administration Digoxin 0.25 mg 06/24/20 09:00 06/24/20 10:12 Digoxin 0.25 Mg Tablet PO 0.25 mg DAILY DEEPTHI Administration Diltiazem HCl 240 mg 06/21/20 08:00 06/24/20 10:14 Diltiazem Hcl Cd 240 Mg Cap.Er.Deg PO 240 mg DAILY DEEPTHI Administration Protocol Cefepime HCl 1 gm/ Sodium 50 mls @ 100 mls/hr 06/20/20 20:00 06/24/20 09:11 Chloride IV Infused Q12H DEEPTHI Infusion Vancomycin HCl 1,250 mg/ 250 mls @ 166.667 mls/hr 06/24/20 07:00 06/24/20 08:42 Sodium Chloride IV Infused Q12H DEEPTHI Infusion Methylprednisolone Sodium Succinate 40 mg 06/23/20 21:00 06/24/20 10:11 Methylprednisolone Sod Succ 40 Mg/Ml Vial IVPUSH 40 mg BID DEEPTHI Administration Omeprazole 20 mg 06/24/20 06:30 06/24/20 06:40 Omeprazole 20 Mg Capsule. PO 20 mg DAILY@0630 DEEPTHI Administration Ondansetron HCl 4 mg 06/20/20 16:44 06/23/20 02:55 Ondansetron Hcl 4 Mg/2 Ml Vial IVPUSH 4 mg Q8H PRN Administration Nausea Pharmacy Consult 1 each 06/20/20 16:46 Consult Rx Vancomycin Dosing MISCELLANE DAILY PRN Consult order Rivaroxaban 20 mg 06/24/20 14:25 06/24/20 16:23 Rivaroxaban 20 Mg Tablet PO 20 mg DAILY DEEPTHI Administration Time Spent With Patient Time: Total time spent is greater than 50% in coordination of care (as documented) at patient's floor/unit and/or counseling patient: Time with patient: 15 - 24 minutes
[2020-06-25] VITALS (14 sets, daily range): BP systolic 98–127; BP diastolic 55–79; PULSE 66–121; RESP 15–21; TEMP 36.1–37.2; O2SAT 90–98
[2020-06-25] MEDS: Omeprazole 20 MG CAPSULE.DR PO (06:14)
[2020-06-25 06:15] LABS: Hematocrit 33.7 % (37-47); Hemoglobin 10.6 g/dl (12.0-16.0); Mean Corpuscular HGB Conc 31.5 g/dl (31.0-35.0); Mean Corpuscular Volume 92.1 fL (80-98); Mean Platelet Volume 9.2 fL (9.4-12.3); Platelet Count 384 X10*3/uL (160-400); Red Blood Count 3.66 X10*6/uL (4.20-5.50); Red Cell Distribution Width 18.9 % (11.0-16.0); White Blood Count 23.3 X10*3/uL (4.8-10.8)
[2020-06-25] MEDS: vancomycin HCL 1,250 MG in 0.9 % Sodium Chloride 250 ML 166.67 MG IV ×2 (06:15→19:03)
[2020-06-25 06:42] LABS: Anion Gap 11 (12-20); Blood Urea Nitrogen 19 mg/dL (9-16); Calcium 8.6 mg/dL (8.4-10.2); Carbon Dioxide 41 mmol/L (22-29); Chloride 94 mmol/L (96-108); Estimated Glomerular Filt Rate > 60; Glucose Random 158 mg/dL (60-115); Potassium 4.3 mmol/L (3.3-5.1); Sodium 142 mmol/L (135-145)
[2020-06-25 06:43] LABS: Vancomycin Trough 12.1 mcg/mL (10.0-20.0)
[2020-06-25] MEDS: Albuterol/Iprat 2.5/0.5MG 3 ML AMPUL.NEB INHALE ×4 (07:13→20:19)
[2020-06-25] MEDS: Digoxin 0.25 MG TABLET PO (08:33)
[2020-06-25] MEDS: methylPREDNISolone Sod Succ 40 MG/ML VIAL IVPUSH ×2 (08:33→21:04)
[2020-06-25] MEDS: Rivaroxaban 20 MG TABLET PO (08:33)
[2020-06-25] MEDS: dilTIAZem HCL CD 240 MG CAP.ER.DEG PO (08:33)
[2020-06-25] MEDS: cefEPime HCl 1 GM in 0.9 % Sodium Chloride 50 ML IV ×2 (08:34→21:04)
[2020-06-25 11:25] LABS: MN% 70.6 %; PMN% 29.4 %; WBC Pleural Fluid 0.154 X10*3/uL
[2020-06-25 11:45] LABS: RBC Pleural Fluid < 0.002 X10*3/uL
[2020-06-25 12:08] LABS: BF Shift QC OK YES; Lymphocytes Pleural Fluid 69 %; Neutrophils Pleural Fluid 26 %; Other Cells Plerual Fl 5 %
--- NOTE | 2020-06-25 14:16 | P.PNTS_ITS ---
Subjective Subjective Date of Service: 06/25/20 Interval history: Patient feeling well today. States her breathing is feeling better since fluid has been drained. On oxygen via NC, sitting up in chair. Denies any productive cough or hemoptysis. Chest tube has remained to wall suction and continues to drain serous fluid. Patient has no pain around chest tube insertion site. No specific complaints at time of my visit. Denies any fever, chills, abdominal pain/distention, nausea, SOB at rest. Physical Exam Vital Signs: Vital Signs: Last Vital Signs Temp 98.1 F 06/25/20 11:51 Pulse 118 H 06/25/20 12:41 Resp 16 06/25/20 11:51 BP 105/57 L 06/25/20 11:51 Pulse Ox 90 L 06/25/20 11:51 Body Mass Index 37.6 General: No acute distress, resting comfortably in recliner with at bedside Head: Normocephalic, atraumatic, symmetric Eyes: Sclera anicteric, eyelids without edema or erythema, +EOMS intact ENT: Oral mucosa and tongue are moist without lesions or exudates Neck: Soft, supple, symmetric, trachea midline, no crepitus Cardiovascular: Regular rate and rhythm, no murmur/rubs/gallops, BUE without edema, BLE with 1+ pitting edema, no calf tenderness bilaterally Respiratory: L lung CTA, R lung with scattered rhonchi, breathing nonlabored, s peaking in full sentences, on oxygen via NC. No use of accessory muscles. Right pigtail chest tube x 1 to [facility] on -20 suction, serous drainage, no air leak. No crepitus. Gastrointestinal: Soft, non-tender, non-distended, +normoactive bowel sounds. Skin: Warm and dry throughout, no rashes Neurological: Alert and oriented x 3, no focal neurological deficit noted Psychiatric: No agitation, appropriate affect Progress Note: A&P Assessment and plan (1) Pleural effusion, right: Status: Acute Assessment and Plan: 64 year old female with stage IV squamous cell lung carcinoma with progressive disease now on 3rd line treatment. Progressive shortness of breath since COVID- 19 pneumonia in March 2020 with large right pleural effusion (which looking back has been present to some degree since at least January 2020). ?parapneumonic vs. malignancy * Right pigtail chest tube drained about 500cc in last 24 hours. * Will continue tube to wall suction and allow to drain throughout day/night. * If continues to have high outputs, will plan to clamp tube tomorrow in anticipation of IR Pleurx placement maybe Saturday? * Would hold her anticoagulation for possible need for further IR procedure (Pleurx), it appears this was restarted yesterday. * Micro from pleural fluid negative so far and fluid does not appear infectious in nature. * Routine pleural fluid studies are not in the system? Fluid re-sampled today by me and sent by RN. * Check morning CXR. (2) Squamous cell carcinoma of lung, stage IV: Status: Chronic Fall Risk Details Current Medications: Current Medications Generic Name Dose Route Start Last Admin Trade Name Freq PRN Reason Stop Dose Admin Acetaminophen 650 mg 06/21/20 10:01 06/21/20 16:44 Acetaminophen 325 Mg Tablet PO 650 mg Q6H PRN Administration Headache Albuterol/Ipratropium 3 ml 06/22/20 12:00 06/25/20 12:41 Albuterol/Iprat 2.5/0.5mg 3 Ml Ampul.Neb INHALE 3 ml RQ4H WHILE AWAKE DEEPTHI Administration Digoxin 0.25 mg 06/24/20 09:00 06/25/20 08:33 Digoxin 0.25 Mg Tablet PO 0.25 mg DAILY DEEPTHI Administration Diltiazem HCl 240 mg 06/21/20 08:00 06/25/20 08:33 Diltiazem Hcl Cd 240 Mg Cap.Er.Deg PO 240 mg DAILY DEEPTHI Administration Protocol Cefepime HCl 1 gm/ Sodium 50 mls @ 100 mls/hr 06/20/20 20:00 06/25/20 10:03 Chloride IV Infused Q12H DEEPTHI Infusion Vancomycin HCl 1,250 mg/ 250 mls @ 166.667 mls/hr 06/24/20 07:00 06/25/20 08:34 Sodium Chloride IV Infused Q12H DEEPTHI Infusion Methylprednisolone Sodium Succinate 40 mg 06/23/20 21:00 06/25/20 08:33 Methylprednisolone Sod Succ 40 Mg/Ml Vial IVPUSH 40 mg BID DEEPTHI Administration Omeprazole 20 mg 06/24/20 06:30 06/25/20 06:14 Omeprazole 20 Mg Capsule. PO 20 mg DAILY@0630 DEEPTHI Administration Ondansetron HCl 4 mg 06/20/20 16:44 06/23/20 02:55 Ondansetron Hcl 4 Mg/2 Ml Vial IVPUSH 4 mg Q8H PRN Administration Nausea Pharmacy Consult 1 each 06/20/20 16:46 Consult Rx Vancomycin Dosing MISCELLANE DAILY PRN Consult order Rivaroxaban 20 mg 06/24/20 14:25 06/25/20 08:33 Rivaroxaban 20 Mg Tablet PO 20 mg DAILY DEEPTHI Administration Time Spent With Patient Time: Total time spent is greater than 50% in coordination of care (as documented) at patient's floor/unit and/or counseling patient: Time with patient: 25 - 35 minutes
--- NOTE | 2020-06-25 14:39 | P.EN_ITS ---
Event Note Date of Service: 06/25/20 Event Note: Patient seen and examined independently and I was present during oscar portion of E/M service. Agree IT APPLICATIONS MANAGER's note of 06/25, inclduding exam, finding, assessment and plan except as stated Seen and examined this AM. Feels significantly improved post chest tube. F/U cultures from fluid -- thus far negative. Can probably start de-escalating antibiotics by next day or the next day. CT surgergy f/u - may ultimately need pig tail cath changed to pleurx if she continues to drain significantly. Code status to be readdressed. Monitored high increase in WBC, no other signs of ifection--likely from solumedrol
[2020-06-26] VITALS (12 sets, daily range): BP systolic 103–133; BP diastolic 46–76; PULSE 90–106; RESP 17–25; TEMP 36.1–37.1; O2SAT 92–99
[2020-06-26] MEDS: Omeprazole 20 MG CAPSULE.DR PO (05:59)
[2020-06-26] MEDS: vancomycin HCL 1,250 MG in 0.9 % Sodium Chloride 250 ML 166.67 MG IV ×2 (05:59→19:52)
[2020-06-26 06:50] LABS: Basophils Percent Auto 0.2 % (0-2); Hematocrit 35.2 % (37-47); Hemoglobin 10.6 g/dl (12.0-16.0); Imm Gran Abs Auto 0.51 X10*3/uL (0.00-0.03); Lymphocytes Absolute Auto 0.6 X10*3/uL (1.2-4.9); Lymphocytes Percent Auto 2.2 % (20-40); MANUAL DIFF FLAG SCAN; Mean Corpuscular HGB Conc 30.1 g/dl (31.0-35.0); Mean Corpuscular Volume 92.9 fL (80-98); Mean Platelet Volume 9.5 fL (9.4-12.3); Monocytes Absolute Auto 0.8 X10*3/uL (0.1-1.2); Monocytes Percent Auto 3.2 % (2-11); NRBC Pct Auto 0.1 /100WBC (0.0-0.2); Neutrophils Absolute Auto 23.9 X10*3/uL (2.0-8.3); Neutrophils Percent Auto 92.4 % (45-73); Platelet Count 413 X10*3/uL (160-400); Red Blood Count 3.79 X10*6/uL (4.20-5.50); Red Cell Distribution Width 19.2 % (11.0-16.0); SCAN SMEAR FLAG 1; White Blood Count 25.9 X10*3/uL (4.8-10.8)
[2020-06-26 06:51] LABS: Albumin Pleural Fluid 0.6; LDH Pleural Fluid 130; Total Protein Pleural Fluid 1.1
[2020-06-26 06:52] LABS: Glucose Pleural Fluid 161
[2020-06-26 06:56] LABS: Anion Gap 14 (12-20); Blood Urea Nitrogen 21 mg/dL (9-16); Calcium 8.7 mg/dL (8.4-10.2); Carbon Dioxide 38 mmol/L (22-29); Chloride 96 mmol/L (96-108); Creatinine Clr Calc Pharmacy 128.5; Estimated Glomerular Filt Rate > 60; Glucose Random 156 mg/dL (60-115); Potassium 4.7 mmol/L (3.3-5.1); Sodium 143 mmol/L (135-145)
[2020-06-26 07:19] LABS: SLIDE REVIEW VERIFIED
[2020-06-26] MEDS: Albuterol/Iprat 2.5/0.5MG 3 ML AMPUL.NEB INHALE ×4 (07:37→19:33)
--- NOTE | 2020-06-26 07:44 | HO.PM.IMPN ---
Subjective Subjective Date of Service: 06/26/20 Interval History: Follow up loculated pleural effusion. No pain from chest tube. Breathing is ok, worse with ambulation. Physical Exam Vital Signs: Vital Signs: Last Vital Signs Temp 97.8 F 06/26/20 04:00 Pulse 90 06/26/20 07:38 Resp 18 06/26/20 04:00 BP 124/66 06/26/20 04:00 Pulse Ox 94 06/26/20 04:00 Body Mass Index 37.6 Appearing in no acute distress lung sounds are clear to auscultation chest tube to wall suction heart regular rate rhythm, clear S1, S2 positive bowel sounds, abdomen is soft, nontender neuro patient is alert x3, no focal deficits Objective Data Current Medications Generic Name Dose Route Start Last Admin Trade Name Freq PRN Reason Stop Dose Admin Acetaminophen 650 mg 06/21/20 10:01 06/21/20 16:44 Acetaminophen 325 Mg Tablet PO 650 mg Q6H PRN Administration Headache Albuterol/Ipratropium 3 ml 06/22/20 12:00 06/26/20 07:37 Albuterol/Iprat 2.5/0.5mg 3 Ml Ampul.Neb INHALE 3 ml RQ4H WHILE AWAKE DEEPTHI Administration Digoxin 0.25 mg 06/24/20 09:00 06/25/20 08:33 Digoxin 0.25 Mg Tablet PO 0.25 mg DAILY DEEPTHI Administration Diltiazem HCl 240 mg 06/21/20 08:00 06/25/20 08:33 Diltiazem Hcl Cd 240 Mg Cap.Er.Deg PO 240 mg DAILY DEEPTHI Administration Protocol Cefepime HCl 1 gm/ Sodium 50 mls @ 100 mls/hr 06/20/20 20:00 06/25/20 22:17 Chloride IV Infused Q12H DEEPTHI Infusion Vancomycin HCl 1,250 mg/ 250 mls @ 166.667 mls/hr 06/24/20 07:00 06/26/20 05:59 Sodium Chloride IV 166.67 mls/hr Q12H DEEPTHI Administration Methylprednisolone Sodium Succinate 40 mg 06/23/20 21:00 06/25/20 21:04 Methylprednisolone Sod Succ 40 Mg/Ml Vial IVPUSH 40 mg BID DEEPTHI Administration Omeprazole 20 mg 06/24/20 06:30 06/26/20 05:59 Omeprazole 20 Mg Capsule. PO 20 mg DAILY@0630 DEEPTHI Administration Ondansetron HCl 4 mg 06/20/20 16:44 06/23/20 02:55 Ondansetron Hcl 4 Mg/2 Ml Vial IVPUSH 4 mg Q8H PRN Administration Nausea Pharmacy Consult 1 each 06/20/20 16:46 Consult Rx Vancomycin Dosing MISCELLANE DAILY PRN Consult order Labs CBC & Chem 7: 06/26/20 05:49 06/26/20 05:49 Microbiology Microbiology Results: Microbiology 06/20/20 14:59 Blood - Venous Blood Culture - Final No growth after 5 days. 06/20/20 14:58 Blood - Venous Blood Culture - Final No growth after 5 days. 06/23/20 12:13 Lung Right Lower Lobe Gram Stain - Final 06/23/20 12:13 Lung Right Lower Lobe Routine Culture - Final No growth after 2 days 06/23/20 12:13 Lung Right Lower Lobe Anaerobic Culture - Preliminary No growth to date. Assessment and Plan (1) Pleural effusion, right: Status: Acute Assessment and Plan: 64-year-old lady with underlying history of stage IV squamous cell carcinoma on 3rd line therapy under care of Dr. Richmond, COPD, AFib, COVID-19 infection and March 2020, TIA admitted on 06/20/2020 with dyspnea, hypotension, and nausea initially believe to be secondary to septic shock, however most likely secondary to distributive shock with intravascular volume depletion, course complicated by atrial fibrillation with rapid ventricular response. Now status post pigtail for loculated pleural effusion. Acute respiratory failure with hypoxia and hypercarbia. Multifactorial r/t advancement of underlying lung ca/pleural effusion/COPD/PNA. Started on bipap at night in ICU. Still requiring supplemental o2 -has not needed bipap -s/p pigtail catheter for effusion, -nebs, steroids Loculated pleural effusion/Possible post postobstructive pneumonia, likely r/t to undelying lung cancer. Small apical pneumothorax on repeat CXR - CT surgery aware, no intervention required -s/p Pig tail catheter 06/23, high output, will likely need pleurx cath, will hold Xarelto -Thoracic surgery following -continue empiric abx, Vanco and Cefepime started 06/20 D#6 -FU final fluid culture results, if negative can d/c abx Acute COPD exacerbation -continue breathing treatments -continue solumedrol Afib -Continue diltiazem and digoxin -Telemetry monitoring -hold Xarelto for pleurx catheter placement Leg edema. ECHO from March with preserved EF. Multifactorial r/t poor nutritional status as well, initially treated with lasix -BNP 204, cxr not showing edema -hold off further diuresis at this time Coagulopathy. improved. Right lung squamous cell carcinoma, clinical stage IIIA, January 2019. Metastatic cancer diagnosed in August 2019 - Under the care of Dr. Richmond, receiving palliative chemotherapy Attending: Dr. Suazo
[2020-06-26] MEDS: cefEPime HCl 1 GM in 0.9 % Sodium Chloride 50 ML IV ×2 (07:49→21:46)
--- NOTE | 2020-06-26 07:50 | P.PNIM_ITS ---
Subjective Subjective Date of Service: 06/26/20 <Zeina Hoffman NP - Last Filed: 06/26/20 10:11> 06/26/20 <Varinder Suazo MD - Last Filed: 06/26/20 10:47> Interval History: Follow up loculated pleural effusion. No pain from chest tube. Breathing is ok, worse with ambulation. <Zeina Hoffman NP - Last Filed: 06/26/20 10:11> Physical Exam Vital Signs: Vital Signs: Last Vital Signs Temp 97.8 F 06/26/20 04:00 Pulse 90 06/26/20 07:38 Resp 18 06/26/20 04:00 BP 124/66 06/26/20 04:00 Pulse Ox 94 06/26/20 04:00 Body Mass Index 37.6 <Zeina Hoffman NP - Last Filed: 06/26/20 10:11> Objective Data Current Medications Generic Name Dose Route Start Last Admin Trade Name Freq PRN Reason Stop Dose Admin Acetaminophen 650 mg 06/21/20 10:01 06/21/20 16:44 Acetaminophen 325 Mg Tablet PO 650 mg Q6H PRN Administration Headache Albuterol/Ipratropium 3 ml 06/22/20 12:00 06/26/20 07:37 Albuterol/Iprat 2.5/0.5mg 3 Ml Ampul.Neb INHALE 3 ml RQ4H WHILE AWAKE DEEPTHI Administration Digoxin 0.25 mg 06/24/20 09:00 06/25/20 08:33 Digoxin 0.25 Mg Tablet PO 0.25 mg DAILY DEEPTHI Administration Diltiazem HCl 240 mg 06/21/20 08:00 06/25/20 08:33 Diltiazem Hcl Cd 240 Mg Cap.Er.Deg PO 240 mg DAILY DEEPTHI Administration Protocol Cefepime HCl 1 gm/ Sodium 50 mls @ 100 mls/hr 06/20/20 20:00 06/25/20 22:17 Chloride IV Infused Q12H DEEPTHI Infusion Vancomycin HCl 1,250 mg/ 250 mls @ 166.667 mls/hr 06/24/20 07:00 06/26/20 05:59 Sodium Chloride IV 166.67 mls/hr Q12H DEEPTHI Administration Methylprednisolone Sodium Succinate 40 mg 06/23/20 21:00 06/25/20 21:04 Methylprednisolone Sod Succ 40 Mg/Ml Vial IVPUSH 40 mg BID DEEPTHI Administration Omeprazole 20 mg 06/24/20 06:30 06/26/20 05:59 Omeprazole 20 Mg Capsule. PO 20 mg DAILY@0630 DEEPTHI Administration Ondansetron HCl 4 mg 06/20/20 16:44 06/23/20 02:55 Ondansetron Hcl 4 Mg/2 Ml Vial IVPUSH 4 mg Q8H PRN Administration Nausea Pharmacy Consult 1 each 06/20/20 16:46 Consult Rx Vancomycin Dosing MISCELLANE DAILY PRN Consult order <Zeina Hoffman NP - Last Filed: 06/26/20 10:11> Labs CBC & Chem 7: : 06/26/20 05:49 06/26/20 05:49 <Zeina Hoffman NP - Last Filed: 06/26/20 10:11> Microbiology Microbiology Results: Microbiology 06/20/20 14:59 Blood - Venous Blood Culture - Final No growth after 5 days. 06/20/20 14:58 Blood - Venous Blood Culture - Final No growth after 5 days. 06/23/20 12:13 Lung Right Lower Lobe Gram Stain - Final 06/23/20 12:13 Lung Right Lower Lobe Routine Culture - Final No growth after 2 days 06/23/20 12:13 Lung Right Lower Lobe Anaerobic Culture - Preliminary No growth to date. 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 Richmond, COPD, AFib, COVID-19 infection and March 2020, TIA admitted on 06/20/2020 with dyspnea, hypotension, and nausea initially believe to be secondary to septic shock, however most likely secondary to distributive shock with intravascular volume depletion, course complicated by atrial fibrillation with rapid ventricular response. Now status post pigtail for loculated pleural effusion. Loculated pleural effusion/Possible post postobstructive pneumonia, likely r/t to underlying lung cancer. Small apical pneumothorax on repeat CXR - CT surgery aware, no intervention required -s/p Pig tail catheter 06/23, high output, will likely need pleurx cath, will hold Xarelto -Thoracic surgery following -continue empiric abx, Vanco and Cefepime started 06/20 D#6 -fluid culture no growth Acute respiratory failure with hypoxia and hypercarbia. Multifactorial r/t advancement of underlying lung ca/pleural effusion/COPD/PNA. required bipap at night in ICU. Still requiring supplemental o2. Has not needed bipap, O2 sat range 90-100% -s/p pigtail catheter for effusion, -nebs, steroids Acute COPD exacerbation -continue breathing treatments -continue solumedrol Afib -Continue diltiazem and digoxin -Telemetry monitoring -hold Xarelto for pleurx catheter placement Leg edema. ECHO from March with preserved EF. Multifactorial r/t poor nutritional status as well, initially treated with lasix -BNP 204, cxr not showing edema -hold off further diuresis at this time Coagulopathy. improved. Right lung squamous cell carcinoma, clinical stage IIIA, January 2019. Metastatic cancer diagnosed in August 2019 - Under the care of Dr. Richmond, receiving palliative chemotherapy Attending: Dr. Suazo <Zeina Hoffman NP - Last Filed: 06/26/20 10:11> .I saw and examined patient along side INVESTMENT CONSULTANT and forumlary treatment plan together. Agree with above <Varinder Suazo MD - Last Filed: 06/26/20 10:47>
[2020-06-26] MEDS: dilTIAZem HCL CD 240 MG CAP.ER.DEG PO (08:32)
[2020-06-26] MEDS: Digoxin 0.25 MG TABLET PO (08:32)
[2020-06-26] MEDS: methylPREDNISolone Sod Succ 40 MG/ML VIAL IVPUSH ×2 (08:32→21:47)
--- NOTE | 2020-06-26 13:22 | P.PNTS_ITS ---
Subjective Subjective Date of Service: 06/26/20 Interval history: Patient feeling well this morning. No issues overnight per her report other than her BiPAP mask not fitting right. States this was removed and she was kept on NC where her oxygen levels were stable. Otherwise the patient denies any increasing SOB or cough. Chest tube has remained to wall suction overnight. Denies any fever, chills, CP/pressure, increasing SOB, cough, sputum production, abdominal pain, nausea, vomiting, dizziness, lightheadedness, numbness/tingling. Physical Exam Vital Signs: Vital Signs: Last Vital Signs Temp 98.7 F 06/26/20 07:58 Pulse 105 H 06/26/20 11:55 Resp 20 06/26/20 11:36 BP 103/46 L 06/26/20 11:36 Pulse Ox 96 06/26/20 11:36 Body Mass Index 37.6 General: No acute distress, resting comfortably in recliner, at bedside. Head: Normocephalic, atraumatic, symmetric Eyes: Sclera anicteric, eyelids without edema or erythema, +EOMS intact ENT: Oral mucosa and tongue are moist without lesions or exudates Neck: Soft, supple, symmetric, trachea midline, no crepitus Cardiovascular: Irregularly irregular rythym, no murmur/rubs/gallops, BUE without edema, BLE with 1+ pitting edema, no calf tenderness bilaterally Respiratory: Left lung CTA, right with scattered rhonchi, breathing nonlabored, speaking in full sentences, on oxygen via nasal cannula. No use of accessory muscles. Right pigtail chest tube x 1 to [facility] on -20 suction, serous drainage, no air leak. Gastrointestinal: Soft, non-tender, non-distended, +normoactive bowel sounds. Skin: Warm and dry throughout, no rashes Neurological: Alert and oriented x 3, no focal neurological deficit noted Psychiatric: no agitation, appropriate affect Diagnostics: Laboratory Results - last 24 hr 06/25/20 06/26/20 06/26/20 10:00 05:49 05:49 WBC 25.9 H RBC 3.79 L Hgb 10.6 L Hct 35.2 L MCV 92.9 MCH 28.0 MCHC 30.1 L RDW 19.2 H Plt Count 413 H MPV 9.5 Immature Gran % (A uto) 2.0 H Neut % (Auto) 92.4 H Lymph % (Auto) 2.2 L Hanson % (Auto) 3.2 Eos % (Auto) 0.0 Baso % (Auto) 0.2 Lymph # (Auto) 0.6 L Hanson # (Auto) 0.8 Eos # (Auto) 0.0 Baso # (Auto) 0.0 Abs Immat Gran (au to) 0.51 H Absolute Neuts (au to) 23.9 H Absolute Nucleated RBC 0.020 H Nucleated RBC % (a uto) 0.1 Smear Tech's Comme nts VERIFIED Sodium 143 Potassium 4.7 Chloride 96 Carbon Dioxide 38 H Anion Gap 14 BUN 21 H Creatinine 0.50 Estim Creat Clear Calc 128.5 Estimated GFR > 60 Random Glucose 156 H Calcium 8.7 Pleural Total Prot ein 1.1 Pleural Albumin 0.6 Pleural LDH 130 Pleural Glucose 161 EXAMINATION: XR CHEST 06/26/2020 CLINICAL INFORMATION: Follow-up right pleural effusion. History of metastatic lung carcinoma. COMPARISON: 06/25/2020 TECHNIQUE: Frontal view of the chest was obtained. XR/XR chest 1V FINDINGS AND IMPRESSION: No new findings compared to 06/25/2020. Again noted are ill-defined patchy opacities of the left lung, stable infiltrate in the perihilar region of the right upper lobe, and apparent trace residual right pleural effusion with pigtail change catheter in place. A trace right apical pneumothorax is suspected. Cardiomediastinal silhouette has stable size and contour. The visualized bones are intact. Progress Note: A&P Assessment and plan (1) Pleural effusion, right: Status: Acute Assessment and Plan: 64 year old female with stage IV squamous cell lung carcinoma with progressive disease now on 3rd line treatment. Progressive shortness of breath since COVID- 19 pneumonia in March 2020 with large right pleural effusion (which looking back has been present to some degree since at least January 2020). Pleural fluid studies indicate a transudative process. Micro negative so far. Cytology pending. * Patient continues to have moderate fluid drainage from right sided chest tube. * Will arrange for IR Pleurx catheter placement, hopefully tomorrow. * NPO except medications after MN for potential IR procedure tomorrow. * Continue to hold anticoagulation for procedure. * In order for IR to place Pleurx safely they need some fluid present within the pleural space, therefore will clamp chest tube today to allow fluid to build up within the right chest. We will continue to follow along. (2) Squamous cell carcinoma of lung, stage IV: Status: Chronic Fall Risk Details Current Medications: Current Medications Generic Name Dose Route Start Last Admin Trade Name Freq PRN Reason Stop Dose Admin Acetaminophen 650 mg 06/21/20 10:01 06/21/20 16:44 Acetaminophen 325 Mg Tablet PO 650 mg Q6H PRN Administration Headache Albuterol/Ipratropium 3 ml 06/22/20 12:00 06/26/20 11:55 Albuterol/Iprat 2.5/0.5mg 3 Ml Ampul.Neb INHALE 3 ml RQ4H WHILE AWAKE DEEPTHI Administration Digoxin 0.25 mg 06/24/20 09:00 06/26/20 08:32 Digoxin 0.25 Mg Tablet PO 0.25 mg DAILY DEEPTHI Administration Diltiazem HCl 240 mg 06/21/20 08:00 06/26/20 08:32 Diltiazem Hcl Cd 240 Mg Cap.Er.Deg PO 240 mg DAILY DEEPTHI Administration Protocol Cefepime HCl 1 gm/ Sodium 50 mls @ 100 mls/hr 06/20/20 20:00 06/26/20 08:37 Chloride IV Infused Q12H DEEPTHI Infusion Vancomycin HCl 1,250 mg/ 250 mls @ 166.667 mls/hr 06/24/20 07:00 06/26/20 07:59 Sodium Chloride IV Infused Q12H DEEPTHI Infusion Methylprednisolone Sodium Succinate 40 mg 06/23/20 21:00 06/26/20 08:32 Methylprednisolone Sod Succ 40 Mg/Ml Vial IVPUSH 40 mg BID DEEPTHI Administration Omeprazole 20 mg 06/24/20 06:30 06/26/20 05:59 Omeprazole 20 Mg Capsule. PO 20 mg DAILY@0630 DEEPTHI Administration Ondansetron HCl 4 mg 06/20/20 16:44 06/23/20 02:55 Ondansetron Hcl 4 Mg/2 Ml Vial IVPUSH 4 mg Q8H PRN Administration Nausea Pharmacy Consult 1 each 06/20/20 16:46 Consult Rx Vancomycin Dosing MISCELLANE DAILY PRN Consult order Time Spent With Patient Time: Total time spent is greater than 50% in coordination of care (as documented) at patient's floor/unit and/or counseling patient: Time with patient: 15 - 24 minutes
[2020-06-26 19:10] LABS: Vancomycin Trough 15.6 mcg/mL (10.0-20.0)
[2020-06-27] VITALS (16 sets, daily range): BP systolic 101–139; BP diastolic 57–79; PULSE 77–102; RESP 15–20; TEMP 36.1–37.2; O2SAT 90–97
[2020-06-27] MEDS: vancomycin HCL 1,250 MG in 0.9 % Sodium Chloride 250 ML 166.67 MG IV (06:09)
[2020-06-27] MEDS: Omeprazole 20 MG CAPSULE.DR PO (06:10)
[2020-06-27 06:49] LABS: Basophils Absolute Auto 0.1 X10*3/uL (0.0-0.2); Basophils Percent Auto 0.2 % (0-2); Hematocrit 35.2 % (37-47); Hemoglobin 10.6 g/dl (12.0-16.0); Imm Gran Abs Auto 0.63 X10*3/uL (0.00-0.03); Imm Gran Pct Auto 2.7 % (0.0-0.4); Lymphocytes Absolute Auto 0.6 X10*3/uL (1.2-4.9); Lymphocytes Percent Auto 2.5 % (20-40); MANUAL DIFF FLAG SCAN; Mean Corpuscular HGB Conc 30.1 g/dl (31.0-35.0); Mean Corpuscular Volume 93.1 fL (80-98); Mean Platelet Volume 9.5 fL (9.4-12.3); NRBC Pct Auto 0.1 /100WBC (0.0-0.2); Neutrophils Absolute Auto 21.4 X10*3/uL (2.0-8.3); Neutrophils Percent Auto 90.6 % (45-73); Platelet Count 423 X10*3/uL (160-400); Red Blood Count 3.78 X10*6/uL (4.20-5.50); Red Cell Distribution Width 19.3 % (11.0-16.0); SCAN SMEAR FLAG 1; White Blood Count 23.6 X10*3/uL (4.8-10.8)
[2020-06-27 06:51] LABS: INTERNATIONAL NORM RATIO 1.1 (0.9-1.1); Prothrombin Time 13.3 SEC (10.8-13.0)
[2020-06-27] MEDS: Albuterol/Iprat 2.5/0.5MG 3 ML AMPUL.NEB INHALE ×3 (07:15→19:32)
[2020-06-27 07:29] LABS: SLIDE REVIEW VERIFIED
[2020-06-27 07:38] LABS: Anion Gap 11 (12-20); Blood Urea Nitrogen 21 mg/dL (9-16); Calcium 8.2 mg/dL (8.4-10.2); Carbon Dioxide 40 mmol/L (22-29); Chloride 97 mmol/L (96-108); Creatinine Clr Calc Pharmacy 131.1; Estimated Glomerular Filt Rate > 60; Glucose Random 146 mg/dL (60-115); Potassium 4.6 mmol/L (3.3-5.1); Sodium 143 mmol/L (135-145)
[2020-06-27] MEDS: methylPREDNISolone Sod Succ 40 MG/ML VIAL IVPUSH ×2 (08:20→21:33)
[2020-06-27] MEDS: cefEPime HCl 1 GM in 0.9 % Sodium Chloride 50 ML IV (08:20)
[2020-06-27] MEDS: dilTIAZem HCL CD 240 MG CAP.ER.DEG PO (08:21)
[2020-06-27] MEDS: Digoxin 0.25 MG TABLET PO (08:21)
[2020-06-27 08:37] LABS: VBG HCO3 48 mmol/L (22-26); VBG pCO2 60 mmHg; VBG pH 7.51 (7.32-7.43); VBG pO2 64 mmHg
[2020-06-27 08:39] LABS: Venous Blood Gas Refer to POC result
--- NOTE | 2020-06-27 10:10 | MHC.CM.PN ---
met with pt and her dc plan is for str they have asked fr referrals to [facility] and [facility]
--- NOTE | 2020-06-27 10:43 | P.PNIM_ITS ---
Subjective Subjective Date of Service: 06/27/20 <Zeina Hoffman NP - Last Filed: 06/27/20 16:13> 06/27/20 <Mahin Castano MD - Last Filed: 06/28/20 08:06> Interval History: Follow up loculated pleural effusion. No pain from chest tube. Breathing is better <Zeina Hoffman NP - Last Filed: 06/27/20 16:13> Physical Exam Vital Signs: Vital Signs: Last Vital Signs Temp 96.0 F L 06/27/20 07:16 Pulse 94 06/27/20 07:16 Resp 20 06/27/20 07:16 BP 131/79 06/27/20 07:16 Pulse Ox 96 06/27/20 07:16 Body Mass Index 37.6 <Zeina Hoffman NP - Last Filed: 06/27/20 16:13> Appearing in no acute distress lung sounds rhonchi heart regular rate rhythm, clear S1, S2 positive bowel sounds, abdomen is soft, nontender neuro patient is alert x3, no focal deficits Chest tube in place <Zeina Hoffman NP - Last Filed: 06/27/20 16:13> Objective Data Current Medications Generic Name Dose Route Start Last Admin Trade Name Freq PRN Reason Stop Dose Admin Acetaminophen 650 mg 06/21/20 10:01 06/21/20 16:44 Acetaminophen 325 Mg Tablet PO 650 mg Q6H PRN Administration Headache Albuterol/Ipratropium 3 ml 06/22/20 12:00 06/27/20 07:15 Albuterol/Iprat 2.5/0.5mg 3 Ml Ampul.Neb INHALE 3 ml RQ4H WHILE AWAKE DEEPTHI Administration Digoxin 0.25 mg 06/24/20 09:00 06/27/20 08:21 Digoxin 0.25 Mg Tablet PO 0.25 mg DAILY DEEPTHI Administration Diltiazem HCl 240 mg 06/21/20 08:00 06/27/20 08:21 Diltiazem Hcl Cd 240 Mg Cap.Er.Deg PO 240 mg DAILY DEEPTHI Administration Protocol Cefepime HCl 1 gm/ Sodium 50 mls @ 100 mls/hr 06/20/20 20:00 06/27/20 09:00 Chloride IV Infused Q12H DEEPTHI Infusion Vancomycin HCl 1,250 mg/ 250 mls @ 166.667 mls/hr 06/24/20 07:00 06/27/20 08:22 Sodium Chloride IV Infused Q12H DEEPTHI Infusion Methylprednisolone Sodium Succinate 40 mg 06/23/20 21:00 06/27/20 08:20 Methylprednisolone Sod Succ 40 Mg/Ml Vial IVPUSH 40 mg BID DEEPTHI Administration Omeprazole 20 mg 06/24/20 06:30 06/27/20 06:10 Omeprazole 20 Mg Capsule.Dr PO 20 mg DAILY@0630 DEEPTHI Administration Ondansetron HCl 4 mg 06/20/20 16:44 06/23/20 02:55 Ondansetron Hcl 4 Mg/2 Ml Vial IVPUSH 4 mg Q8H PRN Administration Nausea Pharmacy Consult 1 each 06/20/20 16:46 Consult Rx Vancomycin Dosing MISCELLANE DAILY PRN Consult order <Zeina Hoffman NP - Last Filed: 06/27/20 16:13> Labs CBC & Chem 7: : 06/27/20 05:29 06/28/20 06:21 <Zeina Hoffman NP - Last Filed: 06/27/20 16:13> Microbiology Microbiology Results: Microbiology 06/23/20 12:13 Lung Right Lower Lobe Gram Stain - Final 06/23/20 12:13 Lung Right Lower Lobe Routine Culture - Final No growth after 2 days 06/23/20 12:13 Lung Right Lower Lobe Anaerobic Culture - Preliminary No growth to date. 06/20/20 14:59 Blood - Venous Blood Culture - Final No growth after 5 days. 06/20/20 14:58 Blood - Venous Blood Culture - Final No growth after 5 days. <Zeina Hoffman NP - Last Filed: 06/27/20 16:13> Assessment and Plan (1) Pleural effusion, right: Status: Acute <Zeina Hoffman NP - Last Filed: 06/27/20 16:13> Assessment and Plan: 64-year-old lady with underlying history of stage IV squamous cell carcinoma on 3rd line therapy under care of Dr. Richmond, COPD, AFib, COVID-19 i nfection and March 2020, TIA admitted on 06/20/2020 with dyspnea, hypotension, and nausea initially believe to be secondary to septic shock, however most likely secondary to distributive shock with intravascular volume depletion, course complicated by atrial fibrillation with rapid ventricular response. Now status post pigtail for loculated pleural effusion. Loculated pleural effusion/Possible post postobstructive pneumonia, likely r/t to underlying lung cancer. Small apical pneumothorax on repeat CXR - CT surgery aware, no intervention required -s/p Pig tail catheter 06/23, high output, pleurx cath today, continue to hold xarelto -Thoracic surgery following -stop Vanco and Cefepime started 06/20 D#7. Switch to Doxycycline -fluid culture no growth Metabolic alkalosis with secondary respiratory alkalosis. Multifactorial. No hypoxia noted. Likely from lungs vs diuresis. Still on 2 liters nasal cannula -Titrate oxygen down, avoid over oxygenation Acute respiratory failure with hypoxia and hypercarbia. Multifactorial r/t advancement of underlying lung ca/pleural effusion/COPD/PNA. Required bipap at night in ICU. Still requiring supplemental o2. Has not needed bipap, O2 sat range 90-100% -s/p pigtail catheter for effusion, -nebs, steroids Acute COPD exacerbation -continue breathing treatments -stop solumedrol, change to oral prednisone Afib -Continue diltiazem and digoxin -Telemetry monitoring -hold Xarelto for pleurx catheter placement Leg edema. ECHO from March with preserved EF. Multifactorial r/t poor nutritional status as well, initially treated with lasix -BNP 204, cxr not showing edema -hold off further diuresis at this time Coagulopathy. improved. Right lung squamous cell carcinoma, clinical stage IIIA, January 2019. Metastatic cancer diagnosed in August 2019 - Under the care of Dr. Richmond, receiving palliative chemotherapy Attending: Dr. Castano <Zeina Hoffman NP - Last Filed: 06/27/20 16:13> Patient seen and examined independently and I was present during oscar portion of E/M service. Agree with Lashell Hoffman NP's history, physical, assessment, and plan. Seen and examined. Slowly impoving. Undecided about goals of care, wants to be full code at this time. To decide upon rehab. PleurX cath to be changed today. Resume OAC when okay with IR <Mahin Castano MD - Last Filed: 06/28/20 08:06>
--- NOTE | 2020-06-27 12:56 | MHC.CM.PN ---
when pts reha b is secured facility needs to be asked if they pleurix supplies and to be sure that hospitilist documents the orders for pleurix in dc summary
--- NOTE | 2020-06-27 13:11 | PC.NURSE ---
To IR for pleurx cath placement with transporter
--- NOTE | 2020-06-27 15:17 | HO.RADPN ---
RADIOLOGY Narrative Narrative: Using CT guidance, 15.5 Fr right tunnelled pleurex chest tube placed. Pigtail catheter was removed. 500 mL fluid removed. No specimen sent. Please hold blood thinning medicine for 48 hours.
[2020-06-28] VITALS (15 sets, daily range): BP systolic 112–143; BP diastolic 55–80; PULSE 86–106; RESP 16–22; TEMP 36.1–36.6; O2SAT 92–97
[2020-06-28] MEDS: Omeprazole 20 MG CAPSULE.DR PO (06:00)
[2020-06-28 06:36] LABS: Basophils Percent Auto 0.2 % (0-2); Hematocrit 40.7 % (37-47); Hemoglobin 12.4 g/dl (12.0-16.0); Imm Gran Abs Auto 0.72 X10*3/uL (0.00-0.03); Lymphocytes Absolute Auto 0.8 X10*3/uL (1.2-4.9); Lymphocytes Percent Auto 3.2 % (20-40); MANUAL DIFF FLAG SCAN; Mean Corpuscular HGB Conc 30.5 g/dl (31.0-35.0); Mean Corpuscular Hemoglobin 28.8 pg (27.0-33.0); Mean Corpuscular Volume 94.4 fL (80-98); Mean Platelet Volume 9.4 fL (9.4-12.3); Monocytes Absolute Auto 0.9 X10*3/uL (0.1-1.2); Monocytes Percent Auto 3.6 % (2-11); NRBC Pct Auto 0.2 /100WBC (0.0-0.2); Neutrophils Absolute Auto 21.4 X10*3/uL (2.0-8.3); Platelet Count 452 X10*3/uL (160-400); Red Blood Count 4.31 X10*6/uL (4.20-5.50); Red Cell Distribution Width 19.3 % (11.0-16.0); SCAN SMEAR FLAG 1; White Blood Count 23.8 X10*3/uL (4.8-10.8)
[2020-06-28 07:12] LABS: Vancomycin Trough 9.6 mcg/mL (10.0-20.0)
[2020-06-28 07:17] LABS: Anion Gap 15 (12-20); Blood Urea Nitrogen 23 mg/dL (9-16); Calcium 8.8 mg/dL (8.4-10.2); Carbon Dioxide 37 mmol/L (22-29); Chloride 97 mmol/L (96-108); Creatinine Clr Calc Pharmacy 121.2; Estimated Glomerular Filt Rate > 60; Glucose Random 143 mg/dL (60-115); Potassium 5.2 mmol/L (3.3-5.1); Sodium 144 mmol/L (135-145)
[2020-06-28] MEDS: predniSONE 20 MG TABLET 40 MG PO (07:24)
[2020-06-28] MEDS: dilTIAZem HCL CD 240 MG CAP.ER.DEG PO (07:24)
[2020-06-28] MEDS: Digoxin 0.25 MG TABLET PO (07:24)
[2020-06-28] MEDS: Albuterol/Iprat 2.5/0.5MG 3 ML AMPUL.NEB INHALE ×4 (07:28→20:34)
[2020-06-28 08:15] LABS: SLIDE REVIEW VERIFIED
--- NOTE | 2020-06-28 11:05 | P.EN_ITS ---
Event Note Date of Service: 07/05/20 Event Note: Thoracic Surgery: * Patient had pigtail converted to PleurX catheter placed yesterday by CT * Recommend every other day drainage from PleurX catheter to be performed by nursing * Record output, color, and clarity of drainage * Will need VNA services upon discharge to assist with drainage at home * She can follow up with Thoracic Surgery monthly for PleurX drainage * Patient can call the [facility] office @ [phone] to set up an appointment. * Patient will need chest x-ray on the same day of her appointment Thank you for this consult. Will sign-off at this time.
--- NOTE | 2020-06-28 11:05 | PM.EVENT ---
Event Note Date of Service: 07/05/20 Event Note: Thoracic Surgery: Patient had pigtail converted to PleurX catheter placed yesterday by CT Recommend every other day drainage from PleurX catheter to be performed by nursing Record output, color, and clarity of drainage Will need VNA services upon discharge to assist with drainage at home She can follow up with Thoracic Surgery monthly for PleurX drainage Patient can call the [facility] office @ [phone] to set up an appointment. Patient will need chest x-ray on the same day of her appointment Thank you for this consult. Will sign-off at this time.
--- NOTE | 2020-06-28 11:38 | PC.NURSE ---
Patient ambulated with PT on 2L and became very tachycardiac (150's). when returned to chair, o2 sats on 2L nC were in the 70's. After some rest sitting upright and deep breaths, sats quickly returned to pre ambulation 95%
--- NOTE | 2020-06-28 12:12 | P.PNIM_ITS ---
Subjective Subjective Date of Service: 06/28/20 <Zeina Hoffman NP - Last Filed: 06/28/20 15:30> 06/28/20 <Mahin Castano MD - Last Filed: 06/28/20 16:27> Interval History: Follow up loculated pleural effusion. No shortness of breath or pain <Zeina Hoffman NP - Last Filed: 06/28/20 15:30> Physical Exam Vital Signs: Vital Signs: Last Vital Signs Temp 97.6 F 06/28/20 11:14 Pulse 106 H 06/28/20 11:38 Resp 22 H 06/28/20 11:14 BP 117/59 L 06/28/20 11:14 Pulse Ox 95 06/28/20 11:14 Body Mass Index 37.6 <Zeina Hoffman NP - Last Filed: 06/28/20 15:30> Appearing in no acute distress lung sounds are clear, pleurx catheter in place and closed heart regular rate rhythm, clear S1, S2 positive bowel sounds, abdomen is soft, nontender neuro patient is alert x3, no focal deficits <Zeina Hoffman NP - Last Filed: 06/28/20 15:30> Objective Data Current Medications Generic Name Dose Route Start Last Admin Trade Name Freq PRN Reason Stop Dose Admin Acetaminophen 650 mg 06/21/20 10:01 06/21/20 16:44 Acetaminophen 325 Mg Tablet PO 650 mg Q6H PRN Administration Headache Albuterol/Ipratropium 3 ml 06/22/20 12:00 06/28/20 11:36 Albuterol/Iprat 2.5/0.5mg 3 Ml Ampul.Neb INHALE 3 ml RQ4H WHILE AWAKE DEEPTHI Administration Digoxin 0.25 mg 06/24/20 09:00 06/28/20 07:24 Digoxin 0.25 Mg Tablet PO 0.25 mg DAILY DEEPTHI Administration Diltiazem HCl 240 mg 06/21/20 08:00 06/28/20 07:24 Diltiazem Hcl Cd 240 Mg Cap.Er.Deg PO 240 mg DAILY DEEPTHI Administration Protocol Doxycycline Hyclate 100 mg 06/28/20 08:00 06/28/20 09:14 Doxycycline Hyclate 100 Mg Tablet PO 100 mg Q12H DEEPTHI Administration Omeprazole 20 mg 06/24/20 06:30 06/28/20 06:00 Omeprazole 20 Mg Capsule. PO 20 mg DAILY@0630 DEEPTHI Administration Ondansetron HCl 4 mg 06/20/20 16:44 06/23/20 02:55 Ondansetron Hcl 4 Mg/2 Ml Vial IVPUSH 4 mg Q8H PRN Administration Nausea Prednisone 40 mg 06/28/20 09:00 06/28/20 07:24 Prednisone 20 Mg Tablet PO 40 mg DAILY DEEPTHI Administration <Zeina Hoffman NP - Last Filed: 06/28/20 15:30> Labs CBC & Chem 7: : 06/28/20 06:21 06/28/20 06:21 <Zeina Hoffman NP - Last Filed: 06/28/20 15:30> Microbiology Microbiology Results: Microbiology 06/27/20 15:47 Pleural Fluid Gram Stain - Final 06/23/20 12:13 Lung Right Lower Lobe Gram Stain - Final 06/23/20 12:13 Lung Right Lower Lobe Routine Culture - Final No growth after 2 days 06/23/20 12:13 Lung Right Lower Lobe Anaerobic Culture - Final NO GROWTH AFTER 5 DAYS 06/20/20 14:59 Blood - Venous Blood Culture - Final No growth after 5 days. 06/20/20 14:58 Blood - Venous Blood Culture - Final No growth after 5 days. <Zeina Hoffman NP - Last Filed: 06/28/20 15:30> Assessment and Plan (1) Pleural effusion, right: Status: Acute <Zeina Hoffman NP - Last Filed: 06/28/20 15:30> Assessment and Plan: 64-year-old lady with underlying history of stage IV squamous cell carcinoma on 3rd line therapy under care of Dr. Richmond, COPD, AFib, COVID-19 infection and March 2020, TIA admitted on 06/20/2020 with dyspnea, hypotension, and nausea initially believe to be secondary to septic shock, how ever most likely secondary to distributive shock with intravascular volume depletion, course complicated by atrial fibrillation with rapid ventricular response. Now status post pigtail for loculated pleural effusion. Loculated pleural effusion/Possible post postobstructive pneumonia, likely r/t to underlying lung cancer. -s/p Pig tail catheter 06/23, high output, pleurx cath today, continue to hold xarelto -Thoracic surgery following -stop Vanco and Cefepime started 06/20 D#7. Switch to Doxycycline -fluid culture no growth Right lung squamous cell carcinoma, clinical stage IIIA, January 2019. Metastatic cancer diagnosed in August 2019 -No chemotherapy at this time. Follow up with oncology once out of rehab -Under the care of Dr. Richmond, receiving palliative chemotherapy Metabolic alkalosis with secondary respiratory alkalosis. Multifactorial. No hypoxia noted. Likely from lungs vs diuresis. Still on 2 liters nasal cannula -Titrate oxygen down, avoid over oxygenation Acute respiratory failure with hypoxia and hypercarbia. Multifactorial r/t advancement of underlying lung ca/pleural effusion/COPD/PNA. Required bipap at night in ICU. Still requiring supplemental o2. Has not needed bipap, O2 sat range 90-100% -s/p pigtail catheter for effusion initally, now with pleurx catheter -nebs, steroids Acute COPD exacerbation. Resolved. -continue breathing treatments -stop solumedrol, change to oral prednisone Afib -Continue diltiazem and digoxin -Telemetry monitoring -Status post pleurx catheter, restart Xarelto. Leg edema. ECHO from March with preserved EF. Multifactorial r/t poor nutritional status as well, initially treated with lasix -BNP 204, cxr not showing edema -hold off further diuresis at this time Coagulopathy. improved. DISPO: short term rehab likely tomorrow if patient stable, May need oxygen therapy continued. Attending: Dr. Castano <Zeina Hoffman NP - Last Filed: 06/28/20 15:30> Patient seen and examined independently and I was present during oscar portion of E/M service. Agree with Lashell Hoffman NP's history, physical, assessment, and plan. Pt slowly improving. This AM per RN report, when she walked into the room, patients NC has moved slightly and at that time, her O2 saturation was read to be in the low 80s. Given his information along with her known pulmonary disease -- it is likely that she will need to be d/c on oxygen. Patient as of this AM, has accepted going to [facility]. See thoracic surgery notes from today re: PleruX catheter mgmt. Broad spectrum antibiotics have been discontinued -- all cultures including blood and pleural effusion have been negative. Her luekocytosis is suspected from stress + steroids. Will give an additional 3-5 days or PO doxycycline. Restart Xarelto when okay with IR. Pt and family on multiple occasions during this admission have verbalized that pt is to remain full code. They are not ready for hospice transition nor change in code status. This conversation will have to be continued further upon discharge. <Mahin Castano MD - Last Filed: 06/28/20 16:27>
--- NOTE | 2020-06-28 13:08 | MHC.CM.PN ---
PT HAS CHOSEN [facility] PT HAS BEEN ACCEPTED MD STATES SHAMAR YAO FOR [facility] PT AND GIANNA AWARE IMM UPDATES
[2020-06-29 03:43] VITALS: BP 122/67; PULSE 96; RESP 18; TEMP 36.3; O2SAT 93
[2020-06-29 06:37] LABS: Anion Gap 11 (12-20); Blood Urea Nitrogen 24 mg/dL (9-16); Calcium 8.6 mg/dL (8.4-10.2); Carbon Dioxide 40 mmol/L (22-29); Chloride 97 mmol/L (96-108); Estimated Glomerular Filt Rate > 60; Glucose Random 121 mg/dL (60-115); Potassium 4.6 mmol/L (3.3-5.1); Sodium 143 mmol/L (135-145)
[2020-06-29] MEDS: Omeprazole 20 MG CAPSULE.DR PO (06:46)
[2020-06-29 06:49] LABS: Basophils Percent Auto 0.2 % (0-2); Hematocrit 36.3 % (37-47); Hemoglobin 11.2 g/dl (12.0-16.0); Imm Gran Pct Auto 3.1 % (0.0-0.4); Lymphocytes Absolute Auto 0.6 X10*3/uL (1.2-4.9); Lymphocytes Percent Auto 3.3 % (20-40); MANUAL DIFF FLAG SCAN; Mean Corpuscular HGB Conc 30.9 g/dl (31.0-35.0); Mean Corpuscular Hemoglobin 29.1 pg (27.0-33.0); Mean Corpuscular Volume 94.3 fL (80-98); Mean Platelet Volume 9.6 fL (9.4-12.3); Monocytes Absolute Auto 1.4 X10*3/uL (0.1-1.2); Monocytes Percent Auto 7.4 % (2-11); NRBC Pct Auto 0.2 /100WBC (0.0-0.2); Neutrophils Absolute Auto 16.5 X10*3/uL (2.0-8.3); Platelet Count 408 X10*3/uL (160-400); Red Blood Count 3.85 X10*6/uL (4.20-5.50); Red Cell Distribution Width 19.2 % (11.0-16.0); SCAN SMEAR FLAG 1; White Blood Count 19.2 X10*3/uL (4.8-10.8)
[2020-06-29 07:18] VITALS: BP 131/69; PULSE 94; RESP 20; TEMP 37.4; O2SAT 96
[2020-06-29] MEDS: Albuterol/Iprat 2.5/0.5MG 3 ML AMPUL.NEB INHALE ×2 (07:30→11:42)
[2020-06-29 07:31] VITALS: PULSE 94; O2SAT 93
[2020-06-29 07:58] LABS: pH Pleural Fluid 8.2
[2020-06-29 08:00] LABS: SLIDE REVIEW VERIFIED
[2020-06-29 08:50] VITALS: BP 100/60; PULSE 89
[2020-06-29] MEDS: predniSONE 20 MG TABLET 40 MG PO (08:50)
[2020-06-29] MEDS: dilTIAZem HCL CD 240 MG CAP.ER.DEG PO (08:50)
[2020-06-29] MEDS: Digoxin 0.25 MG TABLET PO (08:50)
[2020-06-29 08:53] LABS: Venous Blood Gas Refer to POC result
[2020-06-29 08:54] LABS: VBG Base Excess 19.9 mmol/L; VBG HCO3 46 mmol/L (22-26); VBG pCO2 60 mmHg; VBG pH 7.49 (7.32-7.43); VBG pO2 57 mmHg
--- NOTE | 2020-06-29 10:09 | P.DS_ITS ---
DS: Providers Provider Date of Service: 06/29/20 <SOUMYA Lynn - Last Filed: 06/29/20 10:57> 06/29/20 <Mahin Castano MD - Last Filed: 06/29/20 11:31> Date of admission: 06/20/20 16:44 <SOUMYA Lynn - Last Filed: 06/29/20 10:57> Primary care physician: Kristian England PA-C <SOUMYA Lynn - Last Filed: 06/29/20 10:57> Consults: 06/22/20 11:48 Consult to Thoracic Surgery Routine Consulting Provider: Timur Chew Reason for consultation: loculated pleural effusion, squamous cell carcinoma of right lung Has provider been notified: No <SOUMYA Lynn - Last Filed: 06/29/20 10:57> DS: Diagnosis Discharge Diagnosis (1) Acute respiratory failure with hypoxia and hypercarbia: Status: Acute <SOUMYA Lynn - Last Filed: 06/29/20 10:57> (2) Shock: Status: Acute <SOUMYA Lynn - Last Filed: 06/29/20 10:57> (3) Pleural effusion, right: Status: Acute <SOUMYA Lynn - Last Filed: 06/29/20 10:57> (4) Atrial fibrillation with RVR: Status: Acute <SOUMYA Lynn - Last Filed: 06/29/20 10:57> (5) Squamous cell carcinoma of lung, stage IV: Status: Chronic <SOUMYA Lynn - Last Filed: 06/29/20 10:57> (6) COPD exacerbation: Status: Acute <SOUMYA Lynn - Last Filed: 06/29/20 10:57> (7) Pneumonia: Status: Acute <SOUMYA Lynn - Last Filed: 06/29/20 10:57> DS: Medications Discharge Medications Home Medications: Home Medications Medication Instructions Recorded Confirmed One-A-Day Womens Formula 1 tab PO DAILY 12/25/19 06/20/20 omeprazole 20 mg capsule,delayed 20 mg PO DAILY 12/31/19 06/20/20 release Anoro Ellipta 1 inh INHALATION DAILY 02/05/20 06/20/20 loratadine 10 mg PO DAILY PRN 04/04/20 06/20/20 Previous Rx's Medication Instructions Recorded albuterol sulfate 90 mcg/actuation 2 puff INHALATION Q6H PRN 30 Days 12/31/19 aerosol inhaler #8.5 g dexamethasone 1 mg PO DIRECTED #60 tab 02/12/20 escitalopram oxalate 5 mg PO DAILY #60 tab 03/01/20 rivaroxaban 20 mg tablet 20 mg PO DAILY 30 Days #30 tab 05/03/20 diltiazem HCl 240 mg 240 mg PO DAILY 30 Days #30 cap 05/29/20 capsule,extended release 24 hr albuterol sulfate 2.5 mg INHALATION Q8H PRN 30 Days 06/09/20 #270 ml simvastatin 40 mg tablet 40 mg PO BEDTIME #90 tab 06/20/20 <SOMUYA Lynn - Last Filed: 06/29/20 10:57> DS: Summary Hospital Course Hospital Course: This is a 64-year-old lady with underlying history of stage IV squamous cell carcinoma on 3rd line therapy under care of Dr. Richmond, COPD, AFib, COVID-19 infection and March 2020, TIA admitted on 06/20/2020 with dyspnea, hypotension, and nausea initially believe to be secondary to septic shock, however most likely secondary to distributive shock with intravascular volume depletion. She was initially admitted to the ICU. Acute respiratory failure with hypoxia and hypercarbia. Multifactorial r/t advancement of underlying lung ca/pleural effusion/COPD/PNA. Required bipap at night in ICU. Still requiring supplemental o2 but has not needed bipap. Will need oxygen at discharge with goal o2 saturation of 90%. Avoid over- oxygenating as patient has evidence of chronic co2 retention on vbg. Loculated pleural effusion/Possible post postobstructive pneumonia. likely r/t to underlying lung cancer. She was seen in consultation by thoracic surgery. She had Pig tail catheter p laced on 06/23. This was changed to plurex catheter due to high output. She was treated with broad spectrum antibiotics which has been changed to Doxycycline for 3 more days. Fluid cultures and blood cultures had no growth. Leukocytosis likely related to steroids and stress. For plurex catheter management: Surgery recommends every other day drainage from PleurX catheter to be performed by nursing Record output, color, and clarity of drainage Will need VNA services upon discharge to assist with drainage at home She can follow up with Thoracic Surgery monthly for PleurX drainage Patient can call the [facility] office @ [phone] to set up an appointment. Patient will need chest x-ray on the same day of her appointment Flush with NS twice/week and after drainage. Right lung squamous cell carcinoma, clinical stage IIIA, January 2019. Metastatic cancer diagnosed in August 2019 Under the care of Dr. Richmond, receiving palliative chemotherapy. No chemotherapy at this time. Follow up with oncology once out of rehab. Acute COPD exacerbation. Resolved. Was treated with scheduled breathing treatments and steroids and has completed full course of treatment. Afib. She had episode of rapid ventricular response. Diltiazem was continued and digoxin was added. Anticoagulation with Xarelto was continued Leg edema. ECHO from March with preserved EF. Multifactorial r/t poor nutritional status as well, initially treated with lasix however BNP was in 200s, cxr not showing edema, therefor lasix was discontinued. Attending Attestation: Patient seen and examined independently and I was present during oscar portion of E/M service. Agree with SOUMYA Jha's history, physical, assessment, and plan. Patient presented with respiratory failure and shock. She was initially admitted to the intensive care unit where she was treated with BiPAP support and vasopressors. Her shock was felt secondary to be hypovolemic/distributive and not septic. Nonetheless, due to her right-sided pleural effusion she was empirically treated with broad-spectrum IV antibiotics. Once stabilized off of BiPAP she was transitioned to the floor. On the floor she underwent further treatment of her right-sided pleural effusion initially with a pigtail catheter which was ultimately replaced with a PleurX catheter. Her pleural fluid was negative for any growth. She was treated with vancomycin and cefepime for a total 7 days in the hospital and will be discharged on several more days of doxycycline. Her hospital course was further complicated by atrial fibrillation with rapid ventricular response. She was treated with her home dose of Cardizem, however due to softer blood pressure IV digoxin was initially used and she will be discharged on oral digoxin. Her Xarelto was intermittently held due to pigtail catheter and PleurX catheter placement and has been restarted on the day of discharge. She was also treated for COPD exacerbation and has completed a course of steroids in the hospital. She does require oxygen at the time of discharge, however due to evidence of CO2 retention on her blood gas her O2 should not be titrated higher than 90-92. Lastly, multiple conversations were held with the patient's and herself about transitioning to hospice/palliative care along with changing her code status from full to DNR/DNI. At this time, they are not ready to make this transition and as such she will remain full code. She also is to follow-up with her oncologist Dr. Richmond within the next 1-2 weeks. <SOUMYA Lynn Last Filed: 06/29/20 10:57> Time Spent with Patient Time attestation: Total time spent providing and/or coordinating discharge services: <SOUMYA Lynn Last Filed: 06/29/20 10:57> Discharge coordination time: Greater than 30 minutes <SOUMYA Lynn Last Filed: 06/29/20 10:57> Physical Exam Vital Signs: Vital Signs: Last Vital Signs Temp 99.3 F 06/29/20 07:18 Pulse 89 06/29/20 08:50 Resp 20 06/29/20 07:18 BP 100/60 06/29/20 08:50 Pulse Ox 96 06/29/20 07:18 Body Mass Index 37.6 <SOUMYA Lynn Last Filed: 06/29/20 10:57> Const: General: alert and awake <SOUMYA Lynn Last Filed: 06/29/20 10:57> Orientation/consciousness: patient oriented x3 <SOUMYA Lynn Last Filed: 06/29/20 10:57> HENMT: Head: Yes normocephalic and Yes atraumatic <SOUMYA Lynn Last Filed: 06/29/20 10:57> Eyes: Sclerae: sclerae normal <SOUMYA Lynn Last Filed: 06/29/20 10:57> Chest: Other: right sided plurex catheter in place <SOUMYA Lynn Last Filed: 06/29/20 10:57> Resp: Effort & Inspection: normal respiratory effort and no respiratory distress <SOUMYA Lynn - Last Filed: 06/29/20 10:57> GI: Palpation (GI): Soft to palpation and nontender <SOUMYA Lynn - Last Filed: 06/29/20 10:57> Neuro: General: patient oriented x3 <SOUMYA Lynn - Last Filed: 06/29/20 10:57> Cranial nerves: Yes CN's II-XII intact bilaterally and Yes Bilaterally intact EOM present <SOUMYA Lynn - Last Filed: 06/29/20 10:57> Extrem: Other: b/l leg edema <SOUMYA Lynn Last Filed: 06/29/20 10:57> DS: Data Data Completed and Pending Completed studies during hospitalization [Text1]: Pending at discharge 06/25/20 10:16 Cytology [PTH] Routine Procedures Pigtail catheter, plurex catheter <SOUMYA Lynn - Last Filed: 06/29/20 10:57> Pending studies at discharge: Pending at discharge 06/27/20 10:16 Cytology [PTH] Routine <SOUMYA Lynn - Last Filed: 06/29/20 10:57> Labs on day of discharge: Laboratory Results - last 24 hr 06/25/20 06/29/20 06/29/20 10:00 05:14 05:14 WBC 19.2 H RBC 3.85 L Hgb 11.2 L Hct 36.3 L MCV 94.3 MCH 29.1 MCHC 30.9 L RDW 19.2 H Plt Count 408 H MPV 9.6 Immature Gran % (Auto) 3.1 H Neut % (Auto) 86.0 H Lymph % (Auto) 3.3 L Clarke % (Auto) 7.4 Eos % (Auto) 0.0 Baso % (Auto) 0.2 Lymph # (Auto) 0.6 L Clarke # (Auto) 1.4 H Eos # (Auto) 0.0 Baso # (Auto) 0.0 Abs Immat Gran (auto) 0.60 H Absolute Neuts (auto) 16.5 H Absolute Nucleated RBC 0.030 H Nucleated RBC % (auto) 0.2 Smear Tech's Comments VERIFIED VBG pH VBG pCO2 VBG pO2 VBG HCO3 VBG O2 Saturation VBG Base Excess Sodium 143 Potassium 4.6 Chloride 97 Carbon Dioxide 40 H* Anion Gap 11 L BUN 24 H Creatinine 0.51 Estim Creat Clear Calc 126.0 Estimated GFR > 60 Random Glucose 121 H Calcium 8.6 Pleural pH 8.2 06/29/20 08:47 WBC RBC Hgb Hct MCV MCH MCHC RDW Plt Count MPV Immature Gran % (Auto) Neut % (Auto) Lymph % (Auto) Clarke % (Auto) Eos % (Auto) Baso % (Auto) Lymph # (Auto) Clarke # (Auto) Eos # (Auto) Baso # (Auto) Abs Immat Gran (auto) Absolute Neuts (auto) Absolute Nucleated RBC Nucleated RBC % (auto) Smear Tech's Comments VBG pH 7.49 H VBG pCO2 60 VBG pO2 57 VBG HCO3 46 H VBG O2 Saturation 82.0 VBG Base Excess 19.9 Sodium Potassium Chloride Carbon Dioxide Anion Gap BUN Creatinine Estim Creat Clear Calc Estimated GFR Random Glucose Calcium Pleural pH <SOUMYA Lynn - Last Filed: 06/29/20 10:57> Discharge Plan Discharge Patient Disposition: Xfer [facility] <SOUMYA Lynn - Last Filed: 06/29/20 10:57> Referrals: [facility] [Outside] Kristian England PA-C [Primary Care Provider] - Timur Chew MD [Physician] - <SOUMYA Lynn - Last Filed: 06/29/20 10:57> Discharge Medications: New doxycycline hyclate 100 mg Tablet 100 mg PO Q12H 3 Days Qty: 6 RF: 0 digoxin 250 mcg (0.25 mg) Tablet 250 mcg PO DAILY 30 Days Qty: 30 RF: 0 Continued Xarelto 20 mg tablet 20 mg PO DAILY 30 Days Qty: 30 RF: 3 diltiazem HCl 240 mg capsule,extended release 24hr 240 mg PO DAILY 30 Days Qty: 30 RF: 0 simvastatin 40 mg tablet 40 mg PO BEDTIME Qty: 90 RF: 1 One-A-Day Womens Formula 18 mg iron-400 mcg-500 mg Tablet 1 tab PO DAILY RF: 0 Anoro Ellipta 62.5-25 mcg/actuation Blister With Device 1 inh INHALATION DAILY RF: 0 dexamethasone 1 mg Tablet 1 mg PO DIRECTED Qty: 60 RF: 2 escitalopram oxalate 5 mg Tablet 5 mg PO DAILY Qty: 60 RF: 3 loratadine 10 mg Tablet 10 mg PO DAILY PRN (Reason: Allergy Symptoms) RF: 0 albuterol sulfate 2.5 mg /3 mL (0.083 %) solution for nebulization 2.5 mg INHALATION Q8H PRN (Reason: Shortness Of Breath Or Wheezing) 30 Days Qty: 270 RF: 3 omeprazole 20 mg capsule,delayed release(DR/EC) 20 mg PO DAILY RF: 0 albuterol sulfate 90 mcg/actuation HFA aerosol inhaler 2 puff inhalation Q6H PRN (Reason: shortness of breath or wheezing) 30 Days Qty: 8.5 RF: 3 <SOUMYA Lynn - Last Filed: 06/29/20 10:57> Discharge Orders: Discharge Order (Routine); Ordered 06/29/20 Ordered By: Casandra Grant <SOUMYA Lynn - Last Filed: 06/29/20 10:57> Diet: advance to usual diet <SOUMYA Lynn - Last Filed: 06/29/20 10:57> advance to usual diet <Mahin Castano MD - Last Filed: 06/29/20 11:31> Activity on Discharge: As tolerated <SOUMYA Lynn - Last Filed: 06/29/20 10:57> As tolerated <Mahin Castano MD - Last Filed: 06/29/20 11:31> Stand Alone Forms: Patient Portal Discharge page <SOUMYA Lynn - Last Filed: 06/29/20 10:57> Activity Restrictions/Additional Instructions: PLEURX CARE: * You will have home nursing set up for you when you leave the hospital to aide with draining the Pleurx catheter, as well as teaching you about how to care for it. * Ensure the catheter is under the sterile dressing at all times. If the catheter dressing comes off for whatever reason, use another sterile dressing kit to re-dress the catheter. BATHING: * You may shower with this catheter in place. The dressing is waterproof, but if you are concerned about getting the dressing wet you can cover the dressing with a waterproof dressing, or wrap the area with something like Saran wrap. * If the dressing over the catheter becomes wet you will need to change the dressing. DO NOT leave a wet dressing over the catheter, this increases the risk of infection and serious skin irritation. * NO submerging the area in water. This includes bath tubs, swimming pools, etc. DRAINING SCHEDULE: * You will have the catheter drained every other day. RN may drain up to 1000cc with each drainage. * At first, a nurse will help you with this. If you, or a family member, becomes confident in how to drain this then nursing services can be discontinued at that time. * Paperwork will have been faxed to the [employer] prior to your discharge so that drainage bottles and dressing kits will be delivered to your house. WHAT TO WATCH FOR: * Monitor all incisions for increased redness, swelling, open areas, or drainage. * Monitor for increased air under the skin around the incisions or chest (feels like Rice Krispy cereal when touched). * Monitor for fever, chills, shortness of breath, chest pain, severe abdominal pain, persistent nausea/vomiting, severe changes in bowel or bladder habits. * Monitor the fluid that is drained from the Pleurx for any cloudiness, foul odor, or increased bloody drainage. WHAT TO DO IF THE CATHETER GETS DAMAGED: * Do not use any sharp objects, including a knife or a razor, around the catheter. If the catheter gets damaged you are at risk of a lung collapse (pneumothorax). * The sterile dressing kits come with a blue plastic clamp. If you Pleurx ever becomes damaged place the blue clamp on the catheter as close to your skin as possible and then call our office [facility] for further instructions. FOLLOWUP: * Call the thoracic surgery office to schedule a followup appointment for 1 month following discharge. The office number is . <SOUMYA Lynn - Last Filed: 06/29/20 10:57> Care Plan Goals: Resolution of pleural effusion with pleurx catheter <SOUMYA Lynn - Last Filed: 06/29/20 10:57> Health Concerns: Pleural effusion Acute respiratory failure Acute COPD exacerbation Right lung squamous cell carcinoma Afib <SOUMYA Lynn - Last Filed: 06/29/20 10:57> Plan of Treatment: Follow up with oncology after discharge from rehabilitation. Follow up with primary care provider Follow instructions listed above for pleurx catheter. Call [phone] to set up an appointment Atrial fibrillation - digoxin was added please follow up with PCP after discharge from rehab <SOUMYA Lynn - Last Filed: 06/29/20 10:57>
[2020-06-29 10:52] VITALS: BP 116/61; PULSE 102; RESP 22; TEMP 36.3; O2SAT 94
--- NOTE | 2020-06-29 10:59 | MHC.CLN ---
F/U PO INTAKE 100% DIET RX: REGULAR-APPROPRIATE PT PENDING D/C TODAY FOLLOWING
--- NOTE | 2020-06-29 11:01 | MHC.CM.PN ---
pt is dcd awaiting results of covid which was ordered today at 9:00
[2020-06-29 11:15] LABS: COVID-19 Test Negative (Negative)
[2020-06-29] MEDS: Rivaroxaban 20 MG TABLET PO (11:30)
[2020-06-29 11:42] VITALS: PULSE 102; O2SAT 95
--- NOTE | 2020-06-29 11:44 | MHC.CM.PN ---
STEPHANIEID SENT, AMB REQUEST FOR 1:30 PEDIATRIC OPHTHALMOLOGIST ,AMB REPORTS THEY WILL BE LATE WITH PEDIATRIC OPHTHALMOLOGIST,JOHNNA MOTTA
--- NOTE | 2020-06-29 14:07 | MHC.HEMONCSW ---
PATIENT DISCHARGED FROM INPATIENT TO [facility] FOR SHORT TERM REHAB.
== END 2020-06-29 13:40 | disposition skilled nursing facility (03) | DRG 180 ==
LOC: HO.ED 16:33 → HO.EDOVER 17:26 → HO.ICU 20:58 → HO.IMC 06-21 08:17
PROVIDERS: Hospitalist; Internal Medicine; Nurse Practitioner Acute Care; Physician Assistant; Physician Assistant Medical; Radiology Diagnostic Radiology; Admitting Provider Internal Medicine Pulmonary Disease; Emergency Provider Emergency Medicine; PCP Physician Assistant; Visit Provider Family Medicine
PROC: (CPT 32551; principal; 2020-06-23 11:10)
PROC: 0WP930Z Removal of Drainage Device from Right Pleural Cavity, Percutaneous Approach (ICD-10-PCS; CPT 32551; principal; 2020-06-27 12:50)
DX: C34.90 Malignant neoplasm of unspecified part of unspecified bronchus or lung (principal); J96.01 Acute respiratory failure with hypoxia; J96.02 Acute respiratory failure with hypercapnia; R57.1 Hypovolemic shock; D68.9 Coagulation defect, unspecified; J91.0 Malignant pleural effusion; I50.32 Chronic diastolic (congestive) heart failure; I48.91 Unspecified atrial fibrillation; I95.9 Hypotension, unspecified; J43.1 Panlobular emphysema; E78.5 Hyperlipidemia, unspecified; Z20.822 Contact with and (suspected) exposure to COVID-19; Z86.16 Personal history of COVID-19; Z87.891 Personal history of nicotine dependence; Z79.01 Long term (current) use of anticoagulants; Z79.899 Other long term (current) drug therapy
CPT/HCPCS: 0241U; 32551; 36415; 36600; 49405; 71045; 71046; 71260; 76604; 80048; 80053; 80202; 81003; 82040; 82042; 82247; 82945; 83605; 83615; 83735; 83880; 83986; 84100; 84155; 84157; 84484; 85007; 85025; 85027; 85610; 85730; 87040; 87071; 87073; 87205; 87635; 88112; 88305; 89051; 93005; 94640; 94660; 96365; 96366; 96368; 96375; 97116; 97163; 99285; 99291; C1729; C1758; J0456; J0692; J0696; J1160; J1940; J2405; J2920; J3370; P9047; Q4186; Q9967

== ENCOUNTER 2020-07-26 12:02 | Observation (INO) | payer MEDICARE, MEDICAID, SELFPAY ==
--- NOTE | ~2020-07-26 | XR_ITS ---
EXAMINATION: XR CHEST CLINICAL INFORMATION: Dyspnea COMPARISON: Chest 06/26/2020 TECHNIQUE: Frontal view of the chest was obtained. FINDINGS: The left lung is expanded and clear. There is moderate opacity seen in the right mid and lower lung with loss of lung volume. There is big bore chest tube in the right lower hemithorax. There is a left central port with its tip at the brachiocephalic venous junction. No gross bony abnormality seen. XR/XR chest 1V IMPRESSION: Interval further opacification of right mid and lower lobe with loss of right lung volume when compared to previous chest x-ray 06/26/2020. There is large bore right chest catheter in place in mid lung There is a left central port with its tip at brachiocephalic venous junction.
--- NOTE | ~2020-07-26 | CT_ITS ---
EXAMINATION: CT CHEST WITHOUT CONTRAST CLINICAL INFORMATION: Stage IV lung cancer. No drainage from Pleurx catheter. Dyspnea. COMPARISON: Previous CT scans from May and June 2020 TECHNIQUE: Multidetector volumetric CT imaging of the chest was done. Axial MIP volume rendering provided. Sagittal and coronal reformatted images were obtained. This CT examination was performed using dose optimization techniques as appropriate, variously including the following: *Automated exposure control *Adjustment of mA and/or kV according to patient size (this includes techniques or standardized protocols for targeted exams where dose is matched to indication/reason for exam; i.e. extremities or head) *Use of iterative reconstruction technique DLP: 352 mGy-cm FINDINGS: LUNGS: There is volume loss to the right hemithorax and shift of the central mediastinal structures to the right. This is slightly increased from previous exams. There is diffuse right lung atelectasis and consolidation with air bronchograms. There are areas of soft tissue opacification of the right mainstem bronchus and central right upper middle and lower lobe bronchi. There is increased interstitial markings seen in the left lung and small nodules. This does not appear appreciably changed. MEDIASTINUM: There is increasing mediastinal lymphadenopathy. Largest lymph node is a right tracheoesophageal groove lymph node that measures 2 x 3 cm. The heart does not appear enlarged. There is coronary artery calcification. There is no pericardial effusion. PLEURA: There is a small to moderate loculated right pleural effusion. There is a right chest tube there is a small left pleural effusion. AXILLA: No lymphadenopathy. UPPER ABDOMEN: There is interval increase in the large lesion exophytic to the lateral segment of the left lobe of the liver under the left hemidiaphragm 5 x 10.5 cm compared to 5.5 x 8.5 cm on most recent exam. OSSEOUS STRUCTURES: There are T8-T5-T6 and T8 vertebral body compression fractures that appear unchanged. CT/CT chest wo con IMPRESSION: Increasing volume loss and atelectasis/consolidation of the right lung. New right chest tube. [id number] loculated right pleural effusion. Interstitial disease and small nodules in the left lung similar to previous exam. Small left pleural effusion. Increasing mediastinal lymphadenopathy and increasing size of large liver lesion.
--- NOTE | ~2020-07-26 | IR_ITS ---
EXAMINATION: CHEMICAL PLEURODESIS TUNNELED CATHETER CLINICAL INFORMATION: Metastatic lung cancer. No drainage from PleurX catheter. COMPARISON: Previous chest x-ray and chest CT from earlier the same day. TECHNIQUE/FINDINGS: Procedure, risks and benefits were discussed with the patient including bleeding, infection, pain and fever and informed consent was obtained. The existing right tunneled PleurX chest tube was accessed. Scant serosanguineous fluid was withdrawn. Subsequently, 5 mg of TPA instilled in 50 mL volume of normal saline was instilled in the right PleurX catheter for 1 hour. Following this, approximately 50 mL of slightly serosanguineous fluid was removed. No diagnostic specimen was sent. No images were obtained. IR/IR cvc remove any age IMPRESSION: TPA instillation in the right PleurX catheter. 50 mL slightly serosanguineous fluid was removed.
--- NOTE | 2020-07-26 12:11 | ED_ITS ---
HPI - SOB/Dyspnea General Chief Complaint: Dyspnea Stated Complaint: diff breathing Time Seen by Provider: 07/26/20 12:08 Source: patient, EMS and old records reviewed Mode of arrival: EMS Limitations: no limitations History of Present Illness HPI Narrative: 64 yo female hx of squamous cell lung cancer on palliative chemo, COPD, afib on digoxin and xarelto, pneumonia, R pleural effusion with pleuralX catheter in place comes in with 1 week of worsening dyspnea normally on 2L NC now up to 3.5L she notes worsening cough that is junky in nature, has not had drainage from catheter on last 4 checks. MD elicited complaint: shortness of breath Pertinent past history: COPD, pneumonia and other (cancer) Onset (ago): day(s) (7) Context: recent illness Timing: constant Severity: moderate Exacerbating factors: exertion and coughing Relieving factors: oxygen Associated symptoms: cough, wheezing and sputum production Treatment prior to arrival: oxygen Related Data Home Medications Medication Instructions Recorded Confirmed One-A-Day Womens Formula 1 tab PO DAILY 12/25/19 07/26/20 omeprazole 20 mg capsule,delayed 20 mg PO DAILY@0600 12/31/19 07/26/20 release Anoro Ellipta 1 inh INHALATION DAILY 02/05/20 07/26/20 loratadine 10 mg PO DAILY 04/04/20 07/26/20 Xarelto 20 mg PO DAILY@0800 07/26/20 07/26/20 digoxin 250 mcg PO DAILY@1700 07/26/20 07/26/20 ondansetron HCl 4 mg PO DAILY 07/26/20 07/26/20 ondansetron HCl 4 mg PO Q6H PRN 07/26/20 07/26/20 Previous Rx's Medication Instructions Recorded albuterol sulfate 90 mcg/actuation 2 puff INHALATION Q6H PRN 30 Days 12/31/19 aerosol inhaler #8.5 g dexamethasone 1 mg PO DIRECTED #60 tab 02/12/20 escitalopram oxalate 5 mg PO DAILY #60 tab 03/01/20 diltiazem HCl 240 mg 240 mg PO DAILY 30 Days #30 cap 05/29/20 capsule,extended release 24 hr simvastatin 40 mg tablet 40 mg PO BEDTIME #90 tab 06/20/20 Allergies Allergy/AdvReac Type Severity Reaction Status Date / Time amoxicillin [AMOXICILLIN] Allergy Intermediate HIVES Verified 06/09/20 17:07 Iodinated Contrast Media AdvReac Intermediate NAUSEA ?T? Verified 06/09/20 17:07 [IVP DYE] VOMITING azithromycin AdvReac Unknown diarrhea Verified 06/09/20 17:07 Review of Systems Review of Systems: Constitutional : No Fever, No Chills ENT/Mouth : No sore throat, No Rhinorrhea, No Swallowing Difficulty Eyes: No Eye Pain, No Swelling, No Redness Cardiovascular : No Chest Pain, positive SOB, No Orthopnea, positive Edema Respiratory : pos Cough, pos Sputum, No Wheezing, positive dyspnea Gastrointestinal : No Nausea, No Vomiting, No Diarrhea, No abdominal Pain, No Hematochezia, No Melena Genitourinary : No Dysuria, No Urinary Frequency, No Hematuria Musculoskeletal : No joint pain, No Myalgias Skin : No Skin Lesions, No rash Neuro : No Weakness, No Numbness, No Dizziness, No Headache Psych : No Anxiety/Panic, No Depression Heme/Lymph: No Bruising, No Lymphadenopathy Endocrine : No Polyuria, No Polydipsia All other systems reviewed and are negative [facility] Past Medical History Attestation statement: The following information was validated with the patient. Medical History Atrial fibrillation COPD (chronic obstructive pulmonary disease) HLD (hyperlipidemia) Hospital discharge follow-up Pleural effusion, right [id number] condition Squamous cell carcinoma of lung, stage IV TIA (transient ischemic attack) Surgical History H/O breast biopsy No pertinent past surgical history Family History Family History Father Hypertension Mother No problems noted. Sister Hypertension Diverticulosis Brother Hypertension Social History Social History Household Members: Spouse Housing: Other Alcohol intake: never Smoking Status: Former smoker Years Smoked: 30 yrs Use of substances other than those prescribed or required for medical reasons: No Advance Directives: Yes Advance Directives on File: Yes Advance Directives Date on File: 03/01/19 service: No Current occupational status: retired Physical Exam Vital Signs: Vital Signs: Last Vital Signs Temp 98.4 F 07/26/20 12:22 Pulse 94 07/26/20 12:59 Resp 16 07/26/20 12:59 BP 94/31 L 07/26/20 12:59 Pulse Ox 100 07/26/20 12:59 Body Mass Index 37.4 Appearance: Alert. Oriented X3. Mild acute distress. Eyes: Pupils equal, round and reactive to light. ENT: Pharynx normal. Neck: Normal inspection. Neck supple. CVS: irregular heart rate and rhythm. Pulses normal. Respiratory: No respiratory distress. Breath sounds wheezes noted end exp, rales and decreased sounds on right lung, cath yellow clear drainage in cath itself noted Abdomen: Soft and nontender. Skin: Skin warm and dry. Normal skin color. Normal skin turgor. Extremities: diffuse UE edema of hands not pitting, BL LE pitting 1 to 2+ edema No calf ttp Neuro: Oriented X 3. No motor deficit. No sensory deficit. Course Course Course Narrative: message sent to IR given reaccumulated effusion to assess drain - patient again reports no drainage in cath x 4 days, fluids and albumin ordered at this time IR team recommended CT scan of chest call from Radiology 253pm - small moderate effusion ?tPa unsure if it will help to drain the area, adenopathy is worse, all of her disease is worse discussed with her and that she is on palliative chemo that this isn't going to be cured but we will try to manage her symptoms at this time, very upset plan to admit for possible post obstructive pneumonia, IR at bedside to assist in drainage MDM - SOB/Dyspnea MDM Narrative Medical decision making narrative: 64 yo female hx of squamous cell lung cancer on palliative chemo, COPD, afib on digoxin and xarelto, pneumonia, R pleural effusion with pleuralX catheter in place comes in with 1 week of worsening dyspnea normally on 2L NC now up to 3.5L she notes worsening cough that is junky in nature, has not had drainage from catheter on last 4 checks at this time will need CXR< labs, neb, IV steroids, IV cefepime for possible pneumonia, likely admit, suspect catheter might be blocked - will discuss with IR post CXR Lab Data Result diagrams: 07/26/20 12:55 07/26/20 12:55 Labs: Lab Results 07/26/20 07/26/20 07/26/20 Range/Units 12:55 12:55 12:55 WBC 9.2 (4.8-10.8) X10*3/uL RBC 3.27 L (4.20-5.50) X10*6/uL Hgb 9.4 L (12.0-16.0) g/dl Hct 30.2 L (37-47) % MCV 92.4 (80-98) fL MCH 28.7 (27.0-33.0) pg MCHC 31.1 (31.0-35.0) g/dl RDW 17.0 H (11.0-16.0) % Plt Count 467 H (160-400) X10*3/uL MPV 8.7 L (9.4-12.3) fL Immature Gran % (Auto) 0.4 (0.0-0.4) % Neut % (Auto) 77.5 H (45-73) % Lymph % (Auto) 10.3 L (20-40) % [place] % (Auto) 10.7 (2-11) % Eos % (Auto) 0.9 (0-4) % Baso % (Auto) 0.2 (0-2) % Lymph # (Auto) 1.0 L (1.2-4.9) X10*3/uL [place] # (Auto) 1.0 (0.1-1.2) X10*3/uL Eos # (Auto) 0.1 (0.0-0.4) X10*3/uL Baso # (Auto) 0.0 (0.0-0.2) X10*3/uL Abs Immat Gran (auto) 0.04 H (0.00-0.03) X10*3/uL Absolute Neuts (auto) 7.1 (2.0-8.3) X10*3/uL Absolute Nucleated RBC 0.000 (0.0-0.012) X10*3/uL Nucleated RBC % (auto) 0.0 (0.0-0.2) /100WBC PT 21.8 H D (10.8-13.0) SEC INR 1.8 H (0.9-1.1) APTT 31.2 (24.1-38.0) SEC Sodium (135-145) mmol/L Potassium (3.3-5.1) mmol/L Chloride (96-108) mmol/L Carbon Dioxide (22-29) mmol/L Anion Gap (12-20) BUN (9-16) mg/dL Creatinine (0.5-1.4) mg/dL Estim Creat Clear Calc Estimated GFR Random Glucose (60-115) mg/dL Lactic Acid (0.5-2.0) mmol/L Calcium (8.4-10.2) mg/dL Magnesium (1.6-2.6) mg/dL Total Bilirubin (0.0-1.0) mg/dL Direct Bilirubin (0.0-0.5) mg/dL AST (5-31) U/L ALT (0-31) U/L Alkaline Phosphatase (39-117) U/L Troponin I High Sens (<3.5-17.0) ng/L B-Natriuretic Peptide (<100) pg/mL Total Protein (6.5-8.0) g/dL Albumin (3.5-5.0) g/dL Lipase (8-78) U/L Digoxin 1.2 (0.8-2.0) ng/mL COVID-19 (LIYAH) (Negative) COVID-19 Clin Com 07/26/20 07/26/20 07/26/20 Range/Units 12:55 12:55 12:55 WBC (4.8-10.8) X10*3/uL RBC (4.20-5.50) X10*6/uL Hgb (12.0-16.0) g/dl Hct (37-47) % MCV (80-98) fL MCH (27.0-33.0) pg MCHC (31.0-35.0) g/dl RDW (11.0-16.0) % Plt Count (160-400) X10*3/uL MPV (9.4-12.3) fL Immature Gran % (Auto) (0.0-0.4) % Neut % (Auto) (45-73) % Lymph % (Auto) (20-40) % [place] % (Auto) (2-11) % Eos % (Auto) (0-4) % Baso % (Auto) (0-2) % Lymph # (Auto) (1.2-4.9) X10*3/uL [place] # (Auto) (0.1-1.2) X10*3/uL Eos # (Auto) (0.0-0.4) X10*3/uL Baso # (Auto) (0.0-0.2) X10*3/uL Abs Immat Gran (auto) (0.00-0.03) X10*3/uL Absolute Neuts (auto) (2.0-8.3) X10*3/uL Absolute Nucleated RBC (0.0-0.012) X10*3/uL Nucleated RBC % (auto) (0.0-0.2) /100WBC PT (10.8-13.0) SEC INR (0.9-1.1) APTT (24.1-38.0) SEC Sodium 139 (135-145) mmol/L Potassium 3.7 (3.3-5.1) mmol/L Chloride 95 L (96-108) mmol/L Carbon Dioxide 38 H (22-29) mmol/L Anion Gap 10 L (12-20) BUN 9 D (9-16) mg/dL Creatinine 0.49 L (0.5-1.4) mg/dL Estim Creat Clear Calc 130.8 Estimated GFR > 60 Random Glucose 74 D (60-115) mg/dL Lactic Acid 1.0 (0.5-2.0) mmol/L Calcium 8.0 L D (8.4-10.2) mg/dL Magnesium 1.7 (1.6-2.6) mg/dL Total Bilirubin 0.7 (0.0-1.0) mg/dL Direct Bilirubin 0.3 (0.0-0.5) mg/dL AST 19 D (5-31) U/L ALT 9 (0-31) U/L Alkaline Phosphatase 114 (39-117) U/L Troponin I High Sens 7.4 D (<3.5-17.0) ng/L B-Natriuretic Peptide 178 H (<100) pg/mL Total Protein 4.1 L (6.5-8.0) g/dL Albumin 2.4 L D (3.5-5.0) g/dL Lipase 8 (8-78) U/L Digoxin (0.8-2.0) ng/mL COVID-19 (LIYAH) (Negative) COVID-19 Clin Com 07/26/20 Range/Units 12:55 WBC (4.8-10.8) X10*3/uL RBC (4.20-5.50) X10*6/uL Hgb (12.0-16.0) g/dl Hct (37-47) % MCV (80-98) fL MCH (27.0-33.0) pg MCHC (31.0-35.0) g/dl RDW (11.0-16.0) % Plt Count (160-400) X10*3/uL MPV (9.4-12.3) fL Immature Gran % (Auto) (0.0-0.4) % Neut % (Auto) (45-73) % Lymph % (Auto) (20-40) % [place] % (Auto) (2-11) % Eos % (Auto) (0-4) % Baso % (Auto) (0-2) % Lymph # (Auto) (1.2-4.9) X10*3/uL [place] # (Auto) (0.1-1.2) X10*3/uL Eos # (Auto) (0.0-0.4) X10*3/uL Baso # (Auto) (0.0-0.2) X10*3/uL Abs Immat Gran (auto) (0.00-0.03) X10*3/uL Absolute Neuts (auto) (2.0-8.3) X10*3/uL Absolute Nucleated RBC (0.0-0.012) X10*3/uL Nucleated RBC % (auto) (0.0-0.2) /100WBC PT (10.8-13.0) SEC INR (0.9-1.1) APTT (24.1-38.0) SEC Sodium (135-145) mmol/L Potassium (3.3-5.1) mmol/L Chloride (96-108) mmol/L Carbon Dioxide (22-29) mmol/L Anion Gap (12-20) BUN (9-16) mg/dL Creatinine (0.5-1.4) mg/dL Estim Creat Clear Calc Estimated GFR Random Glucose (60-115) mg/dL Lactic Acid (0.5-2.0) mmol/L Calcium (8.4-10.2) mg/dL Magnesium (1.6-2.6) mg/dL Total Bilirubin (0.0-1.0) mg/dL Direct Bilirubin (0.0-0.5) mg/dL AST (5-31) U/L ALT (0-31) U/L Alkaline Phosphatase (39-117) U/L Troponin I High Sens (<3.5-17.0) ng/L B-Natriuretic Peptide (<100) pg/mL Total Protein (6.5-8.0) g/dL Albumin (3.5-5.0) g/dL Lipase (8-78) U/L Digoxin (0.8-2.0) ng/mL COVID-19 (LIYAH) Negative (Negative) COVID-19 Clin Com See Note ECG Data Attestation: I personally reviewed and interpreted this ECG as follows: ECG interpretation date: 07/26/20 Interpretation: Rate: 78 Rhythm: afib [place]: normal Normal P waves. Normal [place]. Normal QRS complex. ST T wave : nonspecific, no ANNAMARIA, inverted t waves lateral leads qTC: normal prior studies: new t wave inversions The study has been interpreted contemporaneously by me. . Discharge Plan Discharge Clinical Impression: Hypoalbuminemia, Pleural effusion, Acute dyspnea, Hypoxia Pneumonia Qualifiers: Pneumonia type: due to unspecified organism Laterality: right Lung location: unspecified part of lung Qualified Code(s): J18.9 - Pneumonia, unspecified organism Patient Disposition: Admitted As Inpatient
--- NOTE | 2020-07-26 12:21 | ECG_ITS ---
Test Reason : SOB Blood Pressure : / mmHG Vent. Rate : 078 BPM Atrial Rate : 277 BPM P-R Int : 000 ms QRS Dur : 082 ms QT Int : 302 ms P-R-T Axes : 000 016 232 degrees QTc Int : [address] & T wave abnormality, consider inferolateral ischemia Abnormal ECG When compared with ECG of 20-JUN-2020 10:23, Vent. rate has decreased BY 72 BPM T wave inversion now evident in Lateral leads Referred By: Yadira Zaragoza Electronically Signed By:J LUIS TOMLIN
[2020-07-26 12:22] VITALS: BP 120/70; BP 98/63; PULSE 76; PULSE 81; RESP 16; TEMP 36.9; O2SAT 100; O2SAT 94; BMI 37.4
[2020-07-26 12:42] VITALS: PULSE 84; O2SAT 100
[2020-07-26] MEDS: Albuterol Sulfate (0.083%) 2.5 MG/3 ML VIAL.NEB INHALE (12:42)
[2020-07-26 12:59] VITALS: BP 94/31; PULSE 94; RESP 16; O2SAT 100
[2020-07-26 13:01] LABS: MANUAL DIFF FLAG NO
[2020-07-26 13:03] LABS: Basophils Percent Auto 0.2 % (0-2); Eosinophils Absolute Auto 0.1 X10*3/uL (0.0-0.4); Eosinophils Percent Auto 0.9 % (0-4); Hematocrit 30.2 % (37-47); Hemoglobin 9.4 g/dl (12.0-16.0); Imm Gran Abs Auto 0.04 X10*3/uL (0.00-0.03); Imm Gran Pct Auto 0.4 % (0.0-0.4); Lymphocytes Percent Auto 10.3 % (20-40); Mean Corpuscular HGB Conc 31.1 g/dl (31.0-35.0); Mean Corpuscular Hemoglobin 28.7 pg (27.0-33.0); Mean Corpuscular Volume 92.4 fL (80-98); Mean Platelet Volume 8.7 fL (9.4-12.3); Monocytes Percent Auto 10.7 % (2-11); Neutrophils Absolute Auto 7.1 X10*3/uL (2.0-8.3); Neutrophils Percent Auto 77.5 % (45-73); Platelet Count 467 X10*3/uL (160-400); Red Blood Count 3.27 X10*6/uL (4.20-5.50); White Blood Count 9.2 X10*3/uL (4.8-10.8)
[2020-07-26 13:08] LABS: INTERNATIONAL NORM RATIO 1.8 (0.9-1.1); Prothrombin Time 21.8 SEC (10.8-13.0)
[2020-07-26 13:10] LABS: Partial Thromboplastin Time 31.2 SEC (24.1-38.0)
[2020-07-26 13:24] LABS: Alanine Aminotransferase 9 U/L (0-31); Albumin Level 2.4 g/dL (3.5-5.0); Alkaline Phosphatase 114 U/L (39-117); Anion Gap 10 (12-20); Aspartate Amino Transferase 19 U/L (5-31); Bilirubin Direct 0.3 mg/dL (0.0-0.5); Bilirubin Total 0.7 mg/dL (0.0-1.0); Blood Urea Nitrogen 9 mg/dL (9-16); Carbon Dioxide 38 mmol/L (22-29); Chloride 95 mmol/L (96-108); Creatinine Clr Calc Pharmacy 130.8; Estimated Glomerular Filt Rate > 60; Glucose Random 74 mg/dL (60-115); Lipase 8 U/L (8-78); Magnesium 1.7 mg/dL (1.6-2.6); Potassium 3.7 mmol/L (3.3-5.1); Sodium 139 mmol/L (135-145); Total Protein 4.1 g/dL (6.5-8.0)
--- NOTE | 2020-07-26 13:24 | PC.NURSE ---
Pt's seconded set of Blood cultures unable aquire due to poor and unavailble phlebotomy site in both left and right arms . Pt did not want multible attempts
[2020-07-26 13:25] LABS: COVID-19 Test Negative (Negative); IDNOW Serial# 9DD0AD1C
[2020-07-26 13:27] LABS: B Type Natriuretic Peptide 178 pg/mL (<100); Troponin-I High Sensitivity 7.4 ng/L (<3.5-17.0)
[2020-07-26 13:30] LABS: Digoxin 1.2 ng/mL (0.8-2.0)
[2020-07-26] MEDS: methylPREDNISolone Sod Succ 125 MG/2 ML VIAL IVPUSH (13:30)
[2020-07-26] MEDS: cefEPime HCl 2 GM in 0.9 % Sodium Chloride 50 ML IV (13:30)
[2020-07-26] MEDS: Albumin Human 25 % 100 ML IV (15:02)
[2020-07-26 16:22] VITALS: BP 111/41; PULSE 83; RESP 23; O2SAT 100
--- NOTE | 2020-07-26 16:24 | PC.NURSE ---
alteplase given by to catheter , pt awaits drainage of the tube. she denies pain. will continue to monitor
--- NOTE | 2020-07-26 16:33 | P.HPHOSP_ITS ---
History of Present Illness Date of Service: 07/26/20 Chief Complaint: shortness of breath 64 year old female with multiple medical problem including Stage 4 squamous lung CA with malginant pelural effusion and has pleurx catheter that apparently hasn't been draining and was complaning of shortness of breath. IR is attempting to open up the tube with tPA. Patient looks comfortable to me, she is sating 100 on 3 L. Her cancer is deemed inoperable or treatable according to the patient. Review of Systems Review of Systems: Gen: no fever Resp: n+ sob, no cough CV: no chest, no LUKE, + leg edema GI: No n/v, no abd pain Neuro: No confusion [facility] Medical History (Updated 07/26/20 @ 16:55 by Varinder Suazo MD) Atrial fibrillation COPD (chronic obstructive pulmonary disease) HLD (hyperlipidemia) Hospital discharge follow-up Malignant pleural effusion Pleural effusion, right [id number] condition Squamous cell carcinoma of lung, stage IV TIA (transient ischemic attack) Family History Father Hypertension Mother No problems noted. Sister Hypertension Diverticulosis Brother Hypertension Surgical History H/O breast biopsy No pertinent past surgical history Social History Household Members: Spouse Housing: Other Alcohol intake: never Smoking Status: Former smoker Years Smoked: 30 yrs Use of substances other than those prescribed or required for medical reasons: No Advance Directives: Yes Advance Directives on File: Yes Advance Directives Date on File: 03/01/19 service: No Current occupational status: retired Meds Allergies Allergy/AdvReac Type Severity Reaction Status Date / Time amoxicillin [AMOXICILLIN] Allergy Intermediate HIVES Verified 06/09/20 17:07 Iodinated Contrast Media AdvReac Intermediate NAUSEA ?T? Verified 06/09/20 17:07 [IVP DYE] VOMITING azithromycin AdvReac Unknown diarrhea Verified 06/09/20 17:07 Active Medications: Current Medications Generic Name Dose Route Start Last Admin Trade Name Freq PRN Reason Stop Dose Admin Vancomycin HCl 1,250 mg/ 250 mls @ 166.667 mls/hr 07/26/20 15:12 Sodium Chloride IV 07/26/20 16:41 ONCE ONE Pharmacy Consult 1 each 07/26/20 12:20 Consult Rx Perform Med Rec MISCELLANE ONCE PRN Consult order Pharmacy Consult 1 each 07/26/20 15:12 Consult Rx Vancomycin Dosing MISCELLANE DAILY PRN Consult order Sodium Chloride 3 ml 07/27/20 00:00 0.9 % Sodium Chloride Flush 3 Ml Syringe [facility] [place] Home Medications Medication Instructions Recorded Confirmed Last Taken Type One-A-Day Womens Formula 1 tab PO DAILY 12/25/19 07/26/20 07/26/20 History omeprazole 20 mg capsule,delayed 20 mg PO DAILY@0600 12/31/19 07/26/20 07/26/20 History release Anoro Ellipta 1 inh INHALATION DAILY 02/05/20 07/26/20 07/26/20 History loratadine 10 mg PO DAILY 04/04/20 07/26/20 07/25/20 History Xarelto 20 mg PO DAILY@0800 07/26/20 07/26/20 07/25/20 History digoxin 250 mcg PO DAILY@1700 07/26/20 07/26/20 07/25/20 History ondansetron HCl 4 mg PO DAILY 07/26/20 07/26/20 07/26/20 History ondansetron HCl 4 mg PO Q6H PRN 07/26/20 07/26/20 Unknown History Physical Exam Vital Signs and Narrative: Vital Signs: Last Vital Signs Temp 98.4 F 07/26/20 12:22 Pulse 83 07/26/20 16:22 Resp 23 H 07/26/20 16:22 BP 111/41 L 07/26/20 16:22 Pulse Ox 100 07/26/20 16:22 Body Mass Index 37.4 Constitutional Awake and Alert, No apparent distress Neck Supple, No lymphadenopathy Cardiovascular RRR, No M/R/G, S1 S2, No S3 S4, 2+ pedal edema Respiratory Lungs clear, No respiratory distress Gastrointestinal Non tender, Non-distended Skin No rash Neurological Alert & oriented x3 Psychological Appropriate affect Results Labs CBC and Chem 7: 07/26/20 12:55 07/26/20 12:55 Labs: Laboratory Results - last 24 hr 07/26/20 07/26/20 07/26/20 12:55 12:55 12:55 MCV 92.4 MCH 28.7 MCHC 31.1 RDW 17.0 H Plt Count 467 H MPV 8.7 L Immature Gran % (Auto) 0.4 Neut % (Auto) 77.5 H Lymph % (Auto) 10.3 L [place] % (Auto) 10.7 Eos % (Auto) 0.9 Baso % (Auto) 0.2 Lymph # (Auto) 1.0 L [place] # (Auto) 1.0 Eos # (Auto) 0.1 Baso # (Auto) 0.0 Abs Immat Gran (auto) 0.04 H Absolute Neuts (auto) 7.1 Absolute Nucleated RBC 0.000 Nucleated RBC % (auto) 0.0 PT 21.8 H D INR 1.8 H APTT 31.2 Anion Gap Estim Creat Clear Calc Estimated GFR Random Glucose Lactic Acid Calcium Magnesium Total Bilirubin Direct Bilirubin AST ALT Alkaline Phosphatase Troponin I High Sens B-Natriuretic Peptide Total Protein Albumin Lipase Digoxin 1.2 COVID-19 (LIYAH) COVIDField Squared 07/26/20 07/26/20 07/26/20 12:55 12:55 12:55 MCV MCH MCHC RDW Plt Count MPV Immature Gran % (Auto) Neut % (Auto) Lymph % (Auto) [place] % (Auto) Eos % (Auto) Baso % (Auto) Lymph # (Auto) [place] # (Auto) Eos # (Auto) Baso # (Auto) Abs Immat Gran (auto) Absolute Neuts (auto) Absolute Nucleated RBC Nucleated RBC % (auto) PT INR APTT Anion Gap 10 L Estim Creat Clear Calc 130.8 Estimated GFR > 60 Random Glucose 74 D Lactic Acid 1.0 Calcium 8.0 L D Magnesium 1.7 Total Bilirubin 0.7 Direct Bilirubin 0.3 AST 19 D ALT 9 Alkaline Phosphatase 114 Troponin I High Sens 7.4 D B-Natriuretic Peptide 178 H Total Protein 4.1 L Albumin 2.4 L D Lipase 8 Digoxin COVID-19 (LIYAH) COVID-[employer] 07/26/20 12:55 MCV MCH MCHC RDW Plt Count MPV Immature Gran % (Auto) Neut % (Auto) Lymph % (Auto) [place] % (Auto) Eos % (Auto) Baso % (Auto) Lymph # (Auto) [place] # (Auto) Eos # (Auto) Baso # (Auto) Abs Immat Gran (auto) Absolute Neuts (auto) Absolute Nucleated RBC Nucleated RBC % (auto) PT INR APTT Anion Gap Estim Creat Clear Calc Estimated GFR Random Glucose Lactic Acid Calcium Magnesium Total Bilirubin Direct Bilirubin AST ALT Alkaline Phosphatase Troponin I High Sens B-Natriuretic Peptide Total Protein Albumin Lipase Digoxin COVID-19 (LIYAH) Negative COVID-19 Clin Com See Note Imaging Radiologist's Impressions: Impressions Chest X-Ray 07/26/20 12:21 IMPRESSION: Interval further opacification of right mid and lower lobe with loss of right lung volume when compared to previous chest x-ray 06/26/2020. There is large bore right chest catheter in place in mid lung There is a left central port with its tip at brachiocephalic venous junction. Chest CT 07/26/20 13:43 IMPRESSION: Increasing volume loss and atelectasis/consolidation of the right lung. New right chest tube. [id number] loculated right pleural effusion. Interstitial disease and small nodules in the left lung similar to previous exam. Small left pleural effusion. Increasing mediastinal lymphadenopathy and increasing size of large liver lesion. Assessment and Plan (1) Malignant pleural effusion: Status: Acute 64 year male female with stage 4 inoperatable and untreatable lungs Cancer associated with malignant pleural effusion for which he which he has pleurx catheter that is now not working and IR is attempting to fix and if not able to do with tPa might need revision. Plan: overnight admission, IR to fix Pleurx catheter or redo. Continue other meds per med rec. Will discuss with oncology tomorrow. Thoracic surgery consult. Hold Xarelto in the morning.
[2020-07-26] MEDS: vancomycin HCL 1,250 MG in 0.9 % Sodium Chloride 250 ML 166.67 MG IV (16:36)
[2020-07-26 18:09] VITALS: BP 136/65; PULSE 72; RESP 16
[2020-07-26 21:15] VITALS: BP 106/66; PULSE 73; RESP 20; TEMP 36.2; O2SAT 99
[2020-07-27] VITALS: BP 118/61; PULSE 92; RESP 18; TEMP 36.4; O2SAT 99
[2020-07-27 02:56] VITALS: BP 111/64; PULSE 69; RESP 16; TEMP 36.4; O2SAT 99
[2020-07-27] MEDS: Omeprazole 20 MG CAPSULE.DR PO (06:23)
[2020-07-27 07:24] VITALS: BP 104/55; PULSE 81; RESP 20; TEMP 36.5; O2SAT 100
[2020-07-27] MEDS: Escitalopram Oxalate 5 MG TABLET PO (08:56)
[2020-07-27] MEDS: Loratadine 10 MG TABLET PO (08:56)
[2020-07-27 08:57] VITALS: BP 104/55; PULSE 81
[2020-07-27] MEDS: dilTIAZem HCL CD 240 MG CAP.ER.DEG PO (08:57)
[2020-07-27] MEDS: 0.9 % Sodium Chloride Flush 3 ML SYRINGE IVFLUSH (08:58)
[2020-07-27] MEDS: Multivitamin TABLET 1 TAB PO (09:02)
--- NOTE | 2020-07-27 09:17 | HO.RADPN ---
RADIOLOGY Narrative Narrative: Patient seen in ER for increasing dypsnea and ooutput from right pleurex chest tube. Chest CT shows small to moderate loculated right pleural effusion and increasing right lung volume loss, atelectasis and consolidation. 5mg TPA in 50mL NS was instilled into pleurex catheter for one hour. Only about 50mL slightly serosanguinous fluid came out of chest tube after that,probably not enough to make significant clinical improvement. This was explained to the patient and her . Recommend CT surgery input to see if they have any suggestions for further management .
--- NOTE | 2020-07-27 10:50 | P.CONGS_ITS ---
History of Present Illness Consult details Consult date: 07/27/20 Reason for consult: chest tube Narrative: Mrs Crane is a 64-year-old female who has been diagnosed with stage IV squamous cell carcinoma of the lung is being followed by Dr. Richmond from Oncology. Unfortunately her disease has continued to progress. She was diagnosed with COVID-19 pneumonia in March 2020 where she was found to have a large right pleural effusion with continued decompensation in her respiratory status. During her last admission in early June 2020 a right-sided PleurX catheter was placed for his presumed to be a malignant pleural effusion however pleural fluid cytology has remained negative as well as pleural fluid cultures. Since being discharged she has required supplemental home oxygen set at 2 L nasal cannula she has remained at a skilled nursing where she has been having her PleurX catheter drained every other day. Patient reports the last 4 times it was drained there is minimal to no fluid output. She presented yesterday evening on 07/26/2020 for worsening dyspnea. A chest CT was performed which shows extensive right-sided atelectasis and consolidation with air bronchograms. There are areas soft tissue opacification of right main bronchus and central right upper middle and lower bronchi. There is a small right-sided pleural effusion. Patient remains afebrile with no leukocytosis. She reports since her oxygen was turned up from 2 to 3 L her breathing is no longer labored. Current oxygen saturations are 100% on 3 L nasal cannula. She does not appear to be in any respiratory distress or show signs of increased work of breathing such as accessory muscle usage. She does report an occasional cough which is productive of yellow thin sputum. She denies any fevers or chills and during my examination overall has no complaints. Review of Systems Review of Systems: Yes all other systems are reviewed and are negative [facility] Past Medical History Medical History (Updated 07/26/20 @ 16:55 by Varinder Suazo MD) Atrial fibrillation COPD (chronic obstructive pulmonary disease) HLD (hyperlipidemia) Hospital discharge follow-up Malignant pleural effusion Pleural effusion, right [id number] condition Squamous cell carcinoma of lung, stage IV TIA (transient ischemic attack) Family History Family History Father Hypertension Mother No problems noted. Sister Hypertension Diverticulosis Brother Hypertension Surgical History Surgical History H/O breast biopsy No pertinent past surgical history Social History Social History Household Members: Spouse Housing: Other Alcohol intake: never Smoking Status: Former smoker Years Smoked: 30 yrs Use of substances other than those prescribed or required for medical reasons: No Advance Directives: Yes Advance Directives on File: Yes Advance Directives Date on File: 03/01/19 service: No Current occupational status: retired Meds Allergies Allergy/AdvReac Type Severity Reaction Status Date / Time amoxicillin [AMOXICILLIN] Allergy Intermediate HIVES Verified 06/09/20 17:07 Iodinated Contrast Media AdvReac Intermediate NAUSEA ?T? Verified 06/09/20 17:07 [IVP DYE] VOMITING azithromycin AdvReac Unknown diarrhea Verified 06/09/20 17:07 Active Medications: Current Medications Generic Name Dose Route Start Last Admin Trade Name Freq PRN Reason Stop Dose Admin Albuterol Sulfate 2 puff 07/26/20 21:30 Albuterol Sulfate 90 Mcg 8 Gm Inhaler INHALE Q6H PRN shortness of breath or wheezin Atorvastatin Calcium 20 mg 07/27/20 21:00 Atorvastatin Calcium 20 Mg Tablet PO BEDTIME DEEPTHI Digoxin 0.25 mg 07/27/20 17:00 Digoxin 0.25 Mg Tablet PO DAILY@1700 [facility] Diltiazem HCl 240 mg 07/27/20 09:00 07/27/20 08:57 Diltiazem Hcl Cd 240 Mg Cap.Er.Deg PO 240 mg DAILY DEEPTHI Administration Protocol Escitalopram Oxalate 5 mg 07/27/20 09:00 07/27/20 08:56 Escitalopram Oxalate 5 Mg Tablet PO 5 mg DAILY DEEPTHI Administration Loratadine 10 mg 07/27/20 09:00 07/27/20 08:56 Loratadine 10 Mg Tablet PO 10 mg DAILY DEEPTHI Administration Multivitamins/Vitamin C 1 tab 07/27/20 09:00 07/27/20 09:02 Multivitamin Tablet PO 1 tab DAILY DEEPTHI Administration Omeprazole 20 mg 07/27/20 06:00 07/27/20 06:23 Omeprazole 20 Mg Capsule.Dr PO 20 mg DAILY@0600 [facility] Administration Ondansetron HCl 4 mg 07/26/20 21:30 Ondansetron Odt 4 Mg Tab.Rapdis TRANSLINGU Q6H PRN Nausea And Vomiting Pharmacy Consult 1 each 07/26/20 12:20 Consult Rx Perform Med Rec MISCELLANE ONCE PRN Consult order Salmeterol Xinafoate 1 puff 07/27/20 08:00 07/27/20 07:58 Salmeterol Xinafoate 50 Mcg Blst.W.Dev INHALE Not Given RBID [facility] Sodium Chloride 3 ml 07/27/20 00:00 07/27/20 08:58 0.9 % Sodium Chloride Flush 3 Ml Syringe IVFLUSH 3 ml QSHIFT [facility] Administration Tiotropium [place] 1 puff 07/27/20 08:00 07/27/20 07:58 Tiotropium [place] 18 Mcg Cap.W.Dev INHALE Not Given RDAILY [facility] Home Medications Medication Instructions Recorded Confirmed Last Taken Type One-A-Day Womens Formula 1 tab PO DAILY 12/25/19 07/26/20 07/26/20 History omeprazole 20 mg capsule,delayed 20 mg PO DAILY@0600 12/31/19 07/26/20 07/26/20 History release Anoro Ellipta 1 inh INHALATION DAILY 02/05/20 07/26/20 07/26/20 History loratadine 10 mg PO DAILY 04/04/20 07/26/20 07/25/20 History Xarelto 20 mg PO DAILY@0800 07/26/20 07/26/20 07/25/20 History digoxin 250 mcg PO DAILY@1700 07/26/20 07/26/20 07/25/20 History ondansetron HCl 4 mg PO DAILY 07/26/20 07/26/20 07/26/20 History ondansetron HCl 4 mg PO Q6H PRN 07/26/20 07/26/20 Unknown History Physical Exam Vital Signs: Vital Signs: Last Vital Signs Temp 97.7 F 07/27/20 07:24 Pulse 81 07/27/20 08:57 Resp 20 07/27/20 07:24 BP 104/55 L 07/27/20 08:57 Pulse Ox 100 07/27/20 07:24 Body Mass Index 37.4 Const: General: no acute distress Orientation/consciousness: patient oriented x3 HENMT: Head: Yes atraumatic Eyes: Pupils: Equal, round and reactive pupils present Neck: Other: Trach is midline with no evidence of subcutaneous emphysema or crepitus Chest: Other: Right-sided PleurX catheter remains in place with dressing which is clean dry and intact. Resp: Other: Breath sounds are diminished along the right side and clear long left with no wheezes or rhonchi present Cardio: Other: Regular rate and rhythm with S1-S2 appreciated no murmurs rubs or gallops GI: Other: Obese, soft, nontender with normal bowel sounds Neuro: General: patient oriented x3 Cranial nerves: Yes Equal, round and reactive pupils present Extrem: Other: P+2 upper and lower extremity edema Results Labs Result diagrams: 07/26/20 12:55 07/26/20 12:55 Labs: Abnormal lab results 07/26/20 07/26/20 07/26/20 Range/Units 12:55 12:55 12:55 RBC 3.27 L (4.20-5.50) X10*6/uL Hgb 9.4 L (12.0-16.0) g/dl Hct 30.2 L (37-47) % RDW 17.0 H (11.0-16.0) % Plt Count 467 H (160-400) X10*3/uL MPV 8.7 L (9.4-12.3) fL Neut % (Auto) 77.5 H (45-73) % Lymph % (Auto) 10.3 L (20-40) % Lymph # (Auto) 1.0 L (1.2-4.9) X10*3/uL Abs Immat Gran (auto) 0.04 H (0.00-0.03) X10*3/uL PT 21.8 H D (10.8-13.0) SEC INR 1.8 H (0.9-1.1) Chloride 95 L (96-108) mmol/L Carbon Dioxide 38 H (22-29) mmol/L Anion Gap 10 L (12-20) Creatinine 0.49 L (0.5-1.4) mg/dL Calcium 8.0 L D (8.4-10.2) mg/dL B-Natriuretic Peptide (<100) pg/mL Total Protein 4.1 L (6.5-8.0) g/dL Albumin 2.4 L D (3.5-5.0) g/dL 07/26/20 Range/Units 12:55 RBC (4.20-5.50) X10*6/uL Hgb (12.0-16.0) g/dl Hct (37-47) % RDW (11.0-16.0) % Plt Count (160-400) X10*3/uL MPV (9.4-12.3) fL Neut % (Auto) (45-73) % Lymph % (Auto) (20-40) % Lymph # (Auto) (1.2-4.9) X10*3/uL Abs Immat Gran (auto) (0.00-0.03) X10*3/uL PT (10.8-13.0) SEC INR (0.9-1.1) Chloride (96-108) mmol/L Carbon Dioxide (22-29) mmol/L Anion Gap (12-20) Creatinine (0.5-1.4) mg/dL Calcium (8.4-10.2) mg/dL B-Natriuretic Peptide 178 H (<100) pg/mL Total Protein (6.5-8.0) g/dL Albumin (3.5-5.0) g/dL Short CBC 07/26/20 Range/Units 12:55 WBC 9.2 (4.8-10.8) X10*3/uL Hgb 9.4 L (12.0-16.0) g/dl Hct 30.2 L (37-47) % Plt Count 467 H (160-400) X10*3/uL BMP 07/26/20 12:55 Sodium 139 Potassium 3.7 Chloride 95 L Carbon Dioxide 38 H BUN 9 D Creatinine 0.49 L Calcium 8.0 L D Liver Function 07/26/20 Range/Units 12:55 Total Bilirubin 0.7 (0.0-1.0) mg/dL Direct Bilirubin 0.3 (0.0-0.5) mg/dL AST 19 D (5-31) U/L ALT 9 (0-31) U/L Alkaline Phosphatase 114 (39-117) U/L Albumin 2.4 L D (3.5-5.0) g/dL All other labs normal. Imaging CT scan - chest: image reviewed Assessment and Plan (1) Malignant pleural effusion: Status: Acute Mrs. how is a 64-year-old female with stage IV squamous cell carcinoma of the lung followed by Dr. Richmond from Oncology. Patient presented to the emergency department with worsening dyspnea and chest CT showing right-sided consolidation and soft tissue opacification of right main bronchus and central right upper and middle lobe bronchi. Also has a small right-sided pleural effusion with a PleurX catheter in place. Patient is resting comfortably on 3 L nasal cannula with oxygen saturations 100%, home supplemental oxygen and reportedly 2 L nasal cannula. afebrile, no leukocytosis. No surgical intervention required at this time. Would recommend decreasing PleurX catheter drainage to once per week. Patient has a follow-up appointment with thoracic Surgery on 08/05/2020 for further management of her PleurX catheter. Recommend incentive spirometry and flutter valve device for airway clearance.
[2020-07-27 11:18] VITALS: BP 110/57; PULSE 77; RESP 20; TEMP 36.2; O2SAT 100
--- NOTE | 2020-07-27 12:18 | PM.CNPUL ---
History of Present Illness History of Present Illness Consult date: 07/27/20 Chief complaint: diff breathing Narrative: 64 year old female with multiple medical problem including Stage 4 squamous lung CA with malginant pelural effusion and has pleurx catheter that apparently hasn't been draining and was complaning of shortness of breath. IR is attempting to open up the tube with tPA. Patient looks comfortable to me, she is sating 100 on 3 L. Her cancer is deemed inoperable or treatable according to the patient. In the ER she did undergo a CT scan of the chest that was personally viewed by me demonstrating near complete opacity of the right hemithorax. It appears that she does have some what appears to be mucus debris in the right mainstem bronchus. On further questioning she does complaint of coughing up greenish sputum. Sometimes is difficult to expectorate because of the thickness. Thoracic surgery was consulted regarding the PleurX catheter. Based on the CT scan there is no appreciable fluid there just thickening of the pleura in therefore there appears to be some degree of self pleurodesis. Thoracic surgery will give further recommendations regarding further drainage from the catheter. But, at some point he probably just needs to be removed. The patient is comfortable on her oxygen. At this point she does feel like she is at baseline. We did talk about potentially considering bronchoscopy to assess the degree of the right mainstem bronchus. But at this point she opted on aggressive CPT with flutter valve her nebulized therapy in addition to antibiotics to try to clear any mucus that may be burdening her. Review of Systems Constitutional: Constitutional: Denies night sweats ENT: Denies change in voice, Denies lip swelling, Denies mouth pain, Reports nasal congestion, Reports nasal discharge and Denies tongue swelling Cardiovascular: Cardiovascular: Denies chest pain and Reports dyspnea Respiratory: Respiratory: Reports change in phlegm color, Reports cough, Denies hemoptysis, Reports excessive phlegm production, Reports dyspnea and Denies wheezing Gastrointestinal: Gastrointestinal: Denies abdominal pain Musculoskeletal: Musculoskeletal: Denies no additional musculoskeletal complaints Neurologic: Denies Neuro-related abnormal movements Psychiatric: Psychiatric: Denies no additional psychiatric complaints Hematologic/Lymphatic: Hematologic/Lymphatic: Denies easy bleeding and Denies lymphadenopathy Allergic/Immunologic: Allergic/Immunologic: Denies lip swelling, Denies tongue swelling and Denies wheezing [facility] Past Medical History Medical History (Updated 07/27/20 @ 12:22 by Gautam Hoffman MD) Atrial fibrillation COPD (chronic obstructive pulmonary disease) HLD (hyperlipidemia) Hospital discharge follow-up Malignant pleural effusion Pleural effusion, right [id number] condition Squamous cell carcinoma of lung, stage IV TIA (transient ischemic attack) Family History Family History Father Hypertension Mother No problems noted. Sister Hypertension Diverticulosis Brother Hypertension Surgical History Surgical History H/O breast biopsy No pertinent past surgical history Social History Social History Household Members: Spouse Housing: Other Alcohol intake: never Smoking Status: Former smoker Years Smoked: 30 yrs Use of substances other than those prescribed or required for medical reasons: No Advance Directives: Yes Advance Directives on File: Yes Advance Directives Date on File: 03/01/19 service: No Current occupational status: retired [employer] Allergies Allergy/AdvReac Type Severity Reaction Status Date / Time amoxicillin [AMOXICILLIN] Allergy Intermediate HIVES Verified 06/09/20 17:07 Iodinated Contrast Media AdvReac Intermediate NAUSEA ?T? Verified 06/09/20 17:07 [IVP DYE] VOMITING azithromycin AdvReac Unknown diarrhea Verified 06/09/20 17:07 Active Medications: Current Medications Generic Name Dose Route Start Last Admin Trade Name Freq PRN Reason Stop Dose Admin Albuterol Sulfate 2 puff 07/26/20 21:30 Albuterol Sulfate 90 Mcg 8 Gm Inhaler INHALE Q6H PRN shortness of breath or wheezin Atorvastatin Calcium 20 mg 07/27/20 21:00 Atorvastatin Calcium 20 Mg Tablet PO BEDTIME DEEPTHI Digoxin 0.25 mg 07/27/20 17:00 Digoxin 0.25 Mg Tablet PO DAILY@1700 DEEPTHI Diltiazem HCl 240 mg 07/27/20 09:00 07/27/20 08:57 Diltiazem Hcl Cd 240 Mg Cap.Er.Deg PO 240 mg DAILY DEEPTHI Administration Protocol Escitalopram Oxalate 5 mg 07/27/20 09:00 07/27/20 08:56 Escitalopram Oxalate 5 Mg Tablet PO 5 mg DAILY DEEPTHI Administration Loratadine 10 mg 07/27/20 09:00 07/27/20 08:56 Loratadine 10 Mg Tablet PO 10 mg DAILY [facility] Administration Multivitamins/Vitamin C 1 tab 07/27/20 09:00 07/27/20 09:02 Multivitamin Tablet PO 1 tab DAILY [facility] Administration Omeprazole 20 mg 07/27/20 06:00 07/27/20 06:23 Omeprazole 20 Mg Capsule.Dr PO 20 mg DAILY@0600 [facility] Administration Ondansetron HCl 4 mg 07/26/20 21:30 Ondansetron Odt 4 Mg Tab.Rapdis TRANSLINGU Q6H PRN Nausea And Vomiting Pharmacy Consult 1 each 07/26/20 12:20 Consult Rx Perform Med Rec MISCELLANE ONCE PRN Consult order Salmeterol Xinafoate 1 puff 07/27/20 08:00 07/27/20 07:58 Salmeterol Xinafoate 50 Mcg Blst.W.Dev INHALE Not Given RBID [facility] Sodium Chloride 3 ml 07/27/20 00:00 07/27/20 08:58 0.9 % Sodium Chloride Flush 3 Ml Syringe IVFLUSH 3 ml QSHIFT [facility] Administration Tiotropium [place] 1 puff 07/27/20 08:00 07/27/20 07:58 Tiotropium [place] 18 Mcg Cap.W.Dev INHALE Not Given RDAILY [facility] Home Medications Medication Instructions Recorded Confirmed Last Taken Type One-A-Day Womens Formula 1 tab PO DAILY 12/25/19 07/26/20 07/26/20 History omeprazole 20 mg capsule,delayed 20 mg PO DAILY@0600 12/31/19 07/26/20 07/26/20 History release Anoro Ellipta 1 inh INHALATION DAILY 02/05/20 07/26/20 07/26/20 History loratadine 10 mg PO DAILY 04/04/20 07/26/20 07/25/20 History Xarelto 20 mg PO DAILY@0800 07/26/20 07/26/20 07/25/20 History digoxin 250 mcg PO DAILY@1700 07/26/20 07/26/20 07/25/20 History ondansetron HCl 4 mg PO DAILY 07/26/20 07/26/20 07/26/20 History ondansetron HCl 4 mg PO Q6H PRN 07/26/20 07/26/20 Unknown History Physical Exam Vital Signs: Vital Signs: Last Vital Signs Temp 97.2 F 07/27/20 11:18 Pulse 77 07/27/20 11:18 Resp 20 07/27/20 11:18 BP 110/57 L 07/27/20 11:18 Pulse Ox 100 07/27/20 11:18 Body Mass Index 37.4 Const: General: alert Eyes: Pupils: Equal, round and reactive pupils present Neck: Neck: Yes normal visual inspection, Yes full ROM and Yes no lymphadenopathy Chest: Chest palpation & inspection: normal inspection of the chest Resp: Auscultation: diminished lung sounds Cardio: Rate: regular rate Rhythm: regular rhythm Heart sounds: S1 normal heart sound present and S2 normal heart sound present GI: Palpation (GI): Soft to palpation and nontender Auscultation: normal bowel sounds Skin: General skin exam: rashes and/or lesions noted Neuro: Cranial nerves: Yes Equal, round and reactive pupils present Results Laboratory Findings CBC and BMP: 07/26/20 12:55 07/26/20 12:55 ABG, PT/INR, D-dimer: PT/INR, D-dimer PT 21.8 SEC (10.8-13.0) H D 07/26/20 12:55 INR 1.8 (0.9-1.1) H 07/26/20 12:55 Abnormal lab findings: Abnormal Labs 07/26/20 07/26/20 07/26/20 12:55 12:55 12:55 RBC 3.27 L Hgb 9.4 L Hct 30.2 L RDW 17.0 H Plt Count 467 H MPV 8.7 L Neut % (Auto) 77.5 H Lymph % (Auto) 10.3 L Lymph # (Auto) 1.0 L Abs Immat Gran (auto) 0.04 H PT 21.8 H D INR 1.8 H Chloride 95 L Carbon Dioxide 38 H Anion Gap 10 L Creatinine 0.49 L Calcium 8.0 L D B-Natriuretic Peptide Total Protein 4.1 L Albumin 2.4 L D 07/26/20 12:55 RBC Hgb Hct RDW Plt Count MPV Neut % (Auto) Lymph % (Auto) Lymph # (Auto) Abs Immat Gran (auto) PT INR Chloride Carbon Dioxide Anion Gap Creatinine Calcium B-Natriuretic Peptide 178 H Total Protein Albumin Assessment and Plan (1) Malignant pleural effusion: Status: Acute (2) Pneumonia: Qualifiers: Laterality: right Lung location: unspecified part of lung Pneumonia type: due to unspecified organism Qualified Code(s): J18.9 - Pneumonia, unspecified organism Status: Acute (3) COPD (chronic obstructive pulmonary disease): Qualifiers: COPD type: emphysema Emphysema type: panlobular Qualified Code(s): J43.1 - Panlobular emphysema Status: Acute (4) Squamous cell carcinoma of lung, stage IV: Qualifiers: Laterality: unspecified laterality Qualified Code(s): C34.90 - Malignant neoplasm of unspecified part of unspecified bronchus or lung Status: Acute Recommendations: -hold off on bronchoscopy at this time. The patient opted on aggressive CPT. She should be provided with mental CPT specially to the right lung in addition to flutter valve and nebulized therapy to clear secretions. -would recommend treating her for bronchopneumonia specially with a very thick green secretions. She is at risk for postobstructive pneumonia. She has multiple allergies but would be reasonable to give her a quinolone such as Levaquin for 8-10 days. -follow-up with thoracic surgery as an outpatient with an x-ray to assess degree of opacity. Again, could consider bronchoscopy to address the right mainstem area. But this is all likely to be related to a lower respiratory infection. -Continue nasal cannula oxygen to maintain a pulse ox above 90% -further discuss goals of care as the patient does have stage IV cancer. -okay to return to her rehabilitation today
--- NOTE | 2020-07-27 12:21 | MHC.CM.PN ---
CM met with patient and at the bedside who reports patient amb with a walker and resides at [facility]. Patient does have a HCP Ander [phone] and a copy is on file. Discussed discharge plan, return to [facility] via BLS transport. OBS notice addressed. CM will continue to follow patient for discharge needs.
--- NOTE | 2020-07-27 14:03 | P.CNHO_ITS ---
Subjective - Subjective Chief complaint: Shortness of breath Patient: known to practice within the last 3 years Consult date: 07/27/20 Requesting Physician: Dr. Suazo Primary Care Provider: Kristian England PA-C HPI - Consult Narrative Reason for consult: Progressive metastatic lung cancer Narrative: Eugenia Crane is a 64 year old female well known to me with history of metastatic lung cancer. She is currently admitted forRecurrent malignant pleural effusion, she has a PleurX catheter in place but that has not been d raining. IR is attempting opening up the tube with tPA. Imaging with CT chest shows progressive mediastinal adenopathy and increasing pleural effusion. Overall patient has deteriorated clinically in the last 2-3 months. She has not been able to receive chemotherapy because of her performance status. She has also been through 3 lines of chemotherapy and has unfortunately progressed Review of Systems - Constitutional Reports as per HPI, Reports fatigue, Reports malaise, Reports weakness - Cardiovascular Denies chest pain - Respiratory Reports chest congestion, Reports cough, Reports dyspnea - Gastrointestinal Reports no additional gastrointestinal complaints - Neurologic Denies abnormal movements Oncology Screenings - ECOG Performance Status ECOG Performance Status: 3 [facility] Medical History: Medical History (Last Updated 07/27/20 @ 12:22 by Gautam Hoffman MD) Atrial fibrillation COPD (chronic obstructive pulmonary disease) HLD (hyperlipidemia) Hospital discharge follow-up Malignant pleural effusion Pleural effusion, right [id number] condition Squamous cell carcinoma of lung, stage IV TIA (transient ischemic attack) Family History: Family History (Last Reviewed 07/26/20 @ 16:40 by Varinder Suazo MD) Father Hypertension Mother No problems noted. Sister Hypertension Diverticulosis Brother Hypertension Surgical History: Surgical History (Last Reviewed 07/27/20 @ 11:08 by SOUMYA Barlow) H/O breast biopsy No pertinent past surgical history Social History: Social History (Last Reviewed 07/27/20 @ 11:08 by SOUMYA Barlow) Living Situation History: Household Members: Spouse Housing: Other Housing Other:: Elderly housing Do you presently have visiting nurse or other home services: No Alcohol History: Alcohol intake: never Tobacco History: Smoking Status: Former smoker Substance Use History: Use of substances other than those prescribed or required for medical reasons : No Advance Directives: Advance Directives: Yes Advance Directives on File: Yes Advance Directives Date on File: 03/01/19 Occupation Assessmet: service: No Current occupational status: retired Smoking status: Former smoker Home Medications and Allergies Current Medications: Current Medications Generic Name Dose Route Start Last Admin Trade Name Freq PRN Reason Stop Dose Admin Albuterol Sulfate 2 puff 07/26/20 21:30 Albuterol Sulfate 90 Mcg 8 Gm Inhaler INHALE Q6H PRN shortness of breath or wheezin Atorvastatin Calcium 20 mg 07/27/20 21:00 Atorvastatin Calcium 20 Mg Tablet PO BEDTIME [facility] Digoxin 0.25 mg 07/27/20 17:00 Digoxin 0.25 Mg Tablet PO DAILY@1700 [facility] Diltiazem HCl 240 mg 07/27/20 09:00 07/27/20 08:57 Diltiazem Hcl Cd 240 Mg Cap.Er.Deg PO 240 mg DAILY [facility] Administration Protocol Escitalopram Oxalate 5 mg 07/27/20 09:00 07/27/20 08:56 Escitalopram Oxalate 5 Mg Tablet PO 5 mg DAILY [facility] Administration Loratadine 10 mg 07/27/20 09:00 07/27/20 08:56 Loratadine 10 Mg Tablet PO 10 mg DAILY [facility] Administration Multivitamins/Vitamin C 1 tab 07/27/20 09:00 07/27/20 09:02 Multivitamin Tablet PO 1 tab DAILY [facility] Administration Omeprazole 20 mg 07/27/20 06:00 07/27/20 06:23 Omeprazole 20 Mg Capsule.Dr PO 20 mg DAILY@0600 [facility] Administration Ondansetron HCl 4 mg 07/26/20 21:30 Ondansetron Odt 4 Mg Tab.Rapdis TRANSLINGU Q6H PRN Nausea And Vomiting Pharmacy Consult 1 each 07/26/20 12:20 Consult Rx Perform Med Rec MISCELLANE ONCE PRN Consult order Salmeterol Xinafoate 1 puff 07/27/20 08:00 07/27/20 07:58 Salmeterol Xinafoate 50 Mcg Blst.W.Dev INHALE Not Given RBID [facility] Sodium Chloride 3 ml 07/27/20 00:00 07/27/20 08:58 0.9 % Sodium Chloride Flush 3 Ml Syringe IVFLUSH 3 ml QSHIFT [facility] Administration Tiotropium [place] 1 puff 07/27/20 08:00 07/27/20 07:58 Tiotropium [place] 18 Mcg Cap.W.Dev INHALE Not Given RDAILY [facility] Home Medications Medication Instructions Recorded Confirmed Type One-A-Day Womens Formula 1 tab PO DAILY 12/25/19 07/26/20 History omeprazole 20 mg capsule,delayed 20 mg PO DAILY@0600 12/31/19 07/26/20 History release Anoro Ellipta 1 inh INHALATION DAILY 02/05/20 07/26/20 History loratadine 10 mg PO DAILY 04/04/20 07/26/20 History Xarelto 20 mg PO DAILY@0800 07/26/20 07/26/20 History digoxin 250 mcg PO DAILY@1700 07/26/20 07/26/20 History ondansetron HCl 4 mg PO DAILY 07/26/20 07/26/20 History ondansetron HCl 4 mg PO Q6H PRN 07/26/20 07/26/20 History Allergies Allergy/AdvReac Type Severity Reaction Status Date / Time amoxicillin [AMOXICILLIN] Allergy Intermediate HIVES Verified 06/09/20 17:07 Iodinated Contrast Media AdvReac Intermediate NAUSEA ?T? Verified 06/09/20 17:07 [IVP DYE] VOMITING azithromycin AdvReac Unknown diarrhea Verified 06/09/20 17:07 Physical Exam Vital signs: Vital Signs Temp 97.2 F 07/27/20 11:18 Pulse 77 07/27/20 11:18 Resp 20 07/27/20 11:18 BP 110/57 L 07/27/20 11:18 Pulse Ox 100 07/27/20 11:18 Intake & Output 07/26/20 07/27/20 07/27/20 18:59 06:59 18:59 Intake Total 3370 / 3730 360 / 3730 Output Total 400 / 400 Balance 3370 / 3330 -40 / 3330 Urine Output (Average ml/kg/hr) 0.34 Intake: Intake, Oral Amount 360 / 360 Intake, IV Amount 3370 / 3370 Albumin Human 25 % 100 ml @ 100 100 / 100 mls/hr IV ONCE ONE Rx#: [id number] cefEPime HCl 2 gm In 0.9 % 50 / 50 Sodium Chloride 50 ml @ 100 mls /hr IV ONCE ONE Rx#:[id number] vancomycin HCL 1,250 mg In 0.9 250 / 250 % Sodium Chloride 250 ml @ 166. 667 mls/hr IV ONCE ONE Rx#: [id number] 0.9 % Sodium Chloride 2,970 ml 2970 / 2970 @ 2970 mls/hr IVCONT .Q1H ONE Rx#:[id number] Output: Output, Urine Amount 400 / 400 Other: Urine Bedside Commode Urine Color Yellow Weight 99 kg Weight 99 kg - Constitutional Present: no acute distress - Routine HEENT Exam Eye: Present: conjunctivae pale, PERRL - Routine Neck Exam Present: supple - Routine Respiratory Exam Present: decreased breath sounds. Absent: accessory muscle use, respiratory distress - Routine Cardiovascular Exam Cardiovascular: Present: S1, S2 - Routine Abdominal Exam Present: soft Hem/Onc Consult Result - Labs CBC & Chem 7: 07/26/20 12:55 07/26/20 12:55 Assessment and Plan (1) Squamous cell carcinoma of lung, stage IV Status: Chronic Qualifiers: Laterality: unspecified laterality Qualified Code(s): C34.90 - Malignant neoplasm of unspecified part of unspecified bronchus or lung 1. This is a 64-year-old woman with lung cancer, squamous cell carcinoma originating in right lower lobe. She developed metastatic disease in August 2019. PD L1 TPS 0%. [employer] for next generation sequencing showed MS stable, tumor mutational burden 24 Muts/Mb. Based on genomic findings therapies with clinical benefit were atezolizumab, durvalumab, pembrolizumab and nivolumab. No reportable alterations in alk, BRAF, EGFR, ERBB2, KRAS, MET, RET and ROS1 She started immunotherapy with nivolumab (CheckMate 017 trial) from 09/08/2019 until November 2019. She developed progressive disease on immunotherapy. She received Taxotere 75 mg/meter squared Q 21 days from December until February 2020. She was responding well but she got admitted in March 2019 with COVID- 19 pneumonia. She re-started Taxotere from April 2020. However, she was unable to tolerate it and developed progressive disease, she has had a right PleurX catheter placed for loculated malignant effusion after a prolonged hospital stay in June 2020. CT chest performed 07/26/2020 shows progressive mediastinal lymphadenopathy as well as increase in size of liver metastasis. Patient has very poor performance status. Original plan was to try palliative chemotherapy with gemcitabine, however with her current performance status it would probably be more detrimental. At this time, her is most interested in having patient in a facility where he can be with her/visit her on a daily basis. They are not interested in home hospice care. He does not think he can take care of her at home. They do not have any help from his children. They are aware of poor prognosis. I thank you for this consultation.
--- NOTE | 2020-07-27 14:45 | PM.DS ---
DS: Providers Provider Date of Service: 07/27/20 Date of admission: 07/26/20 16:25 Primary care physician: Kristian England PA-C Consults: 07/26/20 17:24 Consult to Thoracic Surgery Routine Consulting Provider: Timur Chew Reason for consultation: Malignant p. effusion, Pleurx not working 07/27/20 10:27 Consult to Hematology / Oncology Routine Consulting Provider: Pretty Richmond Reason for consultation: lung cancer 07/27/20 12:29 Consult to Pulmonology Routine Consulting Provider: Gautam Hoffman Reason for consultation: malignant p. effusion DS: Diagnosis Discharge Diagnosis (1) Squamous cell carcinoma of lung, stage IV: Status: Chronic DS: Medications Discharge Medications Home Medications: Home Medications Medication Instructions Recorded Confirmed One-A-Day Womens Formula 1 tab PO DAILY 12/25/19 07/26/20 omeprazole 20 mg capsule,delayed 20 mg PO DAILY@0600 12/31/19 07/26/20 release Anoro Ellipta 1 inh INHALATION DAILY 02/05/20 07/26/20 loratadine 10 mg PO DAILY 04/04/20 07/26/20 Xarelto 20 mg PO DAILY@0800 07/26/20 07/26/20 digoxin 250 mcg PO DAILY@1700 07/26/20 07/26/20 ondansetron HCl 4 mg PO DAILY 07/26/20 07/26/20 ondansetron HCl 4 mg PO Q6H PRN 07/26/20 07/26/20 Previous Rx's Medication Instructions Recorded albuterol sulfate 90 mcg/actuation 2 puff INHALATION Q6H PRN 30 Days 12/31/19 aerosol inhaler #8.5 g dexamethasone 1 mg PO DIRECTED #60 tab 02/12/20 escitalopram oxalate 5 mg PO DAILY #60 tab 03/01/20 diltiazem HCl 240 mg 240 mg PO DAILY 30 Days #30 cap 05/29/20 capsule,extended release 24 hr simvastatin 40 mg tablet 40 mg PO BEDTIME #90 tab 06/20/20 DS: Summary Hospital Course Hospital Course: Chief Complaint: shortness of breath 64 year old female with multiple medical problem including Stage 4 squamous lung CA with malginant pelural effusion and has pleurx catheter that apparently hasn't been draining and was complaning of shortness of breath. IR is attempting to open up the tube with tPA. Patient looks comfortable to me, she is sating 100 on 3 L. Her cancer is deemed inoperable or not treatable according to the patient and she is not interested in paliative care either Hospital course: Interventional radiology attempted to 2 to drain PleurX catheter but was unsuccessful even with tPA and it is believed that she simply does not have enough fluid in. Patient was admitted overnight and was evaluated by thoracic surgery and after reviewing the CT imaging they do not believe that there is enough fluid there and that is why the PleurX catheter isn't draining and at this point they recommend the PleurX catheter to be drained on a weekly basis. Patient was evaluated by Dr. Gautam Hoffman for possible bronchoscopy but she does not want any ivasive intervention. She was then evaluated by Dr. Richmond (oncology) who continue to recommend palliative care however the patient at this point is not interested in palliative care and Dr. Richmond does not believe that there is any treatment option for her at this time-- please see her note. At the present moment the patient does not have any respiratory difficulty she is satting 100% with 3 L of oxygen by nasal cannula. Thoracic surgery and pulmonology recommended use of flutter valve, additionally Dr. Hoffman recommends antibiotics with Levaquin for about a week for possible postobstructive pneumonia. She is afebrile and WBCs were within normal limit. Time Spent with Patient Time attestation: Total time spent providing and/or coordinating discharge services: Discharge coordination time: Greater than 30 minutes Physical Exam Vital Signs: Vital Signs: Last Vital Signs Temp 97.2 F 07/27/20 11:18 Pulse 77 07/27/20 11:18 Resp 20 07/27/20 11:18 BP 110/57 L 07/27/20 11:18 Pulse Ox 100 07/27/20 11:18 Body Mass Index 37.4 Constitutional Awake and Alert, No apparent distress Neck Supple, No lymphadenopathy Cardiovascular RRR, No M/R/G, S1 S2, No S3 S4, 2+ pedal edema Respiratory Lungs clear, No respiratory distress Gastrointestinal Non tender, Non-distended Skin No rash Neurological Alert & oriented x3 Psychological Appropriate affect DS: Data Data Completed and Pending Completed studies during hospitalization [Text1]: Procedures Assistance with Respiratory Ventilation, Less than 24 Consecutive Hours, Continuous Positive Airway Pressure (03/29/21) Drainage of Right Pleural Cavity with Drainage Device, Percutaneous Approach (06/20/20) Introduction of Remdesivir Anti-infective into Peripheral Vein, Percutaneous Approach, [employer] (04/04/20) Introduction of Vasopressor into Central Vein, Percutaneous Approach (06/20/20) Removal of Drainage Device from Right Pleural Cavity, Percutaneous Approach (06/20/20) Discharge Plan Discharge Anticipated Discharge Date/Time: 07/27/20 14:33 Patient Disposition: Xfer [facility] Discharge Diagnosis: Malignant pleural effusion, possible obstructive pneumonia Referrals: Kristian England PA-C [Primary Care Provider] - 1 Week Discharge Medications: New levofloxacin 500 mg tablet 500 mg PO DAILY 7 Days Qty: 7 RF: 0 Continued diltiazem HCl 240 mg capsule,extended release 24hr 240 mg PO DAILY 30 Days Qty: 30 RF: 0 simvastatin 40 mg tablet 40 mg PO BEDTIME Qty: 90 RF: 1 One-A-Day Womens Formula 18 mg iron-400 mcg-500 mg Tablet 1 tab PO DAILY RF: 0 Anoro Ellipta 62.5-25 mcg/actuation Blister With Device 1 inh INHALATION DAILY RF: 0 dexamethasone 1 mg Tablet 1 mg PO DIRECTED Qty: 60 RF: 2 escitalopram oxalate 5 mg Tablet 5 mg PO DAILY Qty: 60 RF: 3 loratadine 10 mg Tablet 10 mg PO DAILY RF: 0 ondansetron HCl 4 mg Tablet 4 mg PO Q6H PRN (Reason: Nausea And Vomiting) RF: 0 ondansetron HCl 4 mg Tablet 4 mg PO DAILY RF: 0 digoxin 250 mcg (0.25 mg) Tablet 250 mcg PO DAILY@1700 RF: 0 Xarelto 20 mg tablet 20 mg PO DAILY@0800 RF: 0 omeprazole 20 mg capsule,delayed release(DR/EC) 20 mg PO DAILY@0600 RF: 0 albuterol sulfate 90 mcg/actuation HFA aerosol inhaler 2 puff inhalation Q6H PRN (Reason: shortness of breath or wheezing) 30 Days Qty: 8.5 RF: 3 Discharge Orders: Discharge Order (Routine); Ordered 07/27/20 Ordered By: Varinder Oilvas Diet: advance to usual diet Activity on Discharge: As tolerated Stand Alone Forms: Patient Portal Discharge page Care Plan Goals: Management of stage IV lung cancer Health Concerns: Stage IV lung cancer with malignant pleural effusion and possible pneumonia Plan of Treatment: A PleurX catheter is to be drain on a weekly basis, use flutter valve as recommended every 1 to 2 hours, take antibiotics as directed, follow-up with thoracic surgery as previously scheduled, follow up with Dr. Richmond as previously scheduled as well. Chest purcussion therapy up to 3 times a day. You have an appointment with Dr. Chew on August 05 Assessment: See above Discharge Date/Time: 07/27/20 16:15
[2020-07-27] MEDS: levoFLOXacin 500 MG TABLET PO (15:41)
[2020-07-27] MEDS: Heparin Sodium,Porcine Flush 50 UNITS, 0.9 % Sodium Chloride Flush 5 ML IVFLUSH (16:03)
== END 2020-07-27 16:15 | disposition skilled nursing facility (03) ==
LOC: HO.ED 15:36 → HO.EDOVER 16:41 → HO.IMC 19:18
PROVIDERS: Admitting Provider Internal Medicine; Emergency Provider Emergency Medicine; PCP Physician Assistant; Visit Provider Internal Medicine
DX: C34.90 Malignant neoplasm of unspecified part of unspecified bronchus or lung (principal); J91.0 Malignant pleural effusion; J18.9 Pneumonia, unspecified organism; B94.8 Sequelae of other specified infectious and parasitic diseases; J43.1 Panlobular emphysema; R06.02 Shortness of breath; R09.89 Other specified symptoms and signs involving the circulatory and respiratory systems; R05 Cough; R53.83 Other fatigue; R53.81 Other malaise; R53.1 Weakness; I48.91 Unspecified atrial fibrillation; T85.698A Other mechanical complication of other specified internal prosthetic devices, implants and grafts, initial encounter; R59.0 Localized enlarged lymph nodes; Z87.891 Personal history of nicotine dependence; Z88.8 Allergy status to other drugs, medicaments and biological substances; Z88.1 Allergy status to other antibiotic agents; Z20.822 Contact with and (suspected) exposure to COVID-19; Z91.041 Radiographic dye allergy status; Z51.5 Encounter for palliative care; Z96.89 Presence of other specified functional implants; Z99.81 Dependence on supplemental oxygen; Z79.01 Long term (current) use of anticoagulants; Z79.899 Other long term (current) drug therapy
CPT/HCPCS: 36415; 71045; 71250; 80048; 80076; 80162; 83605; 83690; 83735; 83880; 84484; 85025; 85610; 85730; 87040; 87635; 93005; 94640; 96361; 96365; 96368; 96375; 99219; 99285; J0692; J1642; J2930; J2997; J3370; P9047

== ENCOUNTER 2020-07-28 11:31 | Emergency (ER) | payer MEDICARE, MEDICAID, SELFPAY ==
[2020-07-28 11:42] VITALS: BP 107/45; PULSE 94; RESP 18; TEMP 36.9; O2SAT 98; BMI 36.3
--- NOTE | 2020-07-28 11:43 | ED.GENADULT ---
HPI - General Adult General Chief complaint: Dyspnea Stated complaint: shortness of breath Time Seen by Provider: 07/28/20 11:33 Source: patient, family and old records reviewed Mode of arrival: ambulatory Limitations: no limitations History of Present Illness HPI narrative: 64 yo female with stage IV squamous cell lung cancer known worsening R lung disease with PleurX drain - just seen by IR and thoracic as well as Oncology - no further care at this time, no further chemo, attempt to drain fluid now weekly, no surgical interventions - was found to be short of breath at facility just left hospital yesterday on levofloxacin for post obstructive pneumonia - believed that the O2 tubing was too long placed on shorter tubing with EMS/ED sats 100% on her normal 2 to 3L NC, and patient have no complaints now she is aware no further medical workup needed but they both want a different facility at this time. MD complaint: dyspnea low O2 sats Onset (ago): hour(s) Severity: moderate Relieving factors: other (oxygen tubing change) Exacerbating factors: movement Associated symptoms: nausea/vomiting Treatments prior to arrival: none Related Data Home Medications Medication Instructions Recorded Confirmed One-A-Day Womens Formula 1 tab PO DAILY 12/25/19 07/28/20 omeprazole 20 mg capsule,delayed 20 mg PO DAILY@0600 12/31/19 07/28/20 release Anoro Ellipta 1 inh INHALATION DAILY 02/05/20 07/28/20 loratadine 10 mg PO DAILY 04/04/20 07/28/20 Xarelto 20 mg PO DAILY@0800 07/26/20 07/28/20 digoxin 250 mcg PO DAILY@1700 07/26/20 07/28/20 Previous Rx's Medication Instructions Recorded albuterol sulfate 90 mcg/actuation 2 puff INHALATION Q6H PRN 30 Days 12/31/19 aerosol inhaler #8.5 g dexamethasone 1 mg PO DIRECTED #60 tab 02/12/20 escitalopram oxalate 5 mg PO DAILY #60 tab 03/01/20 diltiazem HCl 240 mg 240 mg PO DAILY 30 Days #30 cap 05/29/20 capsule,extended release 24 hr simvastatin 40 mg tablet 40 mg PO BEDTIME #90 tab 06/20/20 Allergies Allergy/AdvReac Type Severity Reaction Status Date / Time amoxicillin [AMOXICILLIN] Allergy Intermediate HIVES Verified 03/18/21 17:07 Iodinated Contrast Media AdvReac Intermediate NAUSEA ?T? Verified 06/09/20 17:07 [IVP DYE] VOMITING azithromycin AdvReac Unknown diarrhea Verified 06/09/20 17:07 Review of Systems Review of Systems: Constitutional : No Fever, No Chills ENT/Mouth : No sore throat, No Rhinorrhea, No Swallowing Difficulty Eyes: No Eye Pain, No Swelling, No Redness Cardiovascular : No Chest Pain, positive SOB, No Orthopnea, positive Edema Respiratory : pos Cough, No Sputum, No Wheezing, positive dyspnea Gastrointestinal : pos Nausea, No Vomiting, No Diarrhea, No abdominal Pain, No Hematochezia, No Melena Genitourinary : No Dysuria, No Urinary Frequency, No Hematuria Musculoskeletal : No joint pain, No Myalgias Skin : No Skin Lesions, No rash Neuro : No Weakness, No Numbness, No Dizziness, No Headache Psych : No Anxiety/Panic, No Depression Heme/Lymph: No Bruising, No Lymphadenopathy Endocrine : No Polyuria, No Polydipsia All other systems reviewed and are negative [facility] Past Medical History Attestation statement: The following information was validated with the patient. Medical History Atrial fibrillation COPD (chronic obstructive pulmonary disease) HLD (hyperlipidemia) Hospital discharge follow-up Malignant pleural effusion Pleural effusion, right [id number] condition Squamous cell carcinoma of lung, stage IV TIA (transient ischemic attack) Surgical History H/O breast biopsy No pertinent past surgical history Family History Family History Father Hypertension Mother No problems noted. Sister Hypertension Diverticulosis Brother Hypertension Social History Social History Household Members: Spouse Housing: Other Alcohol intake: never Smoking Status: Former smoker Years Smoked: 30 yrs Advance Directives: Yes Advance Directives on File: Yes Advance Directives Date on File: 12/31/19 service: No Current occupational status: retired Physical Exam Vital Signs: Vital Signs: Last Vital Signs Temp 98.5 F 07/28/20 11:42 Pulse 94 07/28/20 11:42 Resp 18 07/28/20 11:42 BP 107/45 L 07/28/20 11:42 Pulse Ox 98 07/28/20 11:42 Oxygen Flow Rate 4 07/28/20 11:42 Body Mass Index 36.3 Appearance: Alert. Oriented X3. No acute distress. Eyes: Pupils equal, round and reactive to light. ENT: Pharynx normal. Neck: Normal inspection. Neck supple. CVS: Normal heart rate and rhythm. Pulses normal. Respiratory: No respiratory distress. Breath sounds R sided decreased Abdomen: Soft and nontender. Skin: Skin warm and dry. pale skin color. Normal skin turgor. Extremities: diffusely puffy but not pitting No calf ttp Neuro: Oriented X 3. No motor deficit. No sensory deficit. Course Course Course Narrative: Patient placed in physician observation at 230pm. 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 At this time the patient is at her baseline in no distress, lungs at baseline, no resp distress doing well on her supplemental O2 Medical Decision Making [facility] Narrative Medical decision making narrative: 64 yo female with stage IV squamous cell lung cancer known worsening R lung disease with PleurX drain - just seen by IR and thoracic as well as Oncology - no further care at this time, no further chemo, attempt to drain fluid now weekly, no surgical interventions - was found to be short of breath at facility just left hospital yesterday on levofloxacin for post obstructive pneumonia - believed that the O2 tubing was too long placed on shorter tubing with EMS/ED sats 100% on her normal 2 to 3L NC - no further workup at this time needed but CM to have input on placement Discharge Plan Discharge Clinical Impression: Hypoxia Prescriptions: No Action diltiazem HCl 240 mg capsule,extended release 24hr 240 mg PO DAILY 30 Days Qty: 30 RF: 0 simvastatin 40 mg tablet 40 mg PO BEDTIME Qty: 90 RF: 1 One-A-Day Womens Formula 18 mg iron-400 mcg-500 mg Tablet 1 tab PO DAILY RF: 0 Anoro Ellipta 62.5-25 mcg/actuation Blister With Device 1 inh INHALATION DAILY RF: 0 dexamethasone 1 mg Tablet 1 mg PO DIRECTED Qty: 60 RF: 2 escitalopram oxalate 5 mg Tablet 5 mg PO DAILY Qty: 60 RF: 3 loratadine 10 mg Tablet 10 mg PO DAILY RF: 0 digoxin 250 mcg (0.25 mg) Tablet 250 mcg PO DAILY@1700 RF: 0 Xarelto 20 mg tablet 20 mg PO DAILY@0800 RF: 0 omeprazole 20 mg capsule,delayed release(DR/EC) 20 mg PO DAILY@0600 RF: 0 albuterol sulfate 90 mcg/actuation HFA aerosol inhaler 2 puff inhalation Q6H PRN (Reason: shortness of breath or wheezing) 30 Days Qty: 8.5 RF: 3
[2020-07-28] MEDS: Acetaminophen 325 MG TABLET 650 MG PO (12:41)
[2020-07-28] MEDS: ondansetron HCL 4 MG/2 ML VIAL IVPUSH (12:41)
--- NOTE | 2020-07-28 12:45 | MHC.CM.ED ---
Received case management consult from Dr Zaragoza. Patient was discharged from [facility] on 07/27 to [facility]. Patient returned to ER today due to low o2 sat. Per Dr Zaragoza, oxygen tubing was kinked. Patient and , Ander do not want patient to return to [facility]. Met with patient and Ander. Ander doesn't feel his was given proper care. List of facilities provided from [facility]. [facility] is first choice. Referral made via [employer]. Continue to monitor for d/c needs.
--- NOTE | 2020-07-28 15:03 | MHC.CM.ED ---
[facility] doesn't have a bed available and doesn't doesn't anticipate a discharge anytime soon. Referral sent out to [facility], [facility], and [facility]. [facility] is the only facility that is able to offer a bed. Discussed with patient and , Ander. Patient and Ander would like to think about it. Anticipate patient will stay in ER overnight. Patient will be moved to hospital bed. Patient, Ander, Sudhir KUO and Dr Zaragoza aware. Continue to monitor for d/c needs. Ander is also concerned about [facility]'s visitation policy. Bother patient and Ander had Covid in March. Neither are vaccinated at this time. Per Dwayne at [facility], he will have to schedule an appointment with a facility. Continue to monitor for d/c needs.
[2020-07-28 20:24] VITALS: BP 112/62; PULSE 84; RESP 16; O2SAT 99
[2020-07-28 22:00] VITALS: BP 93/39; PULSE 74; RESP 14; O2SAT 100
[2020-07-29] VITALS: BP 97/43; PULSE 81; RESP 15; O2SAT 100
[2020-07-29 02:00] VITALS: RESP 15
[2020-07-29 04:00] VITALS: RESP 15
[2020-07-29 06:00] VITALS: BP 124/72; PULSE 84; RESP 15; O2SAT 98
--- NOTE | 2020-07-29 11:25 | PC.NURSE ---
report given to rochelle at [facility]
== END 2020-07-29 11:27 | disposition skilled nursing facility (03) ==
PROVIDERS: Emergency Provider Emergency Medicine; PCP Physician Assistant
DX: R09.02 Hypoxemia (principal); C34.90 Malignant neoplasm of unspecified part of unspecified bronchus or lung; J44.9 Chronic obstructive pulmonary disease, unspecified; Z87.891 Personal history of nicotine dependence; Z79.899 Other long term (current) drug therapy
CPT/HCPCS: 96374; 99284; J2405